=== PATIENT | female | born 1985 | race Caucasian/White ===

== ENCOUNTER → 2019-12-31 | Outpatient (CLI) | payer OTHER, SELFPAY ==
[2019-12-31 14:04] VITALS: BMI 24.2
[2020-01-03 11:30] LABS: HPV APTIMA, High Risk Negative (Negative)
--- OUTSIDE RECORDS SUMMARY | 2020-05-18 06:05 | XMS RPT_ITS | CCD ---
:1985 External Reference #:[id number] Author Organization [facility] Care Team Providers Name Role Phone Quinton Pacheco Unavailable Allergies Reported Allergen Reaction(s) Severity Date of Onset Location FENTANYL-BUPIVACAINE rash Critical, Critical 03-28-2017 - [facility] ([id number]) Medications Medication Name Sig Date Prescriber Location cyclobenzaprine FLEXERIL 5 MG TABS One 04-28-2010 - Hakan Scanlon MD [facility] tablet by mouth three 03-28-2017 (23093 ) times daily CYCLOBENZAPRINE HCL [id number] Hakan Scanlon MD naproxen NAPROXEN DR [address] [facility] 04-28-2010 - Hakan Scanlon MD [facility] One tablet by mouth 03-28-2017 (48249) twice daily. NAPROXEN [id number] Hakan Scanlon MD Problems Active Problems Category Problem Name Status Date Location Acute and chronic tonsillitis Amygdalolith Active 03-28-2017 [facility] (22155) Past or Other Problems Category Problem Name Status Date Location Other upper respiratory Pharyngitis Completed 03-28-2017 [facility] infections (39644) Sprains and strains Low back strain Completed 04-28-2010 [facility] N ow Clinic (36210) Results Result Name Value Range Unit Interpretation Flag Date Location microbiology: culture, r/o strep a on 2017-03-31 GE use only - for . Invalid Interpretation 03-31-2017 [facility] LinkLogic import Code 03-31-2017 (4 2483) when terms are not otherwise specified microbiology: (p) culture, r/o strep a on 2017-03-30 CUSTREPA . 03-30-2016 - 03-30-2 017 [facility] (11225) office visit: uc: pharyngitis, tonsillol ith on 2017-03-28 Documentation of T Invalid 03-28-2017 - [facility] Now current medications Interpretation Code 03-28-2017 Clinic (procedure) (72325) Documentation of Done Invalid 03-28-2017 - [facility] Now current medications Interpretation Code 03-28-2017 Clinic (procedure) (65375) Fall risk No Invalid 03-28-2017 - [facility] Now assessment Interpretation Code 7 Clinic (72987) Protein mass conc Done 03-28-2017 - [facility] Now 03-28-2017 Clinic (71870) Protein mass conc T 03-28-2017 - [facility] Now 03-28-2017 Clinic (17624) Rapid strep test negative Invalid 03-28-2017 - [facility] Now Interpretation Code 03-28-2017 Clinic (02934) S. pyogenes DNA negative 03-28-2017 - [facility] Now YANELI+probe Ql 03-28-2017 Clinic (Throat) (38273) Tobacco smoking Current every 03-28-2017 - [facility] Now status NHIS day smoker 03-28-2017 Clinic (73618) Tobacco use CPHS Current every Invalid 7 - [facility] Now day smoker Interpretation Code 7 Clinic (39673) Vital Signs Vital Sign Description Value / Unit Date Location The following section is limited to 5 en tries per type and includes entries from the following time range: [id number] - [id number] 8. BMI (Body Mass Index) 22.52 kg/m2 03-28-2017 - 03-28-2017 [facility] Now [facility] (00904) Body Temperature 98.8 [degF] 03-28-2017 - 03-28-2017 [facility] Now Clinic (30826) BP Diastolic 78 mm[Hg] 03-28-2017 - 03-28-2017 [facility] Now Clinic (16164) BP Systolic 112 mm[Hg] 03-28-2017 - 03-28-2017 [facility] Now Clinic (97202) Height 162.56 cm 03-28-2017 - 03-28-2017 [facility] Now Clinic (41729) Pulse (Heart Rate) 96 /min 03-28-2017 - 03-28-2017 [facility] N ow Clinic (47544) Respiratory Rate 14 /min 03-28-2017 - 03-28-2017 [facility] Now Clinic (21515) Weight 59.51 kg 03-28-2017 - 03-28-2017 [facility] Now Clinic (14300) Procedures Procedure Name Date Provider Location Iaadiadoo streptococcus 03-28-2017 - Wade MCKEON [facility] No w Clinic (10442) group a 03-28-2017 Rapid strep test 03-28-2017 - Wade MCKEON [facility] Now Clini c (57373) 03-28-2017 Urinalysis nonauto w/o 03-28-2017 - Wade MCKEON [facility] Now Clinic (89727) scope 03-28-2017 Plan of Treatment Plan Description Date Location Appointment Appointment 04-15-2017 - [facility] Now Clinic 04-15-2017 (51104) Appointment Appointment 03-28-2017 - [facility] 03-28-2017 (32538) *Culture, R/O Strep A *Culture, R/O Strep A 03-28-2017 - [facility] Swab Swab 03-28-2017 (16897) Additional Source Comments FOR RECORDS PERTAINING TO PATIENTS WHO ARE OR HAVE BEEN ENROLLED IN A CHEMICAL DEPENDENCY/SUBSTANCE ABUSE PROGRAM, SOME INFORMATION MAY BE OMITTED. This clinical summary was aggregated from multiple sources. Caution should be exercised in using it in the provision of clinical care. This summary normalizes information from multiple sources, and as a consequence, information in this document may materially changethe coding, format and clinical context of patient data. In addition, data may be omittedin some cases. CLINICAL DECISIONS SHOULD BE BASED ON THE PRIMARY CLINICAL RECORDS. [facility] provides no warranty or guarantee of the accuracy or completeness of information in this document.
== END | disposition home or self-care (01) ==
PROVIDERS: PCP Family Medicine; Visit Provider Nurse Practitioner Women's Health
DX: Z12.4 Encounter for screening for malignant neoplasm of cervix (principal)
CPT/HCPCS: 87624; 88175; G0145

== ENCOUNTER → 2021-04-02 | Outpatient (CLI) | payer BC, SELFPAY | END | disposition home or self-care (01) | LOC: LABSPEC 12:39 | PROVIDERS: Visit Provider Physician Assistant | DX: R05 Cough (principal) | CPT/HCPCS: 87635; U0005; U0003 ==

== ENCOUNTER → 2021-05-12 12:29 | Outpatient (CLI) | payer BC, MEDICAID, SELFPAY ==
[2021-05-12 13:11] LABS: Absolute Lymphocyte Count 1.63 X10^3/uL (0.83-4.51); Absolute Neutrophil Count 2.2 X10^3/uL (2.0-7.7); Basophil# 0.05 X10^3/uL; Basophil% 1.2 % (0-1); Eosinophil# 0.08 X10^3/uL; Eosinophils% 1.9 % (0-5); Hematocrit 37.6 % (37-47); Hemoglobin 12.8 g/dL (12.0-15.0); Lymphocyte # 1.63 X10^3/ul (0.83-4.51); Lymphocyte % 38.2 % (19-41); Mean Corpuscular Hgb 28.4 pg (27.0-32.0); Mean Corpuscular Volume 83.4 fL (81-99); Mean Platelet Vol. 10.4 fl (6.2-12.0); Monocyte# 0.33 X10^3/uL; Monocyte% 7.7 % (0-10); NRBC Flagged by Analyzer 0 % (0-5); Neutrophil # 2.17 X10^3/uL (2.7-7.7); Neutrophil % 50.8 % (47-70); Platelet Count 258 K/mm3 (150-450); RBC Distribution Width CV 12.7 % (11.6-14.6); RBC Distribution Width SD 38.5 fl (35.1-43.9); Red Blood Count 4.51 M/mm3 (4.2-5.4); White Blood Count 4.3 K/mm3 (4.4-11.0)
[2021-05-12 13:58] LABS: Vitamin D,25 Hydroxy 24.2 ng/mL
[2021-05-12 14:06] LABS: ALB/GLOB Ratio 1.3 RATIO (0.9-2.4); AST(SGOT) 10 U/L (15-37); Alanine Aminotransfer ALT/SGPT 15 U/L (13-56); Albumin, Serum 4.2 g/dL (3.2-5.0); Alkaline Phosphatase 40 U/L (45-117); Anion Gap 9 (5-15); BUN 6 mg/dL (7-18); BUN/Creat Ratio 8.1 RATIO (10-20); Chloride 105 mmol/L (98-107); Creatinine, Serum 0.74 mg/dL (0.55-1.02); EST Glomerular Filtration Rate 95 mL/min (>60); Est Glom Filt Rate - Afr Amer 115 mL/min (>60); Globulin 3.3 g/dL (2.2-4.2); Glucose 94 mg/dL (74-106); Potassium 3.5 mmol/L (3.5-5.1); Protein, Total 7.5 g/dL (6.4-8.2); Sodium Level 140 mmol/L (136-145); Thyroid Stim Hormone (TSH) 3.45 uIU/mL (0.358-3.74)
== END ==
PROVIDERS: PCP Family Medicine; Referring Provider Physician Assistant; Visit Provider Physician Assistant
DX: Z01.419 Encounter for gynecological examination (general) (routine) without abnormal findings (principal); Z13.29 Encounter for screening for other suspected endocrine disorder; F32.A Depression, unspecified; F41.9 Anxiety disorder, unspecified; R63.4 Abnormal weight loss; Z87.42 Personal history of other diseases of the female genital tract
CPT/HCPCS: 36415; 80053; 82306; 84443; 85025

== ENCOUNTER → 2022-05-13 | Outpatient (CLI) | payer BC, SELFPAY ==
[2022-05-23 15:44] LABS: HPV APTIMA, High Risk Negative (Negative)
== END | disposition home or self-care (01) ==
LOC: LABSPEC 16:36
PROVIDERS: PCP Family Medicine; Visit Provider Obstetrics & Gynecology
DX: Z12.4 Encounter for screening for malignant neoplasm of cervix (principal)
CPT/HCPCS: 87624; 88175; G0145

== ENCOUNTER → 2022-05-31 | Outpatient (CLI) | payer BC, MEDICAID, SELFPAY ==
--- NOTE | 2022-05-31 13:18 | US_ITS ---
STUDY: ULTRASOUND OF THE FEMALE PELVIS - COMPLETE REASON FOR EXAM: Female, 37 years old. abnormal uterine bleeding -- h/o uterine polyps LMP: TECHNIQUE: Transabdominal and transvaginal TECHNICAL QUALITY: Adequate. COMPARISON: None. FINDINGS: The uterus is anteverted and is in a midline position. The uterus measures 9.9 x 5 . 4 x 4 0.1 cm. Normal uterine cervix. The endometrium measures 6.7 mm in thickness, and is hyperechoic. There is no demonstrated endometrial mass. There is a heterogeneous appearance of the myometrium but no well-defined intrauterine fibroid. I.U.D. - The patient does not have an I.U.D. The right ovary is visualized. The right ovary measures 2.1 x 2.6 x 1.8 cm. There is no right ovarian cyst or ovarian mass. There is no visualized right adnexal mass or complex lesion. There is normal arterial and normal venous vascularity. The left ovary is visualized. The left ovary measures 2.3 x 2 x 1.9 cm. There is no left ovarian cyst or ovarian mass. There is no visualized left adnexal mass or complex lesion. There is normal arterial and normal venous vascularity. There is no fluid in the cul-de-sac. US/Transvaginal Non- IMPRESSION: Heterogeneous appearance to the uterus but no well-defined intrauterine fibroids. Electronically Signed: Stephen Cabral MD at 22:28 EDT ,
--- NOTE | 2022-05-31 13:18 | US_ITS ---
STUDY: ULTRASOUND OF THE FEMALE PELVIS - COMPLETE REASON FOR EXAM: Female, 37 years old. abnormal uterine bleeding -- h/o uterine polyps LMP: TECHNIQUE: Transabdominal and transvaginal TECHNICAL QUALITY: Adequate. COMPARISON: None. FINDINGS: The uterus is anteverted and is in a midline position. The uterus measures 9.9 x 5 . 4 x 4 0.1 cm. Normal uterine cervix. The endometrium measures 6.7 mm in thickness, and is hyperechoic. There is no demonstrated endometrial mass. There is a heterogeneous appearance of the myometrium but no well-defined intrauterine fibroid. I.U.D. - The patient does not have an I.U.D. The right ovary is visualized. The right ovary measures 2.1 x 2.6 x 1.8 cm. There is no right ovarian cyst or ovarian mass. There is no visualized right adnexal mass or complex lesion. There is normal arterial and normal venous vascularity. The left ovary is visualized. The left ovary measures 2.3 x 2 x 1.9 cm. There is no left ovarian cyst or ovarian mass. There is no visualized left adnexal mass or complex lesion. There is normal arterial and normal venous vascularity. There is no fluid in the cul-de-sac. US/Pelvic (Non ) IMPRESSION: Heterogeneous appearance to the uterus but no well-defined intrauterine fibroids. Electronically Signed: Stephen Cabral MD at 22:28 EDT ,
--- NOTE | 2022-05-31 13:18 | BI_ITS ---
MAMMOGRAPHY - BILATERAL SCREENING REASON FOR EXAM: Female, 37 years old. Routine annual screening examination. PERTINENT HISTORY: Aunts with breast cancer. TECHNIQUE: Digital bilateral breast tremaine (3D mammographic acquisition) in the CC and MLO projections. 2-D mediolateral oblique (MLO) and craniocaudad (CC) views of both breasts were obtained. CAD: Full Field Digital Mammography with Computer Added Detection was performed. COMPARISON: None. Baseline examination. FINDINGS: Breast Composition: There are scattered areas of fibroglandular density. There are no dominant masses or suspicious calcifications. No other significant abnormalities are identified. There has been no significant change since the prior study. BI/SCRN MAMM (CAD)W/TREMAINE BILAT IMPRESSION: Stable bilateral screening mammogram. Yearly follow-up mammogram recommended. (A) ASSESSMENT CATEGORY: BIRADS Category 1: Negative. A letter regarding these results will be sent to the patient by the facility within 30 days. Approximately 10% of breast cancers are not detected by mammography. A normal mammogram should not delay biopsy of a clinically suspicious abnormality. [id number] Electronically Signed: Christian Henry MD at 14:27 EDT ,
== END | disposition home or self-care (01) ==
LOC: OPUS 13:15
PROVIDERS: PCP Family Medicine; Visit Provider Obstetrics & Gynecology
DX: N93.9 Abnormal uterine and vaginal bleeding, unspecified (principal); Z12.31 Encounter for screening mammogram for malignant neoplasm of breast; Z80.3 Family history of malignant neoplasm of breast
CPT/HCPCS: 76830; 76856; 77063; 77067

== ENCOUNTER → 2022-06-01 | Outpatient (CLI) | payer BC, MEDICAID, SELFPAY ==
[2022-06-01 11:34] LABS: Estradiol 44.3 pg/mL; Follicle Stimulating Hormone 7.4 mIU/mL; Luteinizing Hormone 3.5 mIU/mL; T4 Free Direct 0.93 ng/dL (0.76-1.46); Thyroid Stim Hormone (TSH) 2.32 uIU/mL (0.358-3.74)
== END | disposition home or self-care (01) ==
PROVIDERS: PCP Family Medicine; Referring Provider Obstetrics & Gynecology; Visit Provider Obstetrics & Gynecology
DX: N93.9 Abnormal uterine and vaginal bleeding, unspecified (principal); R68.82 Decreased libido
CPT/HCPCS: 36415; 82670; 83001; 83002; 84439; 84443

== ENCOUNTER → 2022-08-27 | Outpatient (CLI) | payer BC, MEDICAID, SELFPAY | END | disposition home or self-care (01) | PROVIDERS: PCP Family Medicine; Visit Provider Family Medicine | DX: R39.9 Unspecified symptoms and signs involving the genitourinary system (principal) | CPT/HCPCS: 87086; 87088 ==

== ENCOUNTER → 2023-03-02 | Outpatient (CLI) | payer BC, SELFPAY ==
[2023-03-06 08:08] LABS: Chlamydia By Nucleic Acid AMP Negative (Negative); Gonococcus By Nucleic Acid AMP Negative (Negative)
== END | disposition home or self-care (01) ==
PROVIDERS: PCP Family Medicine; Visit Provider Nurse Practitioner Women's Health
DX: Z11.3 Encounter for screening for infections with a predominantly sexual mode of transmission (principal)
CPT/HCPCS: 87491; 87591

== ENCOUNTER → 2023-06-07 | Outpatient (CLI) | payer BC, MEDICAID, SELFPAY ==
--- NOTE | 2023-06-07 13:06 | BI_ITS ---
MAMMOGRAPHY - BILATERAL SCREENING REASON FOR EXAM: Female, 38 years old. Routine annual screening examination. PERTINENT HISTORY: Aunts with breast cancer. TECHNIQUE: Digital bilateral breast tremaine (3D mammographic acquisition) in the CC and MLO projections. 2-D mediolateral oblique (MLO) and craniocaudad (CC) views of both breasts were obtained. CAD: Full Field Digital Mammography with Computer Added Detection was performed. COMPARISON: Comparison is made with prior study of May 31, 2022. FINDINGS: Breast Composition: There are scattered areas of fibroglandular density. There are no dominant masses or suspicious calcifications. No other significant abnormalities are identified. There has been no significant change since the prior study. BI/SCRN MAMM (CAD)W/TREMAINE BILAT IMPRESSION: Stable bilateral screening mammogram. Yearly follow-up mammogram recommended. (A) ASSESSMENT CATEGORY: BIRADS Category 1: Negative. A letter regarding these results will be sent to the patient by the facility within 30 days. Approximately 10% of breast cancers are not detected by mammography. A normal mammogram should not delay biopsy of a clinically suspicious abnormality. [id number] Electronically Signed: Christian Henry MD at 13:49 EST ,
== END | disposition home or self-care (01) ==
LOC: OPBI 13:04
PROVIDERS: PCP Family Medicine; Referring Provider Obstetrics & Gynecology; Visit Provider Obstetrics & Gynecology
DX: Z12.31 Encounter for screening mammogram for malignant neoplasm of breast (principal)
CPT/HCPCS: 77063; 77067

== ENCOUNTER → 2023-07-18 | Outpatient (CLI) | payer BC, MEDICAID, SELFPAY ==
--- NOTE | 2023-07-18 13:15 | LIP_PTH ---
PATIENT: LILY BALDWIN LOC: [facility] U#:[id number] AGE/SX: 38/F ROOM: RE07/18/[address]: Dr. Darcy Klein MD : 1985 BED: DIS: 07/18/2023 SPEC #: [id number] RECD: 07/18/23 16:19 STATUS: KOMAL REQ #: [id number] AKSHAT: 07/18/23 13:[address]: Darcy Klein DEPT: SURGICAL PATHOLOGY RECD BY: Vannesa Fraga ENTERED: 07/19/23 08:57 SP TYPE: LIPOMA OTHR DR: Dr. Damion Wright MD Tissues: Soft tissues, NOS Procedures: Surgery Specimen Level III HEADER OPERATION: Excision of lipoma right thigh PRE-OP DIAGNOSIS: Lipoma right thigh TISSUE SUBMITTED: Right thigh lipoma MICROSCOPIC DIAGNOSIS Right thigh lipoma, excision: Angiolipoma. SJ:vicenta 07/20/2023 MICROSCOPIC DESCRIPTION Slides are reviewed. GROSS DESCRIPTION Received in fixative is one container labeled with the patient's name and designated right thigh lipoma. The specimen consists of an ovoid piece of adipose tissue measuring 1.2 x 1.2 x 0.7 cm. Sections reveal yellow adipose cut surfaces without area of hemorrhage, necrosis or cystic degeneration. The entire specimen is submitted in one cassette. / SJ:rg 07/19/2023 TC:1 CPT: 86755
== END | disposition home or self-care (01) ==
PROVIDERS: PCP Family Medicine; Visit Provider Surgery
DX: D17.23 Benign lipomatous neoplasm of skin and subcutaneous tissue of right leg (principal)
CPT/HCPCS: 88304

== ENCOUNTER → 2023-10-20 | Outpatient (CLI) | payer BC, MEDICAID, SELFPAY ==
--- NOTE | 2023-10-20 15:45 | RAD_ITS ---
INDICATION: KNEE SWELLING EXAMINATION/TECHNIQUE: X-RAY - RIGHT XR Knee Complete 4 Views or More COMPARISON: None. FINDINGS: SOFT TISSUES: No significant soft tissue swelling. Suprapatellar joint effusion noted. No radiopaque foreign body detected. BONES/JOINTS: No acute fracture or subluxation. Normal alignment. Preservation of the joint space(s). No suspicious osseous lesion observed. RAD/Knee 4 or More Views IMPRESSION: Right suprapatellar joint effusion Electronically Signed: Oscar Rivas MD at 22:56 EDT ,
[2023-10-20 17:42] LABS: Absolute Lymphocyte Count 1.94 X10^3/uL (0.83-4.51); Absolute Neutrophil Count 4.2 X10^3/uL (2.0-7.7); Basophil# 0.06 X10^3/uL; Basophil% 0.8 % (0-1); Eosinophil# 0.32 X10^3/uL; Eosinophils% 4.5 % (0-5); Hematocrit 37.7 % (37-47); Hemoglobin 11.9 g/dL (12.0-15.0); Lymphocyte # 1.94 X10^3/ul (0.83-4.51); Lymphocyte % 27.5 % (19-41); Mean Corp Hgb Conc 31.6 g/dL (32-36); Mean Corpuscular Hgb 26.6 pg (27.0-32.0); Mean Corpuscular Volume 84.2 fL (81-99); Mean Platelet Vol. 9.6 fl (6.2-12.0); Monocyte# 0.53 X10^3/uL; Monocyte% 7.5 % (0-10); NRBC Flagged by Analyzer 0 % (0-5); Neutrophil % 59.6 % (47-70); Platelet Count 366 K/mm3 (150-450); RBC Distribution Width CV 12.9 % (11.6-14.6); RBC Distribution Width SD 39.1 fl (35.1-43.9); Red Blood Count 4.48 M/mm3 (4.2-5.4); White Blood Count 7.1 K/mm3 (4.4-11.0)
[2023-10-20 17:49] LABS: Uric Acid 3.1 mg/dL (2.6-6.0)
== END | disposition home or self-care (01) ==
LOC: MTLAB 15:41
PROVIDERS: PCP Family Medicine; Referring Provider Family Medicine; Visit Provider Family Medicine
DX: M25.461 Effusion, right knee (principal)
CPT/HCPCS: 36415; 73564; 84550; 85025

== ENCOUNTER → 2024-03-21 | Outpatient (CLI) | payer OTHER, SELFPAY ==
[2024-03-21 15:20] LABS: Erythrocyte Sedimentation Rate 5 mm/hr (0-30)
[2024-03-21 15:23] LABS: Absolute Lymphocyte Count 1.97 X10^3/uL (0.83-4.51); Basophil# 0.05 X10^3/uL; Basophil% 0.9 % (0-1); Eosinophil# 0.24 X10^3/uL; Eosinophils% 4.2 % (0-5); Hemoglobin 12.5 g/dL (12.0-15.0); Lymphocyte # 1.97 X10^3/ul (0.83-4.51); Lymphocyte % 34.5 % (19-41); Mean Corp Hgb Conc 32.9 g/dL (32-36); Mean Corpuscular Hgb 26.8 pg (27.0-32.0); Mean Corpuscular Volume 81.4 fL (81-99); Mean Platelet Vol. 10.7 fl (6.2-12.0); Monocyte# 0.42 X10^3/uL; Monocyte% 7.4 % (0-10); NRBC Flagged by Analyzer 0 % (0-5); Neutrophil # 3.02 X10^3/uL (2.7-7.7); Neutrophil % 52.8 % (47-70); Platelet Count 339 K/mm3 (150-450); RBC Distribution Width CV 13.4 % (11.6-14.6); RBC Distribution Width SD 39.2 fl (35.1-43.9); Red Blood Count 4.67 M/mm3 (4.2-5.4); White Blood Count 5.7 K/mm3 (4.4-11.0)
[2024-03-21 15:59] LABS: CRP < 2.90 mg/L (0.0-3.0); Rheumatoid Factor < 10.0 IU/mL (<15); Uric Acid 4.1 mg/dL (2.6-6.0)
[2024-03-23 11:09] LABS: ANTINUCLEAR ANTIBODIES DIRECT Negative (Negative)
[2024-03-23 14:09] LABS: CCP IgG Antibodies 3 units (0-19); Lyme Scn Total Ab w/Rflx Negative (Negative)
== END | disposition home or self-care (01) ==
PROVIDERS: PCP Family Medicine; Referring Provider Physician Assistant Surgical; Visit Provider Physician Assistant Surgical
DX: M25.461 Effusion, right knee (principal); M17.11 Unilateral primary osteoarthritis, right knee
CPT/HCPCS: 36415; 84550; 85025; 85652; 86038; 86140; 86200; 86431; 86618

== ENCOUNTER 2024-09-16 13:47 | Emergency (ER) | payer MEDICAID, SELFPAY ==
[2024-09-16 13:47] VITALS: BP 149/72; PULSE 79; RESP 16; TEMP 36.8; O2SAT 99; BMI 23.8
--- NOTE | 2024-09-16 13:56 | ED.RN ---
Pt injury happened at work but pt declines filing worker's comp.
--- NOTE | 2024-09-16 14:05 | RAD_ITS ---
PROCEDURE: ANKLE MIN 3 VIEWS REASON FOR EXAM: 39-year-old female, dropped object onto left ankle, left ankle pain. TECHNIQUE: 3 views of the left ankle COMPARISON: None FINDINGS: No visible fracture. No suspicious bone lesion. Normal alignment. Mortise appears intact. No effusion. Soft tissues are unremarkable. No radiopaque foreign body. RAD/Ankle min 3 Views IMPRESSION: NEGATIVE ANKLE SERIES Reading Location: [id number]
--- NOTE | 2024-09-16 14:07 | EDS_ITS ---
HPI History of Present Illness Chief Complaint: Lower Extremity Injury Informant: patient Narrative Narrative: 39-year-old female presenting to the emergency room with left lateral ankle pain. 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 She notes she is able to bear weight but not her full weight. She is worried that it may be broken. [facility] PFS Medical History ADHD Mass of left forearm Contusion of left upper arm Anxiety and depression Anemia Endometriosis determined by laparoscopy Home Medications ?Medication ?Instructions ?Recorded ?Last Taken ?Type norethindrone (contraceptive) 0.35 0.35 mg PO QDAY #90 tabs 05/21/24 Unknown Rx mg tablet Allergy/AdvReac Type Severity Reaction Status Date / Time fentanyl AdvReac Hives Verified 09/16/24 13:48 Family History Aunt Breast cancer x2 Surgical History [place] teeth extracted H/O dilation and curettage Hematoma delivery delivered H/O tubal ligation Social History adopted: No number of children: 3 current occupational status: unemployed Smoking Status: Former smoker alcohol intake: never substance use type: does not use caffeine: Yes what type of physical activity do you participate in: walking frequency: 1-2 times per week seatbelt use: always do you feel safe at home: Yes additional social history: ROS ROS ED Constitutional Constitutional ED: Denies chills, fever(s) or weight loss Eyes Eyes: Denies change in vision or diplopia ENT ENT ED: Denies ear pain, rhinorrhea or sore throat Cardiovascular Cardiovascular: Denies chest pain, orthopnea, palpitations or racing heartbeat Respiratory/Chest Respiratory/Chest: Denies cough, dyspnea or orthopnea Gastrointestinal Gastrointestinal: Denies abdominal pain, diarrhea, nausea or vomiting Genitourinary Genitourinary ED: Denies dysuria, hematuria or urinary frequency Musculoskeletal Musculoskeletal: Reports other Details: See history of present illness ; Denies arthralgias or myalgias Integumentary Denies abscess or rash Neurologic Neurologic: Denies headache(s) or weakness Psychiatric Psychiatric: Denies anxiety, depression, suicidal ideation or suicidal thoughts Endocrine Endocrinology: Denies polydipsia, polyphagia or polyuria Allergic/Immunologic Allergic/Immunologic ED: Denies mouth swelling, tongue swelling or urticaria EXAM Physical Exam Const Vital Signs: 09/16/24 13:47 09/16/24 14:30 Temperature 98.2 F 98.1 F Temperature Source Oral Pulse Rate 79 74 Respiratory Rate 16 15 Blood Pressure 149/72 H 109/67 Blood Pressure Mean 97 81 Pulse Ox 99 99 Positive well nourished and well developed General Appearance ED: well developed and NAD HEENT Reports normocephalic, head/scalp atraumatic and moist mucous membranes Eyes PERRL and EOMs intact bilaterally Neck no lymphadenopathy, supple and no JVD Resp normal respiratory effort and clear to auscultation bilaterally Cardio regular rate, regular rhythm and no murmurs GI normal to inspection, nondistended, normoactive bowel sounds and non-tender Palpation: soft Back/Spine no CVA tenderness and normal ROM Extremity Extremity Narrative: There is some swelling and ecchymosis over the left lateral malleolus with tenderness to palpation. No palpable deformity. Neurovascular intact. General Extremety ED: Negative for edema General Extremity: Negative for edema Neuro oriented x3 and CN's II-XII intact bilaterally Sensorium / Orientation: alert Motor Exam: strength 5/5 throughout Psych mental status grossly normal Mood & Affect: Negative for depressed or tearful Skin no rashes or lesions noted and no wounds MDM MDM MDM Narrative Medical decision making narrative: Differential diagnosis includes but not limited to fracture bone contusion soft tissue contusion neurovascular injury tendon injury My independent interpretation of the plain films of the left ankle is no acute fracture. Radiology concurs. Patient be discharged home with supportive care return if worsening or concerns History & Record Review Discussion w/independent historian: Patient Radiography Diagnostic Testing: Clinical Impression(s) from Imaging Studies Ankle X-Ray 09/16/24 14:05 IMPRESSION: NEGATIVE ANKLE SERIES Reading Location: [facility] Discharge Plan Triage Chief Complaint: Lower Extremity Injury ED Provider: Joe Kasper Dx/Rx/DC Orders Clinical Impression: Contusion of bone Instructions: Bruises (Contusions) Prescriptions: No Action norethindrone (contraceptive) 0.35 mg tablet 0.35 mg PO QDAY Qty: 90 4RF Primary Care Provider: Damion Wright Referrals: Damion Wright MD [Primary Care Provider] - As Needed Print Language: Slovenian Disposition Disposition: Home, Self Care Discharge Date/Time: 09/16/24 14:30
[2024-09-16 14:30] VITALS: BP 109/67; PULSE 74; RESP 15; TEMP 36.7; O2SAT 99
== END 2024-09-16 14:30 | disposition home or self-care (01) ==
LOC: ED 14:28
PROVIDERS: Emergency Provider Emergency Medicine; PCP Family Medicine; Visit Provider Emergency Medicine
DX: T14.8XXA Other injury of unspecified body region, initial encounter (principal); M25.572 Pain in left ankle and joints of left foot; Z87.891 Personal history of nicotine dependence; X58.XXXA Exposure to other specified factors, initial encounter
CPT/HCPCS: 73610; 99282

== ENCOUNTER → 2024-09-28 | Outpatient (CLI) | payer MEDICAID, SELFPAY ==
--- NOTE | 2024-09-28 10:14 | BI_ITS ---
PROCEDURE: SCRN MAMM (CAD)W/TREMAINE BILAT REASON FOR EXAM: F, Age 39 y/o, presents for annual screening mammogram. Family history of breast cancer in 3 paternal aunts and a paternal great aunt. TECHNIQUE: Bilateral screening digital breast tomosynthesis with 2D and 3D images. Computer aided detection. COMPARISON: 06/07/2023, 05/31/2022 FINDINGS: There are scattered areas of fibroglandular density. No suspicious masses, areas of developing architectural distortion, or suspicious calcifications. BI/SCRN MAMM (CAD)W/TREMAINE BILAT IMPRESSION: There is no mammographic evidence of malignancy. BI-RADS 1: NEGATIVE. RECOMMEND ANNUAL MAMMOGRAPHIC SCREENING. Follow-up code: Routine Follow-up The patient will be notified of the results by letter. Reading Location: [facility]
== END | disposition home or self-care (01) ==
PROVIDERS: PCP Family Medicine; Referring Provider Obstetrics & Gynecology; Visit Provider Obstetrics & Gynecology
DX: Z12.31 Encounter for screening mammogram for malignant neoplasm of breast (principal)
CPT/HCPCS: 77063; 77067

== ENCOUNTER → 2024-10-02 | Outpatient (CLI) | payer MEDICAID, SELFPAY ==
--- NOTE | 2024-10-02 08:58 | US_ITS ---
PROCEDURE: PELVIC W/ TRANSVAGINAL REASON FOR EXAM: Abnormal uterine bleeding. TECHNIQUE: Transabdominal and transvaginal pelvic ultrasound COMPARISON: None. FINDINGS: LMP: September 25, 2024 Measurements: Uterus: 9.9 cm x 5.1 cm x 4 cm with a volume of 114.4 mL Endometrial Thickness: 8.9 mm Right Ovary: 2.7 cm x 2.2 cm x 1.6 with a volume of 4.94 mL. Left Ovary: 2.9 cm x 2 cm x 1.9 cm with a volume of 5.95 mL. TRANSABDOMINAL: Uterus: Normal size, myometrial echotexture, and contour. Findings suggestive of a 5 mm x 5 mm x 3 mm polyp at the cervical os. Endometrium: Unremarkable. Right ovary: Normal size and echotexture. Left ovary: Normal size and echotexture. No large pelvic mass identified. Transvaginal sonography was performed to better visualize the endometrium. TRANSVAGINAL: Uterus: Anteverted. Normal contour and myometrial echotexture. Endometrium: Normal echotexture. Right ovary: Normal size and echotexture. Left ovary: Normal size and echotexture. Other adnexal findings: None. Cul-de-sac: No free intraperitoneal fluid identified. No tenderness. US/Pelvic w/ Transvaginal IMPRESSION: Findings suggestive of a 5 mm x 5 mm x 3 mm polyp at the cervical os. Reading Location: [id number]
== END | disposition home or self-care (01) ==
PROVIDERS: PCP Family Medicine; Referring Provider Obstetrics & Gynecology; Visit Provider Obstetrics & Gynecology
DX: N93.9 Abnormal uterine and vaginal bleeding, unspecified (principal)
CPT/HCPCS: 76830; 76856

== ENCOUNTER → 2024-10-03 | Outpatient (CLI) | payer MEDICAID, SELFPAY | END | disposition home or self-care (01) | LOC: LABSPEC 10:44 | PROVIDERS: PCP Family Medicine; Referring Provider Nurse Practitioner Women's Health; Visit Provider Nurse Practitioner Women's Health | DX: N89.8 Other specified noninflammatory disorders of vagina (principal) | CPT/HCPCS: 87070; 87205 ==

== ENCOUNTER → 2024-10-18 | Outpatient (CLI) | payer MEDICAID, SELFPAY ==
--- NOTE | 2024-10-18 12:00 | EMB_PTH ---
PATIENT: LILY BALDWIN LOC: [facility] U#:[id number] AGE/SX: 39/F ROOM: RE10/18/[address]: Dr. Laureen Hernandez DO : 1985 BED: DIS: 10/18/2024 SPEC #: [id number] RECD: 10/19/24 10:05 STATUS: KOMAL PRO #: [id number] AKSHAT: 10/18/24 12:[address]: Laureen Hernandez DEPT: SURGICAL PATHOLOGY RECD BY: Rell Reyes ENTERED: 10/19/24 10:05 SP TYPE: ENDOM BX/C ANN DR: Dr. Damion Wright MD Tissues: A - Endometrium, NOS Procedures: Surgery Specimen Level IV HEADER OPERATION: Endometrial biopsy PRE-OP DIAGNOSIS: Abnormal uterine bleeding TISSUE SUBMITTED: A- Endometrial lining MICROSCOPIC DIAGNOSIS Endometrial biopsy: Menstrual and basal (inactive) endometriumFragment of squamous epitheliumCharisma Elizabeth MD, 10/24/2024 MICROSCOPIC DESCRIPTION Slides are reviewed. GROSS DESCRIPTION A. Received in fixative is one container labeled with the patient's name and designated Endometrial biopsy. The specimen consists of multiple fragments of brown tissue that measures 2.5 x 1.4 x 0.1cm. The specimen is totally submitted in one cassette. 10/19/2024 CPT:12213 , TC:4
== END | disposition home or self-care (01) ==
LOC: LABSPEC 16:19
PROVIDERS: PCP Family Medicine; Referring Provider Obstetrics & Gynecology; Visit Provider Obstetrics & Gynecology
DX: N89.8 Other specified noninflammatory disorders of vagina (principal)
CPT/HCPCS: 87070; 87205; 88305

== ENCOUNTER → 2024-11-16 | Outpatient (CLI) | payer MEDICAID, SELFPAY | END | disposition home or self-care (01) | LOC: LABSPEC 11:46 | PROVIDERS: PCP Family Medicine; Referring Provider Obstetrics & Gynecology; Visit Provider Obstetrics & Gynecology | DX: R30.0 Dysuria (principal) | CPT/HCPCS: 87077; 87086; 87088 ==

== ENCOUNTER 2024-11-20 11:57 | Day surgery (SDC) | payer MEDICAID, SELFPAY ==
[2024-11-05 12:44] LABS: Hematocrit 36.5 % (37-47); Hemoglobin 11.8 g/dL (12.0-15.0); Mean Corp Hgb Conc 32.3 g/dL (32-36); Mean Corpuscular Hgb 26.5 pg (27.0-32.0); Mean Corpuscular Volume 81.8 fL (81-99); Mean Platelet Vol. 9.1 fl (6.2-12.0); Platelet Count 327 K/mm3 (150-450); RBC Distribution Width CV 13.1 % (11.6-14.6); RBC Distribution Width SD 38.8 fl (35.1-43.9); Red Blood Count 4.46 M/mm3 (4.2-5.4); White Blood Count 5.4 K/mm3 (4.4-11.0)
[2024-11-05 13:28] LABS: Vitamin D,25 Hydroxy 23.9 ng/mL (30-100)
[2024-11-20] VITALS (7 sets, daily range): BP systolic 90–110; BP diastolic 49–80; PULSE 53–65; RESP 12–18; TEMP 36.3–36.7; O2SAT 99–100; BMI 23.9
--- NOTE | 2024-11-20 12:16 | HP.PCM_ITS ---
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: No Is patient in pain?: No Allergies fentanyl Adverse Reaction (Verified 11/05/24 11:58) Hives Medications ?Medication ?Instructions ?Recorded ?Confirmed ?Type norethindrone (contraceptive) 0.35 0.35 mg PO QDAY #90 tabs 05/21/24 Rx mg tablet fluconazole 150 mg tablet 150 mg PO ONCE #1 TAB 11/05/24 11/05/24 Rx Post menopausal: No Patient : No : No PFSH Medical History ADHD Mass of left forearm Contusion of left upper arm Anxiety and depression Anemia Endometriosis determined by laparoscopy Surgical History [place] teeth extracted H/O dilation and curettage Hematoma delivery delivered H/O tubal ligation Family History Aunt Breast cancer x2 Social History adopted: No number of children: 3 current occupational status: unemployed Smoking Status: Former smoker alcohol intake: never substance use type: does not use caffeine: Yes what type of physical activity do you participate in: walking frequency: 1-2 times per week seatbelt use: always do you feel safe at home: Yes additional social history: HPI D&C polypectomy Details: LILY BALDWIN is a 39 year old who presents for a pre-op hysteroscopy. She has persistent irregular periods as well as recurrent yeast infections. the progesterone did not stop the irregular bleeding patterns and we discussed that it is likely due to the ultrasound Findings suggestive of a 5 mm x 5 mm x 3 mm polyp at the cervical os on ultrasound. This polyp is not seen clinically on exam. She has undergone 3 sections and multiple diagnostic laparoscopic procedures and wants a hysterectomy. We discussed attempting to removed the polyp first in the office and if not successful, then in the OR before we jump to hysterectomy. She agrees. History 3 Elective abortions Hx Para 3 Spontaneous abortions Hx # Term Pregnancies 3 Ectopic pregnancies Hx # Pregnancies Multiple births # of living children 3 Past Pregnancies Del. Date Name GA/Weeks Outcome Route Bth Weight Infant Gen Labor Lgth Anesthesia Del Locatn Provider FOB Unknown Ian 2010 Unknown Nico 2010 Unknown Kenton 2014 ROS Const ROS Unobtainable: All systems reviewed & are unremarkable except as noted in H Resp Resp: Reports system reviewed and no additional complaints, except as documented; Denies cough GI GI: Reports as per HPI Psych Psych: Reports system reviewed and no additional complaints, except as documented Exam Const General: cooperative, healthy appearing, comfortable and no acute distress Resp Effort & Inspection: normal respiratory effort Skin General: no rashes or lesions noted Psych Appearance: grossly normal Speech and Movement: speech and movement normal Coding Level of Care Code Off vis,est,level 4 Diagnoses Polyp of cervix N84.1 Abnormal uterine bleeding N93.9 History of endometriosis Z87.42 Assessment and Plan Assessment and Plan (1) Polyp of cervix: Status: Acute (2) Abnormal uterine bleeding: Status: Acute (3) History of endometriosis: Status: Acute Orders: Orders CBC-Complete Blood Cnt No Diff Today N84.1 - Polyp of cervix uteri Type & Screen - PAT ONLY Today N84.1 - Polyp of cervix uteri Vitamin D,25 Hydroxy Today N84.1 - Polyp of cervix uteri Medications: New fluconazole 150 mg PO ONCE 1 TAB 3RF Plan After discussing the patient's diagnosis and treatment plan options, patient wishes to proceed with surgical management. I have discussed with the patient the risks, benefits, and alternatives of the procedure which include but are not limited to risks of anesthesia, bleeding, infection, possible damage to bowel, bladder, or surrounding vasculature which could lead to additional surgery to evaluate any complications. Patient agrees to procedure and wishes to proceed. ACOG/uptodate references given for additional information regarding procedure. Plan is for hysteroscopy dilation and curettage, polypectomy
--- NOTE | 2024-11-20 13:08 | PCM.PRE.AN2 ---
ASA Classification* ASA Classification ASA Classification: 2 Assessment & Plan Anesthesia* Anesthesia Assessment Anesthesia Assessment: Discussed sedation and/or anesthesia options, risks, benefits, and alternatives with patient/parents/legal guardian/POA. Questions invited. The patient/parents/legal guardian/POA seems to understand and agrees to proceed with anesthesia plan. Reviewed the physical assessment, medical history, allergy history and patient home medications list prior to surgery/procedure/anesthetic and documented any changes. Performed airway and anesthesia risk assessments. Anesthesia Type Anesthesia Type: MAC History Source History Obtained from:: Patient and Chart Anesthesia Focused Assessment* Temperature: 98.1 F Pulse Rate: 60 Blood Pressure: 110/80 Respiratory Rate: 16 Pulse Ox: 100 Oxygen Delivery Method: Room Air Airway Assessment Mouth opens: >3 cm Mallampati Score: I Teeth Condition: Chipped/Broken (Patient has a broken tooth #4. It is sealed. Rest of the teeth are tight.) Neck Range of motion (ROM): Full ROM Focused Labs Anesthesia Preop lab: CBC WBC 5.4 K/mm3 (4.4-11.0) 11/05/24 12:34 11/05/24 RBC 4.46 M/mm3 (4.2-5.4) 11/05/24 12:34 11/05/24 Hgb 11.8 g/dL (12.0-15.0) L 11/05/24 12:34 11/05/24 Hct 36.5 % (37-47) L 11/05/24 12:34 11/05/24 Plt Count 327 K/mm3 (150-450) 11/05/24 12:34 11/05/24 CHEMISTRY Potassium 3.5 mmol/L (3.5-5.1) 05/12/21 12:45 05/12/21 Sodium 140 mmol/L (136-145) 05/12/21 12:45 05/12/21 BUN 6 mg/dL (7-18) L 05/12/21 12:45 05/12/21 Creatinine 0.74 mg/dL (0.55-1.02) 05/12/21 12:45 05/12/21 Glucose 94 mg/dL (74-106) 05/12/21 12:45 05/12/21 TSH 2.32 uIU/mL (0.358-3.74) 06/01/22 09:35 06/01/22 COAG Urine Test Negative Negative 04/22/17 01:00 04/22/17 Pre-Assessment Diagnosis/Proposed Procedure Planned Operative Procedure(s): HYSTEROSCOPY D&C POLPECTOMY Anesthesia History Anesthesia History - custom designer: Anesthesia History - custom designer Hx Hospitalization No 11/15/24 11:47 Any Problems With Anesthesia No 11/15/24 11:47 Cholinesterase deficiency No 11/15/24 11:47 You/Your Family Experience No 11/15/24 11:47 fever (hyperthermia) with Relationship Recent Exposure to Contagious No 11/20/24 12:41 Disease Does patient have nerve No 11/15/24 11:47 stimulator Patient instructed to have device shut off --Does patient have Pacemaker No 11/20/24 12:41 or ICD? When Was Last Pacemaker Check QUESTION #4 FULL TEXT: You/Your Family Experience fever (hyperthermia) with Anesthesia Last Oral Intake Last Oral intake: Last Oral Intake NPO since 07:00 11/20/24 12:41 Meds taken in AM with sips of No 11/20/24 12:41 water? Meds patient instructed to take am of surgery Any additional information?: Yes NPO since: 07:00 (Patient water at 7 AM.) PONV PONV - custom designer: PONV - custom designer Female Yes 11/15/24 11:47 HX of Motion Sickness No 11/15/24 11:47 HX of N/V After Surgery No 11/15/24 11:47 Non-Smoker No 11/15/24 11:47 Duration of Surgery greater No 11/15/24 11:47 than 60 minutes Number of Risk Factors 1 11/15/24 11:47 PONV Score Low Risk 11/15/24 11:47 Height & Weight Height & Weight: Anesthesia: Height & Weight Height 5 ft 2 in 11/20/24 12:41 Weight: 59.3 kg 11/20/24 12:41 Body Mass Index (BMI) 23.9 11/20/24 12:41 Respiratory Assessment Respiratory Assessment - custom designer: Respiratory Tract Infection Hx - custom designer Hx Respiratory Tract Infection Yes: STREP/TREATED/RESOLVED 11/15/24 11:47 Any additional information?: Yes Hx Respiratory Tract Infection: Yes (Patient has strep 2 to 3 weeks ago. Currently completely resolved.) STOP Sleep Apnea STOP Sleep Apnea - custom designer: STOP Sleep Apnea - custom designer Hx Hypertension Yes: DURING PREGANANCY/201311/15/24 11:47 Hx Sleep Apnea No 11/15/24 11:47 CPAP BIPAP Do you snore loudly (louder No 11/15/24 11:47 than talking or can be heard Do you often feel tired/ Yes 11/15/24 11:47 fatigued/ sleepy during daytime? Has anyone observed you stop No 11/15/24 11:47 breathing during sleep? STOP Results Positive 11/15/24 11:47 QUESTION #5 FULL TEXT : Do you snore loudly (louder than talking or can be heard through closed doors)? Tobacco Use History Tobacco Use History - custom designer: Tobacco Use History - custom designer Tobacco Use Smoking Status Current every day smoker 11/15/24 11:47 Hx Tobacco Use Yes 11/15/24 11:47 Years Smoking Packs Smoked per Day Smoking Cessation Date was within the last 15 years Hx Smoking Cessation Date Hx Smoking Cessation No 11/15/24 11:47 Counseling Any additional information?: Yes Tobacco Use: Vapor (Patient vape today.) Hematologic Medial History Hematologic Hx - custom designer: Hematologic Medical Hx - blowing weasand Hx of Blood Transfusion Yes 11/15/24 11:47 Hx of Transfusion in last 3 No 11/15/24 11:47 Months Date of Last Transfusion (if within last 3 months) Ever experience any problems No 11/15/24 11:47 with transfusion(s)? Specify any problems Hx of Preganancy in last 3 No 11/15/24 11:47 Months Nurse Filling Out Transfusion DSCHRIBER 11/15/24 11:47 & Questions: Date: 11/15/24 11/15/24 11:47 Time: 11:49 11/15/24 11:47 Patient unable to answer at this time (ie. confused, unrespo /Reproduction History /Reproductive History - custom designer: /Reproductive Hx- custom designer Hx Now No 11/15/24 11:47 Gestational Age (in weeks): EDC: Hx Hx Para Hx Section SAB No 11/15/24 11:47 PFSH Medical History Wears glasses Easy bruising Migraine headache Gastric reflux Vapes nicotine containing substance ADHD Mass of left forearm Contusion of left upper arm Anemia Home Medications ?Medication ?Instructions ?Recorded ?Last Taken ?Type cholecalciferol (vitamin D3) 25 15,000 unit PO .weekly 11/20/24 Unknown History mcg (1,000 unit) capsule (Vitamin D3) Allergy/AdvReac Type Severity Reaction Status Date / Time fentanyl AdvReac Severe Pruritis Verified 11/20/24 13:22 Family History Aunt Breast cancer x2 Surgical History History of excision of lesion History of wisdom tooth extraction Hx of laparoscopy H/O dilation and curettage delivery delivered H/O tubal ligation Social History adopted: No number of children: 3 current occupational status: unemployed Smoking Status: Former smoker alcohol intake: never substance use type: does not use caffeine: Yes what type of physical activity do you participate in: walking frequency: 1-2 times per week seatbelt use: always do you feel safe at home: Yes additional social history: Review of Systems (Anesthesia) ROS Narrative System reviewed and no additional complaints, except as documented.
--- NOTE | 2024-11-20 13:40 | EMB_PTH ---
PATIENT: LILY BALDWIN LOC: [facility] – [place] U#:[id number] AGE/SX: 39/F ROOM: RE11/20/[address]: Dr. Laureen Hernandez DO : 1985 BED: DIS: 11/20/2024 SPEC #: [id number] RECD: 11/21/24 09:32 STATUS: KOMAL MAST #: [id number] AKSHAT: 11/20/24 13:[address]: Laureen Hernandez DEPT: SURGICAL PATHOLOGY RECD BY: Rell Reyes ENTERED: 11/21/24 09:33 SP TYPE: ENDOM BX/C ANN DR: Dr. Damion Wright MD Tissues: A - Endometrium, NOS Procedures: Surgery Specimen Level IV HEADER OPERATION: Hysteroscopy, dilation and curettage, polypectomy PRE-OP DIAGNOSIS: Polyp of cervix, abnormal uterine bleeding, history of endometriosis TISSUE SUBMITTED: A- Endometrial curettings MICROSCOPIC DIAGNOSIS A. Endometrium, curettage: * Late secretory phase with focal stromal condensation/shedding. MICROSCOPIC DESCRIPTION Slides are reviewed. GROSS DESCRIPTION A. Received in formalin in a container labeled with the patient's name, date of , and endometrial curettings are multiple austin-pink fragments of soft tissue admixed with blood and mucus measuring 2.0 x 1.3 x 0.4 cm in aggregate. Submitted in toto in A1. [facility] 11/21/2024 CPT:04447
--- NOTE | 2024-11-20 13:52 | PCM.DC ---
Discharge Instructions Diet Discharge Diet: No restrictions DC O2, CPAP, BIPAP needs Home O2 Discharge instructions: No Dressing / Incision Discharge Activity: Return to Normal Activity, May Shower and May Take a Tub Bath (after 1 week) May resume sexual activity in: 1-2 weeks Weight Bearing Status: Weight bearing as tolerated Lifting Restrictions: none Dressing / Incision Call your doctor if you observe: Fever of 101 or Higher, Using more than 1 pad per hour, Shortness of breath and Uncontrolled pain Follow Up Care Please Follow Up With: Laureen Hernandez DO When: Call [phone] to schedule appointment. Test Results: Test results from this visit will be discussed in further detail at your follow-up appointment, if applicable. Discharge Plan Admission Primary Reason for Your Visit: hysteroscopy dilation and curettage Attending Provider: Laureen Hernandez Primary Care Provider: Damion Wright Instructions Print Language: Tristanian Discharge Orders/Prescriptions Prescriptions: New ibuprofen 800 mg tablet 800 mg PO Q8H PRN (Reason: pain) Qty: 20 0RF No Action cholecalciferol (vitamin D3) [Vitamin D3] 25 mcg (1,000 unit) capsule 15,000 unit PO .weekly Referrals / Follow Up: Damion Wright MD [Primary Care Provider] - Disposition Disposition (needs filled in before D/C Order can be placed): Home, Self Care
[2024-11-20] MEDS: Lidocaine 1% (20 ml mdv) 20 ML Vial (13:58)
--- NOTE | 2024-11-20 14:38 | PCM.POST.ANE ---
Anesthesia: Postop Eval I Current Vital Signs Temperature: 97.3 F Pulse Rate: 60 Blood Pressure: 90/60 Respiratory Rate: 16 Pulse Ox: 99 Oxygen Delivery Method: Nasal Cannula Oxygen Flow Rate (L/min): 2 Assessment Airway patent: Yes Spontaneous unlabored respirations: Yes Mental status: Asleep nausea: No Vomiting: No Anesthesia Complication: No Fluid Hydration Crystalloid volume administer (ml): 250 Total IV fluid infused: 250 Progress Note Anesthesia document: Postop Eval 1 completed: Yes
--- NOTE | 2024-11-20 15:25 | OP.PCM_ITS ---
Problems Associated Problem List Diagnoses (1) Polyp of cervix: (2) Abnormal uterine bleeding: Multi Select Codes Urinary/Genital Urinary/Genital CPT Codes: 37999 Hysteroscopy,EMC, Polypectomy Operative Report (Standard) Operative Information Date of Procedure: 11/20/24 Pre-Operative Diagnosis: abnormal uterine bleeding, cervical polyp Post-Operative Diagnosis: abnormal uterine bleeding, cervical polyp Surgery/Procedure Performed: hysteroscopy dilation and curettage agronomy research manager: No Type of Anesthesia: MAC RN Documented Start/Stop Times: Operation Date: 11/20/24 13:40 Case Time Into Pre-Op 11/20/24 12:05 Out of Pre-Op 11/20/24 14:00 Anesthesia Start 11/20/24 14:02 Into Room 11/20/24 14:02 Procedure End 11/20/24 14:28 Into Recovery 11/20/24 14:31 Anesthesia End 11/20/24 14:32 Out of Room 11/20/24 14:32 Into Phase II Recovery 11/20/24 15:19 Out of Recovery 11/20/24 15:19 Procedure Start Time: 14:02 Procedure Stop Time: 14:28 Select all DRAINS/GRAFTS/IMPLANTS that apply: None Estimated Blood Loss: 10cc Specimen collected: Yes Description of specimen(s) removed: endometrial curetting's Description of surgery: Patient was prepped and draped in a normal sterile fashion under MAC anesthesia. A weighted speculum was placed in the vagina and the anterior lip of the cervix was grasped with a single-tooth tenaculum. A paracervical block was placed with 1% lidocaine. Cervix was progressively dilated to allow passage of a 5 mm hysteroscope. The lining was fully visualized and noted to have some detached tissue, but not consistent with the ultrasound suggestion of polyp . The uterus sounded to 9 cm. Curettage was performed and scant tissue was sent to pathology. All instruments were removed from the vagina and excellent hemostasis was noted. Patient was awoken and taken to recovery in stable condition. Surgical Findings: scant endometrial tissue, normal cervix and lining of uterus Complications Complications: No Admit VTE Documentation VTE Present on Admission: No VTE Mechan Device Prophylaxis: SCD's VTE Pharm Prophylaxis ordered?: No
--- NOTE | 2024-11-20 20:23 | POSTOPAN2_ITS ---
Anesthesia Postop Eval I Sum Postop Eval Completion status Anesthesia document: Postop Eval 1 completed: Yes Anesthesia Postop Eval I Summary Anesthesia Postop Eval I Summary: Anesthesia Postop Eval I: Assessment Summary Airway patent Yes 11/20/24 14:39 FIRE PROTECTION EQUIPMENT TECHNICIAN.BHOS Spontaneous unlabored Yes 11/20/24 14:39 FIRE PROTECTION EQUIPMENT TECHNICIAN.BHOS respirations Mental status Asleep 11/20/24 14:39 FIRE PROTECTION EQUIPMENT TECHNICIAN.BHOS nausea No 11/20/24 14:39 FIRE PROTECTION EQUIPMENT TECHNICIAN.BHOS Vomiting No 11/20/24 14:39 FIRE PROTECTION EQUIPMENT TECHNICIAN.OS Anesthesia Postop Eval I: Fluid Summary Crystalloid volume administer 250 11/20/24 14:39 FIRE PROTECTION EQUIPMENT TECHNICIAN.BHOS (ml) Colloids volume administered ( ml) Blood Product volume administered (ml) Total IV fluid infused 250 11/20/24 14:39 FIRE PROTECTION EQUIPMENT TECHNICIAN.OS Anesthesia Postop Eval I: Summary Notes Anesthesia Complication No 11/20/24 14:39 FIRE PROTECTION EQUIPMENT TECHNICIAN.[facility] Anesthesia Complication Comment: Post-operative progress note Anesthesia: Postop Eval II Evaluation Mental status: Awake and Calm Pain Level: 3 nausea: No Vomiting: No Progress Note Post-operative progress note: Pain treated mostly with Toradol instead of narcotic. Complications Anesthesia Complication: No
--- NOTE | 2024-11-20 20:23 | PCM.POSTANE2 ---
Anesthesia Postop Eval I Sum Postop Eval Completion status Anesthesia document: Postop Eval 1 completed: Yes Anesthesia Postop Eval I Summary Anesthesia Postop Eval I Summary: Anesthesia Postop Eval I: Assessment Summary Airway patent Yes 11/20/24 14:39 CHROME WORKER.BHOS Spontaneous unlabored Yes 11/20/24 14:39 CHROME WORKER.BHOS respirations Mental status Asleep 11/20/24 14:39 CHROME WORKER.BHOS nausea No 11/20/24 14:39 CHROME WORKER.BHOS Vomiting No 11/20/24 14:39 CHROME WORKER.OS Anesthesia Postop Eval I: Fluid Summary Crystalloid volume administer 250 11/20/24 14:39 CHROME WORKER.BHOS (ml) Colloids volume administered ( ml) Blood Product volume administered (ml) Total IV fluid infused 250 11/20/24 14:39 CHROME WORKER.OS Anesthesia Postop Eval I: Summary Notes Anesthesia Complication No 11/20/24 14:39 CHROME WORKER.[facility] Anesthesia Complication Comment: Post-operative progress note Anesthesia: Postop Eval II Evaluation Mental status: Awake and Calm Pain Level: 3 nausea: No Vomiting: No Progress Note Post-operative progress note: Pain treated mostly with Toradol instead of narcotic. Complications Anesthesia Complication: No
== END 2024-11-20 15:54 | disposition home or self-care (01) ==
LOC: SDC 11:58 → AC 11:58
PROVIDERS: PCP Family Medicine; Referring Provider Obstetrics & Gynecology; Visit Provider Obstetrics & Gynecology
PROC: 0UDB8ZZ Extraction of Endometrium, Via Natural or Artificial Opening Endoscopic (ICD-10-PCS; CPT 58558; principal; 2024-11-20 13:30)
DX: N93.9 Abnormal uterine and vaginal bleeding, unspecified (principal); Z87.891 Personal history of nicotine dependence
CPT/HCPCS: 58558; 00952; 36415; 82306; 85027; 86850; 86870; 86900; 86901; 86902; 86905; 86920; 86922; 88305; A4216; J2405

== ENCOUNTER → 2024-12-03 | Outpatient (CLI) | payer MEDICAID, SELFPAY | END | disposition home or self-care (01) | LOC: LABSPEC 10:41 | PROVIDERS: PCP Family Medicine; Referring Provider Nurse Practitioner Women's Health; Visit Provider Nurse Practitioner Women's Health | DX: R30.0 Dysuria (principal); N76.0 Acute vaginitis | CPT/HCPCS: 87070; 87086; 87205 ==

== ENCOUNTER 2025-02-22 05:28 | Day surgery (SDC) | payer MEDICAID, SELFPAY ==
[2025-02-18 14:47] LABS: Hematocrit 35.2 % (37-47); Hemoglobin 11.2 g/dL (12.0-15.0); Mean Corp Hgb Conc 31.8 g/dL (32-36); Mean Corpuscular Volume 83.0 fL (81-99); Mean Platelet Vol. 9.6 fl (6.2-12.0); Platelet Count 324 K/mm3 (150-450); RBC Distribution Width CV 13.4 % (11.6-14.6); RBC Distribution Width SD 41.0 fl (35.1-43.9); Red Blood Count 4.24 M/mm3 (4.2-5.4); White Blood Count 5.5 K/mm3 (4.4-11.0)
[2025-02-18 15:04] LABS: Prothrombin Time (Protime)PT. 13.1 SECONDS (11.7-14.9)
[2025-02-18 15:05] LABS: Partial Thromboplast Time 27.0 Seconds (24.1-36.2)
[2025-02-18 15:08] LABS: Magnesium 2.0 mg/dL (1.5-2.2)
[2025-02-22] VITALS (13 sets, daily range): BP systolic 106–169; BP diastolic 50–92; PULSE 46–75; RESP 14–18; TEMP 36.1–36.7; O2SAT 98–100; BMI 23.8
--- OUTSIDE RECORDS SUMMARY | 2025-02-22 05:45 | XMS RPT_ITS | CCD ---
Author Organization [facility] Care Team Providers Care Humid System Operator Name Role Phone Wade Pacheco Unavailable Unavailable Primary Care Provider Praveen Wright MD, Damion Tran Primary Care Provider Dr. Laureen Hernandez Attending Provider [phone] Dr. Damion Wright Primary Care Provider Dr. Damion Wright Referring Provider Dr. Laureen Hernandez Attending Provider Dr. Damion Wright Primary Care Provider Dr. Damion Wright Referring Provider Dr. Damion Wright Primary Care Provider Dr. Damion Wright Referring Provider Lucrecia VACUUM CASTERJOEY-Odalis Leo Attending Provider Dr. Damion Wright Primary Care Provider Dr. Damion Wright Referring Provider Lucrecia VACUUM CASTER, VACUUM CASTER-C Felipa Attending Provider Dr. Laureen Hernandez Attending Provider Dr. Damion Wright Primary Care Provider Dr. Damion Wright Referring Provider Dr. Darcy Klein Attending Provider Dr. Damion Wright Primary Care Provider Dr. Damion Wright Referring Provider Dr. Darcy Klein Attending Provider Adriana GOA, Damion Melara Primary Care Provider Adriana GAO, Dr. Bruno Primary Care Provider [phone] Dr. Joe Kasper DO Attending Provider Majo LISA, Dr. Diaz Emergency Provider Dr. Laureen Hernandez DO Attending Provider Renetta Garcia DO, Dr. Garduno Referring Provider Adriana GAO, Dr. Bruno Referring Provider [phone] Lucrecia VACUUM CASTER-CFelipa Attending Provider Lucrecia VACUUM CASTER-CFelipa Referring Provider Clara GAO, Dr. Fernando Attending Provider Clara GAO, Dr. Fernando Referring Provider Stacey GAO, Dr. Odonnell Attending Provider Renetta Garcia DO, Dr. Garduno Other Provider [phone] Adriana GAO, Damion Melara Primary Care Provider DAMION WRIGHT Primary Care Unavailable JACKELYN ACOSTA Referring Unavailable ADRIANA, DAMION R Primary Care Unavailable ADRIANA, DAMION R Primary Care Unavailable JACKELYN ACOSTA Attending Unavailable ADRIANA, DAMION R Primary Care Unavailable Renetta VelLaureen tellez Referring Unavailabl e Vande VelLaureen tellez Attending Unavailabl e Adriana, Damion Primary Care Unavailable Adriana, Damion Referring Unavailable Wade Pacheco Attending Unavailable Adriana, Damion Primary Care Unavailable Adriana, Damion Referring Unavailable Vande Laureen Garcia Attending Unavailabl e Wright, Damion Primary Care Unavailable Daniele VelLaureen tellez Referring Unavailabl e Vande VeldeLaureen Attending Unavailabl e Adriana, Damion Primary Care Unavailable Shyanne Mahan Referring Unavailable Shyanne Mahan Attending Unavailable Adriana, Damion Primary Care Unavailable Daniele VelLaureen tellez Referring Unavailabl e Wright, Damion Primary Care Unavailable Vande Velde, Laureen Attending Unavailabl e Wright, Damion Primary Care Unavailable [place] VACUUM CASTER, Felipa Referring Unavailable [place] VACUUM CASTER, Felipa Attending Unavailable Vande Velde, Laureen Referring Unavailabl e Wright, Damion Primary Care Unavailable Vande Velde, Laureen Attending Unavailabl e Wright, Damion Primary Care Unavailable Wright, Damion Referring Unavailable Vande Velde, Laureen Attending Unavailabl e [place] VACUUM CASTER, Felipa Referring Unavailable [place] VACUUM CASTER, Felipa Attending Unavailable Wright, Damion Primary Care Unavailable Vande Velde, Laureen Referring Unavailabl e Wright, Damion Primary Care Unavailable Vande Velde, Laureen Attending Unavailabl e Wright, Damion Referring Unavailable Wright, Damion Primary Care Unavailable Vande Velde, Laureen Attending Unavailabl e Vande Velde, Laureen Attending Unavailabl e Wright, Damion Primary Care Unavailable Wright, Damion Referring Unavailable Wright, Damion Referring Unavailable [place] VACUUM CASTER, Felipa Attending Unavailable Wright, Damion Primary Care Unavailable Wright, Damion Referring Unavailable Vande Velde, Laureen Attending Unavailabl e Wright, Damion Primary Care Unavailable Sailors, Abdullahi Referring Unavailable Sailors, Abdullahi Attending Unavailable Wright, Damion Primary Care Unavailable Vande Velde, Laureen Consulting Unavailabl e Vande Velde, Laureen Referring Unavailabl e Vande Velde, Laureen Attending Unavailabl e Wright, Damion Primary Care Unavailable Belle Ibarra Attending Unavailable Wright, Damion Referring Unavailable Wright, Damion Primary Care Unavailable Wright, Damion Primary Care Unavailable Wright, Damion Referring Unavailable [place] VACUUM CASTER, Felipa Attending Unavailable Wright, Damion Referring Unavailable Wade Pacheco Attending Unavailable Wright, Damion Primary Care Unavailable Vande Velde, Laureen Referring Unavailabl e Vande Velde, Laureen Attending Unavailabl e Wright, Damion Primary Care Unavailable Wright, Damion Primary Care Unavailable Joe Kasper Attending Unavailable Allergies Allergy Classification Reported Allergen(s) Allergy Type Date of Onset Reaction(s) Facility (4 sources) FENTANYL-BUPIVAC JEANNETTE-NACL drug allergy 03-28-2017 rash [facility] Work Phone: (20 sources) fentaNYL; Translations: [FENTANYL] Drug Allergy 01-29-2022 Rash [facility] (1 source) fentaNYL Drug Allergy 02-08-2025 [facility] Repository Medications Current Medications Medication Drug Class(es) Dates Sig (Normalized) Sig (Original) acetaminophen 325 mg / oxyCODONE hydrochloride 5 mg oral tablet (5 sources) Opioid Agonist Start: 08-13-2015 take 1 tablet by mouth every four hours as needed oxyCODONE-acetaminop hen (PERCOCET) 5-325 mg tablet Take 1 tablet by mouth every 4 hours as needed for Pain. FOR PAIN. 20 tablet 0 08/13/2015 Active Comment on above: Take 1 tablet by nilda every 4 hours as needed for Pain. FOR PAIN. [id number] 200 actuat albuterol 0.09 mg/actuat metered dose inhaler (4 sources) beta2-Adrenergic Agonist Start: 09-20-2024 take 2 puff(s) by inhalation every four hours as needed for wheezing albuterol HFA (PROVENTIL HFA) 90 mcg/actuation inhaler Indications: bronchospasm prevention Inhale 2 Puffs as instructed every 4 hours as needed for wheezing/shortness of breath. 1 Each 09/20/2024 Active amoxicillin 500 mg oral capsule (1 source) Penicillin-class Antibacterial Start: 10-30-2024 End: 11-09-2024 take 1 capsule by mouth twice daily amoxicillin (AMOXIL) 500 mg capsule Take 1 capsule by mouth two times a day for 10 days. 20 capsule 10/30/2024 11/09/2024 Active benzonatate 100 mg oral capsule (1 source) Non-narcotic Antitussive Start: 09-20-2024 End: 09-27-2024 take 1 capsule by mouth every eight hours as needed benzonatate (TESSALON PERLE) 100 mg capsule Take 1 capsule by mouth three times a day as needed for cough for up to 7 days. 21 capsule 09/20/2024 09/27/2024 Active cephalexin 500 mg oral capsule (1 source) Cephalosporin Antibacterial Start: 01-29-2022 End: 02-05-2022 take 1 capsule by mouth three times daily cephALEXin (KEFLEX) 500 mg capsule Indications: Skin pimple Take 1 capsule by mouth three times daily for 7 days. 21 capsule 0 01/29/2022 02/05/2022 Active Comment on above: Take 1 capsule by mo [facility] three times daily for 7 days. cholecalciferol 0.025 mg oral capsule (20 sources) Vitamin D Start: 11-20-2024 take 1 capsule by mouth every week Cholecalciferol (Vitamin D3) (Vitamin D3) 25 mcg (1,000 unit) capsule Active 95832 U PO .weekly November 20, 2024 12:00am Start: 11-05-2024 End: 11-15-2024 take 1 capsule by mouth once daily Cholecalciferol (Vitamin D3) 125 mcg (5,000 unit) capsule Discontinued 125 ug PO daily November 05, 2024 12:00am November 15, 2024 11:45am Start: 05-13-2022 End: 05-18-2023 take 1 capsule by mouth once daily Cholecalciferol (Vitamin D3) 10 mcg (400 unit) capsule Discontinued 10 ug PO DAILY May 13, 2022 12:00am May 18, 2023 10:47am citalopram 20 mg oral tablet (10 sources) Serotonin Reuptake Inhibitor Start: 01-21-2016 take 1 tablet by mouth once daily citalopram (CELEXA) 20 mg tablet Take 1 tablet by mouth once daily. 30 tablet 12 01/21/2016 Active Start: 10-17-2015 [facility] citalopram hydrobromide (CELEXA) 10 mg tablet Take 1 tablet by mouth once daily. 30 tablet 3 10/17/2015 Active Comment on above: Take 1 tablet by [facility] daily. doxycycline monohydrate 100 mg oral tablet (1 source) Tetracycline-class Drug Start: 2024 End: 2024 take 1 tablet by mouth twice daily doxycycline monohydrate 100 mg tablet Take 1 tablet by mouth two times a day for 5 days. 10 tablet 09/20/2024 09/25/2024 Active eletriptan 20 mg oral tablet (1 source) Serotonin-1b and Serotonin-1d Receptor Agonist Start: 2018 take 1-2 tablets by mouth once as needed, then take 1 tablet by mouth every two hours as needed eletriptan (RELPAX) 20 MG tablet Take 1-2 tablets by mouth once as needed for Migraine (May repeat once 2 hours after the first dose) may repeat in 2 hours if necessary 8 tablet 0 05/07/2019 Active 12 hr guaiFENesin 600 mg extended release oral tablet (1 source) Start: 2024 End: 2024 take 1 tablet by mouth twice daily guaiFENesin (MUCINEX) 600 mg 12 hr tablet Take 1 tablet by mouth two times a day for 5 days. 10 tablet 09/20/2024 09/25/2024 Active ibuprofen 800 mg oral tablet (8 sources) Nonsteroidal Anti-inflammatory Drug Start: 2015 End: 2024 take 1 tablet by mouth every eight hours as needed ibuprofen (MOTRIN) 800 mg tablet Take 1 tablet by mouth every 8 hours as needed for Pain. FOR PAIN. 40 tablet 0 08/13/2015 Active Comment on above: Take 1 tablet by nilda th every 8 hours as needed for Pain. FOR PAIN. norethindrone 0.35 mg oral tablet (11 sources) Start: 2023 End: 2024 take 1 tablet by mouth once Norethindrone, Contraceptive, 0.35 mg tablet Take 1 tablet by mouth every afternoon. 08/09/2024 Active prochlorperazine 5 mg oral tablet (1 source) Phenothiazine Start: 2018 take 1 tablet by mouth every six hours as needed for headache prochlorperazine (COMPAZINE) 5 MG tablet Take 1 tablet by mouth every 6 hours as needed (headache) 28 tablet 0 05/07/2019 Active sertraline 25 mg oral tablet (1 source) Serotonin Reuptake Inhibitor take 1 tablet by mouth once daily sertraline (ZOLOFT) 25 MG tablet Take 25 mg by mouth daily 0 Active Completed/Discontinued Medications Medication Drug Class(es) Dates Sig (Normalized) Sig (Original) acetaminophen 32.5 mg/ml / dextromethorphan hydrobromide 1 mg/ml / guaiFENesin 20 mg/ml / phenylephrine hydrochloride 0.5 mg/ml oral solution (15 sources) Uncompetitive E-mydmhs-A-aspartat e Receptor Antagonist, Sigma-1 Agonist, alpha-1 Adrenergic Agonist Start: 04-19-2020 End: 09-04-2020 Yxgnhzwci-Zj-Yyte desouza-Guaifen (Mucinex Cold,Flu,Sore Throat) 10-20-650 mg/20 mL liquid Discontinued mL PO April 19, 2020 12:00am September 04, 2020 2:43pm Start: 04-19-2020 End: 09-04-2020 Ijbxqecdj-Nr-Waudkxwb-Guaife n (Mucinex Cold,Flu,Sore Throat) 10-20-650 mg/20 mL liquid Discontinued ML PO April 19, 2020 12:00am September 04, 2020 2:43pm azithromycin 250 mg oral tablet (20 sources) Macrolide Antimicrobial Start: 02-28-2024 End: 03-28-2024 Azithromycin 250 mg tablet Discontinued 250 mg PO .COMPLEX February 28, 2024 12:00am March 28, 2024 12:21pm 2 tablets (500 mg) on day 1, then 1 tablet daily on days 2 through 11 Start: 04-19-2020 End: 09-04-2020 take 2-4 tablets by mouth once daily Azithromycin 250 mg tablet Discontinued 0 PO .COMPLEX April 19, 2020 12:00am September 04, 2020 2:43pm 500 mg day 1, then 250 mg days 2-4 PO U98-Ifhalbzjjlja Calcium-B6 2-1.13-25 mg tablet (3 sources) Start: 11-15-2024 End: 11-20-2024 take 2 tablets by mouth once daily W81-Vabphnntwtci Calcium-B6 2-1.13-25 mg tablet Discontinued 1 {tbl} PO DAILY November 15, 2024 12:00am November 20, 2024 12:39pm clonazePAM 0.5 mg oral tablet (20 sources) Benzodiazepine Start: 03-02-2023 End: 05-18-2023 take 1 tablet by mouth once daily Clonazepam (Klonopin) 0.5 mg tablet Discontinued 0.5 mg PO DAILY March 02, 2023 12:00am May 18, 2023 10:47am Start: 09-04-2020 End: 05-13-2022 take 1 tablet by mouth twice daily as needed Clonazepam 0.5 mg tablet Discontinued 0.5 mg PO TWICE A DAY as needed September 04, 2020 1:00am May 13, 2022 2:13pm cyclobenzaprine hydrochloride 10 mg oral tablet (20 sources) Muscle Relaxant Start: 04-21-2017 End: 12-31-2019 Cyclobenzaprine 10 MG tablet Discontinued 5 mg PO NEEDED as needed for Insomnia April 21, 2017 12:00am December 31, 2019 1:59pm Start: 04-21-2017 End: 12-31-2019 Cyclobenzaprine Discontinued 5 MG PO NEEDED April 21, 2017 12:00am December 31, 2019 1:59pm Start: 04-28-2010 End: 03-28-2017 take 1 tablet by mouth three times daily FLEXERIL 5 MG TABS One tablet by mouth three times daily CYCLOBENZAPRINE HCL [id number] Hakan Scanlon MD dexamethasone 4 mg oral tablet (1 source) Corticosteroid Start: 05-07-2019 End: 05-07-2019 dexamethasone (DECADRON) tablet 8 mg ergocalciferol 1.25 mg oral capsule (10 sources) Provitamin D2 Compound Start: 05-18-2023 End: 05-21-2024 Ergocalciferol (Vitamin D2) 1,250 mcg (50,000 unit) capsule Discontinued 1250 ug PO EVERY WEEK May 18, 2023 12:00am May 21, 2024 9:57am escitalopram 5 mg oral tablet (15 sources) Serotonin Reuptake Inhibitor Start: 09-04-2020 End: 05-12-2021 take 1 tablet by mouth once daily Escitalopram Oxalate (Lexapro) 5 mg tablet Discontinued 5 mg PO DAILY September 04, 2020 1:00am May 12, 2021 11:39am fluconazole 150 mg oral tablet (20 sources) Azole Antifungal Start: 11-30-2024 End: 12-03-2024 Fluconazole 150 mg tablet Discontinued 150 mg PO Every 3 Days November 30, 2024 12:00am December 03, 2024 9:16am Start: 11-05-2024 End: 11-15-2024 take 1 tablet by mouth once Fluconazole 150 mg tablet Discontinued 150 mg PO ONCE November 05, 2024 12:00am November 15, 2024 11:45am Start: 10-03-2024 End: 11-05-2024 Fluconazole 150 mg tablet Di scontinued 150 mg PO Every 3 Days October 18, 2024 12:00am November 05, 2024 11:58am Start: 09-26-2024 End: 10-03-2024 take 1 tablet by mouth once Fluconazole 150 mg tablet Discontinued 150 mg PO ONCE September 26, 2024 1:00am October 03, 2024 10:40am Start: 02-03-2022 End: 05-13-2022 Fluconazole 150 mg tablet Di scontinued 150 mg PO .COMPLEX 2 February 03, 2022 12:00am May 13, 2022 2:13pm 150 mg PO take one po now and repeat in 3 days Start: 07-07-2020 End: 09-04-2020 Fluconazole 150 mg tablet Di scontinued 150 mg PO .COMPLEX 2 July 07, 2020 1:00am September 04, 2020 2:43pm 150 mg PO take one po now and repeat in 3 days lisdexamfetamine dimesylate 20 mg oral capsule (10 sources) Central Nervous System Stimulant Start: 05-18-2023 End: 02-28-2024 take 1 capsule by mouth once daily Lisdexamfetamine (Vyvanse) 20 mg capsule Discontinued 20 mg PO DAILY May 18, 2023 12:00am February 28, 2024 3:25pm lithium carbonate 300 mg oral capsule (11 sources) Start: 03-02-2023 End: 05-18-2023 take 1 capsule by mouth at bedtime Maize Carbonate 300 mg capsule Discontinued 300 mg PO AT BEDTIME March 02, 2023 12:00am May 18, 2023 10:47am methylPREDNISolone 4 mg oral tablet (20 sources) Corticosteroid Start: 02-28-2024 End: 03-28-2024 take 1 tablet by mouth once Methylprednisolone (Medrol (Gen)) 4 mg tablets,dose pack Discontinued 0 PO per package directions February 28, 2024 12:00am March 28, 2024 12:21pm PO PER PKG DIR Start: 04-19-2020 End: 09-04-2020 take 1 tablet by mouth once Methylprednisolone (Medrol (Gen)) 4 mg tablets,dose pack Discontinued 0 PO per package directions April 19, 2020 12:00am September 04, 2020 2:43pm PO PER PKG DIR metoclopramide 10 mg oral tablet (1 source) Dopamine-2 Receptor Antagonist Start: 05-07-2019 End: 05-07-2019 metoclopramide (REGLAN) tablet 5 mg naproxen 500 mg oral tablet (9 sources) Nonsteroidal Anti-inflammatory Drug Start: 05-07-2019 End: 05-07-2019 naproxen (NAPROSYN) tablet 500 mg Start: 04-28-2010 End: 03-28-2017 take 1 tablet by mouth twice daily NAPROXEN DR 500 MG TBEC One tablet by mouth twice daily. NAPROXEN [id number] Hakan Scanlon MD nitrofurantoin, macrocrystals 25 mg / nitrofurantoin, monohydrate 75 mg oral capsule (2 sources) Nitrofuran Antibacterial Start: 12-03-2024 End: 12-10-2024 take 1 capsule by mouth twice daily at mealtime Nitrofurantoin Monohyd/M-Cryst (Macrobid) 100 mg capsule Discontinued 100 mg PO TWICE A DAY 14 December 03, 2024 12:00am December 09, 2024 12:00am December 10, 2024 12:07am must administer with a meal/food omeprazole 10 mg delayed release oral capsule (15 sources) Proton Pump Inhibitor Start: 04-21-2017 End: 12-31-2019 take 1 capsule by mouth once daily Omeprazole 10 MG capsule Discontinued 10 mg PO DAILY April 21, 2017 12:00am December 31, 2019 1:59pm terconazole 4 mg/ml vaginal cream (2 sources) Azole Antifungal Start: 12-03-2024 End: 12-10-2024 Terconazole 0.4 % cream Discontinued 1 NMA VAGINAL AT BEDTIME 45 December 03, 2024 12:00am December 09, 2024 12:00am December 10, 2024 12:07am Problems Active Problems Problem Classification Problem Date Documented Date Episodic/Chronic Acute and chronic tonsillitis (4 sources) Amygdalolith; Translations: [Other chronic diseases of tonsils and adenoids] Onset: 03-28-2017 03-28-2017 Chronic Attention-deficit, conduct, and disruptive behavior disorders (7 sources) Attention deficit hyperactivity disorder; Translations: [Attention-deficit hyperactivity disorder, unspecified type] 05-21-2024 Chronic Comment on above: SUPPLEMENTAL VITAMIN Genitourinary symptoms and ill-defined conditions (9 sources) Scalding pain on urination ; Translations: [Dysuria] Onset: 12-06-2024 11-15-2024 Episodic Immunizations and screening for infectious disease (6 sources) Patient encounter status; Translations: [Encounter for screening for COVID-19] 04-02-2021 Episodic Inflammatory diseases of female pelvic organs (5 sources) Vaginitis; Translations: [Acute vaginitis] Onset: 12-04-2024 12-03-2024 Episodic Menstrual disorders (4 sources) Menorrhagia; Translations: [Excessive and frequent menstruation with regular cycle] 12-04-2024 Chronic Mycoses (7 sources) Candidiasis of vagina; Translations: [Monilial vaginitis] 10-03-2024 Episodic Other and unspecified benign neoplasm (9 sources) Lipoma of thigh; Translations: [Benign lipomatous neoplasm of skin and subcutaneous tissue of right leg] 07-20-2023 Episodic Comment on above: s/p excision 3 Other and unspecified benign neoplasm (4 sources) Benign lipomatous neoplasm of skin and subcutaneous tissue of right leg; Translations: [Lipoma of other specified sites] 06-28-2023 Episodic Other female genital disorders (20 sources) Abnormal uterine bleeding; Translations: [Abnormal uterine and vaginal bleeding, unspecified] 05-13-2022 Chronic Other female genital disorders (1 source) Abnormal uterine and vaginal bleeding, unspecified; Translations: [Abnormal uterine and vaginal bleeding, unspecified] Onset: 12-07-2024 Chronic Other female genital disorders (20 sources) History of gynecological disorder; Translations: [Personal history of other diseases of the female genital tract] 12-31-2019 Episodic Other female genital disorders (16 sources) Polyp of cervix; Translations: [Polyp of cervix uteri] 10-18-2024 Episodic Other female genital disorders (2 sources) Polyp of cervix uteri; Translations: [Polyp of cervix uteri] Onset: 11-16-2024 Episodic Other injuries and conditions due to external causes (7 sources) Bone injury; Translations: [Other injury of unspecified body region, initial encounter] 09-24-2024 Episodic Other lower respiratory disease (4 sources) Cough; Translations: [Cough] 04-02-2021 Episodic Other non-traumatic joint disorders (6 sources) Acute ankle pain; Translations: [Pain in left ankle and joints of left foot] 01-21-2025 Episodic Other skin disorders (1 source) Pimple of skin; Translations: [Other skin changes] Episodic Other skin disorders (7 sources) Mass of forearm; Translations: [Localized swelling, mass and lump, left upper limb] 03-28-2024 Episodic Other upper respiratory infections (1 source) Bacterial sinusitis; Translations: [Chronic sinusitis, unspecified] 09-20-2024 Chronic Other upper respiratory infections (5 sources) Pharyngitis; Translations: [Streptococcal sore throat] Onset: 03-28-2017 03-28-2017 Episodic Pneumonia (except that caused by tuberculosis or sexually transmitted disease) (1 source) Left lower zone pneumonia; Translations: [Pneumonia, unspecified organism] 09-20-2024 Episodic Residual codes; unclassified (15 sources) Reduced libido; Translations: [Decreased libido] 05-13-2022 Episodic Past or Other Problems Problem Classification Problem Date Documented Date Episodic/Chronic Cardiac and circulatory congenital anomalies (5 sources) H/O: cardiac anomaly; Translations: [Personal history of (corrected) congenital malformations of heart and circulatory system] Onset: 09-03-2013 07-27-2021 Episodic Headache; including migraine (1 source) Headache disorder; Translations: [Headache disorder] Episodic Other circulatory disease (1 source) Increased diastolic arterial pressure; Translations: [Diastolic blood pressure 90 mm Hg or higher] Episodic Other complications of (5 sources) H/O: blood transfusion; Translations: [Supervision of with other poor reproductive or obstetric history, unspecified trimester] Onset: 09-03-2013 07-27-2021 Episodic Other complications of (5 sources) History of gestational hypertension; Translations: [Supervision of other high risk pregnancies, unspecified trimester] Onset: 09-03-2013 07-27-2021 Episodic Other female genital disorders (1 source) Other specified noninflammatory disorders of vagina; Translations: [Other specified noninflammatory disorders of vagina] Onset: 11-07-2024 Episodic Other non-traumatic joint disorders (2 sources) Pain in left ankle and joints of left foot; Translations: [Acute left ankle pain] Onset: 09-28-2024 Episodic Other non-traumatic joint disorders (1 source) Effusion, right knee; Translations: [Effusion, right knee] Onset: 05-25-2024 Episodic Other nutritional; endocrine; and metabolic disorders (5 sources) H/O: hypothyroidism; Translations: [Personal history of other endocrine, nutritional and metabolic disease] Onset: 09-03-2013 07-27-2021 Episodic Other and delivery including normal (5 sources) Normal in multigravida; Translations: [Encounter for supervision of other normal , unspecified trimester] Onset: 03-19-2014 07-27-2021 Episodic Other screening for suspected conditions (not mental disorders or infectious disease) (1 source) Encounter for screening mammogram for malignant neoplasm of breast; Translations: [Encounter for screening mammogram for malignant neoplasm of breast] Onset: 10-11-2024 Episodic Other skin disorders (1 source) Localized swelling, mass and lump, left upper limb; Translations: [Localized swelling, mass and lump, left upper limb] Onset: 05-25-2024 Episodic Residual codes; unclassified (4 sources) Family history of cleft palate with cleft lip; Translations: [Family history of other congenital malformations, deformations and chromosomal abnormalities] Onset: 09-03-2013 Resolved: 11-19-2013 07-27-2021 Episodic Residual codes; unclassified (1 source) Other general symptoms and signs; Translations: [Other general symptoms and signs] Onset: 04-03-2024 Episodic Sprains and strains (4 sources) Low back strain; Translations: [Strain of muscle, fascia and tendon of lower back] Onset: 04-28-2010 04-28-2010 Episodic Superficial injury; contusion (8 sources) Contusion of left upper arm; Translations: [Contusion of left upper arm, initial encounter] Onset: 05-25-2024 03-28-2024 Episodic Results Test Name Value Interpretation Reference Range Facility [id number] 02-18-2025 ANTIBODY ID [facility] Comment on above: Order Comment: RADHA COL UNITS ORDERED DUE TO ALLOANTIBODY(S).Reason for Laboratory Test pre [id number] Performed By: #### P SUIV #### [facility] [address] [place], [place], [id number] [facility] 02-18-2025 [facility] Comment on above: Result Comment: [id number] AP RC XM COMPATIBLE [id number] AP XM COMPATIBLE Performed By: #### B TSPAT, [id number], L100.0500, BR #### [facility] [address] [place], [place], [address] CBC-Complete Blood Cnt No Di ffon 02-18-2025 Erythrocyte distribution width (RBC) [Ratio] 13.4 % Normal 11.6-14.6 [facility] Comment on above: Performed By: #### B TSPAT, [id number], L100.0500, BRC #### [facility] [address] [place], [address] Hematocrit (Bld) [Volume fraction] 35.2 % Low 37-47 [facility] Comment on above: Performed By: #### Sukumar TSPAT, [id number], L100.0500, BRC #### [facility] [address] [place], [address] Hemoglobin (Bld) [Mass/Vol] 11.2 g/dL Low 12.0-15.0 [facility] Comment on above: Performed By: #### Sukumar TSPAT, [id number], L100.0500, BR #### [facility] [address] [place], [address] MCH (RBC) [Entitic mass] 26.4 pg Low 27.0-32.0 [facility] Comment on above: Performed By: #### Sukumar TSPAT, [id number], L100.0500, BR #### [facility] [address] [place], [address] MCHC (RBC) [Mass/Vol] 31.8 g/dL Low 32-36 [facility] Comment on above: Performed By: #### B TSPAT, [id number], L100.0500, BRC #### [facility] [address] [place], [address] MCV (RBC) [Entitic vol] 83.0 fL Normal 81-99 [facility] Comment on above: Performed By: #### Sukumar TSPAT, [id number], L100.0500, BRC #### [facility] [address] [place], [address] Platelet mean volume (Bld) [Entitic vol] 9.6 fL Normal 6.2-12.0 [facility] Comment on above: Performed By: #### B TSPAT, [id number], L100.0500, [facility] #### [facility] [address] [place], [address] Platelets (Bld) [#/Vol] 324 10*3/uL Normal 150-450 [facility] Comment on above: Performed By: #### B TSPAT, [id number], L100.0500, [facility] #### [facility] [address] [place], [address] RBC (Bld) [#/Vol] 4.24 10*6/uL Normal 4.2-5.4 [facility] Comment on above: Performed By: #### B TSPAT, [id number], L100.0500, [facility] #### [facility] [address] [place], [address] RDW SD 41.0 fl Normal 35.1-43.9 [facility] Comment on above: Performed By: #### B TSPAT, [id number], L100.0500, [facility] #### [facility] [address] [place], [address] WBC (Bld) [#/Vol] 5.5 10*3/uL Normal 4.4-11.0 [facility] Comment on above: Performed By: #### B TSPAT, [id number], L100.0500, [facility] #### [facility] [address] [place], [address] Magnesiumon 02-18-2025 Magnesium [Mass/Vol] 2.0 mg/dL Normal 1.5-2.2 [facility] Comment on above: Performed By: #### P SUIV #### [facility] [address] [place], [place], [address] Partial Thromboplast Timeon 02-18-2025 aPTT Coag (Bld) [Time] 27.0 s Normal 24.1-36.2 [facility] Comment on above: Performed By: #### P SUIV #### [facility] [address] [place], [place], [address] Prothrombin Time w/INRon INR Coag (PPP) [Relative time] 1.0 {INR} Normal [facility] Comment on above: Performed By: #### P SUIV #### [facility] [address] [place], [place], [id number] PT Coag (PPP) [Time] 13.1 s Normal 11.7-14.9 [facility] Comment on above: Performed By: #### P SUIV #### [facility] [address] [place], [place], [address] Type AND Screen - PAT ONLYon 02-18-2025 Ab SCREEN GEL Positive Normal [facility] Comment on above: Order Comment: Reaso n for Laboratory Test pre op [id number] N No N N S HYSTERECTOMY Performed By: #### B TSPAT, [id number], L100.0500, BRC #### [facility] [address] [place], [place], [address] CNOVon 01-21-2025 CNOV Office Visit ([facility] ) DEJA WOLFE ([id number]) 1985 F Date Time Provider Department 01/21/25 11:45 AM JACKELYN ACOSTA [facility] During your visit today, we recorded the following information about you: Temperature Pulse Respiration Blood pressure 98.9 degrees 94/minute 16/minute 122/68 Weight 61.2 kg Jackelyn Acosta PA 01/21/2025 12:22 PM Signed [facility] Subjective Deja Wolfe is a 39 year old female. Patient presents with: Ankle Injury: left x 1 day, rolled HPI Right Ankle Pain: - Acute onset of severe pain in the right ankle following an injury yesterday. - Incident occurred while walking down a hill in flip-flops; ankle snapped to the inside after stepping on dirt and gravel. - Sully and felt a pop at the time of injury. - Applied ice and rested the ankle in a pool immediately after the incident. - Pain worsened overnight; reports intense pain with any movement. - Localized pain on the lateral and anterior aspects of the ankle and foot. - Able to wiggle toes but with significant discomfort. - Denies previous injuries to the right ankle. - Taking Tylenol for pain management. 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 (Patient not taking: Reported on 10/30/2024) albuterol HFA (PROVENTIL HFA) 90 mcg/actuation inhaler Inhale 2 Puffs as instructed every 4 hours as needed for wheezing/shortness of breath. (Patient not taking: Reported on 01/21/2025) citalopram (CELEXA) 20 mg tablet Take 1 tablet by mouth once daily. (Patient not taking: Reported on 09/20/2024) citalopram hydrobromide (CELEXA) 10 mg tablet Take 1 tablet by mouth once daily. (Patient not taking: Reported on 09/20/2024) oxyCODONE-acetaminophe n (PERCOCET) 5-325 mg tablet Take 1 tablet by mouth every 4 hours as needed for Pain. FOR PAIN. (Patient not taking: Reported on 09/20/2024) ibuprofen (MOTRIN) 800 mg tablet Take 1 tablet by mouth every 8 hours as needed for Pain. FOR PAIN. (Patient not taking: Reported on 09/20/2024) FAMILY HISTORY Problem Relation Age of Onset Breast Cancer Paternal Aunt P AUNT X 2 Diabetes Paternal Grandfather Heart Maternal Grandmother Hypertension Maternal Grandmother Hypertension Paternal Grandfather Thyroid Paternal Grandmother Social History Tobacco Use Smoking status: Every Day Types: Cigarettes Start date: 09/03/2012 Smokeless tobacco: Never Tobacco comments: vaping Substance Use Topics Alcohol use: No Drug use: No Review of Systems Musculoskeletal: (+) ankle pain, (+) foot pain, (+) decreased ankle range of motion, (+) difficulty ambulating, (-) posterior ankle pain Objective BP 122/68 Pulse 94 Temp 37.2 ?C (98.9 ?F) Resp 16 Wt 61.2 kg (134 lb 14.7 oz) LMP 10/18/2024 (Approximate) SpO2 97% BMI 23.16 kg/m? Physical Exam Vitals and nursing note reviewed. Constitutional: General: She is not in acute distress. Appearance: Normal appearance. She is not toxic-appearing. Musculoskeletal: Left ankle: Swelling present. Tenderness present over the lateral malleolus and base of 5th metatarsal. Decreased range of motion. Normal pulse. Left Achilles Tendon: Normal. Lopez's test negative. Left foot: Swelling, tenderness and bony tenderness present. Comments: Tenderness over left lateral ankle and lateral malleolus. Tenderness over left proximal 5th metatarsal. Nontender medial ankle. Nontender posterior ankle. Achilles intact. Decreased ROM left ankle due to pain. Swollen left ankle and left foot noted. Normal ROM of the toes. Normal sensation of the toes. Cap refill less than 2 seconds. DP and PT pulses 2+. Ambulating with a limp due to pain Skin: General: Skin is warm and dry. Neurological: Mental Status: She is alert. General: No acute distress. MSK/Ext: Pain and swelling in lateral and anterior aspects of ankle; no pain in posterior aspect of ankle; pain with toe movement; decreased range of motion in ankle; negative Lopez test. {1. Acute left ankle pain (M25.572) - Onset following inversion injury while walking down a hill in flip-flops; heard and felt a pop at the time of injury. - Significant tenderness on late (more content not included)... Normal [facility] No Panel InformationOrdered By: Ccf Provider on 01-21-2025 [facility] No Panel Informationon 01-21 Radiology Study observation (narrative) [facility] XR ANKLE 3V AP/LAT/OBL LTon 01-21-2025 XR ANKLE 3V AP/LAT/OBL LT * * *Final Report* * * DATE OF EXAM: Jan 21 2025 12:07PM [id number] - XR ANKLE 3V AP/LAT/OBL LT / PROCEDURE REASON: Acute left ankle pain * * * * Physician Interpretation * * * * History: Acute left ankle pain FINDINGS: AP, lateral, and oblique views of the left foot and ankle have been obtained. The bones are well-mineralized without evidence of fracture or dislocation. Joint spaces are maintained. No gross soft tissue abnormality is seen. IMPRESSION: No acute process is seen. [employer] Wireless Sales Consultant: CARMEL Transcribe Date/Time: Jan 21 2025 12:06P Dictated by : BERNICE GARCIA MD This examination was interpreted and the report reviewed and electronically signed by: BERNICE GARCIA MD on Jan 21 2025 12:08PM EST [id number] Normal [facility] XR Ankle - left AP and Later al and obliqueon 01-21-2025 IMPRESSION: No acute process is seen. [employer] Sales Consultant: CARMEL Transcribe Date/Time: Jan 21 2025 12:06P Dictated by : BERNICE GARCIA MD This examination was interpreted and the report reviewed and electronically signed by: BERNICE GARCIA MD on Jan 21 2025 12:08PM EST DIVISION OF RADIOLOGY * * *Final Report* * * DATE OF EXAM: Jan 21 2025 12:07PM [id number] - XR ANKLE 3V AP/LAT/OBL LT / PROCEDURE REASON: Acute left ankle pain * * * * Physician Interpretation * * * * History: Acute left ankle pain FINDINGS: AP, lateral, and oblique views of the left foot and ankle have been obtained. The bones are well-mineralized without evidence of fracture or dislocation. Joint spaces are maintained. No gross soft tissue abnormality is seen. DIVISION OF RADIOLOGY Provider, [facility] - 01/21/2025 * * *Final Report* * * DATE OF EXAM: Jan 21 2025 12:07PM [id number] - XR ANKLE 3V AP/LAT/OBL LT / PROCEDURE REASON: Acute left ankle pain * * * * Physician Interpretation * * * * History: Acute left ankle pain FINDINGS: AP, lateral, and oblique views of the left foot and ankle have been obtained. The bones are well-mineralized without evidence of fracture or dislocation. Joint spaces are maintained. No gross soft tissue abnormality is seen. IMPRESSION IMPRESSION: No acute process is seen. Retail Wireless Sales Consultant: [facility] Transcribe Date/Time: Jan 21 2025 12:06P Dictated by : BERNICE GARCIA MD This examination was interpreted and the report reviewed and electronically signed by: BERNICE GARCIA MD on Jan 21 2025 12:08PM EST [facility] XR FOOT 3V AP/LAT/OBL LTon 0 01-21-2025 XR FOOT 3V AP/LAT/OBL LT * * *Final Repo rt* * * DATE OF EXAM: Jan 21 2025 12:07PM [id number] - XR FOOT 3V AP/LAT/OBL LT / PROCEDURE REASON: Acute left ankle pain * * * * Physician Interpretation * * * * History: Acute left ankle pain FINDINGS: AP, lateral, and oblique views of the left foot and ankle have been obtained. The bones are well-mineralized without evidence of fracture or dislocation. Joint spaces are maintained. No gross soft tissue abnormality is seen. IMPRESSION: No acute process is seen. Retail Wireless Sales Consultant: [facility] Transcribe Date/Time: Jan 21 2025 12:07P Dictated by : BERNICE GARCIA MD This examination was interpreted and the report reviewed and electronically signed by: BERNICE GARCIA MD on Jan 21 2025 12:07PM EST [id number] Normal [facility] XR Foot - left AP and Latera l and obliqueon 01-21-2025 IMPRESSION: No acute process is seen. [employer] Sales Consultant: CARMEL Transcribe Date/Time: Jan 21 2025 12:07P Dictated by : BERNICE GARCIA MD This examination was interpreted and the report reviewed and electronically signed by: BERNICE GARCIA MD on Jan 21 2025 12:07PM [facility] DIVISION OF RADIOLOGY * * *Final Report* * * DATE OF EXAM: Jan 21 2025 12:07PM WOX [id number] - XR FOOT 3V AP/LAT/OBL LT / PROCEDURE REASON: Acute left ankle pain * * * * Physician Interpretation * * * * History: Acute left ankle pain FINDINGS: AP, lateral, and oblique views of the left foot and ankle have been obtained. The bones are well-mineralized without evidence of fracture or dislocation. Joint spaces are maintained. No gross soft tissue abnormality is seen. DIVISION OF RADIOLOGY Provider, [facility] - 01/21/2025 * * *Final Report* * * DATE OF EXAM: Jan 21 2025 12:07PM WOX [id number] - XR FOOT 3V AP/LAT/OBL LT / PROCEDURE REASON: Acute left ankle pain * * * * Physician Interpretation * * * * History: Acute left ankle pain FINDINGS: AP, lateral, and oblique views of the left foot and ankle have been obtained. The bones are well-mineralized without evidence of fracture or dislocation. Joint spaces are maintained. No gross soft tissue abnormality is seen. IMPRESSION IMPRESSION: No acute process is seen. [employer] Sales Consultant: CARMEL Transcribe Date/Time: Jan 21 2025 12:07P Dictated by : BERNICE GARCIA MD This examination was interpreted and the report reviewed and electronically signed by: BERNICE GARCIA MD on Jan 21 2025 12:07PM EST [facility] Personal Loan Specialist Office Visit Reporton 01-07-2025 Personal Loan Specialist Office Visit Report [facility] [address], [address] [place] [address] OFFICE VISIT Date of Service: 01/07/25 MR#: [id number] Acct: [id number] Name: DEJA WOLFE Rep #: [id number] : 1985 Provider: Dr. Laureen Serrano DO Age/Sex: 39/F Location: [facility] Status: Signed Intake Vital Signs 12/04/24 10:30 01/07/25 08:37 01/07/25 08:37 Height 5 ft 2 in 5 ft 2 in 5 ft 2 in Weight: 131 lb 137 lb 2 oz BMI 23.9 25.0 BP 121/84 H 106/74 Intake Visit Reasons: TRH Lysis of Adhesions/Medicaid form needs signd Degree Clerk Required: No Is patient in pain?: No Allergies fentanyl Adverse Reaction (Severe, Verified 01/07/25 08:37) Pruritis Medications ???Medication ???Instructions ???Recorded ???Confirmed ???Type cholecalciferol (vitamin D3) 25 15,000 unit PO .weekly 11/20/24 History mcg (1,000 unit) capsule (Vitamin D3) Post menopausal: No Patient : No : No PFSH Medical History Wears glasses Easy bruising Migraine headache Gastric reflux Vapes nicotine containing substance ADHD Mass of left forearm Contusion of left upper arm Anemia Surgical History H/O dilation and curettage History of excision of lesion History of wisdom tooth extraction Hx of laparoscopy H/O dilation and curettage delivery delivered H/O tubal ligation Family History Aunt Breast cancer x2 Social History adopted: No number of children: 3 current occupational status: unemployed Smoking Status: Former smoker alcohol intake: never substance use type: does not use caffeine: Yes what type of physical activity do you participate in: walking frequency: 1-2 times per week seatbelt use: always do you feel safe at home: Yes additional social history: HPI TRH Lysis of Adhesions/Medicaid form needs signd Details: DEJA WOLFE is a 39 year old ( sections) who presents for a preop exam for planned hysterectomy with lysis of adhesions. The endometrium was benign from her prior D C this spring. She continues to have heavy periods and pelvic pain. She states that last week she passed out from the pain. she has laparoscopic proven endometriosis back in 2016 showing dense adhesions from her prior sections to her bladder and also some endometriosis lesions on the ovaries and pelvic side narayanan. She has a history of abnormal paps in the past also. She states that she is tired of the pain and bleeding and is not interested in having more children. Ultrasound showed the following priro to her D C: Measurements: Uterus: 9.9 cm x 5.1 cm x 4 cm with a volume of 114.4 mL Endometrial Thickness: 8.9 mm Right Ovary: 2.7 cm x 2.2 cm x 1.6 with a volume of 4.94 mL. Left Ovary: 2.9 cm x 2 cm x 1.9 cm with a volume of 5.95 mL. TRANSABDOMINAL: Uterus: Normal size, myometrial echotexture, and contour. Findings suggestive of a 5 mm x 5 mm x 3 mm polyp at the cervical os. Endometrium: Unremarkable. Right ovary: Normal size and echotexture. Left ovary: Normal size and echotexture. No large pelvic mass identified. Transvaginal sonography was performed to better visualize the endometrium. TRANSVAGINAL: Uterus: Anteverted. Normal contour and myometrial echotexture. Endometrium: Normal echotexture. Right ovary: Normal size and echotexture. Left ovary: Normal size and echotexture. Other adnexal findings: None. Cul-de-sac: No free intraperitoneal fluid identified. No tenderness. US/Pelvic w/ Transvaginal IMPRESSION: Findings suggestive of a 5 mm x 5 mm x 3 mm polyp at the cervical os History 3 Elective abortions Hx Para 3 Spontaneous abortions Hx # Term Pregnancies 3 Ectopic pregnancies Hx # Pregnancies Multiple births # of living children 3 Past Pregnancies Del. Date Name GA/Weeks Outcome Route Bth Weight Gen Labor Lgth Anesthesia Del Locatn Provider FOB Unknown Ian 2009 Unknown Nico 2010 Unknown Demarcus 2013 ROS Const ROS Unobtainable: All systems reviewed are unremarkable except as noted in H Resp Resp: Reports system reviewed and no additional complaints, except as documented; Denies cough GI GI: Reports as per HPI Psych Psych: Reports system reviewed and no additional complaints, except as documented Exam Const General: cooperative, healthy appearing, comfortable and no acute distress Resp Effort Inspection: normal respiratory effort Skin General: no rashes or lesions noted Psych Appearanc (more content not included)... Normal [facility] Genital Culture Comprehensiv leanna 12-04-2024 VAC Reason for Exam: vaginitis Normal genital faith isolated Normal [facility] Comment on above: Performed By: #### M 100.3200, M100.2000 #### [facility] [address] [place], [address] Personal Loan Specialist Office Visit Reporton 12-04-2024 Personal Loan Specialist Office Visit Report [facility] [address], [address] [place] [address] OFFICE VISIT Date of Service: 12/04/24 MR#: [id number] Acct: [id number] Name: DEJA WOLFE Rep #: [id number] : 1985 Provider: Dr. Laureen Serrano DO Age/Sex: 39/F Location: [facility] Status: Signed Intake Vital Signs 10/18/24 11:40 12/03/24 08:54 12/04/24 10:30 Height 5 ft 2 in 5 ft 2 in 5 ft 2 in Weight: 131 lb BMI 23.9 BP 121/84 H Intake Visit Reasons: 2 wk D C polypectomy Degree Clerk Required: No Is patient in pain?: No Allergies fentanyl Adverse Reaction (Severe, Verified 12/04/24 10:33) Pruritis Medications ???Medication ???Instructions ???Recorded ???Confirmed ???Type cholecalciferol (vitamin D3) 25 15,000 unit PO .weekly 11/20/24 History mcg (1,000 unit) capsule (Vitamin D3) nitrofurantoin 100 mg PO BID 7 days #14 caps 05/0 12/2312/04/24 Rx monohydrate/macrocryst als 100 mg capsule (Macrobid) terconazole 0.4 % vaginal cream 1 appful vaginal QHS 7 days #45 12/04/24 Rx grams Post menopausal: No Patient : No : No [facility] Medical History Wears glasses Easy bruising Migraine headache Gastric reflux Vapes nicotine containing substance ADHD Mass of left forearm Contusion of left upper arm Anemia Surgical History H/O dilation and curettage History of excision of lesion History of wisdom tooth extraction Hx of laparoscopy H/O dilation and curettage delivery delivered H/O tubal ligation Family History Aunt Breast cancer x2 Social History adopted: No number of children: 3 current occupational status: unemployed Smoking Status: Former smoker alcohol intake: never substance use type: does not use caffeine: Yes what type of physical activity do you participate in: walking frequency: 1-2 times per week seatbelt use: always do you feel safe at home: Yes additional social history: HPI 2 wk D C polypectomy Details: DEJA WOLFE is a 39 year old who presents for a 2 week post op hysteroscopy D C and now wants to proceed with hysterectomy. The endometrium was benign. She continues to have heavy periods and pelvic pain. she has laparoscopic proven endometriosis back in 2016 showing dense adhesions from her prior sections to her bladder and also some endometriosis lesions on the ovaries and pelvic side narayanan. She has a history of abnormal paps in the past also. She states that she is tired of the pain and bleeding and is not interested in having more children. Ultrasound showed the following priro to her D C: Measurements: Uterus: 9.9 cm x 5.1 cm x 4 cm with a volume of 114.4 mL Endometrial Thickness: 8.9 mm Right Ovary: 2.7 cm x 2.2 cm x 1.6 with a volume of 4.94 mL. Left Ovary: 2.9 cm x 2 cm x 1.9 cm with a volume of 5.95 mL. TRANSABDOMINAL: Uterus: Normal size, myometrial echotexture, and contour. Findings suggestive of a 5 mm x 5 mm x 3 mm polyp at the cervical os. Endometrium: Unremarkable. Right ovary: Normal size and echotexture. Left ovary: Normal size and echotexture. No large pelvic mass identified. Transvaginal sonography was performed to better visualize the endometrium. TRANSVAGINAL: Uterus: Anteverted. Normal contour and myometrial echotexture. Endometrium: Normal echotexture. Right ovary: Normal size and echotexture. Left ovary: Normal size and echotexture. Other adnexal findings: None. Cul-de-sac: No free intraperitoneal fluid identified. No tenderness. US/Pelvic w/ Transvaginal IMPRESSION: Findings suggestive of a 5 mm x 5 mm x 3 mm polyp at the cervical os. History 3 Elective abortions Hx Para 3 Spontaneous abortions Hx # Term Pregnancies 3 Ectopic pregnancies Hx # Pregnancies Multiple births # of living children 3 Past Pregnancies Del. Date Name GA/Weeks Outcome Route Bth Weight Infant Gen Labor Lgth Anesthesia Del Locatn Provider FOB Unknown Ian 2009 Unknown Nico 2010 Unknown Demarcus 2013 ROS ENT ENT: Reports system reviewed and no additional complaints, except as documented Cardio Card: Reports system reviewed and no additional complaints, except as documented Resp Resp: Denies cough, dyspnea or dyspnea on exertion GI GI: Denies abdominal pain, bloating or change in bowel habits : Denies vaginal odor or vaginal pruritus Details: lochia is mild Musc Musc: Reports system reviewed and no additional complaints, except as docum (more content not included)... Normal [facility] Urine Cultureon 12-04-2024 [facility] Culture exhibits no growth. Normal [facility] Comment on above: Performed By: #### M 100.3200, M100.2000 #### [facility] [address] [place], [address] Genital cultureOrdered By: Quinton Singer on 12-03-2024 Source specific culture Normal genital f geovanni isolated [facility] Gram Stainon 12-03-2024 GS Reason for Exam: vaginitis Gram Stain No Gram negative diplococci 1+ Gram positive cocci 3+ Gram positive rods 2+ Gram variable gavin Score =3 Interpretation: 0-3 Normal, 4-6 Intermediate, 7-10 Positive BV Normal [facility] Comment on above: Performed By: #### P SUIV #### [facility] Laboratory [address] [place], [address] Gram stainOrdered By: Felipa Singer on 12-03-2024 Microscopic observation Gram stain Nom (Unsp spec) [facility] Laboratory - Chemistry and C hemistry - challengeOrdered By: Felipa Singer on 12-03-2024 Bilirubin Ql (U) Negative [facility] Glucose Ql (U) Negative [facility] Ketones Ql (U) Negative [facility] pH (U) 5.0 [pH] [facility] Specific gravity (U) [Rel density] 1.025 [facility] Urobilinogen (U) [Mass/Vol] Negative [facility] Laboratory - Hematology and Cell countsOrdered By: Felipa Singer on 12-03-2024 Hemoglobin Ql (U) Hemolyzed [facility] Laboratory - Specimen inform ationOrdered By: Felipa Singer on 12-03-2024 Clarity (U) Clear [facility] Color (U) YELLOW [facility] Laboratory - UrinalysisOrder ed By: Felipa Singer on 12-03-2024 Nitrite Ql (U) Negative [facility] Protein Ql (U) Negative [facility] No Panel InformationOrdered By: Felipa Singer on 12-03-2024 POC Bacterial Vaginitis (Rapid) Negative [facility] Urine Leukocytes Positive [facility] Urine Non-Hemolyzed Blood Moderate [facility] Personal Loan Specialist Office Visit Reporton 12-03-2024 Personal Loan Specialist Office Visit Report [facility] [address], [address] [place] [address] OFFICE VISIT Date of Service: 12/03/24 MR#: [id number] Acct: [id number] Name: DEJA WOLFE Rep #: [id number] : 1985 Provider: DAMIEN javed Age/Sex: 39/F Location: [facility] Status: Signed Intake Vital Signs 11/20/24 12:41 12/03/24 08:54 Height 5 ft 2 in 5 ft 2 in Weight: 131 lb BMI 23.9 BP 105/71 Intake Visit Reasons: RO yeast infection postop 11/20 Degree Clerk Required: No Is patient in pain?: No Allergies fentanyl Adverse Reaction (Severe, Verified 12/03/24 09:06) Pruritis Medications ???Medication ???Instructions ???Recorded ???Confirmed ???Type cholecalciferol (vitamin D3) 25 15,000 unit PO .weekly 11/20/24 History mcg (1,000 unit) capsule (Vitamin D3) ibuprofen 800 mg tablet 800 mg PO Q8H PRN pain #20 tabs 12/03/24 Rx nitrofurantoin 100 mg PO BID 7 days #14 caps 05/12/2312/03/24 Rx monohydrate/macrocryst als 100 mg capsule (Macrobid) terconazole 0.4 % vaginal cream 1 appful vaginal QHS 7 days #45 12/03/24 Rx grams Is last menstrual period known: Yes Last Menstrual Period: 11/14/24 Post menopausal: No Patient : No : No PFSH Medical History Wears glasses Easy bruising Migraine headache Gastric reflux Vapes nicotine containing substance ADHD Mass of left forearm Contusion of left upper arm Anemia Surgical History H/O dilation and curettage History of excision of lesion History of wisdom tooth extraction Hx of laparoscopy H/O dilation and curettage delivery delivered H/O tubal ligation Family History Aunt Breast cancer x2 Social History adopted: No number of children: 3 current occupational status: unemployed Smoking Status: Former smoker alcohol intake: never substance use type: does not use caffeine: Yes what type of physical activity do you participate in: walking frequency: 1-2 times per week seatbelt use: always do you feel safe at home: Yes additional social history: HPI RO yeast infection postop 11/20 Details: DEJA WOLFE is a 39 year old who presents for persistent vaginal itching, white discharge, urinary frequency. Took fluconazole 11/30. Had D C (neg path) 11/21. Seeing Dr Hernandez to discuss hysterectomy. Female Reproductive History Last Menstrual Period: 11/14/24 History 3 Elective abortions Hx Para 3 Spontaneous abortions Hx # Term Pregnancies 3 Ectopic pregnancies Hx # Pregnancies Multiple births # of living children 3 Past Pregnancies Del. Date Name GA/Weeks Outcome Route Bth Weight Infant Gen Labor Lgth Anesthesia Del Locatn Provider FOB Unknown Ian 2010 Unknown [place] 2010 Unknown [place] 2014 ROS Const Constitutional: Reports system reviewed and no additional complaints, except as documented Eyes Eyes: Reports system reviewed and no additional complaints, except as documented GI GI: Denies abdominal pain or change in bowel habits : Reports as per HPI Exam Const General: cooperative and no acute distress Orientation: oriented x3 External Female Exam: normal appearance of the urethra and other (small excoriation outer left labia/confirms itching) Urethra: normal appearance of the urethra Speculum Exam - Vagina: normal appearance of the vagina, abnormal vaginal discharge white and caseous, not erythematous, no lesions and nontender Speculum Exam - Cervix: normal appearance of the cervix Results POC Urinalysis Dip (Clinic) Office Urine Color YELLOW Last Edit by January Lundberg on 12/03/24 09:29 Office Urine Clarity Clear Last Edit by January Lundberg on 12/03/24 09:29 Office Urine Glucose Negative Last Edit by January Lundberg on 12/03/24 09:29 Office Urine Ketones Negative Last Edit by January Lundberg on 12/03/24 09:29 Off Ur Spec [place] 1.025 Last Edit by January Lundberg on 12/03/24 09:29 Office Urine pH 5.0 Last Edit by January Lundberg on 12/03/24 09:29 Office Urine Bilirubin Negative Last Edit by January Lundberg on 12/03/24 09:29 Office Urine Urobilinogen Negative Last Edit by January Lundberg on 12/03/24 09:29 Office Urine Blood Hemolyzed Last Edit by January Lundberg on 12/03/24 09:29 Office Urine Blood Hemolyzed Moderate Last Edit by January Lundberg on 12/03/24 09:29 Office Urine Protein Negative Last Edit by January Lundberg on 12/03/24 09:29 Office Urine Nitrate Negative Last Edit by January Brennan (more content not included)... Normal [facility] Urine cultureOrdered By: Eve Singer on 12-03-2024 Bacteria identified Cx Nom (U) Culture exhibits no growth. [facility] Discharge Instructionon 10-31 Discharge Instruction [facility] Medical Records Department [address] [place] [address] Instructions for Home/Discharge Instructions 11/20/24 1352 MR#: [id number] Acct: [id number] Name: DEJA WOLFE Rep #: [id number] : 1985 39 From: Laureen Hernandez DO PCP: Dr. Damion Wright MD [place] [facility] [place] Instructions Diet Discharge Diet: No restrictions DC O2, CPAP, BIPAP needs Home O2 Discharge instructions: No Dressing / Incision Discharge Activity: Return to Normal Activity, May Shower and May Take a Tub Bath (after 1 week) May resume sexual activity in: 1-2 weeks Weight Bearing Status: Weight bearing as tolerated Lifting Restrictions: none Dressing / Incision Call your doctor if you observe: Fever of 101 or Higher, Using more than 1 pad per hour, Shortness of breath and Uncontrolled pain Follow Up Care Please Follow Up With: Laureen Hernandez DO When: Call [phone] to schedule appointment. Test Results: Test results from this visit will be discussed in further detail at your follow-up appointment, if applicable. Discharge Plan Admission Primary Reason for Your Visit: hysteroscopy dilation and curettage Attending Provider: Laureen Hernandez Primary Care Provider: Damion Wright Instructions Print Language: Malay Discharge Orders/Prescriptions Prescriptions: New ibuprofen 800 mg tablet 800 mg PO Q8H PRN (Reason: pain) Qty: 20 0RF No Action cholecalciferol (vitamin D3) [Vitamin D3] 25 mcg (1,000 unit) capsule 15,000 unit PO .weekly Referrals / Follow Up: Damion Wright MD [Primary Care Provider] - Disposition Disposition (needs filled in before D/C Order can be placed): Home, Self Care 11/20/24 1353 Laureen Hernandez DO CC: Dr. Damion Wright MD Signed Normal [facility] MR/[email or web address].ANEon 11-20-2024 MR/POSTOP.[facility] Medical Records Department [address] [place] [address] Anesthesia Postop Eval I 11/20/24 1438 MR#: [id number] Acct: [id number] Name: DEJA WOLFE Rep #: [id number] : 1985 39 From: Juan Robles CRNA PCP: Dr. Damion Wright MD Status:[facility] Y Race: C Location: [place] [address] Anesthesia: Postop Eval I Current Vital Signs Temperature: 97.3 F Pulse Rate: 60 Blood Pressure: 90/60 Respiratory Rate: 16 Pulse Ox: 99 Oxygen Delivery Method: Nasal Cannula Oxygen Flow Rate (L/min): 2 Assessment Airway patent: Yes Spontaneous unlabored respirations: Yes Mental status: Asleep nausea: No Vomiting: No Anesthesia Complication: No Fluid Hydration Crystalloid volume administer (ml): 250 Total IV fluid infused: 250 Progress Note Anesthesia document: Postop Eval 1 completed: Yes 11/20/24 1439 Date Juan Robles BORING INSPECTOR Cosigner Signature: Date CC: Signed Normal [facility] MR/[id number] 11-20-2024 [facility] Medical Records Department [address] [place] [address] Anesthesia Postop Eval II 11/20/242022 MR#: [id number] Acct: [id number] Name: DEJA WOLFE Rep #: [id number] : 1985 39 From: Tristen Fuentes MD PCP: Dr. Damion Wright MD [facility] Y Race: C [place] [facility] [place]esthesia Postop Eval I Sum Postop Eval Completion status Anesthesia document: Postop Eval 1 completed: Yes Anesthesia Postop Eval I Summary Anesthesia Postop Eval I Summary: Anesthesia Postop Eval I: Assessment Summary Airway patent Yes 11/20/24 14:39 BORING [email or web address].BHOS Spontaneous unlabored Yes 11/20/24 14:39 BORING INSPECTOR.BHOS respirations Mental status Asleep 11/20/24 14:39 BORING INSPECTOR.BHOS nausea No 11/20/24 14:39 BORING INSPECTOR.BHOS Vomiting No 11/20/24 14:39 BORING INSPECTOR.BHOS Anesthesia Postop Eval I: Fluid Summary Crystalloid volume administer 250 11/20/24 14:39 BORING INSPECTOR.BHOS (ml) Colloids volume administered ( ml) Blood Product volume administered (ml) Total IV fluid infused 250 11/20/24 14:39 BORING [email or web address].BHOS Anesthesia Postop Eval I: Summary Notes Anesthesia Complication No 11/20/24 14:39 BORING INSPECTOR.BHOS Anesthesia Complication Comment: Post-operative progress note Anesthesia: Postop Eval II Evaluation Mental status: Awake and Calm Pain Level: 3 nausea: No Vomiting: No Progress Note Post-operative progress note: Pain treated mostly with Toradol instead of narcotic. Complications Anesthesia Complication: No 11/20/242022 Date Tristen Fuentes MD Cosigner Signature: Date CC: Signed Normal [facility] Operative Reporton Operative Report [facility] Medical Records Department [address] [place] [address] Operative Report 11/20/24 1525 MR#: [id number] Acct: [id number] Name: DEJA WOLFE Rep #: [id number] : 1985 39 From: Laureen Hernandez DO PCP: Dr. Damion Wright MD [place] [facility] [place] Location[place] [address] Problems Associated Problem List Diagnoses (1) Polyp of cervix: (2) Abnormal uterine bleeding: Multi Select Codes Urinary/Genital Urinary/Genital CPT Codes: 88864 Hysteroscopy,EMC, Polypectomy Operative Report (Standard) Operative Information Date of Procedure: 11/20/24 Pre-Operative Diagnosis: abnormal uterine bleeding, cervical polyp Post-Operative Diagnosis: abnormal uterine bleeding, cervical polyp Surgery/Procedure Performed: hysteroscopy dilation and curettage criminal researcher: No Type of Anesthesia: MAC RN Documented Start/Stop Times: Operation Date: 11/20/24 13:40 Case Time Into Pre-Op 11/20/24 12:05 Out of Pre-Op 11/20/24 14:00 Anesthesia Start 11/20/24 14:02 Into Room 11/20/24 14:02 Procedure End 11/20/24 14:28 Into Recovery 11/20/24 14:31 Anesthesia End 11/20/24 14:32 Out of Room 11/20/24 14:32 Into Phase II Recovery 11/20/24 15:19 Out of Recovery 11/20/24 15:19 Procedure Start Time: 14:02 Procedure Stop Time: 14:28 Select all DRAINS/GRAFTS/IMPLANTS that apply: None Estimated Blood Loss: 10cc Specimen collected: Yes Description of specimen(s) removed: endometrial curetting's Description of surgery: Patient was prepped and draped in a normal sterile fashion under MAC anesthesia. A weighted speculum was placed in the vagina and the anterior lip of the cervix was grasped with a single-tooth tenaculum. A paracervical block was placed with 1% lidocaine. Cervix was progressively dilated to allow passage of a 5 mm hysteroscope. The lining was fully visualized and noted to have some detached tissue, but not consistent with the ultrasound suggestion of polyp . The uterus sounded to 9 cm. Curettage was performed and scant tissue was sent to pathology. All instruments were removed from the vagina and excellent hemostasis was noted. Patient was awoken and taken to recovery in stable condition. Surgical Findings: scant endometrial tissue, normal cervix and lining of uterus Complications Complications: No Admit VTE Documentation VTE Present on Admission: No VTE Mechan Device Prophylaxis: SCD's VTE Pharm Prophylaxis ordered?: No 11/20/24 5769 Cosigner Signature (if applicable): CC: Dr. Laureen Hernandez DO; Dr. Damion Wright MD Signed Normal [facility] Surgery Specimen Level Hemant 11-20-2024 Surgery Specimen Level IV ---- Patient Age/Sex Location Account Attending Physician ---- DEJA WOLFE 39/F [facility] [place] [id number] Karla John ---- Specimen: [id number] Received: 11/21/24 Status: KOMAL Brooksstefani Num: [id number] Spec Type: ENDOM BX/C Subm Dr: Dr. Laureen Hernandez, DO HEADER OPERATION: Hysteroscopy, dilation and curettage, polypectomy PRE-OP DIAGNOSIS: Polyp of cervix, abnormal uterine bleeding, history of endometriosis TISSUE SUBMITTED: A- Endometrial curettings ---- MICROSCOPIC DIAGNOSIS A. Endometrium, curettage: * Late secretory phase with focal stromal condensation/shedding. MICROSCOPIC DESCRIPTION Slides are reviewed. GROSS DESCRIPTION A. Received in formalin in a container labeled with the patient's name, date of , and endometrial curettings are multiple austin-pink fragments of soft tissue admixed with blood and mucus measuring 2.0 x 1.3 x 0.4 cm in aggregate. Submitted in toto in A1. [facility] 11/22/2024 CPT:62510 ---- Patient Age/Sex Location Account Attending Physician ---- DEJA WOLFE 39/F [facility] [place] [id number] Karla John ---- Signed (signature on file) Dr. Hafsa Vargas MD 11/22/24 1608 ---- Normal [facility] Comment on above: Performed By: #### P SUIV #### [facility] Laboratory [address] [place], [place], [address] Urine Cultureon 11-18-2024 URC #1, 2 Below infectio n level. Streptococcus agalactiae (B) Tullos Count <1000 Mixed Gram Positive Organisms Mixed Gram Positive Organisms MIXC Mixed contaminants. Submit a new specimen if indicated. Normal [facility] Comment on above: Performed By: #### M 100.2200 #### [facility] Laboratory [address] [place], [place], [address] Laboratory - Chemistry and C hemistry - challengeOrdered By: Belle Ibarra on 11-16-2024 Bilirubin Ql (U) Negative [facility] Glucose Ql (U) Negative [facility] Ketones Ql (U) Small (15+) [facility] pH (U) 5 [pH] [facility] Specific gravity (U) [Rel density] 1.030 [facility] Urobilinogen (U) [Mass/Vol] Negative [facility] Laboratory - Hematology and Cell countsOrdered By: Belle Ibarra on 11-16-2024 Hemoglobin Ql (U) Moderate [facility] Laboratory - Specimen inform ationOrdered By: Belle Ibarra on 11-16-2024 Clarity (U) Clear [facility] Color (U) Yellow [facility] Laboratory - UrinalysisOrder ed By: Belle Ibarra on 11-16-2024 Nitrite Ql (U) Negative [facility] Protein Ql (U) Negative [facility] No Panel InformationOrdered By: Blele Ibarra on 11-16-2024 Urine Leukocytes Negatve [facility] Urine Non-Hemolyzed Blood Non-Hemolyzed [facility] Office Visit Reporton 2024 Office Visit Report [facility] [address] [place] [address] OFFICE VISIT Date of Service: 11/16/24 MR#: [id number] Acct: [id number] Patient: DEJA WOLFE #: [id number] : 1985 Provider: Dr. Belle zambrano MD Age/Sex: 39/F Location: [facility] Status: Signed Intake Vital Signs 11/05/24 12:00 11/16/24 10:01 Height 5 ft 2 in 5 ft 2 in Weight: 126 lb 6 oz BMI 23.1 BP 137/88 H Intake Visit Reasons: NV only - UA/culture per JV Chief Complaint: UA/Culture Degree Clerk Required: No Is patient in pain?: No Allergies fentanyl Adverse Reaction (Verified 11/16/24 10:01) Hives Medications ???Medication ???Instructions ???Recorded ???Confirmed ???Type cyanocobalamin 2 mg-levomefolate 1 tab PO DAILY 11/15/24 11/16/24 H istory adi 1.13 mg-pyridoxine 25 mg tablet Post menopausal: No Patient : No Have you fallen in the past year?: No Results POC Urinalysis Dip (Clinic) Office Urine Color Yellow Last Edit by Evelia Fernandez on 11/16/24 10:24 Office Urine Clarity Clear Last Edit by Evelia Fernandez on 11/16/24 10:24 Office Urine Glucose Negative Last Edit by Evelia Fernandez on 11/16/24 10:24 Office Urine Ketones Small (15+) Last Edit by Evelia Fernandez on 11/16/24 10:24 Off Ur Spec [place] 1.030 Last Edit by Evelia Fernandez on 11/16/24 10:24 Office Urine pH 5 Last Edit by Evelia Fernandez on 11/16/24 10:24 Office Urine Bilirubin Negative Last Edit by Evelia Fernandez on 11/16/24 10:24 Office Urine Urobilinogen Negative Last Edit by Evelia Fernandez on 11/16/24 10:24 Office Urine Blood Moderate Last Edit by Evelia Fernandez on 11/16/24 10:24 Office Urine Blood Hemolyzed Non-Hemolyzed Last Edit by Evelia Fernandez on 11/16/24 10:24 Office Urine Protein Negative Last Edit by Evelia Fernandez on 11/16/24 10:24 Office Urine Nitrate Negative Last Edit by Evelia Fernandez on 11/16/24 10:24 Off Ur Leukocytes Negatve Last Edit by Evelia Fernandez on 11/16/24 10:24 Assessment and Plan Assessment and Plan (1) Burning with urination: Status: Acute Orders: Orders Urinalysis, Routine (Dipstick) 11/16/24 N84.1 - Polyp of cervix uteri, R30.0 - Dysuria POC Urinalysis Dip (Clinic) 11/16/24 R30.0 - Dysuria Clinical Quality Measures Falls Risk Screening/Assistive Devices Have you fallen in the past year?: No 11/19/24 1254 Date Belle Cowan Signature: Date (if applicable) CC: Normal [facility] Urine cultureOrdered By: Gely Garcia on 11-16-2024 Bacteria identified Cx Nom (U) Streptococcus agalactiae (B) Abnormal [facility] Bacteria identified Cx Nom (U) Positive Abnormal [facility] Antigen Little c Series 1on 11-06-[address] [facility] Comment on above: Order Comment: Reaso n for Exam: polyp of [id number] d C Performed By: #### M 100.3200, M1.1999 #### [facility] Laboratory [address] [place], [address] [id number] 11-06-2024 ANTIBODY ID LC Normal [facility] Comment on above: Order Comment: Reaso n for Exam: polyp of [id number] d C Performed By: #### M 100.3200, M100.1999 #### [facility] [address] [place], [address] BRCon 11-06-2024 RC Normal [facility] Comment on above: Result Comment: [id number] AP RC READY [id number] AP RC READY Performed By: #### M 100.3200, #### [facility] [address] [place], [address] Type AND Screen - PAT ONLYon 11-06-2024 ABO and Rh group Nom (Bld) Blood group A Rh(D) positive Normal [facility] Comment on above: Order Comment: Reaso n for Exam: polyp of [id number] d C Performed By: #### M 100.3200, #### [facility] [address] [place], [address] CBC-Complete Blood Cnt No Di ffon 11-05-2024 Erythrocyte distribution width (RBC) [Ratio] 13.1 % Normal 11.6-14.6 [facility] Comment on above: Performed By: #### P SUIV #### [facility] [address] [place], [address] Hematocrit (Bld) [Volume fraction] 36.5 % Low 37-47 [facility] Comment on above: Performed By: #### P SUIV #### [facility] Laboratory [address] [place], [address] Hemoglobin (Bld) [Mass/Vol] 11.8 g/dL Low 12.0-15.0 [facility] Comment on above: Performed By: #### P SUIV #### [facility] [address] [place], [address] MCH (RBC) [Entitic mass] 26.5 pg Low 27.0-32.0 [facility] Comment on above: Performed By: #### P SUIV #### [facility] [address] [place], [address] MCHC (RBC) [Mass/Vol] 32.3 g/dL Normal 32-36 [facility] Comment on above: Performed By: #### P SUIV #### [facility] [address] [place], [address] MCV (RBC) [Entitic vol] 81.8 fL Normal 81-99 [facility] Comment on above: Performed By: #### P SUIV #### [facility] [address] [place], [address] Platelet mean volume (Bld) [Entitic vol] 9.1 fL Normal 6.2-12.0 [facility] Comment on above: Performed By: #### P SUIV #### [facility] [address] [place], [address] Platelets (Bld) [#/Vol] 327 10*3/uL Normal 150-450 [facility] Comment on above: Performed By: #### P SUIV #### [facility] [address] [place], [address] RBC (Bld) [#/Vol] 4.46 10*6/uL Normal 4.2-5.4 [facility] Comment on above: Performed By: #### P SUIV #### [facility] [address] [place], [address] RDW SD 38.8 fl Normal 35.1-43.9 [facility] Comment on above: Performed By: #### P SUIV #### [facility] [address] [place], [address] WBC (Bld) [#/Vol] 5.4 10*3/uL Normal 4.4-11.0 [facility] Comment on above: Performed By: #### P SUIV #### [facility] [address] [place], [address] Erythrocyte distribution wid th (RBC) [Ratio]Ordered By: Laureen Garcia on 11-05-2024 Erythrocyte distribution width (RBC) [Entitic vol] 38.8 fL 35.1-43.9 [facility] Erythrocyte distribution wid th ratioOrdered By: Laureen Garcia on 11-05-2024 Erythrocyte distribution width (RBC) [Ratio] 13.1 % 11.6-14.6 [facility] Erythrocyte distribution wid th standard deviationOrdered By: Laureen Garcia on 11-05-2024 Erythrocyte distribution width (RBC) [Ratio] 38.8 fl 35.1-43.9 [facility] Hematocrit Auto (Bld) [Volum e fraction]Ordered By: Laureen Garcia on 11-05-2024 Hematocrit (Bld) [Volume fraction] 36.5 % Low 37-47 [facility] Hemoglobin measurementOrdere d By: Laureen Garcia on 11-05-2024 Hemoglobin (Bld) [Mass/Vol] 11.8 g/dL Low 12.0-15.0 [facility] MCV (mean corpuscular volume ) determinationOrdered By: Laureen Garcia on 11-05-2024 MCV (RBC) [Entitic vol] 81.8 fL 81-99 [facility] Mean corpuscular hemoglobin (MCH) determinationOrdered By: Laureen Garcia on 11-05-2024 MCH (RBC) [Entitic mass] 26.5 pg Low 27.0-32.0 [facility] Mean corpuscular hemoglobin concentration (MCHC) determinationOrdered By: Laureen Garcia on 11-05-2024 MCHC (RBC) [Mass/Vol] 32.3 g/dL 32-36 [facility] Mean platelet volume determi nationOrdered By: Laureen Garcia on 11-05-2024 Platelet mean volume (Bld) [Entitic vol] 9.1 fL 6.2-12.0 [facility] Personal Loan Specialist Office Visit Reporton 11-05-2024 Personal Loan Specialist Office Visit Report [address], [address] [place] [address] OFFICE VISIT Date of Service: 11/05/24 MR#: [id number] Acct: [id number] Name: NICOLASADEJA MIKE Rep #: [id number] : 1985 Provider: Dr. Laureen Serrano, DO Age/Sex: 39/F Location: [facility] Status: Signed Intake Vital Signs 10/18/24 11:40 11/05/24 11:58 11/05/24 12:00 Height 5 ft 2 in 5 ft 2 in 5 ft 2 in Weight: 133 lb 8 oz BMI 24.4 BP 127/81 H Intake Visit Reasons: D C polypectomy Degree Clerk Required: No Is patient in pain?: No Allergies fentanyl Adverse Reaction (Verified 11/05/24 11:58) Hives Medications ???Medication ???Instructions ???Recorded ???Confirmed ???Type norethindrone (contraceptive) 0.35 0.35 mg PO QDAY #90 tabs 05/21/ 4 11/05/24 Rx mg tablet fluconazole 150 mg tablet 150 mg PO ONCE #1 TAB 11/05/2402/22 Rx Post menopausal: No Patient : No : No PFSH Medical History ADHD Mass of left forearm Contusion of left upper arm Anxiety and depression Anemia Endometriosis determined by laparoscopy Surgical History Napier teeth extracted H/O dilation and curettage Hematoma delivery delivered H/O tubal ligation Family History Aunt Breast cancer x2 Social History adopted: No number of children: 3 current occupational status: unemployed Smoking Status: Former smoker alcohol intake: never substance use type: does not use caffeine: Yes what type of physical activity do you participate in: walking frequency: 1-2 times per week seatbelt use: always do you feel safe at home: Yes additional social history: HPI D C polypectomy Details: DEJA WOLFE is a 39 year old who presents for a pre-op hysteroscopy. She has persistent irregular periods as well as recurrent yeast infections. the progesterone did not stop the irregular bleeding patterns and we discussed that it is likely due to the ultrasound Findings suggestive of a 5 mm x 5 mm x 3 mm polyp at the cervical os on ultrasound. This polyp is not seen clinically on exam. She has undergone 3 sections and multiple diagnostic laparoscopic procedures and wants a hysterectomy. We discussed attempting to removed the polyp first in the office and if not successful, then in the OR before we jump to hysterectomy. She agrees. History 3 Elective abortions Hx Para 3 Spontaneous abortions Hx # Term Pregnancies 3 Ectopic pregnancies Hx # Pregnancies Multiple births # of living children 3 Past Pregnancies Del. Date Name GA/Weeks Outcome Route Bth Weight Gen Labor Lgth Anesthesia Del Locatn Provider FOB Unknown Ian 2009 Unknown Nico 2010 Unknown [place] 2013 ROS Const ROS Unobtainable: All systems reviewed are unremarkable except as noted in H Resp Resp: Reports system reviewed and no additional complaints, except as documented; Denies cough GI GI: Reports as per HPI Psych Psych: Reports system reviewed and no additional complaints, except as documented Exam Const General: cooperative, healthy appearing, comfortable and no acute distress Resp Effort Inspection: normal respiratory effort Skin General: no rashes or lesions noted Psych Appearance: grossly normal Speech and Movement: speech and movement normal Coding Level of Care Code Off vis,est,level 4 Diagnoses Polyp of cervix N84.1 Abnormal uterine bleeding N93.9 History of endometriosis Z87.42 Assessment and Plan Assessment and Plan (1) Polyp of cervix: Status: Acute (2) Abnormal uterine bleeding: Status: Acute (3) History of endometriosis: Status: Acute Orders: Orders CBC-Complete Blood Cnt No Diff Today N84.1 - Polyp of cervix uteri Type Screen - PAT ONLY Today N84.1 - Polyp of cervix uteri Vitamin D,25 Hydroxy Today N84.1 - Polyp of cervix uteri Medications: New fluconazole 150 mg PO ONCE 1 TAB 3RF Plan After discussing the patient's diagnosis and treatment plan options, patient wishes to proceed with surgical management. I have discussed with the patient the risks, benefits, and alternatives of the procedure which include but are not limited to risks of anesthesia, bleeding, infection, possible damage to bowel, bladder, or surrounding vasculature which could lead to additional surgery to evaluate any complications. Patient agrees to procedure and wishes to proceed. ACOG/uptodate references given for additional information regarding procedure. Plan is for hysteroscopy dilation and curett (more content not included)... Normal [facility] Platelet countOrdered By: Romario Garcia on 11-05-2024 Platelets (Bld) [#/Vol] 327 10*3/uL 150-450 [facility] RBC Auto (Bld) [#/Vol]Ordere d By: Laureen Garcia on 11-05-2024 RBC (Bld) [#/Vol] 4.46 10*6/uL 4.2-5.4 [facility] Vitamin D, 25-hydroxyOrdered By: Laureen Garcia on 11-05-2024 Vitamin D 25-Hydroxy 23.9 ng/mL Low 30-100 [facility] Comment on above: Vitamin D StatusDefi ciency: <20 ng/mL (50nmol/L)Insufficiency: 20-30 ng/mL (50-75 nmol/L)Sufficiency: 30-100 ng/mL (75-250 nmol/L)Toxicity: >100 ng/mL (>250 nmol/L) Vitamin D,25 Hydroxyon 11-05 Vitamin D 25-OH 23.9 ng/mL Low 30-100 [facility] Comment on above: Result Comment: Anaid min D Status Deficiency: <20 ng/mL (50nmol/L) Insufficiency: 20-30 ng/mL (50-75 nmol/L) Sufficiency: 30-100 ng/mL (75-250 nmol/L) Toxicity: >100 ng/mL (>250 nmol/L) Performed By: #### P SUIV #### [facility] Laboratory [facility] [place], [address] White blood cell (WBC) count Ordered By: Laureen Garcia on 11-05-2024 WBC (Bld) [#/Vol] 5.4 10*3/uL 4.4-11.0 [facility] CNOVon 10-30-2024 CNOV Office Visit ([facility] ) DEJA WOLFE ([id number]) 1985 F Date Time Provider Department 10/30/24 10:30 AM ZUNILDA MOTTA [facility] During your visit today, we recorded the following information about you: Temperature Pulse Respiration Blood pressure 99.5 degrees 96/minute 22/minute 120/81 Weight Last Period 61 kg 10/18/24 Zunilda Motta APRN.CNP 10/30/2024 11:13 AM Signed [facility] Subjective Deja Wolfe is a 39 year old female. Patient presents with: Sore Throat: Body aches, headache, low grade fever x this 39 year old female with PMH hypothyroidism presents for illness. Acute onset yesterday +sore throat +nasal congestion +lymph node +headache +body ache +fever Of note, she spent the weekend in [place] Flew there and back. Tylenol Just feel like this is strep throat The history is provided by the patient. No medical language specialist was used. URI There is no chest tightness, cough, difficulty breathing, frequent throat clearing, hemoptysis, hoarse voice, shortness of breath, sputum production or wheezing. This is a new problem. The current episode started yesterday. The problem occurs constantly. The problem has been gradually worsening. Associated symptoms include ear pain, a fever, headaches, malaise/fatigue, myalgias, nasal congestion, rhinorrhea and a sore throat. Pertinent negatives include no appetite change, chest pain, dyspnea on exertion, ear congestion, heartburn, orthopnea, PND, postnasal drip, sneezing, sweats, trouble swallowing or weight loss. Her symptoms are aggravated by nothing. She reports no improvement on treatment. There are no known risk factors for lung disease. There is no history of asthma, bronchiectasis, bronchitis, COPD, emphysema or pneumonia. 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 amoxicillin (AMOXIL) 500 mg capsule Take 1 capsule by mouth two times a day for 10 days. Norethindrone, Contraceptive, 0.35 mg tablet Take 1 tablet by mouth every afternoon. (Patient not taking: Reported on 10/30/2024) citalopram (CELEXA) 20 mg tablet Take 1 tablet by mouth once daily. (Patient not taking: Reported on 09/20/2024) citalopram hydrobromide (CELEXA) 10 mg tablet Take 1 tablet by mouth once daily. (Patient not taking: Reported on 09/20/2024) oxyCODONE-acetaminophe n (PERCOCET) 5-325 mg tablet Take 1 tablet by mouth every 4 hours as needed for Pain. FOR PAIN. (Patient not taking: Reported on 09/20/2024) ibuprofen (MOTRIN) 800 mg tablet Take 1 tablet by mouth every 8 hours as needed for Pain. FOR PAIN. (Patient not taking: Reported on 09/20/2024) FAMILY HISTORY Problem Relation Age of Onset Breast Cancer Paternal Aunt P AUNT X 2 Diabetes Paternal Grandfather Heart Maternal Grandmother Hypertension Maternal Grandmother Hypertension Paternal Grandfather Thyroid Paternal Grandmother Social History Tobacco Use Smoking status: Every Day Types: Cigarettes Start date: 09/03/2012 Smokeless tobacco: Never Tobacco comments: vaping Substance Use Topics Alcohol use: No Drug use: No Review of Systems Constitutional: Positive for fever and malaise/fatigue. Negative for appetite change and weight loss. HENT: Positive for ear pain, rhinorrhea and sore throat. Negative for hoarse voice, postnasal drip, sneezing and trouble swallowing. Eyes: Negative for pain, discharge, redness and itching. Respiratory: Negative for apnea, cough, hemoptysis, sputum production, chest tightness, shortness of breath and wheezing. Cardiovascular: Negative for chest pain, dyspnea on exertion and PND. Gastrointestinal: Negative for abdominal pain, diarrhea, heartburn, nausea and vomiting. Musculoskeletal: Positive for myalgias. Skin: Negative for color change, pallor, rash and wound. Allergic/Immunologic: Negative for environmental allergies, food allergies and immunocompromised state. Neurological: Positive for headaches. Negative for dizziness and facial asymmetry. Hematological: Positive for adenopathy. Does not bruise/bleed easily. Psychiatric/Behavioral : Negative for agitation and behavioral proble (more content not included)... Normal [facility] STREP A MOLECULAR (POC)on Interpretation and review of laboratory results Abnormal [facility] Procedural Control Valid [facility] Strep A (POCT) Positive Abnormal Negative [facility] Surgical pathology reportOrd ered By: Abdullahi Elizabeth on 10-24-2024 Surgical pathology study [facility] Other Phone: Genital Culture Comprehensiv leanna 10-20-2024 VAC Reason for Exam: vaginal discharge Normal vaginal faith isolated. No yeast, Gardnerella, Neisseria or beta-hemolytic Streptococcus isolated. Normal [facility] Comment on above: Performed By: #### M 100.3200, M100.1999 #### [facility] Laboratory [address] [place], [place], [id number] Genital cultureOrdered By: Charisma Garcia on 10-18-2024 Genital Culture Neisseria or beta-hemolytic Streptococcus isolated. [facility] Source specific culture Neisseria or beta-hemolytic Streptococcus isolated. [facility] Gram Stainon 10-18-2024 GS Reason for Exam: vaginal discharge Gram Stain 2+ Gram positive rods No Gram negative diplococci No White Blood Cells Score = 2 Interpretation: 0-3 Normal, 4-6 Intermediate, 7-10 Positive BV Normal [facility] Comment on above: Performed By: #### M 100.3200, M100.1999 #### [facility] Laboratory [address] [place], [place], [id number] Gram stainOrdered By: Sheila Garcia on 10-18-2024 Microscopic observation Gram stain Nom (Unsp spec) [facility] Personal Loan Specialist Office Visit Reporton 10-18-2024 Personal Loan Specialist Office Visit Report [facility] [address], [address] [place] [address] OFFICE VISIT Date of Service: 10/18/24 MR#: [id number] Acct: [id number] Name: DEJA WOLFE Rep #: [id number] : 1985 Provider: Dr. Laureen Serrano DO Age/Sex: 39/F Location: [facility] Status: Signed Intake Vital Signs 09/16/24 13:47 09/27/24 13:34 10/03/24 09:50 10/18/24 11:37 10/18/24 11:40 Height 5 ft 2 in 5 ft 2 in 5 ft 2 in 5 ft 2 in 5 ft 2 in Weight: 137 lb 8 oz BMI 25.1 BP 112/75 Intake Visit Reasons: Discuss US/hysterectomy Chief Complaint: Discuss US/Hyst. Degree Clerk Required: No Is patient in pain?: No Allergies fentanyl Adverse Reaction (Verified 10/18/24 11:36) Hives Medications ???Medication ???Instructions ???Recorded ???Confirmed ???Type norethindrone (contraceptive) 0.35 0.35 mg PO QDAY #90 tabs 4 10/18/24 Rx mg tablet fluconazole 150 mg tablet 150 mg PO .COMPLEX #2 tabs 2 5 10/18/24 Rx fluconazole 150 mg tablet 150 mg PO Q3D 2 doses #2 tabs 03/2 10/18/24 Rx Is last menstrual period known: Yes Last Menstrual Period: 10/17/24 Post menopausal: No Patient : No : No PFSH Medical History ADHD Mass of left forearm Contusion of left upper arm Anxiety and depression Anemia Endometriosis determined by laparoscopy Surgical History [place] teeth extracted H/O dilation and curettage Hematoma delivery delivered H/O tubal ligation Family History Aunt Breast cancer x2 Social History adopted: No number of children: 3 current occupational status: unemployed Smoking Status: Former smoker alcohol intake: never substance use type: does not use caffeine: Yes what type of physical activity do you participate in: walking frequency: 1-2 times per week seatbelt use: always do you feel safe at home: Yes additional social history: HPI Discuss US/hysterectomy Details: DEJA WOLFE is a 39 year old who presents for discussion about persistent irregular periods as well as recurrent yeast infections. the progesterone did not stop the irregular bleeding patterns and we discussed that it is likely due to the Findings suggestive of a 5 mm x 5 mm x 3 mm polyp at the cervical os on ultrasound. This polyp is not seen clinically on exam. She has undergone 3 sections and multiple diagnostic laparoscopic procedures and wants a hysterectomy. We discussed attempting to removed the polyp first in the office and if not successful, then in the OR before we jump to hysterectomy. She agrees. Female Reproductive History Last Menstrual Period: 10/17/24 History 3 Elective abortions Hx Para 3 Spontaneous abortions Hx # Term Pregnancies 3 Ectopic pregnancies Hx # Pregnancies Multiple births # of living children 3 Past Pregnancies Del. Date Name GA/Weeks Outcome Route Bth Weight Infant Gen Labor Lgth Anesthesia Del Locatn Provider FOB Unknown Ian 2009 Unknown Nico 2010 Unknown [place]arc[place] 2014 ROS Const ROS Unobtainable: All systems reviewed are unremarkable except as noted in H Resp Resp: Reports system reviewed and no additional complaints, except as documented; Denies cough GI GI: Reports as per HPI Psych Psych: Reports system reviewed and no additional complaints, except as documented Exam Const General: cooperative, healthy appearing, comfortable and no acute distress Resp Effort Inspection: normal respiratory effort General: bimanual renal exam normal bilaterally External Female Exam: normal appearance of the urethra Urethra: normal appearance of the urethra Speculum Exam - Vagina: normal appearance of the vagina Speculum Exam - Cervix: normal appearance of the cervix Bimanual Exam- Adnexa, other: normal adnexae and normal Pelvic Support: normal Skin General: no rashes or lesions noted Psych Appearance: grossly normal Speech and Movement: speech and movement normal Office Procedures Endometrial Biopsy Endometrial Biopsy Test: Yes declined Consent Signed: Yes Time out checklist: patient tenaculum used: Yes dilator used: No Details: Cervix prepped with betadine and pipelle inserted into uterus without complication. Specimen obtained and sent to lab for analysis. All instruments removed from vagina without complications. Excellent hemostasis noted. Coding Level of Care Code Off vis,est,level 4 Diagnoses Polyp of cervix N84.1 Abnormal uterine bleeding N93.9 History of endometriosis Z87.42 (more content not included)... Normal [facility] Surgery Specimen Level Hemant 10-18-2024 Surgery Specimen Level IV ---- Patient Age/Sex Location Account Attending Physician ---- DEJA WOLFE 39/F LABSPEC [id number] Karla John ---- Specimen: [id number] Received: 10/19/24 Status: KOMAL Guerra Num: [id number] Spec Type: ENDOM BX/C Subm Dr: Dr. Laureen Hernandez DO HEADER OPERATION: Endometrial biopsy PRE-OP DIAGNOSIS: Abnormal uterine bleeding TISSUE SUBMITTED: A- Endometrial lining ---- MICROSCOPIC DIAGNOSIS Endometrial biopsy: Menstrual and basal (inactive) endometriumFragment of squamous epitheliumCharisma Elizabeth MD, 10/24/2024 MICROSCOPIC DESCRIPTION Slides are reviewed. GROSS DESCRIPTION A. Received in fixative is one container labeled with the patient's name and designated Endometrial biopsy. The specimen consists of multiple fragments of brown tissue that measures 2.5 x 1.4 x 0.1cm. The specimen is totally submitted in one cassette. 10/19/2024 CPT:21515 , TC:4 ---- Patient Age/Sex Location Account Attending Physician ---- DEJA WOLFE 39/F LABSPEC [id number] Karla John ---- Signed (signature on file) Dr. Abdullahi Elizabeth MD 10/24/24 1722 ---- Normal [facility] Comment on above: Performed By: #### P SUIV #### [facility] Laboratory [address] [place], [place], [id number] Genital Culture Comprehensiv leanna 10-06-2024 VAC Reason for Exam: vaginal itching Normal vaginal faith isolated. No yeast, Gardnerella, Neisseria or beta-hemolytic Streptococcus isolated. Normal [facility] Comment on above: Performed By: #### M 100.3200, M100.1999 #### [facility] Laboratory [address] [place], [place], [address] Genital cultureOrdered By: Quinton Singer on 10-03-2024 Genital Culture Neisseria or beta-hemolytic Streptococcus isolated. [facility] Source specific culture Neisseria or beta-hemolytic Streptococcus isolated. [facility] Gram Stainon 10-03-2024 GS Reason for Exam: vaginal itching Gram Stain 4+ Gram positive rods 3+ Gram negative rods Rare White Blood Cells No Gram negative diplococci Score = 3 Interpretation: 0-3 Normal, 4-6 Intermediate, 7-10 Positive BV Normal [facility] Comment on above: Performed By: #### M 100.3200, M100.1999 #### [facility] Laboratory [address] [place], [place], [address] Gram stainOrdered By: Felipa Singer on 10-03-2024 Microscopic observation Gram stain Nom (Unsp spec) [facility] Personal Loan Specialist Office Visit Reporton 10-03-2024 Personal Loan Specialist Office Visit Report [facility] [address], [address] [place] [address] OFFICE VISIT Date of Service: 10/03/24 MR#: [id number] Acct: [id number] Name: DEJA WOLFE Rep #: [id number] : 1985 Provider: DAMIEN javed Age/Sex: 39/F Location: [facility] Status: Signed Intake Vital Signs 09/27/24 13:34 10/03/24 09:40 10/03/24 09:50 Height 5 ft 2 in 5 ft 2 in 5 ft 2 in Weight: 122 lb BMI 22.3 BP 118/84 H Intake Visit Reasons: Ongoing vaginal itching and burning Chief Complaint: Vaginal itching and burning Degree Clerk Required: No Is patient in pain?: No Allergies fentanyl Adverse Reaction (Verified 10/03/24 09:40) Hives Medications ???Medication ???Instructions ???Recorded ???Confirmed ???Type norethindrone (contraceptive) 0.35 0.35 mg PO QDAY #90 tabs 4 10/03/24 Rx mg tablet fluconazole 150 mg tablet 150 mg PO .COMPLEX #2 tabs 5 10/03/24 Rx Is last menstrual period known: Yes Last Menstrual Period: 09/19/24 Post menopausal: No Patient : No : No PFSH Medical History ADHD Mass of left forearm Contusion of left upper arm Anxiety and depression Anemia Endometriosis determined by laparoscopy Surgical History [place] teeth extracted H/O dilation and curettage Hematoma delivery delivered H/O tubal ligation Family History Aunt Breast cancer x2 Social History adopted: No number of children: 3 current occupational status: unemployed Smoking Status: Former smoker alcohol intake: never substance use type: does not use caffeine: Yes what type of physical activity do you participate in: walking frequency: 1-2 times per week seatbelt use: always do you feel safe at home: Yes additional social history: HPI Ongoing vaginal itching and burning Details: DEJA WOLFE is a 39 year old who presents for vaginal itching and clumpy discharge. States took 1 fluconazole on 09/27 and felt was improving but now worse again. She is also supposed to have D C for cervical polyp, AUB. She does not want D C. She has had 4 abdominal surgeries and a prior D C and wants hysterectomy Female Reproductive History Last Menstrual Period: 09/19/24 History 3 Elective abortions Hx Para 3 Spontaneous abortions Hx # Term Pregnancies 3 Ectopic pregnancies Hx # Pregnancies Multiple births # of living children 3 Past Pregnancies Del. Date Name GA/Weeks Outcome Route Bth Weight Gen Labor Lgth Anesthesia Del Locatn Provider FOB Unknown Ian 2010 Unknown Nico 2010 Unknown [place] 2014 ROS Const Constitutional: Reports system reviewed and no additional complaints, except as documented Eyes Eyes: Reports system reviewed and no additional complaints, except as documented GI GI: Denies abdominal pain or change in bowel habits : Reports as per HPI Exam Const General: cooperative and no acute distress Nutritional Appearance: well nourished Orientation: oriented x3 External Female Exam: normal appearance of the urethra and erythema Urethra: normal appearance of the urethra Speculum Exam - Vagina: abnormal vaginal discharge white and caseous and erythematous Speculum Exam - Cervix: normal appearance of the cervix Bimanual Exam- Vagina Uterus: normal bimanual exam and uterine size normal Bimanual Exam- Adnexa, other: normal adnexae, no masses and non-tender Coding Level of Care Code Off vis,est,level 3 Diagnoses Monilial vaginitis B37.31 Abnormal uterine bleeding N93.9 History of endometriosis Z87.42 Assessment and Plan Assessment and Plan (1) Monilial vaginitis: (2) Abnormal uterine bleeding: Status: Acute (3) History of endometriosis: Status: Acute Medications: New fluconazole 150 mg PO take one po now and repeat in 3 days 2 tabs 0RF Plan Comp vag culture to confirm Will discuss with Dr Hernandez and have her contact patient for follow up 10/03/24 1003 Date Felipa Singer NP, NP-Odalis Akersigner Signature: Date (if applicable) CC: Normal [facility] Pelvic w/ Transvaginalon Pelvic w/ Transvaginal [facility] [address] [place], [place] [address] Pelvic w/ Transvaginal MR#: [id number] Acct: [id number] Name: DEJA WOLFE Rep #: [id number] : 1985 F 39 From: Christian gerardo MD PCP: Dr. Damion Wright MD Status: REG CLI Study: Pelvic w/ Transvaginal Date of Exam: 10/02/24 Exam# [id number] Ordering Dr: Laureen Hernandez DO PROCEDURE: PELVIC W/ TRANSVAGINAL REASON FOR EXAM: Abnormal uterine bleeding. TECHNIQUE: Transabdominal and transvaginal pelvic ultrasound COMPARISON: None. FINDINGS: LMP: September 25, 2024 Measurements: Uterus: 9.9 cm x 5.1 cm x 4 cm with a volume of 114.4 mL Endometrial Thickness: 8.9 mm Right Ovary: 2.7 cm x 2.2 cm x 1.6 with a volume of 4.94 mL. Left Ovary: 2.9 cm x 2 cm x 1.9 cm with a volume of 5.95 mL. TRANSABDOMINAL: Uterus: Normal size, myometrial echotexture, and contour. Findings suggestive of a 5 mm x 5 mm x 3 mm polyp at the cervical os. Endometrium: Unremarkable. Right ovary: Normal size and echotexture. Left ovary: Normal size and echotexture. No large pelvic mass identified. Transvaginal sonography was performed to better visualize the endometrium. TRANSVAGINAL: Uterus: Anteverted. Normal contour and myometrial echotexture. Endometrium: Normal echotexture. Right ovary: Normal size and echotexture. Left ovary: Normal size and echotexture. Other adnexal findings: None. Cul-de-sac: No free intraperitoneal fluid identified. No tenderness. US/Pelvic w/ Transvaginal IMPRESSION: Findings suggestive of a 5 mm x 5 mm x 3 mm polyp at the cervical os. Reading Location: [id number] CC: Dr. Laureen Hernandez DO; Dr. Damion Wright MD Retail Wireless Sales Consultant: Signed Normal [facility] Breast imaging reportOrdered By: Zara Fernandez on 09-28-2024 Study report [facility] Services [address] [place] [address] SCRN MAMM (CAD)W/TREMAINE BILAT MR#: [id number] Acct: [id number] Name: DEJA WOLFE Rep #: [id number] : 1985 F 39 From: Liliana Fernandez MD PCP: Dr. Damion Wright MD Status: REG C ESEQUIEL Study:SCRN MAMM (CAD)W/TREMAINE BILAT Date of Exa m: 09/28/24 Exam# [id number] Ordering Dr: Laureen Copeland DO PROCEDURE: SCRN MAMM (CAD)W/TREMAINE BILAT REASON FOR EXAM: F, Age 39 y/o, presents for annual screening mammogram. Family history of breast cancer in 3 paternal aunts and a paternal great aunt. TECHNIQUE: Bilateral screening digital breast tomosynthesis with 2D and 3D images. Computeraided detection. COMPARISON: 06/07/2023, 05/31/2022 FINDINGS: There are scattered areas of fibroglandular density. No suspicious masses, areas of developing architectural distortion, or suspicious calcifications. BI/SCRN MAMM (CAD)W/TREMAINE BILAT IMPRESSION: There is no mammographic evidence of malignancy. BI-RADS 1: NEGATIVE. RECOMMEND ANNUAL MAMMOGRAPHIC SCREENING. Follow-up code: Routine Follow-up The patient will be notified of the results by letter. Reading Location: [facility] CC: Dr. Laureen Hernandez DO; Dr. Damion Wright MD ~ Retail Wireless Sales Consultant: Signed [facility] SCRN MAMM (CAD)W/TREMAINE BILATo n 09-28-2024 SCRN MAMM (CAD)W/TREMAINE BILAT [facility] Services [address] [place], [place] [id number] SCRN MAMM (CAD)W/TREMAINE BILAT MR#: [id number] Acct: [id number] Name: DEJA WOLFE Rep #: [id number] : 1985 F 39 From: Zara Fernandez MD PCP: Dr. Damion Wright MD Status: [facility] CLI Study: SCRN MAMM (CAD)W/TREMAINE BILAT Date of Exam: 09/02 03/25 Exam# [id number] Ordering Dr: Laureen Hernandez DO PROCEDURE: SCRN MAMM (CAD)W/TREMAINE BILAT REASON FOR EXAM: F, Age 39 y/o, presents for annual screening mammogram. Family history of breast cancer in 3 paternal aunts and a paternal great aunt. TECHNIQUE: Bilateral screening digital breast tomosynthesis with 2D and 3D images. Computer aided detection. COMPARISON: 06/07/2023, 05/31/2022 FINDINGS: There are scattered areas of fibroglandular density. No suspicious masses, areas of developing architectural distortion, or suspicious calcifications. BI/SCRN MAMM (CAD)W/TREMAINE BILAT IMPRESSION: There is no mammographic evidence of malignancy. BI-RADS 1: NEGATIVE. RECOMMEND ANNUAL MAMMOGRAPHIC SCREENING. Follow-up code: Routine Follow-up The patient will be notified of the results by letter. Reading Location: [facility] CC: Dr. Laureen Hernandez DO; Dr. Damion Wright MD Retail Wireless Sales Consultant: Signed Normal [facility] CNOVon 09-20-2024 CNOV Office Visit (UCWSTR ) NICOLASADEJA N ([id number]) 1985 F Date Time Provider Department 09/20/24 4:00 PM DIANN EVANS WSTR During your visit today, we recorded the following information about you: Temperature Pulse Respiration Blood pressure 98.2 degrees 73/minute 16/minute 124/76 Weight Last Period 59.4 kg 08/09/24 Diann Evans APRN.[employer] LPN 09/20/2024 3:49 PM Signed Nursing clinic for complaints of coughing, shortness of breath, sinus congestion Based on physical exam, it was felt you had a left lower lobe pneumonia, in addition to a sinus infection. At this time, you will be started on antibiotics, please take them as directed until completed. You will be provided with an albuterol inhaler, please use this as needed for any coughing, shortness of breath or wheezing. In addition you will be started on Tessalon Perles, to assist with reducing your cough. Take them as needed. Lastly you will be started on Mucinex, which will assist with mucus production. Please increase your oral hydration, with water, electrolyte drinks such as Gatorade. If you have any worsening issues, it is recommend you follow-up with your primary care, return to the clinic. Diann Evans APRN.[employer] LPN 09/20/2024 4:08 PM Signed This note was created using Invesdorter. Subjective Deja Wolfe is a 39 year old female. Patient is a 39-year-old female, with no significant past medical history, presenting to the clinic for complaints of recurrent nasal drainage, sinus pressure, over the past couple weeks, in addition to a cough, shortness of breath, since Tuesday. Patient states cough is productive in nature, with very scant sputum. Sputum is clear at times. She states shortness of breath with exertion. She denies any chest pain, she has felt feverish, has had decreased appetite, and increased fatigue. She denies any abdominal pain, nausea, vomiting or diarrhea, denies any urinary symptoms. She states she was seen by one of her colleagues, who listened to her, and felt she had abnormal lung sounds, concerning for pneumonia, recommended she come to be evaluated. Cough This is a new problem. The current episode started more than 2 days ago. The problem occurs every few minutes. The problem has been gradually worsening. The cough is Productive of sputum. There has been no fever. Associated symptoms include rhinorrhea, sore throat, shortness of breath and wheezing. Pertinent negatives include no chest pain, no chills, no ear congestion, no ear pain, no headaches, no myalgias and no eye redness. She has tried nothing for the symptoms. She is not a smoker. Her past medical history does not include pneumonia or asthma. Review of Systems Constitutional: Positive for appetite change and fatigue. Negative for chills and fever. HENT: Positive for congestion, rhinorrhea, sinus pressure, sinus pain and sore throat. Negative for ear pain. Eyes: Negative for redness. Respiratory: Positive for cough, shortness of breath and wheezing. Cardiovascular: Negative for chest pain. Gastrointestinal: Negative for abdominal distention, diarrhea, nausea and vomiting. Genitourinary: Negative for decreased urine volume and difficulty urinating. Musculoskeletal: Negative for myalgias. Neurological: Negative for dizziness, weakness, numbness and headaches. Objective BP 124/76 Pulse 73 Temp 36.8 ?C (98.2 ?F) (Left Tympanic) Resp 16 Wt 59.4 kg (130 lb 15.3 oz) LMP 08/09/2024 (Approximate) SpO2 99% BMI 22.48 kg/m? Physical Exam Vitals and nursing note reviewed. Constitutional: General: She is not in acute distress. Appearance: She is not ill-appearing or diaphoretic. HENT: Head: Normocephalic and atraumatic. Right Ear: Tympanic membrane and ear canal normal. Left Ear: Tympanic membrane and ear canal normal. Nose: Right Sinus: Maxillary sinus tenderness present. Left Sinus: Maxillary sinus tenderness present. Mouth/Throat: Mouth: Mucous membranes are moist. Pharynx: Oropharynx is clear. No oropharyngeal exudate. Tonsils: No tonsillar exudate. 1+ on the right. 0 on the left. Eyes: Extraocular Movements: Extraocular movements intact. Pupils: Pupils are equal, round, and reactive to light. Cardiovascular: Rate and Rhythm: Normal rate and regular rhythm. Pulses: Normal pulses. Heart sounds: Normal heart sounds. Pulmonary: Effort: Pulmonary effort is normal. Breath sounds: Examination of the left-lower field reveals rales. Rales present. No wheezing. Abdominal: General: Bowel sounds are normal. There is no distension. Palpations: Abdomen is soft. Tenderness: There is no abdominal tenderness. Musculoskeletal: General: No tenderness. Normal range of motion. Right lower leg: No edema. Left lower leg: No edema. Skin: General: Skin is warm and dry. Capillary Re (more content not included)... Normal [facility] Ankle min 3 Viewson 09-16-19 Ankle min 3 Views [facility] Services [address] [place] [address] Ankle min 3 Views MR#: [id number] Acct: [id number] Name: DEJA WOLFE Rep #: [id number] : 1985 F 39 From: Willa Becker nd, MD PCP: Dr. Damion Wright MD Status: PRE ER Study: Ankle min 3 Views Date of Exam: 09/16/24 Exam# [id number] Ordering Dr: Joe Kasper DO PROCEDURE: ANKLE MIN 3 VIEWS REASON FOR EXAM: 39-year-old female, dropped object onto left ankle, left ankle pain. TECHNIQUE: 3 views of the left ankle COMPARISON: None FINDINGS: No visible fracture. No suspicious bone lesion. Normal alignment. Mortise appears intact. No effusion. Soft tissues are unremarkable. No radiopaque foreign body. RAD/Ankle min 3 Views IMPRESSION: NEGATIVE ANKLE SERIES Reading Location: [facility] CC: Dr. Joe Kasper DO; Dr. 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 Damion Wright MD Status:DEP ER Location: ED HPI History of Present Illness Chief Complaint: Lower Extremity Injury Informant: patient Narrative Narrative: 39-year-old female presenting to the emergency room with left lateral ankle pain. 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 She notes she is able to bear weight but not her full weight. She is worried that it may be broken. [facility] Medical History ADHD Mass of left forearm Contusion of left upper arm Anxiety and depression Anemia Endometriosis determined by laparoscopy Home Medications ???Medication ???Instructions ???Recorded ???Last Taken ???Type norethindrone (contraceptive) 0.35 0.35 mg PO QDAY #90 tabs 4 Unknown Rx mg tablet Allergy/AdvReac Type Severity Reaction Status Date / Time fentanyl AdvReac Hives Verified 09/16/24 13:48 Family History Aunt Breast cancer x2 Surgical History Napier teeth extracted H/O dilation and curettage Hematoma delivery delivered H/O tubal ligation Social History adopted: No number of children: 3 current occupational status: unemployed Smoking Status: Former smoker alcohol intake: never substance use type: does not use caffeine: Yes what type of physical activity do you participate in: walking frequency: 1-2 times per week seatbelt use: always do you feel safe at home: Yes additional social history: ROS ROS ED Constitutional Constitutional ED: Denies chills, fever(s) or weight loss Eyes Eyes: Denies change in vision or diplopia ENT ENT ED: Denies ear pain, rhinorrhea or sore throat Cardiovascular Cardiovascular: Denies chest pain, orthopnea, palpitations or racing heartbeat Respiratory/Chest Respiratory/Chest: Denies cough, dyspnea or orthopnea Gastrointestinal Gastrointestinal: Denies abdominal pain, diarrhea, nausea or vomiting Genitourinary Genitourinary ED: Denies dysuria, hematuria or urinary frequency Musculoskeletal Musculoskeletal: Reports other Details: See history of present illness ; Denies arthralgias or myalgias Integumentary Denies abscess or rash Neurologic Neurologic: Denies headache(s) or weakness Psychiatric Psychiatric: Denies anxiety, depression, suicidal ideation or suicidal thoughts Endocrine Endocrinology: Denies polydipsia, polyphagia or polyuria Allergic/Immunologic Allergic/Immunologic ED: Denies mouth swelling, tongue swelling or urticaria EXAM Physical Exam Const Vital Signs: 09/16/24 13:47 09/16/24 14:30 Temperature 98.2 F 98.1 F Temperature Source Oral Pulse Rate 79 74 Respiratory Rate 16 15 Blood Pressure 149/72 H 109/67 Blood Pressure Mean 97 81 Pulse Ox 99 99 Positive well nourished and well developed General Appearance ED: well developed and NAD HEENT Reports normocephalic, head/scalp atraumatic and moist mucous membranes Eyes PERRL and EOMs intact bilaterally Neck no lymphadenopathy, supple and no JVD Resp normal respiratory effort and clear to auscultation bilaterally Cardio regular rate, regular rhythm and no murmurs GI normal to inspection, nondistended, normoactive bowel sounds and non-tender Palpation: soft Back/Spine no CVA tenderness and normal ROM Extremity Extremity Narrative: There is some swelling and ecchymosis over the left lateral malleolus with tenderness to palpation. No palpable deformity. Neurovascular intact. General Extremety ED: Negative for edema General Extremity: Negative for edema Neuro oriented x3 and CN's II-XII intact bilaterally Sensorium / Orientation: alert Motor Exam: strength 5/5 throughout Psych mental status grossly normal Mood Affect: Negative for depressed or tearful Skin no rashes or lesions noted and no wounds MDM MDM MDM Narrative Medical decision making narrative: Differential diagnosis includes but not limited to fracture bone contusion soft tissue contusion neurovascular injury tendon injury My independent interpretation of the plain films of the left ankle is no acute fracture. Radiology concurs. Patient be discharged home with supportive care return if worsening or concerns History Record Review Discussion w/independent historian: Patient Radiography Diag (more content not included)... Normal [facility] Personal Loan Specialist Office Visit Reporton 05-21-2024 Personal Loan Specialist Office Visit Report [address], [address] [place] [address] OFFICE VISIT Date of Service: 05/21/24 MR#: [id number] Acct: [id number] Name: DEJA WOLFE Rep #: [id number] : 1985 Provider: Dr. Laureen Serrano, Age/Sex: 39/F Location: [facility] Status: Signed Intake Vital Signs 05/18/23 10:41 06/28/23 10:16 02/28/24 15:25 05/21/24 09:57 05/21/24 09:58 Height 5 ft 2.75 in 5 ft 2.75 in 5 ft 2 in 5 ft 2 in 5 ft 2 in Weight: 125 lb 8 oz BMI 22.9 BP 130/82 H Intake Visit Reasons: 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) Degree Clerk Required: No Is patient in pain?: No Allergies fentanyl Adverse Reaction (Verified 05/21/24 09:57) Hives Medications ???Medication ???Instructions ???Recorded ???Confirmed ???Type norethindrone (contraceptive) 0.35 0.35 mg PO QDAY #90 tabs 05/21/24 05/21/24 Rx mg tablet Post menopausal: No Patient : No : No PFSH Medical History (Updated 05/21/24 @ 09:57 by Leelee Acosta) ADHD Mass of left forearm Contusion of left upper arm Anxiety and depression Anemia Endometriosis determined by laparoscopy Surgical History Napier teeth extracted H/O dilation and curettage Hematoma delivery delivered H/O tubal ligation Family History Aunt Breast cancer x2 Social History (Updated 05/21/24 @ 09:58 by Leelee Acosta) adopted: No number of children: 3 current occupational status: unemployed Smoking Status: Former smoker alcohol intake: never substance use type: does not use caffeine: Yes what type of physical activity do you participate in: walking frequency: 1-2 times per week seatbelt use: always do you feel safe at home: Yes additional social history: History 3 Elective abortions Hx Para 3 Spontaneous abortions Hx # Term Pregnancies 3 Ectopic pregnancies Hx # Pregnancies Multiple births # of living children 3 Past Pregnancies Del. Date Name GA/Weeks Outcome Route Bth Weight Gen Labor Lgth Anesthesia Del Locatn Provider FOB Unknown Ian 2009 Unknown Nico 2010 Unknown Demarcus 2013 HPI Encounter for routine gynecological examination Details: DEJA WOLFE is a 39 year old who presents for annual exam. Last PAP: 05/13/22 History of abnormal PAP: no Last mammogram: n/a History of abnormal mammogram: n/a Colon cancer screening: n/a Other preventative health care screenings: followed by pcp. up to date on health maintenance c/o frequent bv infections. has spotting for 2 weeks after menses. Female Reproductive History Cycle Length: 21-35 Bleeding Duration: 5 Questions: metorrhagia: No, sexually active: Yes, dyspareunia: No and PCB: No Menopausal Symptoms: No hot flashes, No night sweats, No weight change, No mood changes, No difficulty concentrating, No sleep problems and No change in libido ROS Const Constitutional: Reports as per HPI; Denies fatigue, increased appetite, poor appetite, night sweats, weight gain or weight loss Cardio Card: Denies chest pain Resp Resp: Denies cough or dyspnea GI GI: Reports as per HPI; Denies abdominal pain, bloating, constipation, nausea or vomiting : Reports as per HPI and other; Denies difficulty voiding, dysuria, hematuria, hot flashes, nipple discharge, pelvic pain, prolapse symptoms, urinary frequency, urinary incontinence, urinary urgency, vaginal discharge, vaginal dryness, vaginal odor or vaginal pruritus Skin Skin/Breast: Denies changing lesions, breast mass, breast pain, breast skin changes or nipple discharge Psych Psych: Denies anxiety, change in libido, depression or difficulty concentrating Exam Const General: cooperative, healthy appearing, comfortable, no acute distress, well developed and well groomed HENMT Head: normal to inspection and normocephalic Ears: hearing grossly normal bilaterally and external ears normal Nose: external nose normal Face and sinus: normal facial exam Neck Neck: normal visual inspection, full ROM and no lymphadenopathy Thyroid: thyroid normal Chest Chest palpation inspection: normal inspection of the chest Breast inspection: normal inspection of the breasts and normal inspection of the axillae Breast palpation: normal palpation of the breasts, normal palpation of the axillae and no axillary lymphadenopathy Resp Effort Inspection: normal respiratory effort GI Inspection: normal to inspection and non-distended Palpation: soft, no hepatosplenomegaly and no guarding General: bladder normal to palpation External Female Exam: normal external appearance, normal appearance of the urethra and no lesions Urethra (more content not included)... Normal [facility] Urgent Care Visit Reporton 0 03-28-2024 Urgent Care Visit Report [facility] [address], [address] [place] [address] OFFICE VISIT Date of Service: 03/28/24 MR#: [id number] Acct: [id number] Name: DEJA WOLFE Rep #: [id number] : 1985 Provider: MIKE Huynh Age/Sex: 39/F Location: [facility] Status: Signed Intake Vital Signs 02/28/24 15:25 03/28/24 12:19 Height 5 ft 2 in Weight: 127 lb BMI 23.2 BP 121/80 H 130/60 H Blood Pressure Location Lt brachial Lt brachial Position Sitting Sitting Respiration 14 15 Pulse 83 69 Pulse Source Monitor NIBP Temp 99.3 F H 99.3 F H Temp Source Temporal Temporal Pulse Oximetry (%) 98 100 Oxygen Delivery Method room air room air Intake Visit Reasons: Rash Chief Complaint: rash Degree Clerk Required: No Is patient in pain?: No Allergies fentanyl Adverse Reaction (Verified 03/28/24 12:20) Hives Medications ???Medication ???Instructions ???Recorded ???Confirmed ???Type ergocalciferol (vitamin D2) 1,250 1,250 mcg PO QWEEK 05/18/23 02/28/24 History mcg (50,000 unit) capsule Is last menstrual period known: No Post menopausal: No Patient : No Have you fallen in the past year?: No Nurse's Note: pt c/o rash to left upper arm and left forearm. area of redness and bruising noted to upper arm, slight bruising and a lump to forearm. pt denies injury, states she is being worked up for RA by ortho physician membership assistant but has not gotten results yet. [facility] Medical History (Updated 03/28/24 @ 13:06 by MIKE Wilkerson) Mass of left forearm Contusion of left upper arm Anxiety and depression Anemia Endometriosis determined by laparoscopy Surgical History Napier teeth extracted H/O dilation and curettage Hematoma delivery delivered H/O tubal ligation Family History Aunt Breast cancer x2 Social History (Updated 02/28/24 @ 15:14 by Mike Foley MA) adopted: No number of children: 3 current occupational status: unemployed Smoking Status: Former smoker alcohol intake: never substance use type: does not use caffeine: Yes what type of physical activity do you participate in: none seatbelt use: always do you feel safe at home: Yes 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 No history of trauma to the same she so states. No ytre-ihl-lvdyaxw products taken to assist. No complaints of fever, chills, sweats, lightheadedness/dizzin ess, nausea/vomiting, or chest pain/shortness of breath/dizzy on exertion. Currently being worked up by private provider for potential connective tissue disorders/arthralgias with lab results pending at this time. [id number]. No other associated symptoms and no other alleviating/aggravatin g factors. ROS Const Constitutional: No other (as above) Exam Const General: cooperative, healthy appearing and no acute distress Orientation: alert and awake Chest Chest palpation inspection: normal inspection of the chest Resp Effort Inspection: normal respiratory effort and able to speak in complete sentences Auscultation: Bilateral: Clear to Auscultation Cardio Palpation: normal PMI Rate: regular rate Rhythm: regular rhythm Heart Sounds: S1 normal, S2 normal, no gallops, no murmurs and no rubs Pulses: radial pulses present Skin General: no rashes or lesions noted Other: Ecchymosis with appropriate healing appreciated to the left upper inner arm (when compared to photograph patient took with her smart phone which she showed me today) with mild tenderness palpation of the same. Left forearm fluctuant tender mass upon palpation of approximately 2 cm diameter without ecchymosis or swelling to the same. Neuro General: patient alert, patient awake and patient oriented x3 Cognition: normal cognition Speech: speech normal Extrem General: normal to inspection Psych Appearance: grossly normal Mental Status: mental status grossly normal Mood: congruent mood Affect: normal affect Speech and Movement: speech and movement normal Attitude: cooperative Coding Level of Care Code Off vis,est,level 2 Diagnoses Contusion of left upper arm S40.022A Mass of left forearm R22.32 Assessment and Plan Assessment and Plan (1) Contusion of left upper arm: Status: Acute (2) Mass of left forearm: Status: Acute Plan: - Consider left forearm lipoma (considering PM (more content not included)... Normal [facility] ANTINUCLEAR ANTIBODIES DIREC Ton 03-23-2024 KELY,DIRECT Negative Normal Negative [facility] Comment on above: Result Comment: Perf ormed at: [address] [id number] [address] Recorder: Duane Montelongo PhD, Phone: [phone] Performed By: #### M 100.3200, M100.1999 #### [facility] Laboratory [address] [facility] [address] CCP IgG Antibodieson 024 CCP IgG Ab. 3 units Normal 0-19 [facility] Comment on above: Result Comment: Nega tive <20 Weak positive 20 - 39 Moderate positive 40 - 59 Strong positive >59 Performed at: [facility] [employer] [id number] [address] Recorder: Duane Montelongo PhD, Phone: [phone] Performed By: #### M 100.3200, M100.1999 #### [facility] Laboratory [address] [facility] [id number] Lyme Screen W/Reflex WBon LYME SCREEN Ab Negative Normal Negative [facility] Comment on above: Result Comment: Lyme antibodies not detected. Reflex testing is not indicated. No laboratory evidence of infection with B. burgdorferi (Lyme disease). Negative results may occur in patients recently infected (less than or equal to 14 days) with B. burgdorferi. If recent infection is suspected, repeat testing on a new sample collected in 7 to 14 days is recommended. Performed By: #### M 100.3200, M100.1999 #### [facility] Laboratory [address] [place], [address] CBC W/Diff, Automatedon 08-2 Absolute Lymph 1.97 X10 3/uL Normal 0.83-4.51 [facility] Comment on above: Performed By: #### M 100.3200, #### [facility] Laboratory [address] [place], [address] Absolute Neut 3.0 X10 3/uL Normal 2.0-7.7 [facility] Comment on above: Performed By: #### M 100.3200, #### [facility] Laboratory [address] [place], [address] Basophils/100 WBC (Bld) 0.9 % Normal 0-1 [facility] Comment on above: Performed By: #### M 100.3200, #### [facility] Laboratory [address] [place], [address] Eosinophils/100 WBC (Bld) 4.2 % Normal 0-5 [facility] Comment on above: Performed By: #### M 100.3200, #### [facility] Laboratory [address] [place], [address] Erythrocyte distribution width (RBC) [Ratio] 13.4 % Normal 11.6-14.6 [facility] Comment on above: Performed By: #### M 100.3200, #### [facility] Laboratory [address] [place], [address] Hematocrit (Bld) [Volume fraction] 38.0 % Normal 37-47 [facility] Comment on above: Performed By: #### M 100.3200, #### [facility] Laboratory [address] [place], [address] Hemoglobin (Bld) [Mass/Vol] 12.5 g/dL Normal 12.0-15.0 [facility] Comment on above: Performed By: #### M 100.3200, #### [facility] Laboratory [address] [place], [address] IG% 0.200 Normal 0.0-0.9 [facility] Comment on above: Result Comment: IG% - Immature Granulocytes (promyelocytes, myelocytes and metamyelocytes) > 1% indicates that a LEFT SHIFT is Present. Performed By: #### M 100.3200, #### [facility] Laboratory [address] [place], [address] Lymphocytes/100 WBC (Bld) 34.5 % Normal 19-41 [facility] Comment on above: Performed By: #### M 100.320, #### [facility] Laboratory [address] [place], [address] MCH (RBC) [Entitic mass] 26.8 pg Low 27.0-32.0 [facility] Comment on above: Performed By: #### M 100.3200, #### [facility] Laboratory [address] [place], [address] MCHC (RBC) [Mass/Vol] 32.9 g/dL Normal 32-36 [facility] Comment on above: Performed By: #### M 100.3200, #### [facility] Laboratory [address] [place], [address] MCV (RBC) [Entitic vol] 81.4 fL Normal 81-99 [facility] Comment on above: Performed By: #### M 100.3200, #### [facility] Laboratory [address] [place], [address] Monocytes/100 WBC (Bld) 7.4 % Normal 0-10 [facility] Comment on above: Performed By: #### M 100.3200, #### [facility] Laboratory [address] [place], [address] Neutrophils/100 WBC (Bld) 52.8 % Normal 47-70 [facility] Comment on above: Performed By: #### M 100.3200, #### [facility] Laboratory [address] [place], [address] Nucleated RBC (Bld) [#/Vol] 0 10*3/uL Normal 0-5 [facility] Comment on above: Performed By: #### M 100.3200, #### [facility] Laboratory [address] [place], [address] Platelet mean volume (Bld) [Entitic vol] 10.7 fL Normal 6.2-12.0 [facility] Comment on above: Performed By: #### M 100.3199, #### [facility] Laboratory [address] [place], [address] Platelets (Bld) [#/Vol] 339 10*3/uL Normal 150-450 [facility] Comment on above: Performed By: #### M 100.3199, #### [facility] Laboratory [address] [place], [address] RBC (Bld) [#/Vol] 4.67 10*6/uL Normal 4.2-5.4 [facility] Comment on above: Performed By: #### M 100.3199, #### [facility] Laboratory [address] [place], [address] RDW SD 39.2 fl Normal 35.1-43.9 [facility] Comment on above: Performed By: #### M 100.320, #### [facility] Laboratory [address] [place], [address] WBC (Bld) [#/Vol] 5.7 10*3/uL Normal 4.4-11.0 [facility] Comment on above: Performed By: #### M 100.3200, M1 #### [facility] Laboratory [address] [place], [address] CRPon 03-21-2024 C-REACTIVE PROT < 2.90 Normal 0.0-3.0 [facility] Comment on above: Result Comment: C-Re active Protein (CRP) provides useful information for the diagnosis, therapy and monitoring of inflammatory processes and associated diseases. For the evaluation of Relative Risk for Cardiovascular Disease, a High Sensitivity CRP (HSCRP) should be ordered. Performed By: #### M 100.3200, M1.1999 #### [facility] Laboratory [address] [place], [address] Erythrocyte Sed Rateon 03-21 SED RATE 5 mm/hr Normal 0-30 [facility] Comment on above: Performed By: #### M 100.3200, .1999 #### [facility] Laboratory [address] [place], [address] Rheumatoid Factoron 03-21-20 24 RHEUMATOID FAC < 10.0 Normal <15 [facility] Comment on above: Performed By: #### M 100.3200, M1.1999 #### [facility] Laboratory [address] [place], [address] Uric Acidon 03-21-2024 URIC 4.1 mg/dL Normal 2.6-6.0 [facility] Comment on above: Result Comment: The drugs N-Acetylcysteine and Metamizole may falsely depress this assay. Performed By: #### M 100.3200, M1 #### [facility] Laboratory [address] [place], [address] Urgent Care Visit Reporton 0 02-28-2024 Urgent Care Visit Report [facility] [address], [address] [place], [place] [address] OFFICE VISIT Date of Service: 02/28/24 MR#: [id number] Acct: [id number] Name: DEJA WOLFE Rep #: [id number] : 1985 Provider: MIKE Huynh Age/Sex: 39/F Location: [facility] Status: Signed Intake Vital Signs 06/28/23 10:16 02/28/24 15:25 Height 5 ft 2.75 in 5 ft 2 in Weight: 120 lb 127 lb BMI 21.4 23.2 BP 113/71 121/80 H Blood Pressure Location Rt brachial Lt brachial Position Sitting Sitting Respiration 16 14 Pulse 83 Pulse Source Monitor Temp 99.3 F H Temp Source Temporal Pulse Oximetry (%) 98 Oxygen Delivery Method room air Intake Visit Reasons: CONGESTION/FEVER/SINUS PRESSURE Chief Complaint: congestion Degree Clerk Required: No Is patient in pain?: No Allergies fentanyl Adverse Reaction (Verified 02/28/24 15:12) Hives Medications ???Medication ???Instructions ???Recorded ???Confirmed ???Type ergocalciferol (vitamin D2) 1,250 1,250 mcg PO QWEEK 05/18/23 02/28/24 History mcg (50,000 unit) capsule azithromycin 250 mg tablet 250 mg PO .COMPLEX #12 tabs 02/28/24 02/28/24 Rx methylprednisolone 4 mg tablets in See Rx Instructions PO PER PKG DIR 02/28/24 02/28/24 Rx a dose pack (Medrol (Gen)) #21 tabs Nurse's Note: States 3 weeks ago she started w/ sx's got better last tuesday she started w/ a fever, a cough that is nonproductive but feels chest congestion, has sinus pressure, body aches. Has been treating w/ psudafed, and mucinex. Had some SOb which subsided the last day or so. Chest feels heavy. [facility] Medical History Anxiety and depression Anemia Endometriosis determined by laparoscopy Surgical History Napier teeth extracted H/O dilation and curettage Hematoma delivery delivered H/O tubal ligation Family History Aunt Breast cancer x2 Social History (Updated 02/28/24 @ 15:14 by Mike Foley MA) adopted: No number of children: 3 current occupational status: unemployed Smoking Status: Former smoker alcohol intake: never substance use type: does not use caffeine: Yes what type of physical activity do you participate in: none seatbelt use: always do you feel safe at home: Yes 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 Patient notes no complaints of chest pain or shortness of breath or dyspnea on exertion. Several close contacts recently dx???d w/ similar URI complaints. Patient requesting POC screening for COVID-19 and influenza. No [id number] taken to assist. No other associated symptoms and no other alleviating/aggravatin g factors. ROS Const Constitutional: No other (As above) Exam Const General: cooperative, healthy appearing and no acute distress Orientation: alert, awake and oriented x3 HENMT Head: normal to inspection Ears: hearing grossly normal bilaterally, external ears normal, TM's normal bilaterally and EAC's normal Nose: external nose normal, nares normal, septum normal and no nasal discharge Face and sinus: normal facial exam, sinuses nontender and face symmetric Mouth: oral mucosae normal, lip normal, tongue normal and oropharynx normal Throat: posterior oropharynx normal, tonsils normal, uvula midline and scant amount purulent postnasal drainage Eyes General: appearance normal, both eyes and all related structures Neck Neck: normal visual inspection, full ROM, no lymphadenopathy, no meningeal signs and supple Neck mass: No Thyroid: thyroid normal Lymphatic: no lymphadenopathy noted Chest Chest palpation inspection: normal inspection of the chest Resp Effort Inspection: normal respiratory effort, able to speak in complete sentences and cough Quality of cough: wet (nonproductive in office today) Auscultation: Bilateral: Clear to Auscultation Cardio Palpation: normal PMI Rate: tachycardic Rhythm: regular rhythm Heart Sounds: S1 normal, S2 normal, no gallops, no murmurs and no rubs Pulses: radial pulses present Skin General: no rashes or lesions noted Neuro General: patient alert, patient awake and patient oriented x3 Cognition: normal cognition Speech: speech normal Psych Appearance: grossly normal Mental Status: mental status grossly normal Mood: congruent mood Affect: normal affect Speech and Movement: speech a (more content not included)... Normal [facility] Absolute lymphocyte countOrd ered By: Damion Wright on 10-20-2023 Lymphocytes Auto (Unsp spec) [#/Vol] 1.94 10*3/uL 0.83-4.51 [facility] Automated lymphocyte count a s percentage of total leukocytesOrdered By: Damion Wright on 10-20-2023 Lymphocytes/100 WBC Auto (Unsp spec) 27.5 % 19-41 [facility] Basophil percentageOrdered B y: Damion Wright on 10-20-2023 Basophils/100 WBC (Bld) 0.8 % 0-1 [facility] Eosinophils/100 WBC (Bld) 4.5 % 0-5 [facility] Hemoglobin (Bld) [Mass/Vol] 11.9 g/dL 12.0-15.0 [facility] Monocytes/100 WBC (Bld) 7.5 % 0-10 [facility] Neutrophils (Bld) [#/Vol] 4.2 10*3/uL 2.0-7.7 [facility] Neutrophils/100 WBC (Bld) 59.6 % 47-70 [facility] WBC (Bld) [#/Vol] 7.1 10*3/uL 4.4-11.0 [facility] Determination of erythrocyte mean corpuscular volume (MCV)Ordered By: Damion Wright on 10-20-2023 MCV (RBC) [Entitic vol] 84.2 fL 81-99 [facility] Erythrocyte distribution wid th ratioOrdered By: Damion Wright on 10-20-2023 Erythrocyte distribution width (RBC) [Ratio] 12.9 % 11.6-14.6 [facility] Erythrocyte distribution wid th standard deviationOrdered By: Damion Wright on 10-20-2023 Erythrocyte distribution width (RBC) [Entitic vol] 39.1 fL 35.1-43.9 [facility] Hematocrit Auto (Bld) [Volum e fraction]Ordered By: Damion Wright on 10-20-2023 Hematocrit (Bld) [Volume fraction] 37.7 % 37-47 [facility] Immature granulocytes/100 WB C Auto (Bld)Ordered By: Damion Wright on 10-20-2023 Immature granulocytes/100 WBC (Bld) 0.100 % 0.0-0.9 [facility] Comment on above: IG% - Immature Granu locytes (promyelocytes, myelocytes and metamyelocytes) > 1% indicates that a LEFT SHIFT is Present. Laboratory - Hematology and Cell countsOrdered By: Damion Wright on 10-20-2023 MCH (RBC) [Entitic mass] 26.6 pg 27.0-32.0 [facility] MCHC (RBC) [Mass/Vol] 31.6 g/dL 32-36 [facility] Nucleated RBC/100 WBC (Bld) [Ratio] 0 % 0-5 [facility] Platelet mean volume (Bld) [Entitic vol] 9.6 fL 6.2-12.0 [facility] Platelets (Bld) [#/Vol] 366 10*3/uL 150-450 [facility] RBC Auto (Bld) [#/Vol]Ordere d By: Damion Wright on 10-20-2023 RBC (Bld) [#/Vol] 4.48 10*6/uL 4.2-5.4 [facility] Serum or plasma uric acid me asurement (mass/volume)Ordered By: Damion Wright on 10-20-2023 Urate [Mass/Vol] 3.1 mg/dL 2.6-6.0 [facility] Comment on above: The drugs N-Acetylcy steine and Metamizole may falsely depress this assay. Chlamydia trachomatis rRNA d etection by probe and target amplification methodOrdered By: Felipa Singer on 03-02-2023 C. trachomatis rRNA YANELI+probe Ql (Unsp spec) Negative Negative [facility] Laboratory - Microbiology an d Antimicrobial susceptibilityOrdered By: Felipa Singer on 03-02-2023 N. gonorrhoeae DNA YANELI+probe Ql (Unsp spec) Negative Negative [facility] Comment on above: Performed at: [address] [id number] Director: Belen Preciado MD, Phone: [phone] No Panel Informationon 03-02 POC Trichomonas (Rapid) Negative [facility] Culture, urineOrdered By: Dr Dontae Lindsay on 08-29-2022 Bacteria identified Cx Nom (U) Positive [facility] Laboratory - Chemistry and C hemistry - challengeOrdered By: Dr. Garcia on 06-01-2022 Free T4 [Mass/Vol] 0.93 ng/dL 0.76-1.46 [facility] No Panel InformationOrdered By: Dr. Garcia on 06-01-2022 Follicle Stimulating Hormone 7.4 mIU/mL [facility] Comment on above: NORMAL REFERENCE RAN GES FEMALE FOLLICULAR 2.3 - 12.6 mIU/mL MID-CYCLE PEAK 5.2 - 17.5 mIU/mL LUTEAL 1.7 - 12.9 mIU/mL POST-MENOPAUSAL ON MHT 5.9 - 72.8 mIU/mL NOT ON MHT 12.7 - 132.2 mlU/mL MALE 0.7 - 10.8 mIU/mL Luteinizing Hormone 3.5 mIU/mL [facility] Comment on above: NORMAL REFERENCE RAN GES FEMALE FOLLICULAR 1.9 - 26.2 mIU/mL MID-CYCLE PEAK 22.8 - 76.1 mIU/mL LUTEAL 0.6 - 16.6 mIU/mL POST-MENOPAUSAL ON MHT 1.1 - 52.4 mIU/mL NOT ON MHT 8.6 - 61.8 mIU/mL MALE 1.2 - 10.6 mIU/mL Thyroid Stimulating Hormone (TSH) 2.32 uIU/mL 0.358-3.74 [facility] Serum or plasma estradiol (E 2) measurement (mass/volume)Ordered By: Dr. Garcia on 06-01-2022 E2 [Mass/Vol] 44.3 pg/mL [facility] Comment on above: NORMAL REFERENCE RAN GES FEMALE FOLLICULAR 21.4 - 164.8 pg/mL MID-CYCLE PEAK 49.9 - 367.2 pg/mL LUTEAL 40.2 - 259.0 pg/mL POST-MENOPAUSAL ON MHT <11.0 - 462.1 pg/mL NOT ON MHT <11.0 - 58.3 pg/mL MALE <11.0 - 52.5 pg/mL NOTE:[employer] HAS CONFIRMED THE DRUG FULVETRANT (FASLODEX) MAY CAUSE FALSELY ELEVATED ESTRADIOL RESULTS WHEN USING THIS TEST METHOD. IF PATIENT IS TAKING FULVESTRANT AN ALTERNATIVE METHOD SHOULD BE USED TO DETERMINE ESTRADIOL CONCENTRATION. Cervical or vagninal specime n microscopic examination by cytology stain (reported asOrdered By: Dr. Garcia on 05-13-2022 Cytology report Cyto stain Doc (Cvx/Vag) Comment . [facility] Comment on above: The Pap smear is a s creening test designed to aid in thedetection of premalignant and malignant conditions of theuterine cervix. It is not a diagnostic procedure andshould not be used as the sole means of detecting cervicalcancer. Both false-positive and false-negative reports dooccur. Detection in cervical specim en of any of human papilloma virus (HPV) 16, 18, 31, 33,Ordered By: Dr. Garcia on 05-13-2022 HPV 16+18+31+33+35+39+45+51+ 52+56+58+59+66+68 DNA Probe+sig amp Ql (Cvx) Negative Negative [facility] Comment on above: This nucleic acid am plification test detects fourteen high-risk HPV types (16,18,31,33,35,39,45,51,52,56,58,59,66,68)without differentiation.Performed at: - [address] [id number] Director: Belen Preciado MD, Phone: [phone] at: = - [facility] [id number] Director: Belen Preciado MD, Phone: [phone] Laboratory - CytologyOrdered By: Dr. Garcia on 05-13-2022 Fancy Stitcher Cyto stain Nom (Cvx/Vag) [ID] Comment . [facility] Comment on above: Rayna Norwoodt echnologist (ASCP) Laboratory - Miscellaneous t estsOrdered By: Dr. Garcia on 05-13-2022 Service comment (Unsp spec) [Interp] Comment . [facility] Comment on above: This liquid based Th inPrep(R) pap test was screened withthe use of an image guided system. Service comment (Unsp spec) [Interp] . . [facility] No Panel InformationOrdered By: Dr. Garcia on 05-13-2022 Pathology report final diagnosis Narrative Comment . [facility] Comment on above: NEGATIVE FOR INTRAEP ITHELIAL LESION OR MALIGNANCY.SHIFT IN FAITH SUGGESTIVE OF BACTERIAL VAGINOSIS.THIS SPECIMEN WAS RESCREENED PART OF OUR KEY OPERATOR PROGRAM. Microbiology: Culture, R/O S trep Aon 03-31-2017 GE use only - for [employer] import when terms are not otherwise specified . Invalid Interpretation Code [facility] Work Phone: Microbiology: (P) Culture, R /O Strep Aon 03-30-2017 CUSTREPA . [facility] Work Phone: Office Visit: UC: pharyngiti s, tonsillolithon 03-28-2017 Documentation of current medications (procedure) Done Invalid Interpretation Code [facility] Work Phone: Documentation of current medications (procedure) T Invalid Interpretation Code [facility] Work Phone: Fall risk assessment No Invalid Interpretation Code [facility] Work Phone: Protein mass conc Done [facility] Work Phone: Protein mass conc T [facility] Work Phone: Rapid strep test Negative Invalid Interpretation Code [facility] Work Phone: S. pyogenes DNA YANELI+probe Ql (Throat) Negative [facility] Work Phone: Tobacco smoking status NHIS Current every day smoker [facility] Work Phone: Tobacco use CPHS Current every day smoker Invalid Interpretation Code [facility] Work Phone: Vital Signs Date Time Vital Sign Value Performing Clinician Facility 01-21-2025 11:43-0400 Body mass index (BMI) [Ratio] 23.16 kg/m2 Jackelyn MCKEON Work Phone: [facility] 01-21-2025 11:43-0400 Body temperature 98.91 [degF] Krislyn Aberegg PA Work Phone: [facility] 01-21-2025 11:43-0400 Body weight 61.2 kg Krislyn Aberegg PA Work Phone: [facility] 01-21-2025 11:43-0400 Diastolic blood pressure 68 mm[Hg] Krislyn Aberegg PA Work Phone: [facility] 01-21-2025 11:43-0400 Heart rate 94 /min Krislyn Aberegg PA Work Phone: [facility] 01-21-2025 11:43-0400 Respiratory rate 16 /min Krislyn Aberegg PA Work Phone: [facility] 01-21-2025 11:43-0400 SaO2% (BldA) [Mass fraction] 97 % Krislyn Aberegg PA Work Phone: [facility] 01-21-2025 11:43-0400 Systolic blood pressure 122 mm[Hg] Krislyn Aberegg PA Work Phone: [facility] 01-07-2025 08:37-0400 Body height 157.[address] Damion Wright MD Work Phone: [facility] 01-07-2025 08:37-0400 Body mass index (BMI) [Ratio] 25 kg/m2 Dr. Damion Wright MD Work Phone: [facility] 01-07-2025 08:37-0400 Body weight 62.[address] Damion Wright MD Work Phone: [facility] 01-07-2025 08:37-0400 Diastolic blood pressure 74 mm[Hg] Dr. Damion Wright MD Work Phone: [facility] 01-07-2025 08:37-0400 Systolic blood pressure 106 mm[Hg] Dr. Damion Wright MD Work Phone: [facility] 12-04-2024 10:30-0400 Body height 157.[address] Damion Wright MD Work Phone: [facility] 12-04-2024 10:30-0400 Body mass index (BMI) [Ratio] 23.9 kg/m2 Dr. Damion Wright MD Work Phone: [facility] 12-04-2024 10:30-0400 Body weight 59.[address] Damion Wright MD Work Phone: [facility] 12-04-2024 10:30-0400 Diastolic blood pressure 84 mm[Hg] Dr. Damion Wright MD Work Phone: [facility] 12-04-2024 10:30-0400 Systolic blood pressure 121 mm[Hg] Dr. Damion Wright MD Work Phone: [facility] 12-03-2024 08:54-0400 Body mass index (BMI) [Ratio] 23.9 kg/m2 Dr. Damion Wright MD Work Phone: [facility] 12-03-2024 08:54-0400 Body weight 59.[address] Damion Wright MD Work Phone: [facility] 12-03-2024 08:54-0400 Diastolic blood pressure 71 mm[Hg] Dr. Damion Wright MD Work Phone: [facility] 12-03-2024 08:54-0400 Systolic blood pressure 105 mm[Hg] Dr. Damion Wright MD Work Phone: [facility] 11-20-2024 15:00-0400 Body temperature 97.4 [degF] Dr. Damion Wright MD Work Phone: [facility] 11-20-2024 15:00-0400 Heart rate 65 /min Dr. Damion Wright MD Work Phone: [facility] 11-20-2024 15:00-0400 Respiratory rate 18 /min Dr. Damion Wright MD Work Phone: [facility] 11-20-2024 15:00-0400 SaO2% (BldA) [Mass fraction] 100 % Dr. Damion Wright MD Work Phone: [facility] 11-20-2024 14:45-0400 Diastolic blood pressure 49 mm[Hg] Dr. Damion Wright MD Work Phone: [phone] [place] [address] 11-20-2024 14:45-0400 Systolic blood pressure 94 mm[Hg] Dr. Damion Wright MD Work Phone: [phone] [place] [address] 11-20-2024 14:39-0400 Inhaled oxygen flow rate 2 L/min Dr. Damion Wright MD Work Phone: 4([phone])[phone] [place] [address] 11-20-2024 12:41-0400 Body height 157.[address] Damion Wright MD Work Phone: 7(718)589-559476 [place] [address] 11-20-2024 12:41-0400 Body mass index (BMI) [Ratio] 23.9 kg/m2 Dr. Damion Wright MD Work Phone: 0(732)554-842376 [place] [address] 11-20-2024 12:41-0400 Body weight 59.[address] Damion Wright MD Work Phone: 1(091)983-589776 [place] [address] 11-16-2024 10:01-0400 Body mass index (BMI) [Ratio] 23.1 kg/m2 Dr. Damion Wright MD Work Phone: 5(559)528-961676 [place] [address] 11-16-2024 10:01-0400 Body weight 57.[address] Damion Wright MD Work Phone: 5(147)037-629732 [place] [address] 11-16-2024 10:01-0400 Diastolic blood pressure 88 mm[Hg] Dr. Damion Wright MD Work Phone: 6(690)196-160932 [place] [address] 11-16-2024 10:01-0400 Systolic blood pressure 137 mm[Hg] Dr. Damion Wright MD Work Phone: 9(809)[phone] [place] [address] 11-05-2024 11:58-0400 Body mass index (BMI) [Ratio] 24.4 kg/m2 Dr. Damion Wright MD Work Phone: 9(485)291-832376 [place] [address] 11-05-2024 11:58-0400 Body weight 60.[address] Damion Wright MD Work Phone: [facility] 11-05-2024 11:58-0400 Diastolic blood pressure 81 mm[Hg] Dr. Damion Wright MD Work Phone: [facility] 11-05-2024 11:58-0400 Systolic blood pressure 127 mm[Hg] Dr. Damion Wright MD Work Phone: [facility] 10-30-2024 10:35-0400 Body mass index (BMI) [Ratio] 23.08 kg/m2 Zunilda Motta SPORTS ANALYST.[employer] LPN Work Phone: [facility] 10-30-2024 10:35-0400 Body temperature 99.5 [degF] Zunilda Motta SPORTS ANALYST.[employer] LPN Work Phone: [facility] 10-30-2024 10:35-0400 Body weight 61 kg Zunilda Motta SPORTS ANALYST.[employer] LPN Work Phone: [facility] 10-30-2024 10:35-0400 Diastolic blood pressure 81 mm[Hg] Zunilda Motta SPORTS ANALYST.[employer] LPN Work Phone: [facility] 10-30-2024 10:35-0400 Heart rate 96 /min Zunilda Motta SPORTS ANALYST.[employer] LPN Work Phone: [facility] 10-30-2024 10:35-0400 Respiratory rate 22 /min Zunilda Motta SPORTS ANALYST.[employer] LPN Work Phone: [facility] 10-30-2024 10:35-0400 SaO2% (BldA) [Mass fraction] 100 % Zunilda Motta SPORTS ANALYST.[employer] LPN Work Phone: [facility] 10-30-2024 10:35-0400 Systolic blood pressure 120 mm[Hg] Zunilda Omtta SPORTS ANALYST.[employer] LPN Work Phone: [facility] 10-18-2024 11:40-0400 Body height 157.[address] Damion Wright MD Work Phone: [facility] 10-18-2024 11:37-0400 Body mass index (BMI) [Ratio] 25.1 kg/m2 Dr. Damion Wright MD Work Phone: [facility] 10-18-2024 11:37-0400 Body weight 62.[address] Damion Wright MD Work Phone: [facility] 10-18-2024 11:37-0400 Diastolic blood pressure 75 mm[Hg] Dr. Damion Wright MD Work Phone: [facility] 10-18-2024 11:37-0400 Systolic blood pressure 112 mm[Hg] Dr. Damion Wright MD Work Phone: [facility] 10-03-2024 09:50-0500 Body height 157.[address] Damion Wright MD Work Phone: [facility] 10-03-2024 09:40-0500 Body mass index (BMI) [Ratio] 22.3 kg/m2 Dr. Damion Wright MD Work Phone: [facility] 10-03-2024 09:40-0500 Body weight 55.[address] Damion Wright MD Work Phone: [facility] 10-03-2024 09:40-0500 Diastolic blood pressure 84 mm[Hg] Dr. Damion Wright MD Work Phone: [facility] 10-03-2024 09:40-0500 Systolic blood pressure 118 mm[Hg] Dr. Damion Wright MD Work Phone: [facility] 09-20-2024 15:32-0500 Body mass index (BMI) [Ratio] 22.48 kg/m2 Diann Hines SPORTS ANALYST.[employer] LPN Work Phone: [facility] 09-20-2024 15:32-0500 Body temperature 98.2 [degF] Diann Hines SPORTS ANALYST.[employer] LPN Work Phone: [facility] 09-20-2024 15:32-0500 Body weight 59.4 kg Diann Hines SPORTS ANALYST.[employer] LPN Work Phone: [facility] 09-20-2024 15:32-0500 Diastolic blood pressure 76 mm[Hg] Diann Hines SPORTS ANALYST.[employer] LPN Work Phone: [facility] 09-20-2024 15:32-0500 Heart rate 73 /min Diann Hines SPORTS ANALYST.[employer] LPN Work Phone: [facility] 09-20-2024 15:32-0500 Respiratory rate 16 /min Diann Hines SPORTS ANALYST.[employer] LPN Work Phone: [facility] 09-20-2024 15:32-0500 SaO2% (BldA) [Mass fraction] 99 % Diann Hines SPORTS ANALYST.[employer] LPN Work Phone: [facility] 09-20-2024 15:32-0500 Systolic blood pressure 124 mm[Hg] Diann Hines SPORTS ANALYST.[employer] LPN Work Phone: [facility] 09-16-2024 14:30-0500 Body temperature 98.1 [degF] Dr. Damion Wright MD Work Phone: [facility] 09-16-2024 14:30-0500 Diastolic blood pressure 67 mm[Hg] Dr. Damion Wright MD Work Phone: [facility] 09-16-2024 14:30-0500 Heart rate 74 /min Dr. Damion Wright MD Work Phone: [facility] 09-16-2024 14:30-0500 Respiratory rate 15 /min Dr. Damion Wright MD Work Phone: [facility] 09-16-2024 14:30-0500 SaO2% (BldA) [Mass fraction] 99 % Dr. Damion Wright MD Work Phone: [facility] 09-16-2024 14:30-0500 Systolic blood pressure 109 mm[Hg] Dr. Damion Wright MD Work Phone: [facility] 09-16-2024 13:47-0500 Body mass index (BMI) [Ratio] 23.8 kg/m2 Dr. Damion Wright MD Work Phone: [facility] 09-16-2024 13:47-0500 Body weight 58.[address] Damion Wright MD Work Phone: [facility] 06-28-2023 10:16-0500 Body height 159.[address] Damion Wright Work Phone: [facility] 06-28-2023 10:16-0500 Body mass index (BMI) [Ratio] 21.4 kg/m2 Dr. Damion Wright Work Phone: [facility] 06-28-2023 10:16-0500 Body weight 54.[address] Damion Wright Work Phone: [facility] 06-28-2023 10:16-0500 Diastolic blood pressure 71 mm[Hg] Dr. Damion Wright Work Phone: [facility] 06-28-2023 10:16-0500 Respiratory rate 16 /min Dr. Damion Wright Work Phone: [facility] 06-28-2023 10:16-0500 Systolic blood pressure 113 mm[Hg] Dr. Damion Wright Work Phone: [facility] 05-18-2023 10:41-0400 Body height 159.[address] Damion Wright Work Phone: [facility] 05-18-2023 10:41-0400 Body mass index (BMI) [Ratio] 20.7 kg/m2 Dr. Damion Wright Work Phone: [facility] 05-18-2023 10:41-0400 Body weight 52.[address] Damion Wright Work Phone: [facility] 05-18-2023 10:41-0400 Diastolic blood pressure 79 mm[Hg] Dr. Damion Wright Work Phone: [facility] 05-18-2023 10:41-0400 Systolic blood pressure 125 mm[Hg] Dr. Damion Wright Work Phone: [facility] 03-02-2023 14:41-0400 Body height 159.[address] Damion Wright Work Phone: [facility] 03-02-2023 14:34-0400 Body mass index (BMI) [Ratio] 21.7 kg/m2 Dr. Damion Wright Work Phone: [facility] 03-02-2023 14:34-0400 Body weight 55.[address] Damion Wright Work Phone: [facility] 03-02-2023 14:34-0400 Diastolic blood pressure 76 mm[Hg] Dr. Damion Wright Work Phone: [facility] 03-02-2023 14:34-0400 Systolic blood pressure 120 mm[Hg] Dr. Damion Wright Work Phone: [facility] 05-13-2022 14:01-0400 Body height 159.[address] Damion Wright Work Phone: [facility] 05-13-2022 14:00-0400 Body mass index (BMI) [Ratio] 22.5 kg/m2 Dr. Damion Wright Work Phone: [facility] 05-13-2022 14:00-0400 Body weight 57.[address] Damion Wright Work Phone: [facility] 05-13-2022 14:00-0400 Diastolic blood pressure 84 mm[Hg] Dr. Damion Wright Work Phone: [facility] 05-13-2022 14:00-0400 Systolic blood pressure 138 mm[Hg] Dr. Damion Wright Work Phone: [facility] 01-29-2022 12:59-0400 Body temperature 98.6 [degF] Kerryjose Vázquezler-Mike SPORTS ANALYST.[employer] LPN Work Phone: [facility] 01-29-2022 12:59-0400 Body weight 57.34 kg Kerry Pracandisler-Mike SPORTS ANALYST.[employer] LPN Work Phone: [facility] 01-29-2022 12:59-0400 Diastolic blood pressure 78 mm[Hg] Kerry Praisler-Wood SPORTS ANALYST.[employer] LPN Work Phone: [facility] 01-29-2022 12:59-0400 Heart rate 112 /min Kerry Vázquezler-Wood SPORTS ANALYST.[employer] LPN Work Phone: [facility] 01-29-2022 12:59-0400 Respiratory rate 18 /min Kerry Campbellisler-Wood SPORTS ANALYST.[employer] LPN Work Phone: [facility] 01-29-2022 12:59-0400 SaO2% (BldA) [Mass fraction] 99 % Kerry Campbellisler-Wood SPORTS ANALYST.[employer] LPN Work Phone: [facility] 01-29-2022 12:59-0400 Systolic blood pressure 124 mm[Hg] Kerry Praisler-Wood SPORTS ANALYST.[facility] Work Phone: [facility] 05-07-2019 22:42-0400 BP Diastolic 94 mm[Hg] [place], [place] 05-07-2019 22:42-0400 BP Systolic 143 mm[Hg] [place] 05-07-2019 22:42-0400 Pulse (Heart Rate) 67 /min [place], [place] 05-07-2019 22:42-0400 Pulse Oximetry 100 % [place] 05-07-2019 22:42-0400 Respiratory Rate 16 /min [place] 05-07-2019 20:31-0400 BMI (Body Mass Index) 22.86 kg/m2 [place], [place] 05-07-2019 20:31-0400 Body Temperature 98.4 [degF] [place] 05-07-2019 20:31-0400 Body weight 56.7 kg [facility] [place] 05-07-2019 20:31-0400 Height 157.5 cm [place] 03-28-2017 16:20-0400 BMI (Body Mass Index) 22.52 kg/m2 [facility] Work Phone: 03-28-2017 16:20-0400 Body Temperature 98.8 [degF] [facility] Work Phone: 03-28-2017 16:20-0400 BP Diastolic 78 mm[Hg] [facility] Work Phone: 03-28-2017 16:20-0400 BP Systolic 112 mm[Hg] [facility] Work Phone: 03-28-2017 16:20-0400 Height 162.56 cm [facility] Work Phone: 03-28-2017 16:20-0400 Pulse (Heart Rate) 96 /min [facility] Work Phone: 03-28-2017 16:20-0400 Respiratory Rate 14 /min [facility] Work Phone: 03-28-2017 16:20-0400 Weight 59.51 kg [facility] Work Phone: Encounters Encounter Date Encounter Type Care Provider Facility Start: 02-22-2025 [facility] Start: 02-21-2025 Encounter for other preprocedural examination Laureennacho [facility] Start: 01-21-2025 End: 01-21-2025 Subsequent hospital visit by physician Xr [facility] Work Phone: Radiology Comment on above: Acute left ankle shant n [M25.572] Start: 01-21-2025 End: 01-21-2025 Patient encounter procedure Jackelyn MCKEON Work Phone: [facility] Comment on above: Acute left ankle shant n (Primary Dx) Start: 01-21-2025 End: 01-21-2025 ambulatory DAMION WRIGHT Facility:[facility] Start: 01-07-2025 End: 01-07-[address] Laureen Hernandez DO -[facility] Work Phone: Start: 01-07-2025 End: 01-07-[address] Damion Wright MD Work Phone: [facility] Work Phone: Start: 12-04-2024 End: 12-04-[address] Laureen Hernandez DO -[facility] Work Phone: Start: 12-04-2024 End: 12-04-2024 ambulatory Laureen Hernandez Facility:[facility] Start: 12-03-2024 End: 12-03-[address] Damion Wright MD Work Phone: [facility] Work Phone: Start: 12-03-2024 End: 12-03-2024 Patient encounter procedure Felipa [place] NP-C -Laboratory, Specimen Work Phone: Start: 12-03-2024 End: 12-03-2024 Patient encounter procedure Felipa Lucrecia VACUUM CASTER-C -[facility] Work Phone: Start: 12-03-2024 End: 12-03-2024 ambulatory Damion Wright Facility:[facility] Start: 12-03-2024 End: 12-03-2024 ambulatory Felipa [place] NP Facility:[facility] Start: 11-20-2024 Non-patient / Non-visit Dr. Romario Hernandez DO -[facility] Start: 11-20-2024 End: 11-20-2024 Admission to same day surgery center Dr. Laureen Hernandez DO -[facility] Start: 11-20-2024 End: 11-20-[address] Damion Wright MD Work Phone: [facility] Work Phone: Start: 11-16-2024 End: 11-16-[address] Laureen Hernandez DO -Labor[facility], [facility] Work Phone: Start: 11-16-2024 End: 11-16-[address] Belle Ibarra MD -[facility] Work Phone: Start: 11-16-2024 End: 11-16-2024 ambulatory Belle Ibarra Facility:[facility] Start: 11-16-2024 End: 11-16-2024 ambulatory Laureen Hernandez Facility:[facility] Start: 11-05-2024 End: 11-05-[address] Laureen Hernandez DO -[facility] Work Phone: Start: 11-05-2024 End: 11-05-2024 ambulatory Damion Wright Facility:[facility] Start: 10-30-2024 End: 10-30-2024 ambulatory DAMION WRIGHT Facility:[facility] Start: 10-30-2024 End: 10-30-2024 Patient encounter procedure Zunildadavonte Motta APRN.[employer] LPN Work Phone: [facility] Comment on above: Strep pharyngitis (P rimary Dx) Start: 10-18-2024 End: 10-18-[address] Damion Wright MD Work Phone: [facility] Work Phone: Start: 10-18-2024 End: 10-18-[address] Laureen Hernandez DO -Laboratory, Specimen Work Phone: Start: 10-18-2024 End: 10-18-[address] Laureen Hernandez DO -[facility] Work Phone: Start: 10-18-2024 End: 10-18-2024 ambulatory Damion Wright Facility:[facility] Start: 10-18-2024 Non-patient / Non-visit Dr. Abdullahi soto MD -[facility] Start: 10-18-2024 End: 10-18-2024 ambulatory Laureen eHrnandez Facility:[facility] Start: 10-03-2024 End: 10-03-[address] Damion Wright MD Work Phone: [facility] Work Phone: Start: 10-03-2024 End: 10-03-2024 Patient encounter procedure Felipa Singer JOEY[facility] -Laboratory, [facility] Work Phone: Start: 10-03-2024 End: 10-03-2024 Patient encounter procedure Felipa Singer JOEY-C -[facility] Work Phone: Start: 10-03-2024 End: 10-03-2024 ambulatory Damion Wright Facility:[facility] Start: 10-02-2024 End: 10-03-[address] Damion Wright MD Work Phone: [facility] Work Phone: Start: 10-02-2024 End: 10-02-[address] Laureen Hernandez DO -[facility] Work Phone: Start: 10-02-2024 End: 10-02-2024 ambulatory Laureen Hernandez Facility:[facility] Start: 09-28-2024 End: 09-28-[address] Damion Wright MD Work Phone: [facility] Work Phone: Start: 09-28-2024 End: 09-28-[address] Laureen Hernandez DO -Outpatient Breast Imaging Work Phone: Start: 09-28-2024 End: 09-28-2024 ambulatory Laureen Hernandez Facility:[facility] Start: 09-20-2024 End: 09-20-2024 ambulatory DAMION WRIGHT Facility:[facility] Start: 09-20-2024 End: 09-20-2024 Office outpatient visit 15 minutes Diann Evans APRN.[employer] LPN Work Phone: [facility] Comment on above: Pneumonia of left lo wer lobe due to infectious organism (Primary Dx); Bacterial sinusitis Start: 09-16-2024 End: 09-16-2024 Emergency department patient visit Dr. Joe Kasper DO -Emergency Department Work Phone: Start: 05-21-2024 Encounter for gynecological examination (general) (routine) without abnormal findings Laureen Hernandez [facility] Start: 05-21-2024 End: 05-21-2024 ambulatory Damion Wright Facility:[facility] Start: 03-28-2024 End: 03-28-2024 ambulatory Damion Wright Facility:[facility] Start: 03-21-2024 End: 03-21-2024 ambulatory Shyanne Mahan Facility:[facility] Start: 02-28-2024 End: 02-28-2024 ambulatory Damion Wright Facility:[facility] Start: 10-20-2023 End: 10-20-[address] Damion Wright Work Phone: [facility] Work Phone: Start: 10-20-2023 End: 10-20-[address] Damion Wright Work Phone: [facility]-Laboratory, [place] Work Phone: Start: 07-18-2023 End: 07-18-[address] Damion Wright Work Phone: [facility] Work Phone: Start: 07-18-2023 End: 07-18-[address] Damion Wright Work Phone: [facility]-Laboratory, Specimen Work Phone: Start: 07-18-2023 End: 07-18-[address] Damion Wright Work Phone: [facility] Work Phone: Start: 06-28-2023 End: 06-28-[address] Damion Wright Work Phone: [facility] Work Phone: Start: 06-07-2023 End: 06-07-[address] Damion Wright Work Phone: [facility] Work Phone: Start: 06-07-2023 End: 06-07-[address] Damion Wright Work Phone: [facility]-Outpatient Breast Imaging Work Phone: Start: 05-18-2023 End: 05-18-[address] Damion Wright Work Phone: [facility] Work Phone: Start: 03-02-2023 End: 03-02-[address] Damion Wright Work Phone: [facility] Work Phone: Start: 03-02-2023 End: 03-02-[address] Damion Wright Work Phone: [facility]-Laboratory, Specimen Work Phone: Start: 03-02-2023 End: 03-02-[address] Damion Wright Work Phone: [facility] Work Phone: Start: 08-27-2022 End: 08-27-[address] Damion Wright Work Phone: [facility] Work Phone: Start: 08-27-2022 End: 08-27-[address] [facility] Start: 06-01-2022 End: 06-01-[address] Damion Wright Work Phone: [facility] Work Phone: Start: 06-01-2022 End: 06-01-[address] [facility] Start: 05-31-2022 End: 05-31-[address] Damion Wright Work Phone: [facility] Work Phone: Start: 05-31-2022 End: 05-31-[address] Damion Wright Work Phone: [facility] Start: 05-13-2022 End: 05-13-[address] Damion Wright Work Phone: [facility] Work Phone: Start: 05-13-2022 End: 05-13-[address] Damion Wright Work Phone: [facility]-Laboratory, Specimen Start: 05-13-2022 End: 05-13-[address] Damion Wright Work Phone: [facility] Start: 01-29-2022 End: 01-29-2022 Patient encounter procedure Kerry De Guzman APRN.CNP Work Phone: [facility] Comment on above: Skin pimple (Primary Dx) Start: 05-07-2019 End: 05-07-2019 Emergency department patient visit Godwin Garza Work Phone: [facility] Comment on above: Headache disorder (P rimary Dx); Diastolic blood pressure 90 mm Hg or higher Procedures Date Procedure Procedure Detail Performing Clinician Start: 01-21-2025 Radex ankle complete minimum 3 views Jackelyn MCKEON Work Phone: Start: 12-03-2024 Gram stain microscopy D savannah Wright MD Work Phone: Start: 12-03-[address] Damion Wright MD Work Phone: Start: 12-03-[address] Damion Wright MD Work Phone: Start: 11-20-[address] Damion chapman MD Work Phone: Start: 11-16-[address] Damion Wright MD Work Phone: Start: 11-05-2024 Vitamin D, 25-hydrox y measurement Dr. Damion Wright MD Work Phone: Comment on above: Vitamin D StatusDefi ciency: <20 ng/mL (50nmol/L)Insufficiency: 20-30 ng/mL (50-75 nmol/L)Sufficiency: 30-100 ng/mL (75-250 nmol/L)Toxicity: >100 ng/mL (>250 nmol/L) Start: 10-30-2024 STREP A MOLECULAR (POC) Shine King TOIPRIVATE DUTY LPN Work Phone: Start: 10-18-2024 Gram stain microscopy Karla Wright MD Work Phone: Start: 10-18-[address] Damion Wright MD Work Phone: Start: 10-03-2024 Gram stain microscopy Karla Wright MD Work Phone: Start: 10-03-[address] Damion Wright MD Work Phone: Start: 10-02-[address] Dung Wright MD Work Phone: Start: 09-28-2024 Screening mammography Karla Wright MD Work Phone: Start: 09-16-2024 X-ray of ankle, thre e or more views Dr. Damion Wright MD Work Phone: Start: 10-20-2023 Radiologic examinati on of knee Dr. Damion Wright Work Phone: Start: 06-07-2023 Screening mammography Karla Wright Work Phone: Start: 05-31-[address] Dung Wright Work Phone: Start: 05-31-2022 Screening mammography Karla Wright Work Phone: Start: 05-31-[address] Damion Wright Work Phone: Start: 03-28-2017 End: 03-28-2017 Iaadiadoo streptococcus group a Wade MCKEON Work Phone: Start: 03-28-2017 End: 03-28-2017 Rapid strep test Wade MCKEON Work Phone: Start: 03-28-2017 End: 03-28-2017 Urinalysis nonauto w/o scope Wade [facility]KE[facility] Work Phone: Start: 09-03-2013 H/O: section History of C-s ection Kerry De Guzman APRN.[employer] LPN Work Phone: Bacteria identified in Urine by Culture Dr. Damion Wright Work Phone: Urine culture Dr. Damion estrada Work Phone: Plan of Treatment Date Care Activity Detail Author Start: 04-01-2025 Influenza vaccination Influenz a Vaccine (Season Ended) [facility] Start: 11-20-2024 Ambulation without limitation [facility] Start: 11-20-2024 Medication education [facility] Start: 11-20-2024 Patient discharge [facility] Start: 11-20-2024 Procedure discontinued [facility] Start: 11-20-2024 Taking patient vital signs [facility] Start: 11-20-2024 Vital signs measurements [facility] Start: 11-20-2024 [facility] Start: 11-20-2024 Medical regimen orde rs management [facility] Start: 11-20-2024 Anes hysteroscopy&/hysterosal pingography w/bx ANESTH HYSTEROSCOPE/GRAPH [facility] Start: 11-20-2024 Hysteroscopy bx endometrium&/polypc w/wo d&c HYSTEROSCOPY BIOPSY [facility] Start: 11-06-2024 Leukocyte reduced re d blood cells [facility] Start: 04-01-2024 Covid-19 Vaccine ( season) Covid-19 Vaccine ( season) [facility] Start: 04-01-2024 Influenza vaccination Influenza Vacc ine (#1) [facility] Start: 03-01-2024 Urine microalbumin profile DTaP,Tdap,Td Vaccine (3 - Td or Tdap) [facility] Start: 01-18-2024 Urine microalbumin profile DTAP,TDAP,TD (2 - Td or Tdap) [facility] Start: 05-13-2022 Liquid based cervica l cytology screening [facility] Work Phone: Start: 04-01-2022 Influenza vaccination INFLUENZA (#1) [facility] Start: 10-16-2020 PAP TESTING PAP TESTING [facility] Start: 04-01-2019 Influenza vaccination Flu vaccine (# 1) [place], [place] Start: 10-16-2018 Screening for malign ant neoplasm of cervix Cervical Cancer Screening [facility] Start: 04-15-2017 End: 04-15-2017 Appointment Appointment [facility] Work Phone: Start: 03-28-2017 End: 03-28-2017 Appointment Appointment [facility] Work Phone: Start: 03-28-2017 End: 03-28-2017 Streptococcus.beta-hemol ytic [Presence] in Throat by Organism specific culture *Culture, R/O Strep A Swab [facility] Work Phone: Start: 2017 HPV TESTING HPV TESTING [facility] Start: 2006 Hepatitis B Vaccine (1 of 3 - 19+ 3-dose series) Hepatitis B Vaccine (1 of 3 - 19+ 3-dose series) [facility] Start: 2006 Pneumococcal vaccination Pneum ococcal Vaccine (1 of 2 - PCV) [facility] Start: 2005 Anxiety Screening Anxiety Screening [facility] Start: 2005 Depression Screening Depression Scre ening [facility] Start: 1999 Adult depression screening assessment DEPRESSION SCREENING [facility] Start: 1993 PNEUMOCOCCAL (1 - PCV) PNEUMOCOCCAL (1 - PCV) [facility] Start: 1987 COVID-19 VACCINE (#1) COVID-19 VACCI NE (#1) [facility] Estradiol (E2) [Mass/volume] in Serum or Plasma [facility] Work Phone: Follitropin and Lutr opin panel [Units/volume] - Serum or Plasma [facility] Work Phone: MG Breast - bilatera l Screening [facility] Work Phone: Nonrebreather mask oxygen Nonrebreather mask oxygen Respiratory Care Routine Daily until discontinued starting 05/07/2019 [facility] [place] Comment on above: Daily until disconti nued starting 05/07/2019 Path report.final Dx Spec [facility] Work Phone: Patient Education Bruises (Contusions) [facility] Work Phone: Patient referral [facility] Work Phone: T4 free measurement [facility] Work Phone: Thyroid stimulating hormone measurement [facility] Work Phone: Urinalysis macro (dipstick) panel - Urine [facility] Pelvis [facility] Work Phone: [place] Pelvis transvaginal [facility] Work Phone: Immunizations Immunization Date Immunization Notes Care Provider Fa [facility] 09-12-2017 influenza, injectabl e, quadrivalent, preservative free Dr. Damion Wright Work Phone: [facility] 09-12-2017 influenza, seasonal, injectable Dr. Damion Wright Work Phone: [facility] 09-12-2017 influenza, seasonal, injectable, preservative free Diann Evans SPORTS ANALYST.[employer]IVATE [employer] LPN Work Phone: [facility] 09-12-2017 influenza virus vaccine, unspecified formulation Diann Evans SPORTS ANALYST.PRIVATE D[employer]Y LPN Work Phone: [facility] 03-01-2014 tetanus toxoid, redu meghan diphtheria toxoid, and acellular pertussis vaccine, adsorbed Dr. Damion Wright Work Phone: [facility] 01-17-2014 tetanus toxoid, redu meghan diphtheria toxoid, and acellular pertussis vaccine, adsorbed Kerry De Guzman SPORTS ANALYST.[employer]IVATE D[employer] LPN Work Phone: [facility] Payers Date Payer Category Payer Medicaid [id number] 2024 Self-pay [id number] 2024 Unknown [id number] 2022 Medicaid [id number] 2022 Unknown [id number] 2020 Unknown ANTHEM BLUE CARD PPO OOS [id number] 2020-Present [phone] [address] [place] [address] PPO [id number] Private Health Insurance [id number] Unknown ANTHEM [id number] Unknown CARESOURCE [id number] Unknown OBC [id number] Unknown [id number] 2.0.1.125855.3.579.2. 462 Unknown [id number] 2.0.1.946379.3.579.2. 462 Unknown [id number] .0.1.025240.3.579.2. 462 Unknown [id number] .0.1.384753.3.579.2. 462 Unknown [id number] 2.0.1.976462.3.579.2. 462 Unknown [id number] 2.0.1.562016.3.579.2. 462 Unknown [id number] 2.0.1.089959.3.579.2. 462 Unknown [id number] 2.16.840.1.293937.3.579.2. 462 Unknown [id number] 2.16.840.1.721003.3.579.2. 462 Unknown [id number] 2.16.840.1.557398.3.579.2. 462 Unknown [id number] 2.16.840.1.116099.3.579.2. 462 Unknown [id number] 2.16.840.1.639932.3.579.2. 462 Unknown [id number] 2.16.840.1.864263.3.579.2. 462 Unknown [id number] 2.16.840.1.442356.3.579.2. 462 Unknown [id number] 2.16.840.1.396457.3.579.2. 462 Unknown [id number] 2.16.840.1.578160.3.579.2. 462 Unknown [id number] 2.16.840.1.078150.3.579.2. 462 Unknown [id number] 2.16.840.1.007129.3.579.2. 462 Unknown [id number] 2.16.840.1.436986.3.579.2. 462 Unknown [id number] 2.16.840.1.231083.3.579.2. 462 Unknown [id number] 2.16.840.1.850864.3.579.2. 462 Unknown [id number] 2.16.840.1.725680.3.579.2. 462 Social History Date Type Detail Facility Start: 09-03-2012 End: 09-20-2024 Tobacco smoking status NHIS Current every day smoker [facility] Start: 09-03-2012 History of tobacco use Cigarette Smo ker [place] Start: 05-07-2019 End: 10-30-2024 Cigarettes smoked current (pack per day) - Reported [place] Start: 05-07-2019 End: 10-30-2024 Alcohol intake Never [place] Start: 05-07-2019 History SDOH Alcohol Frequency 1 Jonna [facility] TIFFANY ROBERTSON Start: 1985 Sex Assigned At [facility] on file [facility] Start: 09-03-2012 History of tobacco use Smoker [facility] Start: 01-29-2022 End: 09-20-2024 Tobacco use and exposure Smokeless tobacco non-user [facility] Start: 01-29-2022 End: 10-30-2024 Alcohol intake Current non-drinker of alcohol (finding) [facility] Start: 01-29-2022 End: 09-20-2024 Tobacco Comment vaping [facility] Start: 01-19-2022 End: 01-29-2022 Exposure to SARS-CoV-2 (event) Not sure [facility] Start: 05-13-2022 End: 07-18-2023 Tobacco smoking status WYIS Unknown if ever smoked [facility] Start: 1985 Sex Assigned At Female W [facility] Start: 09-27-2024 Tobacco smoking stat us WYIS Ex-smoker (finding) [facility] Start: 10-11-2024 End: 11-20-2024 Sex Female (finding) [facility] Start: 11-20-2024 Vapor Vapor [place] [facility] NEGATED: Highlighted row Not [facility] Medical Equipment Procedure Code Equipment Code Equipment Origin al Text Equipment Identifier Dates Mirena Iud - [id number] Start: 09-02-2015 Goals Date Patient Goal Desired Activity /State Functional Status Date Assessment Result Facility 03-04-2015 Are you deaf, or do you have serious difficulty hearing No 03/04/2015 5:41 PM Mayte Morris MA No [facility] 03-04-2015 Are you blind, or do you have serious difficulty seeing, even when wearing glasses No 03/04/2015 5:41 PM Mayte Morris MA No [facility] 03-04-2015 Do you have serious difficulty walking or climbing stairs No 03/04/2015 5:41 PM Mayte Morris MA No [facility] 03-04-2015 Do you have difficul ty dressing or bathing No 03/04/2015 5:41 PM Mayte Morris MA No [facility] 03-04-2015 Because of a physica l, mental, or emotional condition, do you have difficulty doing errands alone such as visiting a physician's office or shopping No 03/04/2015 5:41 PM EDT Mayte Sierra MA No [facility] Mental Status Date Assessment Result Facility 11-20-2024 Cognitive function Level Of Cons ciousness Sedated [facility] Work Phone: 11-20-2024 Cognitive function Voice/Name [facility] Work Phone: 03-04-2015 Because of a physica l, mental, or emotional condition, do you have serious difficulty concentrating, remembering, or making decisions No 03/04/2015 5:41 PM EDT Mayte Sierra MA No [facility] Clinical Notes 09-03-2013 to 01-21-2025 Blaine Marrufo RT(R) - 01/21/2025 12:00 PM Jackelyn Martinez PA - 01/21/2025 11:48 AM EDT Note Date & Type Note Facility 01-21-2025 History of Present illness Narrative Radiology Service Progress Note PATIENT NAME: Deja Wolfe DATE OF SERVICE: January 21, 2025 TIME: 11:51 AM PATIENT IDENTITY VERIFICATION COMPLETED USING TWO (2) IDENTIFIERS: Name and Date of confirmed by patient verbally. FALL SCREENING: Has the patient had 2 falls in the last year or 1 fall with injury or currently using an Ambulatory Assistive Device (Walker, Cane, Wheelchair, Crutches, etc.)? No PATIENT GENDER DATA: Assigned female at . status: : No status: NO. PATIENT RELEVANT IMPLANT DATA REVIEWED: Yes PATIENT PRESENTS WITH AN IMPLANTABLE OR ATTACHED FILLING AND STAPLING MACHINE OPERATOR: No RADIOLOGY DEPARTMENT: General X-ray: Exam(s) Completed: Lower Extremity X-Ray(s): Ankle, Left and Foot, Left PERIPHERAL IV DATA: Not applicable SIGNED BY: RT Carolyn(R) January 21, 2025 11:51 AM documented in this encounter [facility] 01-21-2025 Note HNO ID: [id number] Author: BLAINE MARRUFO RT(R) Service: ? Author Type: Fraud Examiner Type: Progress Notes Filed: 01/21/2025 12:02 Note Text: Radiology Service Progress Note PATIENT NAME: Deja Wolfe DATE OF SERVICE: January 21, 2025 TIME: 11:51 AM PATIENT IDENTITY VERIFICATION COMPLETED USING TWO (2) IDENTIFIERS: Name and Date of confirmed by patient verbally. FALL SCREENING: Has the patient had 2 falls in the last year or 1 fall with injury or currently using an Ambulatory Assistive Device (Walker, Cane, Wheelchair, Crutches, etc.)? No PATIENT GENDER DATA: Assigned female at . status: : No status: NO. PATIENT RELEVANT IMPLANT DATA REVIEWED: Yes PATIENT PRESENTS WITH AN IMPLANTABLE OR ATTACHED FILLING AND STAPLING MACHINE OPERATOR: No RADIOLOGY DEPARTMENT: General X-ray: Exam(s) Completed: Lower Extremity X-Ray(s): Ankle, Left and Foot, Left PERIPHERAL IV DATA: Not applicable SIGNED BY: RT Carolyn(R) January 21, 2025 11:51 AM [facility] 01-21-2025 Note HNO ID: [id number] Author: JACKELYN ACOSTA PA Service: ? Author Type: Physician Custom Wood Stair Builder Type: Progress Notes Filed: 01/21/2025 12:22 Note Text: [facility] Subjective Deja Wolfe is a 39 year old female. Patient presents with: Ankle Injury: left x 1 day, rolled HPI Right Ankle Pain: - Acute onset of severe pain in the right ankle following an injury yesterday. - Incident occurred while walking down a hill in flip-flops; ankle snapped to the inside after stepping on dirt and gravel. - Sully and felt a pop at the time of injury. - Applied ice and rested the ankle in a pool immediately after the incident. - Pain worsened overnight; reports intense pain with any movement. - Localized pain on the lateral and anterior aspects of the ankle and foot. - Able to wiggle toes but with significant discomfort. - Denies previous injuries to the right ankle. - Taking Tylenol for pain management. 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 (Patient not taking: Reported on 10/30/2024) albuterol HFA (PROVENTIL HFA) 90 mcg/actuation inhaler Inhale 2 Puffs as instructed every 4 hours as needed for wheezing/shortness of breath. (Patient not taking: Reported on 01/21/2025) citalopram (CELEXA) 20 mg tablet Take 1 tablet by mouth once daily. (Patient not taking: Reported on 09/20/2024) citalopram hydrobromide (CELEXA) 10 mg tablet Take 1 tablet by mouth once daily. (Patient not taking: Reported on 09/20/2024) oxyCODONE-acetaminophen (PERCOCET) 5-325 mg tablet Take 1 tablet by mouth every 4 hours as needed for Pain. FOR PAIN. (Patient not taking: Reported on 09/20/2024) ibuprofen (MOTRIN) 800 mg tablet Take 1 tablet by mouth every 8 hours as needed for Pain. FOR PAIN. (Patient not taking: Reported on 09/20/2024) FAMILY HISTORY Problem Relation Age of Onset Breast Cancer Paternal Aunt P AUNT X 2 Diabetes Paternal Grandfather Heart Maternal Grandmother Hypertension Maternal Grandmother Hypertension Paternal Grandfather Thyroid Paternal Grandmother Social History Tobacco Use Smoking status: Every Day Types: Cigarettes Start date: 09/03/2012 Smokeless tobacco: Never Tobacco comments: vaping Substance Use Topics Alcohol use: No Drug use: No Review of Systems Musculoskeletal: (+) ankle pain, (+) foot pain, (+) decreased ankle range of motion, (+) difficulty ambulating, (-) posterior ankle pain Objective BP 122/68 Pulse 94 Temp 37.2 ?C (98.9 ?F) Resp 16 Wt 61.2 kg (134 lb 14.7 oz) LMP 10/18/2024 (Approximate) SpO2 97% BMI 23.16 kg/m? Physical Exam Vitals and nursing note reviewed. Constitutional: General: She is not in acute distress. Appearance: Normal appearance. She is not toxic-appearing. Musculoskeletal: Left ankle: Swelling present. Tenderness present over the lateral malleolus and base of 5th metatarsal. Decreased range of motion. Normal pulse. Left Achilles Tendon: Normal. Lopez's test negative. Left foot: Swelling, tenderness and bony tenderness present. Comments: Tenderness over left lateral ankle and lateral malleolus. Tenderness over left proximal 5th metatarsal. Nontender medial ankle. Nontender posterior ankle. Achilles intact. Decreased ROM left ankle due to pain. Swollen left ankle and left foot noted. Normal ROM of the toes. Normal sensation of the toes. Cap refill less than 2 seconds. DP and PT pulses 2+. Ambulating with a limp due to pain Skin: General: Skin is warm and dry. Neurological: Mental Status: She is alert. General: No acute distress. MSK/Ext: Pain and swelling in lateral and anterior aspects of ankle; no pain in posterior aspect of ankle; pain with toe movement; decreased range of motion in ankle; negative Lopez test. {1. Acute left ankle pain (M25.572) - Onset following inversion injury while walking down a hill in flip-flops; heard and felt a pop at the time of injury. - Significant tenderness on lateral aspect of the ankle and dorsum of the foot; no tenderness on the posterior aspect. - Decreased range of motion noted; able to wiggle toes with pain. - Negative Lopez test indicating intact Achilles tendon. - X-rays of the foot and ankle show no fractures or dislocations. - Likely sp (more content not included)... [facility] 01-21-2025 History of Present illness Narrative [facility] Deja Wolfe is a 39 year old female. Patient presents with: Ankle Injury: left x 1 day, rolled HPI Right Ankle Pain: - Acute onset of severe pain in the right ankle following an injury yesterday. - Incident occurred while walking down a hill in flip-flops; ankle snapped to the inside after stepping on dirt and gravel. - Sully and felt a pop at the time of injury. - Applied ice and rested the ankle in a pool immediately after the incident. - Pain worsened overnight; reports intense pain with any movement. - Localized pain on the lateral and anterior aspects of the ankle and foot. - Able to wiggle toes but with significant discomfort. - Denies previous injuries to the right ankle. - Taking Tylenol for pain management. 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 (Patient not taking: Reported on 10/30/2024) albuterol HFA (PROVENTIL HFA) 90 mcg/actuation inhaler Inhale 2 Puffs as instructed every 4 hours as needed for wheezing/shortness of breath. (Patient not taking: Reported on 01/21/2025) citalopram (CELEXA) 20 mg tablet Take 1 tablet by mouth once daily. (Patient not taking: Reported on 09/20/2024) citalopram hydrobromide (CELEXA) 10 mg tablet Take 1 tablet by mouth once daily. (Patient not taking: Reported on 09/20/2024) oxyCODONE-acetaminophen (PERCOCET) 5-325 mg tablet Take 1 tablet by mouth every 4 hours as needed for Pain. FOR PAIN. (Patient not taking: Reported on 09/20/2024) ibuprofen (MOTRIN) 800 mg tablet Take 1 tablet by mouth every 8 hours as needed for Pain. FOR PAIN. (Patient not taking: Reported on 09/20/2024) FAMILY HISTORY Problem Relation Age of Onset Breast Cancer Paternal Aunt P AUNT X 2 Diabetes Paternal Grandfather Heart Maternal Grandmother Hypertension Maternal Grandmother Hypertension Paternal Grandfather Thyroid Paternal Grandmother Social History Tobacco Use Smoking status: Every Day Types: Cigarettes Start date: 09/03/2012 Smokeless tobacco: Never Tobacco comments: vaping Substance Use Topics Alcohol use: No Drug use: No Review of Systems Musculoskeletal: (+) ankle pain, (+) foot pain, (+) decreased ankle range of motion, (+) difficulty ambulating, (-) posterior ankle pain Objective BP 122/68 Pulse 94 Temp 37.2 C (98.9 F) Resp 16 Wt 61.2 kg (134 lb 14.7 oz) LMP 10/18/2024 (Approximate) SpO2 97% BMI 23.16 kg/m Physical Exam Vitals and nursing note reviewed. Constitutional: General: She is not in acute distress. Appearance: Normal appearance. She is not toxic-appearing. Musculoskeletal: Left ankle: Swelling present. Tenderness present over the lateral malleolus and base of 5th metatarsal. Decreased range of motion. Normal pulse. Left Achilles Tendon: Normal. Lopez's test negative. Left foot: Swelling, tenderness and bony tenderness present. Comments: Tenderness over left lateral ankle and lateral malleolus. Tenderness over left proximal 5th metatarsal. Nontender medial ankle. Nontender posterior ankle. Achilles intact. Decreased ROM left ankle due to pain. Swollen left ankle and left foot noted. Normal ROM of the toes. Normal sensation of the toes. Cap refill less than 2 seconds. DP and PT pulses 2+. Ambulating with a limp due to pain Skin: General: Skin is warm and dry. Neurological: Mental Status: She is alert. General: No acute distress. MSK/Ext: Pain and swelling in lateral and anterior aspects of ankle; no pain in posterior aspect of ankle; pain with toe movement; decreased range of motion in ankle; negative Lopez test. {1. Acute left ankle pain (M25.572) - Onset following inversion injury while walking down a hill in flip-flops; heard and felt a pop at the time of injury. - Significant tenderness on lateral aspect of the ankle and dorsum of the foot; no tenderness on the posterior aspect. - Decreased range of motion noted; able to wiggle toes with pain. - Negative Lopez test indicating intact Achilles tendon. - X-rays of the foot and ankle show no fractures or dislocations. - Likely sprain; applied compression wrap to reduce swelling.- KI wrap from back office supply. - Advised use of Tylenol and Motrin for pain and inflammation management. - Recommended ice application and elevation of the affected limb. - Instructed to wear supportive footwear once swelling subsides. - Advised weight-bearing as tolerated. - If no improvement in symptoms within two weeks, follow-up with primary care physician. Recording using [employer] software for draft documentation of the visit was discussed with the patient/authorized client representative; all questions welcomed and answered. Patient/authorized client representative agreed to proceed Differential Diagnoses - ankle sprain is more likely for the following reason(s): suggested by H&P - fracture is less likely for the following reason(s): no evidence on imaging Disposition The patient was discharged. OTC Medications were advised: Tylenol/motrin Procedures documented in this encounter [facility] 11-20-2024 History and physical note [facility] 11-20-2024 Discharge summary Note Date/Time November 20, 2024 1:53pm [facility] Medical Records Department [facility] [place] [address] Instructions for Home/Discharge Instructions 11/20/24 1352 MR#: [id number] Acct: [id number] Name: DEJA WOLFE Rep #:[id number] : 1985 39 From: Laureen Hernandez DO PCP: Dr. Damion Wright MD Status:REG S DC Discharge Instructions Diet Discharge Diet: No restrictions DC O2, CPAP, BIPAP needs Home O2 Discharge instructions: No Dressing / Incision Discharge Activity: Return to Normal Activity, May Shower and May Take a Tub Bath (after 1 week) May resume sexual activity in: 1-2 weeks Weight Bearing Status: Weight bearing as tolerated Lifting Restrictions: none Dressing / Incision Call your doctor if you observe: Fever of 101 or Higher, Using more than 1 pad per hour, Shortness of breath and Uncontrolled pain Follow Up Care Please Follow Up With: Laureen Hernandez DO When: Call [phone] to schedule appointment. Test Results: Test results from this visit will be discussed in further detail at your follow-up appointment, if applicable. Discharge Plan Admission Primary Reason for Your Visit: hysteroscopy dilation and curettage Attending Provider: Laureen Hernandez Primary Care Provider: Damion Wright Instructions Print Language: Malay Discharge Orders/Prescriptions Prescriptions: New ibuprofen 800 mg tablet 800 mg PO Q8H PRN (Reason: pain) Qty: 20 0RF No Action cholecalciferol (vitamin D3) [Vitamin D3] 25 mcg (1,000 unit) capsule 15,000 unit PO .weekly Referrals / Follow Up: Damion Wright MD [Primary Care Provider] - Disposition Disposition (needs filled in before D/C Order can be placed): Home, Self Care 11/20/24 9263<Electronically signed by Laureen Hernandez DO>Laureen Hernandez DO CC: Dr. Damion Wright MD ~ Signed [facility] Work Phone: 1(993) 542-167204-22-2025 Procedure note [facility] Medical Records Department [address] [place] [id number] Operative Report 11/20/24 1525 MR#: [id number] Acct: [id number] Name: DEJA WOLFE Rep #:[id number] : 1985 39 From: Laureen Hernandez DO PCP: Dr. Damion Wright MD Status:REG S [place] Location: [place] [address] Problems Associated Problem List Diagnoses (1) Polyp of cervix: (2) Abnormal uterine bleeding: Multi Select Codes Urinary/Genital Urinary/Genital CPT Codes: 84924 Hysteroscopy,EMC, Polypectomy Operative Report (Standard) Operative Information Date of Procedure: 11/20/24 Pre-Operative Diagnosis: abnormal uterine bleeding, cervical polyp Post-Operative Diagnosis: abnormal uterine bleeding, cervical polyp Surgery/Procedure Performed: hysteroscopy dilation and curettage criminal researcher: No Type of Anesthesia: MAC RN Documented Start/Stop Times: Operation Date: 11/20/24 13:40 Case Time Into Pre-Op 11/20/24 12:05 Out of Pre-Op 11/20/24 14:00 Anesthesia Start 11/20/24 14:02 Into Room 11/20/24 14:02 Procedure End 04/22/25 14:28 Into Recovery 11/20/24 14:31 Anesthesia End 11/20/24 14:32 Out of Room 11/20/24 14:32 Into Phase II Recovery 11/20/24 15:19 Out of Recovery 11/20/24 15:19 Procedure Start Time: 14:02 Procedure Stop Time: 14:28 Select all DRAINS/GRAFTS/IMPLANTS that apply: None Estimated Blood Loss: 10cc Specimen collected: Yes Description of specimen(s) removed: endometrial curetting's Description of surgery: Patient was prepped and draped in a normal sterile fashion under MAC anesthesia. A weighted speculum was placed in the vagina and the anterior lip of the cervixwas grasped with a single-tooth tenaculum. A paracervical block was placed with1% lidocaine. Cervix was progressively dilated to allow passage of a 5 mm hysteroscope. The lining was fully visualized and noted to have some detached tissue, but not consistent with the ultrasound suggestion of polyp . The uterussounded to 9 cm. Curettage was performed and scant tissue was sent to pathology. All instruments were removed from the vagina andexcellent hemostasis was noted. Patient was awoken and taken to recovery in stable condition. Surgical Findings: scant endometrial tissue, normal cervix and lining of uterus Complications Complications: No Admit VTE Documentation VTE Present on Admission: No VTE Mechan Device Prophylaxis: SCD's VTE Pharm Prophylaxis ordered?: No 11/20/24 1529 Cosigner Signature (if applicable): CC: Dr. Laureen Hernandez DO; Dr. Damion Wright MD~ Signed [facility]04-22-2025 Consult note Author Tristen Fuentes [facility] Note Date/Time November 20, 2024 1:2 6pm [facility] Medical Records Department [address] [place] [address] Pre-Anesthesia Evaluation 11/20/24 1308 MR#: [id number] Acct: [id number] Name: DEJA WOLFE Rep #:[id number] : 1985 39 From: Tristen Fuentes MD PCP: Dr. Damion Wright MD Status:REG S DC Y Race: C Location: [facility]18-1 ASA Classification* ASA Classification ASA Classification: 2 Assessment & Plan Anesthesia* Anesthesia Assessment Anesthesia Assessment: Discussed sedation and/or anesthesia options, risks, benefits, and alternatives with patient/parents/legal guardian/POA. Questions invited. The patient/parents/legal guardian/POA seems to understand and agrees to proceedwith anesthesia plan. Reviewed the physical assessment, medical history, allergy history and patient home medications list prior to surgery/procedure/anesthetic and documented any changes. Performed airway and anesthesia risk assessments. Anesthesia Type Anesthesia Type: MAC History Source History Obtained from:: Patient and Chart Anesthesia Focused Assessment* Temperature: 98.1 F Pulse Rate: 60 Blood Pressure: 110/80 Respiratory Rate: 16 Pulse Ox: 100 Oxygen Delivery Method: Room Air Airway Assessment Mouth opens: >3 cm Mallampati Score: I Teeth Condition: Chipped/Broken (Patient has a broken tooth #4. It is sealed. Rest of the teeth are tight.) Neck Range of motion (ROM): Full ROM Focused Labs Anesthesia Preop lab: CBC WBC 5.4 K/mm3 (4.4-11.0) 11/05/24 12:11/05/24 RBC 4.46 M/mm3 (4.2-5.4) 11/05/24 12:34 11/05/24 Hgb 11.8 g/dL (12.0-15.0) L 11/05/24 12:34 5 Hct 36.5 % (37-47) L 11/05/24 12:34 11/05/24 Plt Count 327 K/mm3 (150-450) 11/05/24 12:34 11/05/24 CHEMISTRY Potassium 3.5 mmol/L (3.5-5.1) 05/12/21 12:45 05/12/21 Sodium 140 mmol/L (136-145) 05/12/21 12:45 05/12/21 BUN 6 mg/dL (7-18) L 05/12/21 12:45 05/12/21 Creatinine 0.74 mg/dL (0.55-1.02) 05/12/21 12:45 05/12/21 Glucose 94 mg/dL (74-106) 05/12/21 12:45 05/12/21 TSH 2.32 uIU/mL (0.358-3.74) 06/01/22 09:35 COAG Urine Test Negative Negative 04/22/17 01:00 04/22/17 Pre-Assessment Diagnosis/Proposed Procedure Planned Operative Procedure(s): HYSTEROSCOPY D&C POLPECTOMY Anesthesia History 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 When Was Last Pacemaker Check QUESTION #4 FULL TEXT: You/Your Family Experience fever (hyperthermia) with Anesthesia Last Oral Intake Last Oral intake: Last Oral Intake NPO since 07:00 11/20/24 12:41 Meds taken in AM with sips of No 11/20/24 12:41 water? Meds patient instructed to take am of surgery Any additional information?: Yes NPO since: 07:00 (Patient water at 7 AM.) PONV PONV - metal sander: PONV - metal sander Female Yes 11/15/24 11:47 HX of Motion Sickness No 11/15/24 11:47 HX of N/V After Surgery No 11/15/24 11:47 Non-Smoker No 11/15/24 11:47 Duration of Surgery greater No 11/15/24 11:47 than 60 minutes Number of Risk Factors 1 11/15/24 11:47 PONV Score Low Risk 11/15/24 11:47 Height & Weight Height & Weight: Anesthesia: Height & Weight Height 5 ft 2 in 11/20/24 12:41 Weight: 59.3 kg 11/20/24 12:41 Body Mass Index (BMI) 23.9 11/20/24 12:41 Respiratory Assessment Respiratory Assessment - metal sander: Respiratory Tract Infection Hx - metal sander Hx Respiratory Tract Infection Yes: STREP/TREATED/RESOLVED 11/15/24 11:47 Any additional information?: Yes Hx Respiratory Tract Infection: Yes (Patient has strep 2 to 3 weeks ago. Currently completely resolved.) STOP Sleep Apnea STOP Sleep Apnea - metal sander: STOP Sleep Apnea - metal sander Hx Hypertension Yes: DURING PREGANANCY/201311/15/24 11:47 Hx Sleep Apnea No 11/15/24 11:47 CPAP BIPAP Do you snore loudly (louder No 11/15/24 11:47 than talking or can be heard Do you often feel tired/ Yes 11/15/24 11:47 fatigued/ sleepy during daytime? Has anyone observed you stop No 11/15/24 11:47 breathing during sleep? STOP Results Positive 11/15/24 11:47 QUESTION #5 FULL TEXT : Do you snore loudly (louder than talking or can be heard through closed doors)? 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 Specify any problems Hx of Preganancy in last 3 No 11/15/24 11:47 Months Nurse Filling Out Transfusion DSCHRIBER 11/15/24 11:47 & Questions: Date: 11/15/24 11/15/24 11:47 Time: 11:49 11/15/24 11:47 Patient unable to answer at this time (ie. confused, unrespo /Reproduction History /Reproductive History - metal sander: /Reproductive Hx- metal sander Hx Now No 11/15/24 11:47 Gestational Age (in weeks): EDC: Hx Hx Para Hx Section SAB No 11/15/24 11:47 PFSH Medical History Wears glasses Easy bruising Migraine headache Gastric reflux Vapes nicotine containing substance ADHD Mass of left forearm Contusion of left upper arm Anemia Home Medications ?Medication ?Instructions ?Recorded ?Last Taken ?Type cholecalciferol (vitamin D3) 25 15,000 unit PO .weekly 11/20/24 Unknown History mcg (1,000 unit) capsule (Vitamin D3) Allergy/AdvReac Type Severity Reaction Status Date / Time fentanyl AdvReac Severe Pruritis Verified 11/20/24 13:22 Family History Aunt Breast cancer x2 Surgical History History of excision of lesion History of wisdom tooth extraction Hx of laparoscopy H/O dilation and curettage delivery delivered H/O tubal ligation Social History adopted: No number of children: 3 current occupational status: unemployed Smoking Status: Former smoker alcohol intake: never substance use type: does not use caffeine: Yes what type of physical activity do you participate in: walking frequency: 1-2 times per week seatbelt use: always do you feel safe at home: Yes additional social history: Review of Systems (Anesthesia) ROS Narrative System reviewed and no additional complaints, except as documented. 11/20/24 1326 <Electronically signed by Tristen mckeon MD> Date _ Tristen Fuentes MD Cosigner Signature: Date CC: ~ Signed [facility] Work Phone: 1(556) 540-548604-22-2025 Consult note [facility] Medical Records Department [address] [place] [address] Anesthesia Postop Eval I 11/20/24 1438 MR#: [id number] Acct: [id number] Name: DEJA WOLFE Rep #:[id number] : 1985 39 From: Juan peters CRNA PCP: Dr. Damion Wright MD Status:REG S DC Y Race: C Location: [place] [address] Anesthesia: Postop Eval I Current Vital Signs Temperature: 97.3 F Pulse Rate: 60 Blood Pressure: 90/60 Respiratory Rate: 16 Pulse Ox: 99 Oxygen Delivery Method: Nasal Cannula Oxygen Flow Rate (L/min): 2 Assessment Airway patent: Yes Spontaneous unlabored respirations: Yes Mental status: Asleep nausea: No Vomiting: No Anesthesia Complication: No Fluid Hydration Crystalloid volume administer (ml): 250 Total IV fluid infused: 250 Progress Note Anesthesia document: Postop Eval 1 completed: Yes 11/20/24 1439 tler BORING INSPECTOR> Date _ Juan Robles BORING INSPECTOR Cosigner Signature: Date CC: ~ Signed [facility]04-22-2025 History and physical note Author Laureen [facility] Note Date/Time November 20, 2024 3:5 4pm [facility] Medical Records Department [address] [place] [id number] History & Physical Exam 11/20/24 1216 MR#: [id number] Acct: [id number] Name: DEJA WOLFE Rep #:[id number] : 1985 39 From: Laureen Hernandez DO PCP: Dr. Damion Wright MD Status:REG S DC Location: [address] History and Physical Date of Admission: 11/20/24 Intake Vital Signs 10/18/2510:40 11/05/2510:58 11/06/2511:00 Height 5 ft 2 in 5 ft 2 in 5 ft 2 in Weight: 133 lb 8 oz BMI 24.4 BP 127/81 H Intake Visit Reasons: D&C polypectomy Degree Clerk Required: No Is patient in pain?: No Allergies fentanyl Adverse Reaction (Verified 11/05/24 11:58) Hives Medications ?Medication ?Instructions ?Recorded ?Confirmed ?Type norethindrone (contraceptive) 0.35 0.35 mg PO QDAY #90 tabs 05/21/24 Rx mg tablet fluconazole 150 mg tablet 150 mg PO ONCE #1 TAB 11/05/24 11/05/24 Rx Post menopausal: No Patient : No : No PFSH Medical History ADHD Mass of left forearm Contusion of left upper arm Anxiety and depression Anemia Endometriosis determined by laparoscopy Surgical History [place] teeth extracted H/O dilation and curettage Hematoma delivery delivered H/O tubal ligation Family History Aunt Breast cancer x2 Social History adopted: No number of children: 3 current occupational status: unemployed Smoking Status: Former smoker alcohol intake: never substance use type: does not use caffeine: Yes what type of physical activity do you participate in: walking frequency: 1-2 times per week seatbelt use: always do you feel safe at home: Yes additional social history: HPI D&C polypectomy Details: DEJA WOLFE is a 39 year old who presents for a pre-op hysteroscopy. She haspersistent irregular periods as well as recurrent yeast infections. the progesterone did not stop the irregular bleeding patterns and we discussed that it is likely due to the ultrasound Findings suggestive of a 5 mm x 5 mm x 3 mm polyp at the cervical os on ultrasound. This polyp is not seen clinically on exam. She has undergone 3 sections and multiple diagnostic laparoscopicprocedures and wants a hysterectomy. We discussed attempting to removed the polyp first in the office and if not successful, then in the OR before we jump to hysterectomy. She agrees. History 3 Elective abortions Hx Para 3 Spontaneous abortions Hx # Term Pregnancies 3 Ectopic pregnancies Hx # Pregnancies Multiple births # of living children 3 Past Pregnancies Del. Date Name GA/Weeks Outcome Route Bth Weight Infant Gen [facility] Unknown Ian 2010 Unknown Nico 2010 Unknown Demarcus 2014 ROS Const ROS Unobtainable: All systems reviewed & are unremarkable except as noted in H Resp Resp: Reports system reviewed and no additional complaints, except as documented; Denies cough GI GI: Reports as per HPI Psych Psych: Reports system reviewed and no additional complaints, except as documented Exam Const General: cooperative, healthy appearing, comfortable and no acute distress Resp Effort & Inspection: normal respiratory effort Skin General: no rashes or lesions noted Psych Appearance: grossly normal Speech and Movement: speech and movement normal Coding Level of Care Code Off vis,est,level 4 Diagnoses Polyp of cervix N84.1 Abnormal uterine bleeding N93.9 History of endometriosis Z87.42 Assessment and Plan Assessment and Plan (1) Polyp of cervix: Status: Acute (2) Abnormal uterine bleeding: Status: Acute (3) History of endometriosis: Status: Acute Orders: Orders CBC-Complete Blood Cnt No Diff Today N84.1 - Polyp of cervix uteri Type & Screen - PAT ONLY Today N84.1 - Polyp of cervix uteri Vitamin D,25 Hydroxy Today N84.1 - Polyp of cervix uteri Medications: New fluconazole 150 mg PO ONCE 1 TAB 3RF Plan After discussing the patient's diagnosis and treatment plan options, patient wishes to proceed with surgical management. I have discussed with the patient the risks, benefits, and alternatives of the procedure which include but are notlimited to risks of anesthesia, bleeding, infection, possible damage to bowel, bladder, or surrounding vasculature which could lead to additional surgery to evaluate any complications. Patient agrees to procedure and wishes to proceed. ACOG/uptodate references given for additional information regarding procedure. Plan is for hysteroscopy dilation and curettage, polypectomy 11/20/24 1216 <Electronically signed by Laureen Hernandez DO> Cosigner Signature (if applicable): CC: Dr. Laureen Hernandez DO; Dr. Damion Wright MD~ Signed [facility] Work Phone: 1(149) 253-991304-22-2025 Discharge summary [facility] Medical Records Department [address] [place] [id number] Instructions for Home/Discharge Instructions 11/20/24 1352 MR#: [id number] Acct: [id number] Name: DEJA WOLFE Rep #:[id number] : 1985 39 From: Laureen Hernandez DO PCP: Dr. Damion Wright MD Status:REG S DC Discharge Instructions Diet Discharge Diet: No restrictions DC O2, CPAP, BIPAP needs Home O2 Discharge instructions: No Dressing / Incision Discharge Activity: Return to Normal Activity, May Shower and May Take a Tub Bath (after 1 week) May resume sexual activity in: 1-2 weeks Weight Bearing Status: Weight bearing as tolerated Lifting Restrictions: none Dressing / Incision Call your doctor if you observe: Fever of 101 or Higher, Using more than 1 pad per hour, Shortness of breath and Uncontrolled pain Follow Up Care Please Follow Up With: Laureen Hernandez DO When: Call [phone] to schedule appointment. Test Results: Test results from this visit will be discussed in further detail at your follow- up appointment, if applicable. Discharge Plan Admission Primary Reason for Your Visit: hysteroscopy dilation and curettage Attending Provider: Laureen Hernandez Primary Care Provider: Damino Wright Instructions Print Language: Malay Discharge Orders/Prescriptions Prescriptions: New ibuprofen 800 mg tablet 800 mg PO Q8H PRN (Reason: pain) Qty: 20 0RF No Action cholecalciferol (vitamin D3) [Vitamin D3] 25 mcg (1,000 unit) capsule 15,000 unit PO .weekly Referrals / Follow Up: Damion Wright MD [Primary Care Provider] - Disposition Disposition (needs filled in before D/C Order can be placed): Home, Self Care 11/20/24 1353Jennmilla Hernandez DO CC: Dr. Damion Wright MD ~ Signed [facility]04-22-2025 Consult note [facility] Medical Records Department [address] [place] [address] Pre-Anesthesia Evaluation 11/20/24 1308 MR#: [id number] Acct: [id number] Name: DEJA WOLFE Rep #:[id number] : 1985 39 From: Tristen Fuentes MD PCP: Dr. Damion Wright MD Status:REG S DC Y Race: C Location: [facility] ASA Classification* ASA Classification ASA Classification: 2 Assessment & Plan Anesthesia* Anesthesia Assessment Anesthesia Assessment: Discussed sedation and/or anesthesia options, risks, benefits, and alternatives with patient/parents/legal guardian/POA. Questions invited. The patient/parents/legal guardian/POA seems to understand and agrees to proceedwith anesthesia plan. Reviewed the physical assessment, medical history, allergy history and patient home medications list prior to surgery/procedure/anesthetic and documented any changes. Performed airway and anesthesia risk assessments. Anesthesia Type Anesthesia Type: MAC History Source History Obtained from:: Patient and Chart Anesthesia Focused Assessment* Temperature: 98.1 F Pulse Rate: 60 Blood Pressure: 110/80 Respiratory Rate: 16 Pulse Ox: 100 Oxygen Delivery Method: Room Air Airway Assessment Mouth opens: >3 cm Mallampati Score: I Teeth Condition: Chipped/Broken (Patient has a broken tooth #4. It is sealed. Rest of the teeth aretight.) Neck Range of motion (ROM): Full ROM Focused Labs Anesthesia Preop lab: CBC WBC 5.4 K/mm3 (4.4-11.0) 11/05/24 12:11/05/24 RBC 4.46 M/mm3 (4.2-5.4) 11/05/24 12:34 11/05/24 Hgb 11.8 g/dL (12.0-15.0) L 11/05/24 12:34 5 Hct 36.5 % (37-47) L 11/05/24 12:34 11/05/24 Plt Count 327 K/mm3 (150-450) 11/05/24 12:34 11/05/24 CHEMISTRY Potassium 3.5 mmol/L (3.5-5.1) 05/12/21 12:45 05/12/21 Sodium 140 mmol/L (136-145) 05/12/21 12:45 05/12/21 BUN 6 mg/dL (7-18) L 05/12/21 12:45 05/12/21 Creatinine 0.74 mg/dL (0.55-1.02) 05/12/21 12:45 05/12/21 Glucose 94 mg/dL (74-106) 05/12/21 12:45 05/12/21 TSH 2.32 uIU/mL (0.358-3.74) 06/01/22 09:35 COAG Urine Test Negative Negative 04/22/17 01:00 04/22/17 Pre-Assessment Diagnosis/Proposed Procedure Planned Operative Procedure(s): HYSTEROSCOPY D&C POLPECTOMY Anesthesia History 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 When Was Last Pacemaker Check QUESTION #4 FULL TEXT: You/Your Family Experience fever (hyperthermia) with Anesthesia Last Oral Intake Last Oral intake: Last Oral Intake NPO since 07:00 11/20/24 12:41 Meds taken in AM with sips of No 11/20/24 12:41 water? Meds patient instructed to take am of surgery Any additional information?: Yes NPO since: 07:00 (Patient water at 7 AM.) PONV PONV - metal sander: PONV - metal sander Female Yes 11/15/24 11:47 HX of Motion Sickness No 11/15/24 11:47 HX of N/V After Surgery No 11/15/24 11:47 Non-Smoker No 11/15/24 11:47 Duration of Surgery greater No 11/15/24 11:47 than 60 minutes Number of Risk Factors 1 11/15/24 11:47 PONV Score Low Risk 11/15/24 11:47 Height & Weight Height & Weight: Anesthesia: Height & Weight Height 5 ft 2 in 11/20/24 12:41 Weight: 59.3 kg 11/20/24 12:41 Body Mass Index (BMI) 23.9 11/20/24 12:41 Respiratory Assessment Respiratory Assessment - metal sander: Respiratory Tract Infection Hx - metal sander Hx Respiratory Tract Infection Yes: STREP/TREATED/RESOLVED 11/15/24 11:47 Any additional information?: Yes Hx Respiratory Tract Infection: Yes (Patient has strep 2 to 3 weeks ago. Currently completely resolved.) STOP Sleep Apnea STOP Sleep Apnea - metal sander: STOP Sleep Apnea - metal sander Hx Hypertension Yes: DURING PREGANANCY/201311/15/24 11:47 Hx Sleep Apnea No 11/15/24 11:47 CPAP BIPAP Do you snore loudly (louder No 11/15/24 11:47 than talking or can be heard Do you often feel tired/ Yes 11/15/24 11:47 fatigued/ sleepy during daytime? Has anyone observed you stop No 11/15/24 11:47 breathing during sleep? STOP Results Positive 11/15/24 11:47 QUESTION #5 FULL TEXT : Do you snore loudly (louder than talking or can be heard through closeddoors)? 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 Specify any problems Hx of Preganancy in last 3 No 11/15/24 11:47 Months Nurse Filling Out Transfusion DSCHRIBER 11/15/24 11:47 & Questions: Date: 11/15/24 11/15/24 11:47 Time: 11:49 11/15/24 11:47 Patient unable to answer at this time (ie. confused, unrespo /Reproduction History /Reproductive History - metal sander: /Reproductive Hx- metal sander Hx Now No 11/15/24 11:47 Gestational Age (in weeks): EDC: Hx Hx Para Hx Section SAB No 11/15/24 11:47 PFSH Medical History Wears glasses Easy bruising Migraine headache Gastric reflux Vapes nicotine containing substance ADHD Mass of left forearm Contusion of left upper arm Anemia Home Medications ?Medication ?Instructions ?Recorded ?Last Taken ?Type cholecalciferol (vitamin D3) 25 15,000 unit PO .weekly 11/20/24 Unknown History mcg (1,000 unit) capsule (Vitamin D3) Allergy/AdvReac Type Severity Reaction Status Date / Time fentanyl AdvReac Severe Pruritis Verified 11/20/24 13:22 Family History Aunt Breast cancer x2 Surgical History History of excision of lesion History of wisdom tooth extraction Hx of laparoscopy H/O dilation and curettage delivery delivered H/O tubal ligation Social History adopted: No number of children: 3 current occupational status: unemployed Smoking Status: Former smoker alcohol intake: never substance use type: does not use caffeine: Yes what type of physical activity do you participate in: walking frequency: 1-2 times per week seatbelt use: always do you feel safe at home: Yes additional social history: Review of Systems (Anesthesia) ROS Narrative System reviewed and no additional complaints, except as documented. 11/20/24 1326 mike GAO> Date _ Tristen Fuentes MD [facility] St[facility] Louisign Signature: Date CC: ~ Signed [facility]04-22-2025 [facility] Medical Records Department [address] [place] [address] History Physical Exam 11/20/24 1216 MR#: [id number] Acct: [id number] Name: DEJA WOLFE Rep #: [id number] : 1985 39 From: Laureen Hernandez DO PCP: Dr. Damion Wright MD Status:[facility] Location: [place] [address] History and Physical Date of Admission: 11/20/24 Intake Vital Signs 10/18/2510:40 11/05/2510:58 11/06/2511:00 Height 5 ft 2 in 5 ft 2 in 5 ft 2 in Weight: 133 lb 8 oz BMI 24.4 BP 127/81 H Intake Visit Reasons: D C polypectomy Degree Clerk Required: No Is patient in pain?: No Allergies fentanyl Adverse Reaction (Verified 11/05/24 11:58) Hives Medications ???Medication ???Instructions ???Recorded ???Confirmed ???Type norethindrone (contraceptive) 0.35 0.35 mg PO QDAY #90 tabs 05/21/24 11/05/24 Rx mg tablet fluconazole 150 mg tablet 150 mg PO ONCE #1 TAB 11/05/24 11/05/24 Rx Post menopausal: No Patient : No : No PFSH Medical History ADHD Mass of left forearm Contusion of left upper arm Anxiety and depression Anemia Endometriosis determined by laparoscopy Surgical History [place] teeth extracted H/O dilation and curettage Hematoma delivery delivered H/O tubal ligation Family History Aunt Breast cancer x2 Social History adopted: No number of children: 3 current occupational status: unemployed Smoking Status: Former smoker alcohol intake: never substance use type: does not use caffeine: Yes what type of physical activity do you participate in: walking frequency: 1-2 times per week seatbelt use: always do you feel safe at home: Yes additional social history: HPI D C polypectomy Details: DEJA WOLFE is a 39 year old who presents for a pre-op hysteroscopy. She has persistent irregular periods as well as recurrent yeast infections. the progesterone did not stop the irregular bleeding patterns and we discussed that it is likely due to the ultrasound Findings suggestive of a 5 mm x 5 mm x 3 mm polyp at the cervical os on ultrasound. This polyp is not seen clinically on exam. She has undergone 3 sections and multiple diagnostic laparoscopic procedures and wants a hysterectomy. We discussed attempting to removed the polyp first in the office and if not successful, then in the OR before we jump to hysterectomy. She agrees. History 3 Elective abortions Hx Para 3 Spontaneous abortions Hx # Term Pregnancies 3 Ectopic pregnancies Hx # Pregnancies Multiple births # of living children 3 Past Pregnancies Del. Date Name GA/Weeks Outcome Route Bth Weight Gen Labor Lgth Anesthesia Del Locatn Provider FOB Unknown Ian 2010 Unknown Nico 2010 Unknown Demarcus 2013 ROS Const ROS Unobtainable: All systems reviewed are unremarkable except as noted in H Resp Resp: Reports system reviewed and no additional complaints, except as documented; Denies cough GI GI: Reports as per HPI Psych Psych: Reports system reviewed and no additional complaints, except as documented Exam Const General: cooperative, healthy appearing, comfortable and no acute distress Resp Effort Inspection: normal respiratory effort Skin General: no rashes or lesions noted Psych Appearance: grossly normal Speech and Movement: speech and movement normal Coding Level of Care Code Off vis,est,level 4 Diagnoses Polyp of cervix N84.1 Abnormal uterine bleeding N93.9 History of endometriosis Z87.42 Assessment and Plan Assessment and Plan (1) Polyp of cervix: Status: Acute (2) Abnormal uterine bleeding: Status: Acute (3) History of endometriosis: Status: Acute Orders: Orders CBC-Complete Blood Cnt No Diff Today N84.1 - Polyp of cervix uteri Type Screen - PAT ONLY Today N84.1 - Polyp of cervix uteri Vitamin D,25 Hydroxy Today N84.1 - Polyp of cervix uteri Medications: New fluconazole 150 mg PO ONCE 1 TAB 3RF Plan After discussing the patient's diagnosis and treatment plan options, patient wishes to proceed with surgical management. I have discussed with the patient the risks, benefits, and alternatives of the procedure which include but are not limited to risks of anesthesia, bleeding, infection, possible damage to bowel, bladder, or surrounding vasculature which could lead to additional surgery to evaluate any complications. Patient agrees to procedure and wishes to proceed. ACOG/uptodate references given for additional information regarding procedure. Plan is for hystero (more content not included)...[facility] 10-30-2024 NoteHNO ID: [id number] Author: ZUNILDA MOTTA APRN.PR[employer] D[employer]Y LPN Service: ? Author Type: Nurse Practitioner Type: Progress Notes Filed: 10/30/2024 11:13 Note Text: [facility] Subjective Deja Wolfe is a 39 year old female. Patient presents with: Sore Throat: Body aches, headache, low grade fever x this 39 year old female with PMH hypothyroidism presents for illness. Acute onset yesterday +sore throat +nasal congestion +lymph node +headache +body ache +fever Of note, she spent the weekend in [place] Flew there and back. Tylenol Just feel like this is strep throat The history is provided by the patient. No medical language specialist was used. URI There is no chest tightness, cough, difficulty breathing, frequent throat clearing, hemoptysis, hoarse voice, shortness of breath, sputum production or wheezing. This is a new problem. The current episode started yesterday. The problem occurs constantly. The problem has been gradually worsening. Associated symptoms include ear pain, a fever, headaches, malaise/fatigue, myalgias, nasal congestion, rhinorrhea and a sore throat. Pertinent negatives include no appetite change, chest pain, dyspnea on exertion, ear congestion, heartburn, orthopnea, PND, postnasal drip, sneezing, sweats, trouble swallowing or weight loss. Her symptoms are aggravated by nothing. She reports no improvement on treatment. There are no known risk factors for lung disease. There is no history of asthma, bronchiectasis, bronchitis, COPD, emphysema or pneumonia. 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 amoxicillin (AMOXIL) 500 mg capsule Take 1 capsule by mouth two times a day for 10 days. Norethindrone, Contraceptive, 0.35 mg tablet Take 1 tablet by mouth every afternoon. (Patient not taking: Reported on 10/30/2024) citalopram (CELEXA) 20 mg tablet Take 1 tablet by mouth once daily. (Patient not taking: Reported on 09/20/2024) citalopram hydrobromide (CELEXA) 10 mg tablet Take 1 tablet by mouth once daily. (Patient not taking: Reported on 09/20/2024) oxyCODONE-acetaminophen (PERCOCET) 5-325 mg tablet Take 1 tablet by mouth every 4 hours as needed for Pain. FOR PAIN. (Patient not taking: Reported on 09/20/2024) ibuprofen (MOTRIN) 800 mg tablet Take 1 tablet by mouth every 8 hours as needed for Pain. FOR PAIN. (Patient not taking: Reported on 09/20/2024) FAMILY HISTORY Problem Relation Age of Onset Breast Cancer Paternal Aunt P AUNT X 2 Diabetes Paternal Grandfather Heart Maternal Grandmother Hypertension Maternal Grandmother Hypertension Paternal Grandfather Thyroid Paternal Grandmother Social History Tobacco Use Smoking status: Every Day Types: Cigarettes Start date: 09/03/2012 Smokeless tobacco: Never Tobacco comments: vaping Substance Use Topics Alcohol use: No Drug use: No Review of Systems Constitutional: Positive for fever and malaise/fatigue. Negative for appetite change and weight loss. HENT: Positive for ear pain, rhinorrhea and sore throat. Negative for hoarse voice, postnasal drip, sneezing and trouble swallowing. Eyes: Negative for pain, discharge, redness and itching. Respiratory: Negative for apnea, cough, hemoptysis, sputum production, chest tightness, shortness of breath and wheezing. Cardiovascular: Negative for chest pain, dyspnea on exertion and PND. Gastrointestinal: Negative for abdominal pain, diarrhea, heartburn, nausea and vomiting. Musculoskeletal: Positive for myalgias. Skin: Negative for color change, pallor, rash and wound. Allergic/Immunologic: Negative for environmental allergies, food allergies and immunocompromised state. Neurological: Positive for headaches. Negative for dizziness and facial asymmetry. Hematological: Positive for adenopathy. Does not bruise/bleed easily. Psychiatric/Behavioral: Negative for agitation and behavioral problems. Objective BP 120/81 Pulse 96 Temp 37.5 ?C (99.5 ?F) Resp 22 Wt 61 kg (134 lb 7.7 oz) LMP 10/18/2024 (Approximate) SpO2 100% BMI 23.08 kg/m? Physical Exam Vitals and nursing note reviewed. Constitutional: General: She is not in acute distress. Appearance: Normal appearance. She (more content not included)...[facility]04-01-2025 History of Present illness Narrative* Zunilda Motta APRN.PR[employer] D[employer]Y LPN - 10/30/2024 10:43 AM EDT [facility] Subjective Deja Wolfe is a 39 year old female. Patient presents with: Sore Throat: Body aches, headache, low grade fever x this 39 year old female with PMH hypothyroidism presents for illness. Acute onset yesterday +sore throat +nasal congestion +lymph node +headache +body ache +fever Of note, she spent the weekend in [place] Flew there and back. Tylenol Just feel like this is strep throat The history is provided by the patient. No medical language specialist was used. URI There is no chest tightness, cough, difficulty breathing, frequent throat clearing, hemoptysis, hoarse voice, shortness of breath, sputum production or wheezing. This is a new problem. The current episode started yesterday. The problem occurs constantly. The problem has been gradually worsening. Associated symptoms include ear pain, a fever, headaches, malaise/fatigue, myalgias, nasal congestion,rhinorrhea and a sore throat. Pertinent negatives include no appetite change, chest pain, dyspnea on exertion, ear congestion, heartburn, orthopnea, PND, postnasal drip, sneezing, sweats, trouble swallowing or weight loss. Her symptoms are aggravated by nothing. She reports no improvement on treatment. There are no known risk factors for lung disease. There is no history of asthma, bronchiectasis, bronchitis, COPD, emphysema or pneumonia. 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 amoxicillin (AMOXIL) 500 mg capsule Take 1 capsule by mouth two times a day for 10 days. Norethindrone, Contraceptive, 0.35 mg tablet Take 1 tablet by mouth every afternoon. (Patient not taking: Reported on 10/30/2024) citalopram (CELEXA) 20 mg tablet Take 1 tablet by mouth once daily. (Patient not taking: Reported on 09/20/2024) citalopram hydrobromide (CELEXA) 10 mg tablet Take 1 tablet by mouth once daily. (Patient not taking: Reported on 09/20/2024) oxyCODONE-acetaminophen (PERCOCET) 5-325 mg tablet Take 1 tablet by mouth every 4 hours as needed for Pain. FOR PAIN. (Patient not taking: Reported on 09/20/2024) ibuprofen (MOTRIN) 800 mg tablet Take 1 tablet by mouth every 8 hours as needed for Pain. FOR PAIN.(Patient not taking: Reported on 09/20/2024) FAMILY HISTORY Problem Relation Age of Onset Breast Cancer Paternal Aunt P AUNT X 2 Diabetes Paternal Grandfather Heart Maternal Grandmother Hypertension Maternal Grandmother Hypertension Paternal Grandfather Thyroid Paternal Grandmother Social History Tobacco Use Smoking status: Every Day Types: Cigarettes Start date: 09/03/2012 Smokeless tobacco: Never Tobacco comments: vaping Substance Use Topics Alcohol use: No Drug use: No Review of Systems Constitutional: Positive for fever and malaise/fatigue. Negative for appetite change and weight loss. HENT: Positive for ear pain, rhinorrhea and sore throat. Negative for hoarse voice, postnasal drip,sneezing and trouble swallowing. Eyes: Negative for pain, discharge, redness and itching. Respiratory: Negative for apnea, cough, hemoptysis, sputum production, chest tightness, shortness of breath and wheezing. Cardiovascular: Negative for chest pain, dyspnea on exertion and PND. Gastrointestinal: Negative for abdominal pain, diarrhea, heartburn, nausea and vomiting. Musculoskeletal: Positive for myalgias. Skin: Negative for color change, pallor, rash and wound. Allergic/Immunologic: Negative for environmental allergies, food allergies and immunocompromised state. Neurological: Positive for headaches. Negative for dizziness and facial asymmetry. Hematological: Positive for adenopathy. Does not bruise/bleed easily. Psychiatric/Behavioral: Negative for agitation and behavioral problems. Objective BP 120/81 Pulse 96 Temp 37.5 C (99.5 F) Resp 22 Wt 61 kg (134 lb 7.7 oz) LMP 10/18/2024 (Approximate) SpO2 100% BMI 23.08 kg/m Physical Exam Vitals and nursing note reviewed. Constitutional: General: She is not in acute distress. Appearance: Normal appearance. She is normal weight. She is not ill-appearing, toxic-appearing or diaphoretic. HENT: Head: Normocephalic and atraumatic. Right Ear: Ear canal and external ear normal. Left Ear: Ear canal and external ear normal. Nose: Rhinorrhea present. No congestion. Mouth/Throat: Mouth: Mucous membranes are moist. Pharynx: Posterior oropharyngeal erythema present. No oropharyngeal exudate. Eyes: General: Right eye: No discharge. Left eye: No discharge. Extraocular Movements: Extraocular movements intact. Conjunctiva/sclera: Conjunctivae normal. Pupils: Pupils are equal, round, and reactive to light. Cardiovascular: Rate and Rhythm: Normal rate and regular rhythm. Pulses: Normal pulses. Heart sounds: Normal heart sounds. No murmur heard. No friction rub. Pulmonary: Effort: Pulmonary effort is normal. No respiratory distress. Breath sounds: Normal breath sounds. No stridor. No wheezing, rhonchi or rales. Chest: Chest wall: No tenderness. Abdominal: General: Abdomen is flat. There is no distension. Palpations: Abdomen is soft. There is no mass. Tenderness: There is no abdominal tenderness. There is no right CVA tenderness, left CVA tenderness, guarding or rebound. Hernia: No hernia is present. Musculoskeletal: General: No swelling, tenderness, deformity or signs of injury. Normal range of motion. Cervical back: Normal range of motion and neck supple. No rigidity. Right lower leg: No edema. Left lower leg: No edema. Lymphadenopathy: Cervical: Cervical adenopathy present. Skin: General: Skin is warm and dry. Capillary Refill: Capillary refill takes less than 2 seconds. Coloration: Skin is not jaundiced or pale. Findings: No bruising, erythema, lesion or rash. Neurological: General: No focal deficit present. Mental Status: She is alert and oriented to person, place, and time. Cranial Nerves: No cranial nerve deficit. Sensory: No sensory deficit. Motor: No weakness. Coordination: Coordination normal. Gait: Gait normal. Psychiatric: Mood and Affect: Mood normal. Behavior: Behavior normal. Thought Content: Thought content normal. Judgment: Judgment normal. {ASSESSMENT/PLAN: 1. Strep pharyngitis - ICD9: 034.0, ICD10: J02.0 - suspect strep - - Group A strep molecular testing positive - antibiotic as written - Discussed supportive care treatment with fluids, rest and analgesia. - The patient may also use OTC cough and cold meds as needed, warm salt water gargles, throat lozenges and/or OTC throat spray as needed, and nasal saline gtts and suction prn. - Contagious dz precautions discussed- including considered contagious until on antibiotics for 24 hours - The patient should follow up in 3-5 days if symptoms persist or worsen - Call back if drooling, increased temperature, symptoms of dehydration and/or still sick in one week - STREP A MOLECULAR (POC) Zunilda Motta APRN.[employer] LPN History and Record Review Clinical information obtained from an independent historian. History obtained from or confirmed by:friend. 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 [facility]* Diagnosis Onset Date Resolution Status Admit Date Abnormal uterine bleeding acute October 03, 2024 9:35am History of endometriosis acute October 03, 2024 9:35am Monilial vaginitis noneactive October 03, 2024 9:35am [facility] Work Phone: 1(730) 821-649403-05-2025 Evaluation note* Diagnosis Onset Date Resolution Status Admit Date Abnormal uterine bleeding acute October 03, 2024 9:35am History of endometriosis acute October 03, 2024 9:35am Monilial vaginitis noneactive October 03, 2024 9:35am Abnormal uterine bleeding acute October 18, 2024 11:31am History of endometriosis acute October 18, 2024 11:31am Polyp of cervix acute September 11:31am [facility] Work Phone: 1(601) 822-313503-05-2025 Evaluation note* Diagnosis Onset Date Resolution Status Admit Date Abnormal uterine bleeding acute October 03, 2024 9:35am History of endometriosis acute October 03, 2024 9:35am Monilial vaginitis noneactive October 03, 2024 9:35am Abnormal uterine bleeding acute October 18, 2024 11:31am History of endometriosis acute October 18, 2024 11:31am Polyp of cervix acute September 11:31am Abnormal uterine bleeding acute November 05, 2024 11:57am History of endometriosis acute November 05, 2024 11:57am Polyp of cervix acute October 11:57am Burning with urination acute Ap ril 2024 9:39am Abnormal uterine bleeding acute November 20, 2024 11:57am Polyp of cervix acute October 11:57am [facility] Work Phone: [phone]) 966-545403-05-2025 Evaluation note* Diagnosis Onset Date Resolution Status Admit Date Abnormal uterine bleeding acute October 03, 2024 9:35am History of endometriosis acute October 03, 2024 9:35am Monilial vaginitis noneactive October 03, 2024 9:35am Abnormal uterine bleeding acute October 18, 2024 11:31am History of endometriosis acute October 18, 2024 11:31am Polyp of cervix acute September 11:31am Abnormal uterine bleeding acute November 05, 2024 11:57am History of endometriosis acute November 05, 2024 11:57am Polyp of cervix acute October 11:57am Burning with urination acute Ap ril 2024 9:39am Abnormal uterine bleeding acute November 20, 2024 11:57am Polyp of cervix acute October 11:57am Burning with urination acute 2024 9:01am Vaginitis acute December 03, 2024 9:01am Abnormal uterine bleeding acute December 04, 2024 10:28am History of endometriosis acute December 04, 2024 10:28am Menorrhagia acute December 04, 2024 10:28am Polyp of cervix acute December 04, 2024 10:28am [facility] Work Phone: 1(655) 677-452603-04-2025 Radiology Diagnostic study note [facility] [address] [place] [address] Pelvic w/ Transvaginal MR#: [id number] Acct: [id number] Name: DEJA WOLFE Rep #: [id number] : 1985 F 39 From: Conor Henry MD PCP: Dr. Damion Wright MD Status: [facility] Study:Pelvic w/ Transvaginal Date of Exam: 10/02/24 Exam# [id number] Ordering Dr: Laureen Copeland DO PROCEDURE: PELVIC W/ TRANSVAGINAL REASON FOR EXAM: Abnormal uterine bleeding. TECHNIQUE: Transabdominal and transvaginal pelvic ultrasound COMPARISON: None. FINDINGS: LMP: September 25, 2024 Measurements: Uterus: 9.9 cm x 5.1 cm x 4 cm with a volume of 114.4 mL Endometrial Thickness: 8.9 mm Right Ovary: 2.7 cm x 2.2 cm x 1.6 with a volume of 4.94 mL. Left Ovary: 2.9 cm x 2 cm x 1.9 cm with a volume of 5.95 mL. TRANSABDOMINAL: Uterus: Normal size, myometrial echotexture, and contour. Findings suggestive of a 5 mm x 5 mm x 3 mm polyp at the cervical os. Endometrium: Unremarkable. Right ovary: Normal size and echotexture. Left ovary: Normal size and echotexture. No large pelvic mass identified. Transvaginal sonography was performed to better visualize the endometrium. TRANSVAGINAL: Uterus: Anteverted. Normal contour and myometrial echotexture. Endometrium: Normal echotexture. Right ovary: Normal size and echotexture. Left ovary: Normal size and echotexture. Other adnexal findings: None. Cul-de-sac: No free intraperitoneal fluid identified. No tenderness. US/Pelvic w/ Transvaginal IMPRESSION: Findings suggestive of a 5 mm x 5 mm x 3 mm polyp at the cervical os. Reading Location: [id number] CC: Dr. Laureen Hernandez DO; Dr. Damion Wright MD ~ Retail Wireless Sales Consultant: Signed [facility]02-20-2025 NoteHNO ID: [id number] Author: DIANN EVANS APRN.PR[employer] D[employer]Y LPN Service: ? Author Type: Nurse Practitioner Type: Progress Notes Filed: 09/20/2024 16:08 Note Text: This note was created using Itiva. Radha Wolfe is a 39 year old female. Patient is a 39-year-old female, with no significant past medical history, presenting to the clinic for complaints of recurrent nasal drainage, sinus pressure, over the past couple weeks, in addition to a cough, shortness of breath, since Tuesday. Patient states cough is productive in nature, with very scant sputum. Sputum is clear at times. She states shortness of breath with exertion. She denies any chest pain, she has felt feverish, has had decreased appetite, and increased fatigue. She denies any abdominal pain, nausea, vomiting or diarrhea, denies any urinary symptoms. She states she was seen by one of her colleagues, who listened to her, and felt she had abnormal lung sounds, concerning for pneumonia, recommended she come to be evaluated. Cough This is a new problem. The current episode started more than 2 days ago. The problem occurs every few minutes. The problem has been gradually worsening. The cough is Productive of sputum. There has been no fever. Associated symptoms include rhinorrhea, sore throat, shortness of breath and wheezing. Pertinent negatives include no chest pain, no chills, no ear congestion, no ear pain, no headaches, no myalgias and no eye redness. She has tried nothing for the symptoms. She is not a smoker. Her past medical history does not include pneumonia or asthma. Review of Systems Constitutional: Positive for appetite change and fatigue. Negative for chills and fever. HENT: Positive for congestion, rhinorrhea, sinus pressure, sinus pain and sore throat. Negative for ear pain. Eyes: Negative for redness. Respiratory: Positive for cough, shortness of breath and wheezing. Cardiovascular: Negative for chest pain. Gastrointestinal: Negative for abdominal distention, diarrhea, nausea and vomiting. Genitourinary: Negative for decreased urine volume and difficulty urinating. Musculoskeletal: Negative for myalgias. Neurological: Negative for dizziness, weakness, numbness and headaches. Objective BP 124/76 Pulse 73 Temp 36.8 ?C (98.2 ?F) (Left Tympanic) Resp 16 Wt 59.4 kg (130 lb 15.3 oz) LMP 08/09/2024 (Approximate) SpO2 99% BMI 22.48 kg/m? Physical Exam Vitals and nursing note reviewed. Constitutional: General: She is not in acute distress. Appearance: She is not ill-appearing or diaphoretic. HENT: Head: Normocephalic and atraumatic. Right Ear: Tympanic membrane and ear canal normal. Left Ear: Tympanic membrane and ear canal normal. Nose: Right Sinus: Maxillary sinus tenderness present. Left Sinus: Maxillary sinus tenderness present. Mouth/Throat: Mouth: Mucous membranes are moist. Pharynx: Oropharynx is clear. No oropharyngeal exudate. Tonsils: No tonsillar exudate. 1+ on the right. 0 on the left. Eyes: Extraocular Movements: Extraocular movements intact. Pupils: Pupils are equal, round, and reactive to light. Cardiovascular: Rate and Rhythm: Normal rate and regular rhythm. Pulses: Normal pulses. Heart sounds: Normal heart sounds. Pulmonary: Effort: Pulmonary effort is normal. Breath sounds: Examination of the left-lower field reveals rales. Rales present. No wheezing. Abdominal: General: Bowel sounds are normal. There is no distension. Palpations: Abdomen is soft. Tenderness: There is no abdominal tenderness. Musculoskeletal: General: No tenderness. Normal range of motion. Right lower leg: No edema. Left lower leg: No edema. Skin: General: Skin is warm and dry. Capillary Refill: Capillary refill takes less than 2 seconds. Neurological: General: No focal deficit present. Mental Status: She is alert and oriented to person, place, and time. Mental status is at baseline. Psychiatric: Mood and Affect: Mood normal. Behavior: Behavior normal. Assessment and Plan ASSESSMENT/PLAN: 1. Pneumonia of left lower lobe due to infectious organism - ICD9: 486, ICD10: J18.9 (primary diagnosis) 2. Bacterial sinusitis - ICD9: 473.9, 041.9, ICD10: J32.9, B96.89 - Will begin treatment with Doxycycline, albuterol, mucinex, and tessalon perles. - Supportive care with plenty of fluids, rest, and analgesia prn. - Follow up as needed if symptoms persist or worsen. Diann Evans, DESHAWN.[facility] History of Present illness Narrative* Diann Evans, DESHAWN.SO - 09/20/2024 3:50 PM EST This note was created using Itiva. Subjective Deja Wolfe is a 39 year old female. Patient is a 39-year-old female, with no significant past medical history, presenting to the clinicfor complaints of recurrent nasal drainage, sinus pressure, over the past couple weeks, in additionto a cough, shortness of breath, since Tuesday. Patient states cough is productive in nature, with very scant sputum. Sputum is clear at times. She states shortness of breath with exertion. She deniesany chest pain, she has felt feverish, has had decreased appetite, and increased fatigue. She denies any abdominal pain, nausea, vomiting or diarrhea, denies any urinary symptoms. She states she was seen by one of her colleagues, who listened to her, and felt she had abnormal lung sounds, concerning for pneumonia, recommended she come to be evaluated. Cough This is a new problem. The current episode started more than 2 days ago. The problem occurs every few minutes. The problem has been gradually worsening. The cough is Productive of sputum. There has been no fever. Associated symptoms include rhinorrhea, sore throat, shortness of breath and wheezing.Pertinent negatives include no chest pain, no chills, no ear congestion, no ear pain, no headaches,no myalgias and no eye redness. She has tried nothing for the symptoms. She is not a smoker. Her past medical history does not include pneumonia or asthma. Review of Systems Constitutional: Positive for appetite change and fatigue. Negative for chills and fever. HENT: Positive for congestion, rhinorrhea, sinus pressure, sinus pain and sore throat. Negative forear pain. Eyes: Negative for redness. Respiratory: Positive for cough, shortness of breath and wheezing. Cardiovascular: Negative for chest pain. Gastrointestinal: Negative for abdominal distention, diarrhea, nausea and vomiting. Genitourinary: Negative for decreased urine volume and difficulty urinating. Musculoskeletal: Negative for myalgias. Neurological: Negative for dizziness, weakness, numbness and headaches. Objective BP 124/76 Pulse 73 Temp 36.8 C (98.2 F) (Left Tympanic) Resp 16 Wt 59.4 kg (130 lb 15.3 oz) LMP 08/09/2024 (Approximate) SpO2 99% BMI 22.48 kg/m Physical Exam Vitals and nursing note reviewed. Constitutional: General: She is not in acute distress. Appearance: She is not ill-appearing or diaphoretic. HENT: Head: Normocephalic and atraumatic. Right Ear: Tympanic membrane and ear canal normal. Left Ear: Tympanic membrane and ear canal normal. Nose: Right Sinus: Maxillary sinus tenderness present. Left Sinus: Maxillary sinus tenderness present. Mouth/Throat: Mouth: Mucous membranes are moist. Pharynx: Oropharynx is clear. No oropharyngeal exudate. Tonsils: No tonsillar exudate. 1+ on the right. 0 on the left. Eyes: Extraocular Movements: Extraocular movements intact. Pupils: Pupils are equal, round, and reactive to light. Cardiovascular: Rate and Rhythm: Normal rate and regular rhythm. Pulses: Normal pulses. Heart sounds: Normal heart sounds. Pulmonary: Effort: Pulmonary effort is normal. Breath sounds: Examination of the left-lower field reveals rales. Rales present. No wheezing. Abdominal: General: Bowel sounds are normal. There is no distension. Palpations: Abdomen is soft. Tenderness: There is no abdominal tenderness. Musculoskeletal: General: No tenderness. Normal range of motion. Right lower leg: No edema. Left lower leg: No edema. Skin: General: Skin is warm and dry. Capillary Refill: Capillary refill takes less than 2 seconds. Neurological: General: No focal deficit present. Mental Status: She is alert and oriented to person, place, and time. Mental status is at baseline. Psychiatric: Mood and Affect: Mood normal. Behavior: Behavior normal. Assessment and Plan ASSESSMENT/PLAN: 1. Pneumonia of left lower lobe due to infectious organism - ICD9: 486, ICD10: J18.9 (primary diagnosis) 2. Bacterial sinusitis - ICD9: 473.9, 041.9, ICD10: J32.9, B96.89 - Will begin treatment with Doxycycline, albuterol, mucinex, and tessalon perles. - Supportive care with plenty of fluids, rest, and analgesia prn. - Follow up as needed if symptoms persist or worsen. Diann Evans APRN.PRIVATE [employer] LPN documented in this encounterR[facility]02-20-2025 Instructions* Patient Instructions* Diann Evans APRN.SO - 09/20/2024 3:49 PM EST Nursing clinic for complaints of coughing, shortness of breath, sinus congestion Based on physical exam, it was felt you had a left lower lobe pneumonia, in addition to a sinus infection. At this time, you will be started on antibiotics, please take them as directed until completed. Youwill be provided with an albuterol inhaler, please use this as needed for any coughing, shortness of breath or wheezing. In addition you will be started on Tessalon Perles, to assist with reducing your cough. Take them as needed. Lastly you will be started on Mucinex, which will assist with mucus production. Please increase your oral hydration, with water, electrolyte drinks such as Gatorade. If you have any worsening issues, it is recommend you follow-up with your primary care, return to the clinic. documented in this encounterRiverview [facility] Institute10-13-2022 NotePap Smear Specimen AdequacyOctober 2021 11:59pmComment.Satisfactory for evaluation. Endocervical and/or squamous metaplasticcells (endocervical component)are present.[facility] A#[id number] [facility] Work Phone: Comment on above:Satisfactory for evaluation. Endocervical and/or squamous metaplasticcells (endocervical component)are present.05-13-2022 NotePap Smear QC ReviewOctober 2021 11:59pmComment. Meagan Pablo Supervisory Bottom Hoop Driver (ASCP)[facility] A#[id number] [facility] Work Phone: Comment on above:Meagan Pablo Supervisory Bottom Hoop Driver (ASCP)05-13-2022 NotePap Smear Specimen AdequacyOctober 2021 10:59pmComment.Satisfactory for evaluation. Endocervical and/or squamous metaplasticcells (endocervical component)are present.[facility] A#[id number] Health [facility] Work Phone: Comment on above:Satisfactory for evaluation. Endocervical and/or squamous metaplasticcells (endocervical component)are present.05-13-2022 NotePap Smear QC ReviewOctober 2021 10:59pmComment. Meagan Pablo Supervisory Bottom Hoop Driver (ASCP)[facility] A#[id number] [facility] Work Phone: Comment on above:Earnestine Limaory Bottom Hoop Driver (ASC)05-13-2022 NotePap Smear Specimen AdequacyOctober 2021 10:59pmComment.Satisfactory for evaluation. Endocervical and/or squamous metaplasticcells (endocervical component)are present.[facility] A#[id number] Health Miami [facility] Hospital SouthComment on above:Satisfactory for evaluation. Endocervical and/or squamous metaplasticcells (endocervical component)are present.05-13-2022 NotePap Smear QC ReviewOctober 2021 10:59pmComment.Meagan Pablo Supervisory Bottom Hoop Driver (ASCP)[facility] A#[id number] Health Miami Valley Hospital SouthComment on above:Meagan Pablo Supervisory Bottom Hoop Driver (ASCP)01-29-2022 History of Present illness Narrative* Kerry De Guzman APRN.[employer] LPN - 01/29/2022 1:14 PM EDT Images from the original note were not included. Subjective HPI Deja Wolfe is a 36 year old female who presents with swelling on the right side of her nose, pressure in her nose and bilateral ears. She has had this for 3 days. Last night she squeezed the area and did get some white drainage from it. Today she noticed the swelling, and tenderness on the side of her nose. It extends to below her right eye. She denies current nasal congestion or drainage. Review of Systems Constitutional: Negative for chills and fever. HENT: Negative for congestion and ear pain. Eyes: Negative for pain. Respiratory: Negative for cough. Skin: Negative for itching and rash. 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 citalopram (CELEXA) 20 mg tablet Take 1 tablet by mouth once daily. citalopram hydrobromide (CELEXA) 10 mg tablet Take 1 tablet by mouth once daily. oxyCODONE-acetaminophen (PERCOCET) 5-325 mg tablet Take 1 tablet by mouth every 4 hours as needed for Pain. FOR PAIN. ibuprofen (MOTRIN) 800 mg tablet Take 1 tablet by mouth every 8 hours as needed for Pain. FOR PAIN. FAMILY HISTORY Problem Relation Age of Onset Breast Cancer Paternal Aunt P AUNT X 2 Diabetes Paternal Grandfather Heart Maternal Grandmother Hypertension Maternal Grandmother Hypertension Paternal Grandfather Thyroid Paternal Grandmother Social History Tobacco Use Smoking status: Current Every Day Smoker Years: 1.00 Start date: 09/03/2012 Smokeless tobacco: Never Used Tobacco comment: vaping Substance Use Topics Alcohol use: No Drug use: No Objective Physical Exam Vitals and nursing note reviewed. Constitutional: Appearance: Normal appearance. HENT: Head: Nose: Nasal tenderness (external nose) present. No congestion. Right Nostril: No occlusion. Cardiovascular: Rate and Rhythm: Normal rate. Pulmonary: Effort: Pulmonary effort is normal. Skin: General: Skin is warm and dry. Capillary Refill: Capillary refill takes less than 2 seconds. Findings: Erythema (slight) present. No rash. Neurological: Mental Status: She is alert. ASSESSMENT/PLAN: 1. Skin pimple - ICD9: 709.8, ICD10: R23.8 - with infection. Will treat with cephalexin. - warm compresses three times daily. - Follow-up with your PCP in 3-5 days if symptoms have not improved or sooner if symptoms worsen - Discussed red flags and need for immediate medical evaluation if any occur. - Discussed supportive care treatment with fluids, rest and analgesia. - Discussed expected course of illness Kerry De Guzman APRN.CNP documented in this encounterRiver[facility] Health Institute07-01-2022 Instructions* Patient Instructions* Kerry De Guzman APRN.CNP - 01/29/2022 1:11 PM EDT ASSESSMENT/PLAN: 1. Skin pimple - ICD9: 709.8, ICD10: R23.8 - with infection. Will treat with cephalexin. - warm compresses three times daily. - Follow-up with your PCP in 3-5 days if symptoms have not improved or sooner if symptoms worsen - Discussed red flags and need for immediate medical evaluation if any occur. - Discussed supportive care treatment with fluids, rest and analgesia. - Discussed expected course of illness Kerry De Guzman APRN.CNP documented in this encounterRiver[facility] Institute02-03-2014 History of Past illness Narrative* Problem Noted Date Resolved Date Family history of cleft lip and palate 4 11/19/2013 Overview: 09/03/2013The father of the baby's second cousin born with cleft lip and palate. November 19, 2013 doesn't increase her risk. Nicky Smith MD documented as of this encounter (statuses as of 01/29/2022) [facility] InstituteConsult note Author Juan Robles [facility] Note Date/Time November 20, 2024 2:3 9pm [facility] Medical Records Department [address] [place] [address] Anesthesia Postop Eval I 11/20/24 1438 MR#: [id number] Acct: [id number] Name: DEJA WOLFE Rep #:[id number] : 1985 39 From: Juan peters CRNA PCP: Dr. Damion Wright MD Status:REG S DC Y Race: C Location: [place] [address] Anesthesia: Postop Eval I Current Vital Signs Temperature: 97.3 F Pulse Rate: 60 Blood Pressure: 90/60 Respiratory Rate: 16 Pulse Ox: 99 Oxygen Delivery Method: Nasal Cannula Oxygen Flow Rate (L/min): 2 Assessment Airway patent: Yes Spontaneous unlabored respirations: Yes Mental status: Asleep nausea: No Vomiting: No Anesthesia Complication: No Fluid Hydration Crystalloid volume administer (ml): 250 Total IV fluid infused: 250 Progress Note Anesthesia document: Postop Eval 1 completed: Yes 11/20/24 1439 <Electronically signed by Juan trent BORING INSPECTOR> Date _ Juan Robles CRNA Cosigner Signature: Date CC: ~ Signed [facility] Work Phone: Evaluation note* Diagnosis Skin pimple- Primary documented in this encounter [facility] note* Diagnosis Onset Date Resolution Status Encounter for routine gynecological examination noneactive [facility] Work Phone: Evaluation note* Diagnosis Onset Date Resolution Status Possible exposure to STD non eactive [facility] Work Phone: Evaluation note* Diagnosis Onset Date Resolution Status Possible exposure to STD non eactive Encounter for routine gynecological examination noneactive [facility] Work Phone: Evaluation note* Diagnosis Onset Date Resolution Status Encounter for routine gynecological examination noneactive Lipoma of right thigh acute Lipoma of right thigh acute [facility] Work Phone: Evaluation note* Diagnosis Onset Date Resolution Status Lipoma of right thigh acute Lipoma of right thigh acute [facility] Work Phone: Evaluation note* Diagnosis Pneumonia of left lower lobe due to infectious organism- Primary Bacterial sinusitis Unspecified sinusitis (chronic) documented in this encounter [facility] note* Diagnosis Strep pharyngitis- Primary Streptococcal sore throat documented in this encounter [facility] note* Diagnosis Acute left ankle pain- Primary Acute left ankle pain documented in this encounter [facility] note* Diagnosis Acute left ankle pain documented in this encounter [facility] for referral (narrative)No reason for referral information availableWAshtabula [facility] Work Phone: Reason for visit Narrative* Diagnostic Procedure Only (Urgent) - Closed Specialty Diagnoses / Procedures Referred By Dez t Referred To Contact XR IMAGING Diagnoses Acute left ankle pain Procedures XR FOOT GENERAL 3V AP/LAT/OBL LEFT RADEX FOOT COMPLETE MINIMUM 3 VIEWS Jackelyn Acosta, MI[address] [place] [address] Phone: tel: fax: [place] [phone] Referral ID Status Reason Start Date Expiration Date V isits Requested Visits Authorized [id number] Closed Auto-Generate d Referral 01/21/2025 02/20/2026 1 1 [facility] Discharge Inst[facility] * Attachments The following attachments cannot be sent through Care Everywhere. 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) ABN BLEEDING/HX OF MALIGNANT NEOPLASM OF BREAST INT LABS Reason for Visit Encounter for routin e gynecological examination Chief Complaint STD test Reason for Visit Possible exposure to STD Chief Complaint STD test 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) SCREENING Reason for Visit Possible exposure to STD Encounter for routine gynecological examination Chief Complaint 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) SCREENING LIPOMA R THIGH THIGH LIPOMA EXCISION Reason for Visit Encounter for routin e gynecological examination Lipoma of right thigh Lipoma of right thigh Chief Complaint LIPOMA R THIGH THIGH LIPOMA EXCISION Reason for Visit Lipoma of right thig h Lipoma of right thigh Chief Complaint Admit Date ankle injury September 16, 2024 1:47pm SCREENING September 28, 2024 10:11am AUB October 02, 2024 8:51 am Ongoing vaginal itching and burning Demetri h 2024 9:35am Reason for Visit Admit Date Abnormal uterine bleeding October 03 9:35am History of endometriosis October 03, 2024 9:35am Monilial vaginitis October 03, 2024 9:35 am Chief Complaint Admit Date ankle injury September 16, 2024 1:47pm SCREENING September 28, 2024 10:11am AUB October 02, 2024 8:51 am Ongoing vaginal itching and burning Demetri h 2024 9:35am Discuss US/hysterectomy October 18, 2024 11:31am Reason for Visit Admit Date Abnormal uterine bleeding October 03 9:35am History of endometriosis October 03, 2024 9:35am Monilial vaginitis October 03, 2024 9:35 am Abnormal uterine bleeding October 18 11:31am History of endometriosis October 18 11:31am Polyp of cervix October 18, 2024 11: 31am Chief Complaint Admit Date ankle injury September 16, 2024 1:47pm SCREENING September 28, 2024 10:11am AUB October 02, 2024 8:51 am Ongoing vaginal itching and burning Demetri h 2024 9:35am ABN UTERINE BLEEDING October 18, 2024 8: 00am Discuss US/hysterectomy October 18, 2024 11:31am D&C polypectomy November 05, 2024 11:5 7am NV only - UA/culture per JV November 16, 2024 9:39am Hysteroscopy,Dilation and Curettage, Jayden ypectomy November 20, 2024 11:57am Hysteroscopy,Dilation and Curettage, Jayden ypectomy November 20, 2024 12:16pm Reason for Visit Admit Date Abnormal uterine bleeding October 03 9:35am History of endometriosis October 03, 2024 9:35am Monilial vaginitis October 03, 2024 9:35 am Abnormal uterine bleeding October 18 11:31am History of endometriosis October 18 11:31am Polyp of cervix October 18, 2024 11: 31am Abnormal uterine bleeding November 05 11:57am History of endometriosis November 05, 2024 11:57am Polyp of cervix November 05, 2024 11:5 7am Burning with urination November 16, 2024 9:39am Abnormal uterine bleeding November 20 11:57am Polyp of cervix November 20, 2024 11: 57am Chief Complaint Admit Date ankle injury September 16, 2024 1:47pm SCREENING September 28, 2024 10:11am AUB October 02, 2024 8:51 am Ongoing vaginal itching and burning Demetri 2024 9:35am ABN UTERINE BLEEDING October 18, 2024 8: 00am Discuss US/hysterectomy October 18, 2024 11:31am D&C polypectomy November 05, 2024 11:5 7am NV only - UA/culture per JV November 16, 2024 9:39am Hysteroscopy,Dilation and Curettage, Jayden ypectomy November 20, 2024 11:57am Hysteroscopy,Dilation and Curettage, Jayden ypectomy November 20, 2024 12:16pm RO yeast infection postop 11/20December 03, 2024 9:01am 2 wk D&C polypectomy December 04, 2024 10:28 am Reason for Visit Admit Date Abnormal uterine bleeding October 03 9:35am History of endometriosis October 03, 2024 9:35am Monilial vaginitis October 03, 2024 9:35 am Abnormal uterine bleeding October 18 11:31am History of endometriosis October 18 11:31am Polyp of cervix October 18, 2024 11: 31am Abnormal uterine bleeding November 05 11:57am History of endometriosis November 05, 2024 11:57am Polyp of cervix November 05, 2024 11:5 7am Burning with urination November 16, 2024 9:39am Abnormal uterine bleeding November 20 11:57am Polyp of cervix November 20, 2024 11: 57am Burning with urination December 03, 2024 9:0 1am Vaginitis December 03, 2024 9:01am Abnormal uterine bleeding December 04, 2024 10:28am History of endometriosis December 04, 2024 1 0:28am Menorrhagia December 04, 2024 10:28a m Polyp of cervix December 04, 2024 10:28a m Chief Complaint Admit Date ankle injury September 16, 2024 1:47pm SCREENING September 28, 2024 10:11am AUB October 02, 2024 8:51 am Ongoing vaginal itching and burning Demetri 2024 9:35am ABN UTERINE BLEEDING October 18, 2024 8: 00am Discuss US/hysterectomy October 18, 2024 11:31am D&C polypectomy November 05, 2024 11:5 7am NV only - UA/culture per JV November 16, 2024 9:39am Hysteroscopy,Dilation and Curettage, Jayden ypectomy November 20, 2024 11:57am Hysteroscopy,Dilation and Curettage, Jayden ypectomy November 20, 2024 12:16pm RO yeast infection postop 11/20December 03, 2024 9:01am 2 wk D&C polypectomy December 04, 2024 10:28 am TRH Lysis of Adhesions/Medicaid form nee ds signd January 07, 2025 8:34am Advance Directives No Advanced Directives Records Found Advance Directive Response Recorded Date/ Time Living Will No April 29, 2021 10:27am Power of Disaster Recovery Analyst No April 10:27am Advance Directive Response Recorded Date/ Time Living Will No April 29, 2021 9:27am Power of Disaster Recovery Analyst No April 9:27am Advance Directive Response Recorded Date/ Time Living Will No September 16 2:53pm Power of Disaster Recovery Analyst No September 16, 2024 2:53pm Living Will No April 29, 2021 10:27am Power of Disaster Recovery Analyst No April 10:27am Advance Directive Response Recorded Date/ Time Living Will No September 16, 2:53pm Do you have a Healthcare Power of Disaster Recovery Analyst? No September 16, 2024 2:53pm Living Will No April 29, 2021 10:27am Do you have a Healthcare Power of Disaster Recovery Analyst? No April 29, 2021 10:27am Advance Directive Response Recorded Date/ Time Living Will No September 16, 025 2:53pm Do you have a Healthcare Power of Disaster Recovery Analyst? No September 16, 2024 2:53pm Living Will No April 29, 2021 10:27am Do you have a Healthcare Power of Disaster Recovery Analyst? No April 29, 2021 10:27am Living Will No November 15, 2024 11:47am Do you have a Healthcare Power of Disaster Recovery Analyst? No November 15, 2024 11:47am Summary Purpose Family History No Family History Records Found Additional Source Comments Reason for Visit (unrecogniz ed section and content) Reason Comments Migraine Reason Comments Swelling (RT) side nose, swel ling x1 day denied pain Reason Comments Cough With chest tightness , chest congestion & sinus drainage x4 days Reason Comments Sore Throat Body aches, headache , low grade fever x this Reason Comments Ankle Injury left x 1 day, rolled Source Comments (unrecognize d section and content) In the event this informatio n is protected by the Federal Confidentiality of Alcohol and Drug Abuse Patient Records regulations: The Federal rules restrict any use of the information to criminally investigate or prosecute any alcohol or drug abuse patient.[facility] InstituteIn the event this information is protected by the Federal Confidentiality of Alcohol and Drug Abuse Patient Records regulations: The Federal rules restrict any use of the information to criminally investigate or prosecute any alcohol or drug abuse patient.[facility] InstituteIn the event this information is protected by the Federal Confidentiality of Alcohol and Drug Abuse Patient Records regulations: The Federal rules restrict any use of the information to criminally investigate or prosecute any alcohol or drug abuse patient.[facility] InstituteIn the event this information is protected by the Federal Confidentiality of Alcohol and Drug Abuse Patient Records regulations: The Federal rules restrict any use of the information to criminally investigate or prosecute any alcohol or drug abuse patient.[facility] InstituteIn the event this information is protected by the Federal Confidentiality of Alcohol and Drug Abuse Patient Records regulations: The Federal rules restrict any use of the information to criminally investigate or prosecute any alcohol or drug abuse patient.[facility] Care Teams (unrecognized sec tion and content) Humid System Operator Relationship Specialty Start Date End Date Damion Wright MD PCP - General Family Practice 2/3/14 Team Status: Active Member Role Status Dates Dr. Damion Wright MD Family Provider Active Dr. Damion Wright MD Primary Care Provider Active Team Status: Inactive Member Role Status Dates Dr. Laureen Hernandez DO Attending Provider Activ e Dr. Damion Wright MD Primary Care Provider, Referring Provider Active Team Status: Inactive Member Role Status Dates Dr. Damion Wright MD Primary Care Provider Active Dr. Laureen Hernandez DO Attending Provider Activ e Team Status: Inactive Member Role Status Dates Dr. Damion Wright MD Primary Care Provider Active Dr. Laureen Hernandez DO Attending Provider, Refe rring Provider Active Team Status: Inactive Member Role Status Dates Dr. Damion Wright MD Primary Care Provider Active Dr. Marce Lindsay MD Attending Provider Active Team Status: Inactive Member Role Status Dates Dr. Damion Wright MD Primary Care Provider, Referring Provider Active Felipa Singer VACUUM CASTER, VACUUM CASTER-C Attending Provider Active Team Status: Inactive Member Role Status Dates Dr. Damion Wright MD Primary Care Provider Active Felipa Singer VACUUM CASTER, VACUUM CASTER-C Attending Provider Active Team Status: Inactive Member Role Status Dates Dr. Damion Wright MD Primary Care Provider, Referring Provider Active Dr. Laureen Hernandez DO Attending Provider Activ e Team Status: Inactive Member Role Status Dates Dr. Damion Wright MD Primary Care Provider, Referring Provider Active Dr. Darcy Klein MD Attending Provider Active Team Status: Inactive Member Role Status Dates Dr. Damion Wright MD Primary Care Provider Active Dr. Darcy Klein MD Attending Provider Active Team Status: Inactive Member Role Status Dates Dr. Damion Wright MD Primary Care Provi avelina, Attending Provider, Referring Provider Active Humid System Operator Relationship Specialty Start Date End Date Damion Wright MD PCP - General Family Medicine 09/03/13 Team Status: Active Member Role Status Dates Dr. Damion Wright MD Primary Care Provider Active Team Status: Inactive Member Role Status Dates Dr. Damion Wright MD Primary Care Provider Active Start: September 16, 2024 End: September 16, 2024 Dr. Joe Kasper DO Attending Provider Active Start: September 16, 2024 End: September 16, 2024 Dr. Joe Kasper DO Emergency Provider Active Start: September 16, 2024 End: September 16, 2024 Team Status: Inactive Member Role Status Dates Dr. Damion Wright MD Primary Care Provider Active Start: September 28, 2024 End: September 28, 2024 Dr. Laureen Hernandez DO Attending Provider Activ e Start: September 28, 2024 End: September 28, 2024 Dr. Laureen Hernandez DO Referring Provider Activ e Start: September 28, 2024 End: September 28, 2024 Team Status: Active Member Role Status Dates Dr. Damion Wright MD Primary Care Provider Active Start: October 02, 2024 Dr. Laureen Hernandez DO Attending Provider Activ e Start: October 02, 2024 Dr. Laureen Hernandez DO Referring Provider Activ e Start: October 02, 2024 Team Status: Inactive Member Role Status Dates Dr. Damion Wright MD Primary Care Provider Active Start: October 03, 2024 End: October 03, 2024 Dr. Damion Wright MD Referring Provider Active Start: October 03, 2024 End: October 03, 2024 Felipa Singer VACUUM CASTER, VACUUM CASTER-C Attending Provider Active Start: October 03, 2024 End: October 03, 2024 Team Status: Active Member Role Status Dates Dr. Damion Wright MD Primary Care Provider Active Start: October 03, 2024 Felipa Singer VACUUM CASTER, VACUUM CASTER-C Attending Provider Active Start: October 03, 2024 Felipa Singer VACUUM CASTER, VACUUM CASTER-C Referring Provider Active Start: October 03, 2024 Team Status: Inactive Member Role Status Dates Dr. Damion Wright MD Primary Care Provider Active Start: October 02, 2024 End: October 02, 2024 Dr. Laureen Hernandez DO Attending Provider Activ e Start: October 02, 2024 End: October 02, 2024 Dr. Laureen Hernandez DO Referring Provider Activ e Start: October 02, 2024 End: October 02, 2024 Team Status: Inactive Member Role Status Dates Dr. Damion Wright MD Primary Care Provider Active Start: October 03, 2024 End: October 03, 2024 Felipa Singer VACUUM CASTER, VACUUM CASTER-C Attending Provider Active Start: October 03, 2024 End: October 03, 2024 Felipa Singer VACUUM CASTER, VACUUM CASTER-C Referring Provider Active Start: October 03, 2024 End: October 03, 2024 Team Status: Inactive Member Role Status Dates Dr. Damion Wright MD Primary Care Provider Active Start: October 18, 2024 End: October 18, 2024 Dr. Damion Wright MD Referring Provider Active Start: October 18, 2024 End: October 18, 2024 Dr. Laureen Hernandez DO Attending Provider Activ e Start: October 18, 2024 End: October 18, 2024 Team Status: Inactive Member Role Status Dates Dr. Damion Wright MD Primary Care Provider Active Start: October 18, 2024 End: October 18, 2024 Dr. Laureen Hernandez DO Attending Provider Activ e Start: October 18, 2024 End: October 18, 2024 Dr. Laureen Hernandez DO Referring Provider Activ e Start: October 18, 2024 End: October 18, 2024 Humid System Operator Relationship Specialty Start Date End Date Damion Wright MD PCP - General Family Medicine 09/03/13 Team Status: Active Member Role Status Dates Dr. Damion Wright MD Primary Care Provider Active Start: October 18, 2024 Dr. Abdullahi Elizabeth MD Attending Provider Active Start: October 18, 2024 Dr. Abdullahi Elizabeth MD Referring Provider Active Start: October 18, 2024 Team Status: Inactive Member Role Status Dates Dr. Damion Wright MD Primary Care Provider Active Start: November 05, 2024 End: November 05, 2024 Dr. Damion Wright MD Referring Provider Active Start: November 05, 2024 End: November 05, 2024 Dr. Laureen Hernandez DO Attending Provider Activ e Start: November 05, 2024 End: November 05, 2024 Team Status: Inactive Member Role Status Dates Dr. Damion Wright MD Primary Care Provider Active Start: November 16, 2024 End: November 16, 2024 Dr. Damion Wright MD Referring Provider Active Start: November 16, 2024 End: November 16, 2024 Dr. Belle Ibarra MD Attending Provider Active Start: November 16, 2024 End: November 16, 2024 Team Status: Active Member Role Status Dates Dr. Damion Wright MD Primary Care Provider Active Start: November 16, 2024 Dr. Laureen Hernandez , DO Attending Provider Activ e Start: November 16, 2024 Dr. Laureen Hernandez , DO Referring Provider Activ e Start: November 16, 2024 Team Status: Inactive Member Role Status Dates Dr. Damion Wright MD Primary Care Provider Active Start: November 20, 2024 End: November 20, 2024 Dr. Laureen Hernandez , DO Attending Provider Activ e Start: November 20, 2024 End: November 20, 2024 Dr. Laureen Hernandez DO Referring Provider Activ e Start: November 20, 2024 End: November 20, 2024 Team Status: Active Member Role Status Dates Dr. Damion Wright MD Primary Care Provider Active Start: November 20, 2024 Dr. Laureen Hernandez DO Attending Provider Activ e Start: November 20, 2024 Dr. Laureen Hernandez DO Referring Provider Activ e Start: November 20, 2024 Dr. Laureen Hernandez DO Other Provider Active Start: November 20, 2024 Team Status: Inactive Member Role Status Dates Dr. Damion Wright MD Primary Care Provider Active Start: November 16, 2024 End: November 16, 2024 Dr. Laureen Hernandez DO Attending Provider Activ e Start: November 16, 2024 End: November 16, 2024 Dr. Laureen Hernandez DO Referring Provider Activ e Start: November 16, 2024 End: November 16, 2024 Team Status: Inactive Member Role Status Dates Dr. Damion Wright MD Primary Care Provider Active Start: December 03, 2024 End: December 03, 2024 Dr. Damion Wright MD Referring Provider Active Start: December 03, 2024 End: December 03, 2024 Felipa Singer VACUUM CASTER, VACUUM CASTER-C Attending Provider Active Start: December 03, 2024 End: December 03, 2024 Team Status: Inactive Member Role Status Dates Dr. Damion Wright MD Primary Care Provider Active Start: December 03, 2024 End: December 03, 2024 Felipa Singer VACUUM CASTER, VACUUM CASTER-C Attending Provider Active Start: December 03, 2024 End: December 03, 2024 Felipa Singer VACUUM CASTER, VACUUM CASTER-C Referring Provider Active Start: December 03, 2024 End: December 03, 2024 Team Status: Inactive Member Role Status Dates Dr. Damion Wright MD Primary Care Provider Active Start: December 04, 2024 End: December 04, 2024 Dr. Damion Wright MD Referring Provider Active Start: December 04, 2024 End: December 04, 2024 Dr. Laureen Hernandez DO Attending Provider Activ e Start: December 04, 2024 End: December 04, 2024 Team Status: Inactive Member Role Status Dates Dr. Damion Wright MD Primary Care Provider Active Start: January 07, 2025 End: January 07, 2025 Dr. Damion Wright MD Referring Provider Active Start: January 07, 2025 End: January 07, 2025 Dr. Laureen Hernandez DO Attending Provider Activ e Start: January 07, 2025 End: January 07, 2025 Humid System Operator Relationship Specialty Start Date End Date Damion Wright MD PCP - General Family Medicine 09/03/13 Humid System Operator Relationship Specialty Start Date End Date Damion Wright MD PCP - General Family Medicine 09/03/13 Goals (unrecognized section and content) Goals may be documented in a n alternate sectionGoals may be documented in an alternate sectionGoals may be documented in an alternate sectionGoals may be documented in an alternate sectionGoals may be documented in an alternate sectionGoals may be documented in an alternate sectionGoals may be documented in an alternate sectionGoals may be documented in an alternate sectionGoals may be documented in an alternate sectionGoals may be documented in an alternate sectionGoals may be documented in an alternate sectionGoals may be documented in an alternate section INFORMATION SOURCE (unrecogn ized section and content) DATE CREATED AUTHOR 01/22/2025 [facility] DATE CREATED AUTHOR 'S JAMAL QUAN 02/22/2025 [facility] FOR RECORDS PERTAINING TO PATIENTS WHO ARE OR HAVE BEEN ENROLLED IN A CHEMICAL DEPENDENCY/SUBSTANCEABUSE PROGRAM, SOME INFORMATION MAY BE OMITTED. This clinical summary was aggregated from multiple sources. Caution should be exercised in using it in the provision of clinical care. This summary normalizes information from multiple sources, and as a consequence, information in this document may materially change the coding, format and clinical context of patient data. In addition, data may be omitted in some cases. CLINICAL DECISIONS SHOULD BE BASED ON THE PRIMARY CLINICAL RECORDS. [facility] provides no warranty or guarantee of the accuracy or completeness of information in this document.
--- OUTSIDE RECORDS SUMMARY | 2025-02-22 05:45 | XMS RPT_ITS | CCD ---
Author Organization [facility] Care Team Providers Care Wellness Program Manager Name Role Phone Wade Pacheco Unavailable Unavailable [...] Provider Dr. Damion Wright Referring Provider Lucrecia MEMBER OF PARLIAMENTJOEY-Odalis Leo Attending Provider Dr. Damion Wright Primary Care Provider Dr. Damion Wright Referring Provider Lucrecia MEMBER OF PARLIAMENT, MEMBER OF PARLIAMENT-C Felipa Attending Provider Dr. Laureen Hernandez Attending Provider Dr. Damion Wright Primary Care Provider Dr. Damion Wright Referring Provider Dr. Darcy Klein Attending Provider Dr. Damion Wright Primary Care Provider Dr. Damion Wright Referring Provider Dr. Darcy Klein Attending Provider Adriana GAO, Damion Melara Primary Care Provider Adriana GAO, Dr. Bruno Primary Care Provider Dr. Joe Kasper DO Attending Provider Majo LISA, Dr. Diaz Emergency Provider Dr. Laureen Hernandez DO Attending Provider Renetta Garcia DO, Dr. Garduno Referring Provider Adriana GAO, Dr. Bruno Referring Provider [phone] Lucrecia MEMBER OF PARLIAMENT-CFelipa Attending Provider Lucrecia MEMBER OF PARLIAMENT-CFelipa Referring Provider Clara GAO, Dr. Fernando Attending Provider Clara GAO, Dr. Fernando Referring Provider Stacey GAO, Dr. Odonnell Attending Provider Renetta Garcia DO, Dr. Garduno Other Provider [phone] Adriana GAO, Damion Melara Primary Care Provider [...] e Wright, Damion Primary Care Unavailable Lucrecia MEMBER OF PARLIAMENT, Felipa Referring Unavailable [place] MEMBER OF PARLIAMENT, Felipa Attending Unavailable Vande Velde, Laureen Referring Unavailabl e Wright, Damion Primary Care Unavailable Vande Velde, Laureen Attending Unavailabl e Wright, Damion Primary Care Unavailable Wright, Damion Referring Unavailable Vande Velde, Laureen Attending Unavailabl e [place] MEMBER OF PARLIAMENT, Felipa Referring Unavailable [place] MEMBER OF PARLIAMENT, Felipa Attending Unavailable Wright, Damion Primary Care Unavailable Vande Velde, Laureen Referring Unavailabl e Wright, Damion Primary Care Unavailable Vande Velde, Laureen Attending Unavailabl e Wright, Damion Referring Unavailable Wright, Damion Primary Care Unavailable Vande Velde, Laureen Attending Unavailabl e Vande Velde, Laureen Attending Unavailabl e Wright, Damion Primary Care Unavailable Wright, Damion Referring Unavailable Wright, Damion Referring Unavailable [place] MEMBER OF PARLIAMENT, Felipa Attending Unavailable Wright, Damion Primary Care [...] Primary Care Unavailable Wright, Damion Referring Unavailable [place] MEMBER OF PARLIAMENT, Felipa Attending Unavailable Wright, Damion Referring Unavailable Wade Pacheco Attending Unavailable Wright, Damion Primary Care Unavailable Vande Velde, Laureen Referring Unavailabl e Vande Velde, Laureen Attending Unavailabl e Wright, Damion Primary Care Unavailable Wright, Damion Primary Care Unavailable Joe Kasper Attending Unavailable Allergies Allergy Classification Reported Allergen(s) Allergy Type Date of Onset Reaction(s) Facility (4 sources) FENTANYL-BUPIVAC JEANNETTE-NACL drug allergy 03-28-2017 rash [facility] Work Phone: (20 sources) fentaNYL; Translations: [FENTANYL] Drug Allergy 01-29-2022 Rash [facility] (1 source) fentaNYL Drug Allergy 02-08-2025 [facility] Repository Medications Current Medications Medication Drug Class(es) [...] hours as needed for Pain. FOR PAIN. [id number] 200 actuat albuterol 0.09 mg/actuat metered dose [...] on above: Take 1 capsule by mo [facility] three times daily for 7 days. cholecalciferol 0.025 mg oral capsule (20 sources) Vitamin D Start: 11-20-2024 take 1 capsule by mouth every week Cholecalciferol (Vitamin D3) (Vitamin D3) 25 mcg (1,000 unit) capsule Active 31070 U PO .weekly November 20, 2024 12:00am [...] Active Start: 10-17-2015 [facility] citalopram hydrobromide (CELEXA) 10 mg tablet Take 1 tablet by mouth once daily. 30 tablet 3 10/17/2015 Active Comment on above: Take 1 tablet [facility]. doxycycline monohydrate 100 mg oral [...] 0.5 mg/ml oral solution (15 sources) Uncompetitive B-mwjlcr-I-aspartat e Receptor Antagonist, Sigma-1 Agonist, alpha-1 Adrenergic Agonist Start: 04-19-2020 End: 09-04-2020 Vlemzsqce-Lw-Pgqu desouza-Guaifen (Mucinex Cold,Flu,Sore Throat) 10-20-650 mg/20 mL liquid Discontinued mL PO April 19, 2020 12:00am September 04, 2020 2:43pm Start: 04-19-2020 End: 09-04-2020 Itswxwjjy-Zp-Tezbfpsb-Guaife n (Mucinex Cold,Flu,Sore Throat) 10-20-650 mg/20 mL [...] 1, then 250 mg days 2-4 PO C81-Tbmrrnslljqc Calcium-B6 2-1.13-25 mg tablet (3 sources) Start: 11-15-2024 End: 11-20-2024 take 2 tablets by mouth once daily F34-Wxqplsdlmwor Calcium-B6 2-1.13-25 mg tablet Discontinued 1 {tbl} [...] by mouth three times daily CYCLOBENZAPRINE HCL [id number] Hakan Scanlon MD dexamethasone 4 mg oral [...] take 1 capsule by mouth at bedtime [place] Carbonate 300 mg capsule Discontinued 300 mg [...] One tablet by mouth twice daily. NAPROXEN [id number] Hakan Scanlon MD nitrofurantoin, macrocrystals 25 mg [...] Test Name Value Interpretation Reference Range Facility [id number] 02-18-2025 ANTIBODY ID [facility] Comment on above: Order Comment: RADHA COL UNITS ORDERED DUE TO ALLOANTIBODY(S).Reason for Laboratory Test pre [id number] Performed By: #### P SUIV #### [facility] [address] [place], [place], [id number] [facility] 02-18-2025 [facility] Comment on above: Result Comment: [id number] AP RC XM COMPATIBLE [id number] AP XM COMPATIBLE Performed By: #### B TSPAT, [id number], L100.0500, BR #### [facility] [address] [place], [address] CBC-Complete Blood Cnt No Di ffon 02-18-2025 Erythrocyte distribution width (RBC) [Ratio] 13.4 % Normal 11.6-14.6 [facility] Comment on above: Performed By: #### B TSPAT, [id number], L100.0500, BRC #### [facility] [address] [place], [address] Hematocrit (Bld) [Volume fraction] 35.2 % Low 37-47 [facility] Comment on above: Performed By: #### Sukumar TSPAT, [id number], L100.0500, BRC #### [facility] [address] [place], [address] Hemoglobin (Bld) [Mass/Vol] 11.2 g/dL Low 12.0-15.0 [facility] Comment on above: Performed By: #### Sukumar TSPAT, [id number], L100.0500, BR #### [facility] [address] [place], [address] MCH (RBC) [Entitic mass] 26.4 pg Low 27.0-32.0 [facility] Comment on above: Performed By: #### Sukumar TSPAT, [id number], L100.0500, BR #### [facility] [address] [place], [address] MCHC (RBC) [Mass/Vol] 31.8 g/dL Low 32-36 [facility] Comment on above: Performed By: #### B TSPAT, [id number], L100.0500, BRC #### [facility] [address] [place], [address] MCV (RBC) [Entitic vol] 83.0 fL Normal 81-99 [facility] Comment on above: Performed By: #### Sukumar TSPAT, [id number], L100.0500, BRC #### [facility] [address] [place], [address] Platelet mean volume (Bld) [Entitic vol] 9.6 fL Normal 6.2-12.0 [facility] Comment on above: Performed By: #### B TSPAT, [id number], L100.0500, [facility] #### [facility] [address] [place], [address] Platelets (Bld) [#/Vol] 324 10*3/uL Normal 150-450 [facility] Comment on above: Performed By: #### B TSPAT, [id number], L100.0500, [facility] #### [facility] [address] [place], [address] RBC (Bld) [#/Vol] 4.24 10*6/uL Normal 4.2-5.4 [facility] Comment on above: Performed By: #### B TSPAT, [id number], L100.0500, [facility] #### [facility] [address] [place], [address] RDW SD 41.0 fl Normal 35.1-43.9 [facility] Comment on above: Performed By: #### B TSPAT, [id number], L100.0500, [facility] #### [facility] [address] [place], [address] WBC (Bld) [#/Vol] 5.5 10*3/uL Normal 4.4-11.0 [facility] Comment on above: Performed By: #### B TSPAT, [id number], L100.0500, [facility] #### [facility] [address] [place], [address] Magnesiumon 02-18-2025 Magnesium [Mass/Vol] 2.0 mg/dL Normal 1.5-2.2 [facility] Comment on above: Performed By: #### P SUIV #### [facility] [address] [place], [place], [address] Partial Thromboplast Timeon 02-18-2025 aPTT Coag (Bld) [Time] 27.0 s Normal 24.1-36.2 [facility] Comment on above: Performed By: #### P SUIV #### [facility] [address] [place], [place], [address] Prothrombin Time w/INRon INR Coag (PPP) [Relative time] 1.0 {INR} Normal [facility] Comment on above: Performed By: #### P SUIV #### [facility] [address] [place], [place], [address] PT Coag (PPP) [Time] 13.1 s Normal 11.7-14.9 [facility] Comment on above: Performed By: #### P SUIV #### [facility] [address] [place], [place], [address] Type AND Screen - PAT ONLYon 02-18-2025 Ab SCREEN GEL Positive Normal [facility] Comment on above: Order Comment: Reaso n for Laboratory Test pre op [id number] N No N N S HYSTERECTOMY Performed By: #### B TSPAT, [id number], L100.0500, BRC #### [facility] [address] [place], [place], [address] CNOVon 01-21-2025 CNOV Office Visit (UCWSTR ) DEJA WOLFE ([id number]) 1985 F Date Time Provider Department 01/21/25 [...] after stepping on dirt and gravel. - [place] and felt a pop at the time [...] (more content not included)... Normal [facility] No Panel InformationOrdered By: Ccf Provider on 01-21-2025 [facility] No Panel Informationon 01-21 Radiology Study observation (narrative) [facility] XR ANKLE 3V AP/LAT/OBL LTon 01-21-2025 XR [...] seen. IMPRESSION: No acute process is seen. Physical Security Engineer: CARMEL Transcribe Date/Time: Jan 21 2025 12:06P Dictated by : BERNICE GARCIA MD This examination was interpreted and the report reviewed and electronically signed by: BERNICE GARCIA MD on Jan 21 2025 12:08PM EST [id number] Normal [facility] XR Ankle - left AP and Later al and obliqueon 01-21-2025 IMPRESSION: No acute process is seen. Physical Security Engineer: CARMEL Transcribe Date/Time: Jan 21 2025 12:06P [...] abnormality is seen. DIVISION OF RADIOLOGY Provider, [facility] - 01/21/2025 * * *Final Report* * [...] IMPRESSION IMPRESSION: No acute process is seen. Physical Security Engineer: [facility] Transcribe Date/Time: Jan 21 2025 12:06P Dictated by : BERNICE GARCIA MD This examination was interpreted and the report reviewed and electronically signed by: BERNICE GARCIA MD on Jan 21 2025 12:08PM EST [facility] XR FOOT 3V AP/LAT/OBL LTon 0 01-21-2025 [...] seen. IMPRESSION: No acute process is seen. Physical Security Engineer: [facility] Transcribe Date/Time: Jan 21 2025 12:07P Dictated by : BERNICE GARCIA MD This examination was interpreted and the report reviewed and electronically signed by: BERNICE GARCIA MD on Jan 21 2025 12:07PM EST [id number] Normal [facility] XR Foot - left AP and Latera l and obliqueon 01-21-2025 IMPRESSION: No acute process is seen. Physical Security Engineer: CARMLE Transcribe Date/Time: Jan 21 2025 12:07P Dictated by : BERNICE GARCIA MD This examination was interpreted and the report reviewed and electronically signed by: BERNICE GARCIA MD on Jan 21 2025 12:07PM [facility] DIVISION OF RADIOLOGY * * *Final Report* [...] abnormality is seen. DIVISION OF RADIOLOGY Provider, [facility] - 01/21/2025 * * *Final Report* * [...] IMPRESSION IMPRESSION: No acute process is seen. Physical Security Engineer: CARMEL Transcribe Date/Time: Jan 21 2025 12:07P Dictated by : BERNICE GARCIA MD This examination was interpreted and the report reviewed and electronically signed by: BERNICE GARCIA MD on Jan 21 2025 12:07PM EST [facility] Director Of Psychiatry Office Visit Reporton 01-07-2025 Director Of Psychiatry Office Visit Report [facility] [address], [address] [place] [address] OFFICE VISIT Date of Service: 01/07/25 MR#: [id number] Acct: [id number] Name: DEJA WOLFE Rep #: [id number] : 1985 Provider: Dr. Laureen Serrano DO Age/Sex: 39/F Location: [facility] [place] Status: Signed Intake Vital Signs 12/04/24 10:30 01/07/25 08:37 01/07/25 08:37 Height 5 ft 2 in 5 ft 2 in 5 ft 2 in Weight: 131 lb 137 lb 2 oz BMI 23.9 25.0 BP 121/84 H 106/74 Intake Visit Reasons: TRH Lysis of Adhesions/Medicaid form needs signd Watershed Tender Required: No Is patient in pain?: No [...] Psych Appearanc (more content not included)... Normal [facility] Genital Culture Comprehensiv leanna 12-04-2024 VAC Reason for Exam: vaginitis Normal genital faith isolated Normal [facility] Comment on above: Performed By: #### M 100.3200, M100.2000 #### [facility] [address] [place], [address] Director Of Psychiatry Office Visit Reporton 12-04-2024 Director Of Psychiatry Office Visit Report [facility] [address], [address] [place] [address] OFFICE VISIT Date of Service: 12/04/24 MR#: [id number] Acct: [id number] Name: DEJA WOLFE Rep #: [id number] : 1985 Provider: Dr. Laureen Serrano DO Age/Sex: 39/F Location: [facility] [place] Status: Signed Intake Vital Signs 10/18/24 11:40 12/03/24 08:54 12/04/24 10:30 Height 5 ft 2 in 5 ft 2 in 5 ft 2 in Weight: 131 lb BMI 23.9 BP 121/84 H Intake Visit Reasons: 2 wk D C polypectomy Watershed Tender Required: No Is patient in pain?: No [...] menopausal: No Patient : No : No [facility] Medical History Wears glasses Easy bruising Migraine [...] as docum (more content not included)... Normal [facility] Urine Cultureon 12-04-2024 URC Culture exhibits no growth. Normal [facility] Comment on above: Performed By: #### M 100.3200, M100.2000 #### [facility] [address] [place], [address] Genital cultureOrdered By: Quinton Singer on 12-03-2024 Source specific culture Normal genital f geovanni isolated [facility] Gram Stainon 12-03-2024 GS Reason for Exam: vaginitis Gram Stain No Gram negative diplococci 1+ Gram positive cocci 3+ Gram positive rods 2+ Gram variable gavin Score =3 Interpretation: 0-3 Normal, 4-6 Intermediate, 7-10 Positive BV Normal [facility] Comment on above: Performed By: #### P SUIV #### [facility] [address] [place], [address] Gram stainOrdered By: Felipa Singer on 12-03-2024 Microscopic observation Gram stain Nom (Unsp spec) [facility] - Chemistry and C hemistry - challengeOrdered By: Felipa Singer on 12-03-2024 Bilirubin Ql (U) Negative [facility] Glucose Ql (U) Negative [facility] Ketones Ql (U) Negative [facility] pH (U) 5.0 [pH] [facility] Specific gravity (U) [Rel density] 1.025 [facility] Urobilinogen (U) [Mass/Vol] Negative [facility] - Hematology and Cell countsOrdered By: Felipa Singer on 12-03-2024 Hemoglobin Ql (U) Hemolyzed [facility] - Specimen inform ationOrdered By: Felipa Singer on 12-03-2024 Clarity (U) Clear [facility] Color (U) YELLOW [facility] - UrinalysisOrder ed By: Felipa Singer on 12-03-2024 Nitrite Ql (U) Negative [facility] Protein Ql (U) Negative [facility] No Panel InformationOrdered By: Felipa Singer on 12-03-2024 POC Bacterial Vaginitis (Rapid) Negative [facility] Urine Leukocytes Positive [facility] Urine Non-Hemolyzed Blood Moderate [facility] Director Of Psychiatry Office Visit Reporton 12-03-2024 Director Of Psychiatry Office Visit Report [facility] [address] [place] [address] OFFICE VISIT Date of Service: 12/03/24 MR#: [id number] Acct: [id number] Name: DEJA WOLFE Rep #: [id number] : 1985 Provider: DAMIEN javed Age/Sex: 39/F Location: [facility] [place] Status: Signed Intake Vital Signs 11/20/24 12:41 12/03/24 08:54 Height 5 ft 2 in 5 ft 2 in Weight: 131 lb BMI 23.9 BP 105/71 Intake Visit Reasons: RO yeast infection postop 11/20 Watershed Tender Required: No Is patient in pain?: No [...] Unknown Ian 2010 Unknown Nico 2010 Unknown Willis 2014 ROS Const Constitutional: Reports system reviewed [...] Lundberg on 12/03/24 09:29 Off Ur Spec [place] 1.025 Last Edit by January Lundberg on [...] January Brennan (more content not included)... Normal [facility] Urine cultureOrdered By: Eve Singer on 12-03-2024 Bacteria identified Cx Nom (U) Culture exhibits no growth. [facility] Discharge Instructionon 10-31 Discharge Instruction [facility] Medical Records Department [address] [place] [address] Instructions for Home/Discharge Instructions 11/20/24 1352 MR#: [id number] Acct: [id number] Name: DEJA WOLFE Rep #: [id number] : 1985 39 From: Laureen Hernandez DO PCP: Dr. Damion Wright MD [place] [facility] [place] Instructions Diet Discharge Diet: No restrictions [...] Up With: Laureen Hernandez DO When: Call [phone] to schedule appointment. Test Results: Test results from this visit will be discussed in further detail at your follow-up appointment, if applicable. Discharge Plan Admission Primary Reason for Your Visit: hysteroscopy dilation and curettage Attending Provider: Laureen Hernandez Primary Care Provider: Damion Wright Instructions Print Language: Yoruba Discharge Orders/Prescriptions Prescriptions: New ibuprofen 800 mg [...] CC: Dr. Damion Wright MD Signed Normal [facility] MR/POSTOP.ANEon 11-20-2024 MR/POSTOP.[facility] Medical Records Department [address] [place] [address] Anesthesia Postop Eval I 11/20/24 1438 MR#: [id number] Acct: [id number] Name: DEJA WOLFE Rep #: [id number] : 1985 39 From: Juan Robles CRNA PCP: Dr. Damion Wright MD Status:[facility] Y Race: C Location: [place] [address] Anesthesia: Postop Eval I Current Vital Signs [...] completed: Yes 11/20/24 1439 Date Juan Robles PEST CONTROL SERVICE TECHNICIAN Cosigner Signature: Date CC: Signed Normal [facility] MR/[id number] [facility]-20-2024 [facility] Medical Records Department [address] [place] [address] Anesthesia Postop Eval II 11/20/242022 MR#: [id number] Acct: [id number] Name: DEJA WOLFE Rep #: [id number] : 1985 39 From: Tristen Fuentes MD PCP: Dr. Damion Wright MD Status:[facility] Y Race: C [place] [facility] [place]esthesia Postop Eval I Sum Postop Eval Completion status Anesthesia document: Postop Eval 1 completed: Yes Anesthesia Postop Eval I Summary Anesthesia Postop Eval I Summary: Anesthesia Postop Eval I: Assessment Summary Airway patent Yes 11/20/24 14:39 PEST CONTROL SERVICE TECHNICIAN.BHOS Spontaneous unlabored Yes 11/20/24 14:39 PEST CONTROL SERVICE TECHNICIAN.BHOS respirations Mental status Asleep 11/20/24 14:39 PEST CONTROL SERVICE TECHNICIAN.BHOS nausea No 11/20/24 14:39 PEST CONTROL SERVICE TECHNICIAN.BHOS Vomiting No 11/20/24 14:39 PEST CONTROL SERVICE TECHNICIAN.BHOS Anesthesia Postop Eval I: Fluid Summary Crystalloid volume administer 250 11/20/24 14:39 PEST CONTROL SERVICE TECHNICIAN.BHOS (ml) Colloids volume administered ( ml) Blood Product volume administered (ml) Total IV fluid infused 250 11/20/24 14:39 PEST CONTROL SERVICE TECHNICIAN.BHOS Anesthesia Postop Eval I: Summary Notes Anesthesia Complication No 11/20/24 14:39 PEST CONTROL SERVICE TECHNICIAN.BHOS Anesthesia Complication Comment: Post-operative progress note Anesthesia: Postop Eval II Evaluation Mental status: Awake and Calm Pain Level: 3 nausea: No Vomiting: No Progress Note Post-operative progress note: Pain treated mostly with Toradol instead of narcotic. Complications Anesthesia Complication: No 11/20/242022 Date Tristen Fuentes MD Cosigner Signature: Date CC: Signed Normal [facility] Operative Reporton Operative Report [facility] Medical Records Department [address] [place] [address] Operative Report 11/20/24 1525 MR#: [id number] Acct: [id number] Name: DEJA WOLFE Rep #: [id number] : 1985 39 From: Laureen Hernandez DO PCP: Dr. Damion Wright MD [place] [facility] [place]: [place] [address] Problems Associated Problem List Diagnoses (1) Polyp of cervix: (2) Abnormal uterine bleeding: Multi Select Codes Urinary/Genital Urinary/Genital CPT Codes: 04218 Hysteroscopy,EMC, Polypectomy Operative Report (Standard) Operative Information Date of Procedure: 11/20/24 Pre-Operative Diagnosis: abnormal uterine bleeding, cervical polyp Post-Operative Diagnosis: abnormal uterine bleeding, cervical polyp Surgery/Procedure Performed: hysteroscopy dilation and curettage campus receptionist: No Type of Anesthesia: MAC RN Documented [...] SCD's VTE Pharm Prophylaxis ordered?: No 11/20/24 8029 Cosigner Signature (if applicable): CC: Dr. Laureen Hernandez DO; Dr. Damion Wright MD Signed Normal [facility] Surgery Specimen Level Hemant 11-20-2024 Surgery Specimen Level IV ---- Patient Age/Sex Location Account Attending Physician ---- DEJA WOLFE 39/F [facility] [place] [id number] Karla John ---- Specimen: [id number] Received: 11/21/24 Status: KOMAL Brooksstefani Num: [id number] Spec Type: ENDOM BX/C Subm Dr: Dr. [...] in aggregate. Submitted in toto in A1. [facility] 11/22/2024 CPT:21865 ---- Patient Age/Sex Location Account Attending Physician ---- DEJA WOLFE 39/F [facility] [place] [id number] Karla John ---- Signed (signature on file) Dr. Hafsa Vargas MD 11/22/24 1608 ---- Normal [facility] Comment on above: Performed By: #### P SUIV #### [facility] [address] [place], [place], [address] Urine Cultureon 11-18-2024 URC #1, 2 Below infectio n level. Streptococcus agalactiae (B) [place] Count <1000 Mixed Gram Positive Organisms Mixed Gram Positive Organisms MIXC Mixed contaminants. Submit a new specimen if indicated. Normal [facility] Comment on above: Performed By: #### M 100.2200 #### [facility] [address] [place], [place], [address] Laboratory - Chemistry and C hemistry - challengeOrdered By: Belle Ibarra on 11-16-2024 Bilirubin Ql (U) Negative [facility] Glucose Ql (U) Negative [facility] Ketones Ql (U) Small (15+) [facility] pH (U) 5 [pH] [facility] Specific gravity (U) [Rel density] 1.030 [facility] Urobilinogen (U) [Mass/Vol] Negative [facility] [facility] Hematology and Cell countsOrdered By: Belle Ibarra on 11-16-2024 Hemoglobin Ql (U) Moderate [facility] - Specimen inform ationOrdered By: Belle Ibarra on 11-16-2024 Clarity (U) Clear [facility] Color (U) Yellow [facility] - UrinalysisOrder ed By: Belle Ibarra on 11-16-2024 Nitrite Ql (U) Negative [facility] Protein Ql (U) Negative [facility] No Panel InformationOrdered By: Belle Ibarra on 11-16-2024 Urine Leukocytes Negatve [facility] Urine Non-Hemolyzed Blood Non-Hemolyzed [facility] Office Visit Reporton 2024 Office Visit Report [facility] [address] [place] [address] OFFICE VISIT Date of Service: 11/16/24 MR#: [id number] Acct: [id number] Patient: DEJA WOLFE #: [id number] : 1985 Provider: Dr. Belle zambrano MD Age/Sex: 39/F Location: [facility] [place] Status: Signed Intake Vital Signs 11/05/24 12:00 11/16/24 10:01 Height 5 ft 2 in 5 ft 2 in Weight: 126 lb 6 oz BMI 23.1 BP 137/88 H Intake Visit Reasons: NV only - UA/culture per JV Chief Complaint: UA/Culture Watershed Tender Required: No Is patient in pain?: No [...] Fernandez on 11/16/24 10:24 Off Ur Spec [place] 1.030 Last Edit by Evelia Fernandez on [...] Cowan Signature: Date (if applicable) CC: Normal [facility] Urine cultureOrdered By: Gely Garcia on 11-16-2024 Bacteria identified Cx Nom (U) Streptococcus agalactiae (B) Abnormal [facility] Bacteria identified Cx Nom (U) Positive Abnormal [facility] Antigen Little c Series 1on 11-06-2024 ANTIGEN ID Negative [facility] Comment on above: Order Comment: Reaso n for Exam: polyp of [id number] d C Performed By: #### M 100.3200, M1.1999 #### [facility] [address] [place], [address] [id number] 11-06-2024 ANTIBODY ID LC Normal [facility] Comment on above: Order Comment: Reaso n for Exam: polyp of [id number] d C Performed By: #### M 100.3200, M100.1999 #### [facility] [address] [place], [address] BRCon 11-06-2024 RC Normal [facility] Comment on above: Result Comment: [id number] AP RC READY [id number] AP RC READY Performed By: #### M 100.3200, #### [facility] [address] [place], [address] Type AND Screen - PAT ONLYon 11-06-2024 ABO and Rh group Nom (Bld) Blood group A Rh(D) positive Normal [facility] Comment on above: Order Comment: Reaso n for Exam: polyp of [id number] d C Performed By: #### M 100.3200, #### [facility] [address] [place], [address] CBC-Complete Blood Cnt No Di ffon 11-05-2024 Erythrocyte distribution width (RBC) [Ratio] 13.1 % Normal 11.6-14.6 [facility] Comment on above: Performed By: #### P SUIV #### [facility] [address] [place], [address] Hematocrit (Bld) [Volume fraction] 36.5 % Low 37-47 [facility] Comment on above: Performed By: #### P SUIV #### [facility] [address] [place], [address] Hemoglobin (Bld) [Mass/Vol] 11.8 g/dL Low 12.0-15.0 [facility] Comment on above: Performed By: #### P SUIV #### [facility] [address] [place], [address] MCH (RBC) [Entitic mass] 26.5 pg Low 27.0-32.0 [facility] Comment on above: Performed By: #### P SUIV #### [facility] [address] [place], [address] MCHC (RBC) [Mass/Vol] 32.3 g/dL Normal 32-36 [facility] Comment on above: Performed By: #### P SUIV #### [facility] [address] [place], [address] MCV (RBC) [Entitic vol] 81.8 fL Normal 81-99 [facility] Comment on above: Performed By: #### P SUIV #### [facility] [address] [place], [address] Platelet mean volume (Bld) [Entitic vol] 9.1 fL Normal 6.2-12.0 [facility] Comment on above: Performed By: #### P SUIV #### [facility] [address] [place], [address] Platelets (Bld) [#/Vol] 327 10*3/uL Normal 150-450 [facility] Comment on above: Performed By: #### P SUIV #### [facility] [address] [place], [address] RBC (Bld) [#/Vol] 4.46 10*6/uL Normal 4.2-5.4 [facility] Comment on above: Performed By: #### P SUIV #### [facility] [address] [place], [address] RDW SD 38.8 fl Normal 35.1-43.9 [facility] Comment on above: Performed By: #### P SUIV #### [facility] [address] [place], [address] WBC (Bld) [#/Vol] 5.4 10*3/uL Normal 4.4-11.0 [facility] Comment on above: Performed By: #### P SUIV #### [facility] [address] [place], [address] Erythrocyte distribution wid th (RBC) [Ratio]Ordered By: Laureen Garcia on 11-05-2024 Erythrocyte distribution width (RBC) [Entitic vol] 38.8 fL 35.1-43.9 [facility] Erythrocyte distribution wid th ratioOrdered By: Laureen Garcia on 11-05-2024 Erythrocyte distribution width (RBC) [Ratio] 13.1 % 11.6-14.6 [facility] Erythrocyte distribution wid th standard deviationOrdered By: Laureen Garcia on 11-05-2024 Erythrocyte distribution width (RBC) [Ratio] 38.8 fl 35.1-43.9 [facility] Hematocrit Auto (Bld) [Volum e fraction]Ordered By: Laureen Garcia on 11-05-2024 Hematocrit (Bld) [Volume fraction] 36.5 % Low 37-47 [facility] Hemoglobin measurementOrdere d By: Laureen Garcia on 11-05-2024 Hemoglobin (Bld) [Mass/Vol] 11.8 g/dL Low 12.0-15.0 [facility] MCV (mean corpuscular volume ) determinationOrdered By: Laureen Garcia on 11-05-2024 MCV (RBC) [Entitic vol] 81.8 fL 81-99 [facility] Mean corpuscular hemoglobin (MCH) determinationOrdered By: Laureen Garcia on 11-05-2024 MCH (RBC) [Entitic mass] 26.5 pg Low 27.0-32.0 [facility] Mean corpuscular hemoglobin concentration (MCHC) determinationOrdered By: Laureen Garcia on 11-05-2024 MCHC (RBC) [Mass/Vol] 32.3 g/dL 32-36 [facility] Mean platelet volume determi nationOrdered By: Laureen Garcia on 11-05-2024 Platelet mean volume (Bld) [Entitic vol] 9.1 fL 6.2-12.0 [facility] Director Of Psychiatry Office Visit Reporton 11-05-2024 Director Of Psychiatry Office Visit Report [address], [address] [place] [address] OFFICE VISIT Date of Service: 11/05/24 MR#: [id number] Acct: [id number] Name: NICOLASAEDJA MIKE Rep #: [id number] : 1985 Provider: Dr. Laureen Serrano, DO Age/Sex: 39/F Location: [facility] [place] Status: Signed Intake Vital Signs 10/18/24 11:40 11/05/24 11:58 11/05/24 12:00 Height 5 ft 2 in 5 ft 2 in 5 ft 2 in Weight: 133 lb 8 oz BMI 24.4 BP 127/81 H Intake Visit Reasons: D C polypectomy Watershed Tender Required: No Is patient in pain?: No [...] Anemia Endometriosis determined by laparoscopy Surgical History [place] teeth extracted H/O dilation and curettage Hematoma [...] Unknown Ian 2009 Unknown Nico 2010 Unknown Willis 2013 ROS Const ROS Unobtainable: All systems [...] and curett (more content not included)... Normal [facility] Platelet countOrdered By: Romario Garcia on 11-05-2024 Platelets (Bld) [#/Vol] 327 10*3/uL 150-450 [facility] RBC Auto (Bld) [#/Vol]Ordere d By: Laureen Garcia on 11-05-2024 RBC (Bld) [#/Vol] 4.46 10*6/uL 4.2-5.4 [facility] Vitamin D, 25-hydroxyOrdered By: Laureen Garcia on 11-05-2024 Vitamin D 25-Hydroxy 23.9 ng/mL Low 30-100 [facility] Comment on above: Vitamin D StatusDefi ciency: <20 ng/mL (50nmol/L)Insufficiency: 20-30 ng/mL (50-75 nmol/L)Sufficiency: 30-100 ng/mL (75-250 nmol/L)Toxicity: >100 ng/mL (>250 nmol/L) Vitamin D,25 Hydroxyon 11-05 Vitamin D 25-OH 23.9 ng/mL Low 30-100 [facility] Comment on above: Result Comment: Anaid min D Status Deficiency: <20 ng/mL (50nmol/L) Insufficiency: 20-30 ng/mL (50-75 nmol/L) Sufficiency: 30-100 ng/mL (75-250 nmol/L) Toxicity: >100 ng/mL (>250 nmol/L) Performed By: #### P SUIV #### [facility] [place], [address] White blood cell (WBC) count Ordered By: Laureen Garcia on 11-05-2024 WBC (Bld) [#/Vol] 5.4 10*3/uL 4.4-11.0 [facility] CNOVon 10-30-2024 CNOV Office Visit (UCWSTR ) DEJA WOLFE ([id number]) 1985 F Date Time Provider Department 10/30/24 [...] history is provided by the patient. No director fraud was used. URI There is no chest [...] (more content not included)... Normal [facility] STREP A MOLECULAR (POC)on Interpretation and review of laboratory results Abnormal [facility] Procedural Control Valid [facility] Strep A (POCT) Positive Abnormal Negative [facility] Surgical pathology reportOrd ered By: Abdullahi Elizabeth on 10-24-2024 Surgical pathology study [facility] Other Phone: Genital Culture Comprehensiv leanna 10-20-2024 VAC Reason for Exam: vaginal discharge Normal vaginal faith isolated. No yeast, Gardnerella, Neisseria or beta-hemolytic Streptococcus isolated. Normal [facility] Comment on above: Performed By: #### M 100.3200, M100.1999 #### [facility] [address] [place], [place], [address] Genital cultureOrdered By: Charisma Garcia on 10-18-2024 Genital Culture Neisseria or beta-hemolytic Streptococcus isolated. [facility] Source specific culture Neisseria or beta-hemolytic Streptococcus isolated. [facility] Gram Stainon 10-18-2024 GS Reason for Exam: vaginal discharge Gram Stain 2+ Gram positive rods No Gram negative diplococci No White Blood Cells Score = 2 Interpretation: 0-3 Normal, 4-6 Intermediate, 7-10 Positive BV Normal [facility] Comment on above: Performed By: #### M 100.3200, M100.1999 #### [facility] [address] [place], [place], [id number] Gram stainOrdered By: Sheila Garcia on 10-18-2024 Microscopic observation Gram stain Nom (Unsp spec) [facility] Director Of Psychiatry Office Visit Reporton 10-18-2024 Director Of Psychiatry Office Visit Report [facility] [address], [address] [place] [address] OFFICE VISIT Date of Service: 10/18/24 MR#: [id number] Acct: [id number] Name: DEJA WOLFE Rep #: [id number] : 1985 Provider: Dr. Laureen Serrano DO Age/Sex: 39/F Location: [facility] [place] Status: Signed Intake Vital Signs 09/16/24 13:47 09/27/24 13:34 10/03/24 09:50 10/18/24 11:37 10/18/24 11:40 Height 5 ft 2 in 5 ft 2 in 5 ft 2 in 5 ft 2 in 5 ft 2 in Weight: 137 lb 8 oz BMI 25.1 BP 112/75 Intake Visit Reasons: Discuss US/hysterectomy Chief Complaint: Discuss US/Hyst. Watershed Tender Required: No Is patient in pain?: No [...] Anemia Endometriosis determined by laparoscopy Surgical History [place] teeth extracted H/O dilation and curettage Hematoma [...] Attending Physician ---- DEJA WOLFE 39/F LABSPEC [id number] Karla John ---- Specimen: [id number] Received: 10/19/24 Status: KOMAL Guerra Num: [id number] Spec Type: ENDOM BX/C Subm Dr: Dr. [...] is totally submitted in one cassette. 10/19/2024 CPT:69964 , TC:4 ---- Patient Age/Sex Location Account Attending Physician ---- DEJA WOLFE 39/F LABSPEC [id number] Karla John ---- Signed (signature on file) Dr. Abdullahi Elizabeth MD 10/24/24 1722 ---- Normal [facility] Comment on above: Performed By: #### P SUIV #### [facility] [address] [place], [place], [address] Genital Culture Comprehensiv leanna 10-06-2024 VAC Reason for Exam: vaginal itching Normal vaginal faith isolated. No yeast, Gardnerella, Neisseria or beta-hemolytic Streptococcus isolated. Normal [facility] Comment on above: Performed By: #### M 100.3200, M100.1999 #### [facility] [address] [place], [place], [address] Genital cultureOrdered By: Quinton Singer on 10-03-2024 Genital Culture Neisseria or beta-hemolytic Streptococcus isolated. [facility] Source specific culture Neisseria or beta-hemolytic Streptococcus isolated. [facility] Gram Stainon 10-03-2024 GS Reason for Exam: vaginal itching Gram Stain 4+ Gram positive rods 3+ Gram negative rods Rare White Blood Cells No Gram negative diplococci Score = 3 Interpretation: 0-3 Normal, 4-6 Intermediate, 7-10 Positive BV Normal [facility] Comment on above: Performed By: #### M 100.3200, M100.1999 #### [facility] [address] [place], [place], [address] Gram stainOrdered By: Felipa Singer on 10-03-2024 Microscopic observation Gram stain Nom (Unsp spec) [facility] Director Of Psychiatry Office Visit Reporton 10-03-2024 Director Of Psychiatry Office Visit Report [facility] [address], [address] [place] [address] OFFICE VISIT Date of Service: 10/03/24 MR#: [id number] Acct: [id number] Name: DEJA WOLFE Rep #: [id number] : 1985 Provider: DAMIEN javed Age/Sex: 39/F Location: [facility] [place] Status: Signed Intake Vital Signs 09/27/24 13:34 10/03/24 09:40 10/03/24 09:50 Height 5 ft 2 in 5 ft 2 in 5 ft 2 in Weight: 122 lb BMI 22.3 BP 118/84 H Intake Visit Reasons: Ongoing vaginal itching and burning Chief Complaint: Vaginal itching and burning Watershed Tender Required: No Is patient in pain?: No [...] Anemia Endometriosis determined by laparoscopy Surgical History [place] teeth extracted H/O dilation and curettage Hematoma [...] Akersigner Signature: Date (if applicable) CC: Normal [facility] Pelvic w/ Transvaginalon Pelvic w/ Transvaginal [facility] [address] [place], [place] [address] Pelvic w/ Transvaginal MR#: [id number] Acct: [id number] Name: DEJA WOLFE Rep #: [id number] : 1985 F 39 From: Christian gerardo MD PCP: Dr. Damion Wright MD Status: REG CLI Study: Pelvic w/ Transvaginal Date of Exam: 10/02/24 Exam# [id number] Ordering Dr: Laureen Hernandez DO PROCEDURE: PELVIC [...] polyp at the cervical os. Reading Location: [id number] CC: Dr. Laureen Hernandez DO; Dr. Damion Wright MD Physical Security Engineer: Signed Normal [facility] Breast imaging reportOrdered By: Zara Fernandez on 09-28-2024 Study report [facility] [address] [place] [address] SCRN MAMM (CAD)W/TREMAINE BILAT MR#: [id number] Acct: [id number] Name: DEJA WOLFE Rep #: [id number] : 1985 F 39 From: Liliana Fernandez MD PCP: Dr. Damion Wright MD Status: REG C ESEQUIEL Study:SCRN MAMM (CAD)W/TREMAINE BILAT Date of Exa m: 09/28/24 Exam# [id number] Ordering Dr: Laureen Copeland DO PROCEDURE: SCRN [...] of the results by letter. Reading Location: [facility] CC: Dr. Laureen Hernandez DO; Dr. Damion Wright MD ~ Physical Security Engineer: Signed [facility] SCRN MAMM (CAD)W/TREMAINE BILATo n 09-28-2024 SCRN MAMM (CAD)W/TREMAINE BILAT [facility] [address], [place] [id number] SCRN MAMM (CAD)W/TREMAINE BILAT MR#: [id number] Acct: [id number] Name: DEJA WOLFE Rep #: [id number] : 1985 F 39 From: Zara Fernandez MD PCP: Dr. Damion Wright MD Status: [facility] CLI Study: SCRN MAMM (CAD)W/TREMAINE BILAT Date of Exam: 09/02 03/25 Exam# [id number] Ordering Dr: Laureen Hernandez DO PROCEDURE: SCRN [...] of the results by letter. Reading Location: [facility] CC: Dr. Laureen Hernandez DO; Dr. Damion Wright MD Physical Security Engineer: Signed Normal [facility] CNOVon 09-20-2024 CNOV Office Visit (UCWSTR ) NICOLASADEJA N ([id number]) 1985 F Date Time Provider Department 09/20/24 4:00 PM DIANN EVANS WSTR During your visit today, we recorded the following information about you: Temperature Pulse Respiration Blood pressure 98.2 degrees 73/minute 16/minute 124/76 Weight Last Period 59.4 kg 08/09/24 Diann Evans APRN.STRAIGHTENER AND ALIGNER 09/20/2024 3:49 PM Signed Nursing clinic for [...] care, return to the clinic. Diann Evans APRN.STRAIGHTENER AND ALIGNER 09/20/2024 4:08 PM Signed This note was created using [employer] Mathter. Subjective Deja Wolfe is a 39 year [...] (more content not included)... Normal [facility] Ankle min 3 Viewson 09-16-19 Ankle min 3 Views [facility] [address] [place] [address] Ankle min 3 Views MR#: [id number] Acct: [id number] Name: DEJA WOLFE Rep #: [id number] : 1985 F 39 From: Willa Becker nd, MD PCP: Dr. Damion Wright MD Status: PRE ER Study: Ankle min 3 Views Date of Exam: 09/16/24 Exam# [id number] Ordering Dr: Joe Kasper DO PROCEDURE: ANKLE [...] Views IMPRESSION: NEGATIVE ANKLE SERIES Reading Location: [facility] CC: Dr. Joe Kasper DO; Dr. Damion Wright MD Physical Security Engineer: Signed Normal [facility] Emergency Department Summary on 09-16-2024 Emergency Department Summary [facility] Medical Records Department [address] [place] [address] Emergency Department Summary 09/16/24 MR#: [id number] Acct: [id number] Name: DEJA WOLFE Rep #: [id number] : 1985 39 From: Joe Kasper DO [...] is worried that it may be broken. [facility] Medical History ADHD Mass of left forearm [...] History Aunt Breast cancer x2 Surgical History [place] teeth extracted H/O dilation and curettage Hematoma [...] Radiography Diag (more content not included)... Normal [facility] Director Of Psychiatry Office Visit Reporton 05-21-2024 Director Of Psychiatry Office Visit Report [address], [address] [place] [address] OFFICE VISIT Date of Service: 05/21/24 MR#: [id number] Acct: [id number] Name: DEJA WOLFE Rep #: [id number] : 1985 Provider: Dr. 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 Normal [facility] Urgent Care Visit Reporton 0 03-28-2024 Urgent Care Visit Report [facility] [address], [address] [place] [address] OFFICE VISIT Date of Service: 03/28/24 MR#: [id number] Acct: [id number] Name: DEJA WOLFE Rep #: [id number] : 1985 Provider: MIKE Huynh Age/Sex: 39/F Location: [facility] [place] Status: Signed Intake Vital Signs 02/28/24 15:25 [...] Intake Visit Reasons: Rash Chief Complaint: rash Watershed Tender Required: No Is patient in pain?: No [...] worked up for RA by ortho physician retail assistant manager but has not gotten results yet. 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 No history of trauma to the same she so states. No qbxt-izv-xryhovw products taken to assist. No complaints of fever, chills, sweats, lightheadedness/dizzin ess, nausea/vomiting, or chest pain/shortness of breath/dizzy on exertion. Currently being worked up by private provider for potential connective tissue disorders/arthralgias with lab results pending at this time. [id number]. No other associated symptoms and no other [...] (considering PM (more content not included)... Normal [facility] ANTINUCLEAR ANTIBODIES DIREC Ton 03-23-2024 KELY,DIRECT Negative Normal Negative [facility] Comment on above: Result Comment: Perf ormed at: [address] [id number] Electrical Checkout Mechanic: Duane Montelongo PhD, Phone: [phone] Performed By: #### M 100.3200, M100.1999 #### [facility] [address] [facility] [address] CCP IgG Antibodieson 024 CCP IgG Ab. 3 units Normal 0-19 [facility] Comment on above: Result Comment: Nega tive <20 Weak positive 20 - 39 Moderate positive 40 - 59 Strong positive >59 Performed at: [facility] [employer] [id number] Electrical Checkout Mechanic: Duane Montelongo PhD, Phone: [phone] Performed By: #### M 100.3200, M100.1999 #### [facility] [address] [facility] [id number] Lyme Screen W/Reflex WBon LYME SCREEN Ab Negative Normal Negative [facility] Comment on above: Result Comment: Lyme antibodies [...] Performed By: #### M 100.3200, M100.1999 #### [facility] [address] [place], [address] CBC W/Diff, Automatedon 08-2 Absolute Lymph 1.97 X10 3/uL Normal 0.83-4.51 [facility] Comment on above: Performed By: #### M 100.3200, #### [facility] [address] [place], [address] Absolute Neut 3.0 X10 3/uL Normal 2.0-7.7 [facility] Comment on above: Performed By: #### M 100.3200, #### [facility] [address] [place], [address] Basophils/100 WBC (Bld) 0.9 % Normal 0-1 [facility] Comment on above: Performed By: #### M 100.3200, #### [facility] [address] [place], [address] Eosinophils/100 WBC (Bld) 4.2 % Normal 0-5 [facility] Comment on above: Performed By: #### M 100.3200, #### [facility] [address] [place], [address] Erythrocyte distribution width (RBC) [Ratio] 13.4 % Normal 11.6-14.6 [facility] Comment on above: Performed By: #### M 100.3200, #### [facility] [address] [place], [address] Hematocrit (Bld) [Volume fraction] 38.0 % Normal 37-47 [facility] Comment on above: Performed By: #### M 100.3200, #### [facility] [address] [place], [address] Hemoglobin (Bld) [Mass/Vol] 12.5 g/dL Normal 12.0-15.0 [facility] Comment on above: Performed By: #### M 100.3200, #### [facility] [address] [place], [address] IG% 0.200 Normal 0.0-0.9 [facility] Comment on above: Result Comment: IG% - Immature Granulocytes (promyelocytes, myelocytes and metamyelocytes) > 1% indicates that a LEFT SHIFT is Present. Performed By: #### M 100.3200, #### [facility] [address] [place], [address] Lymphocytes/100 WBC (Bld) 34.5 % Normal 19-41 [facility] Comment on above: Performed By: #### M 100.320, #### [facility] [address] [place], [address] MCH (RBC) [Entitic mass] 26.8 pg Low 27.0-32.0 [facility] Comment on above: Performed By: #### M 100.3200, #### [facility] [address] [place], [address] MCHC (RBC) [Mass/Vol] 32.9 g/dL Normal 32-36 [facility] Comment on above: Performed By: #### M 100.3200, #### [facility] [address] [place], [address] MCV (RBC) [Entitic vol] 81.4 fL Normal 81-99 [facility] Comment on above: Performed By: #### M 100.3200, #### [facility] [address] [place], [address] Monocytes/100 WBC (Bld) 7.4 % Normal 0-10 [facility] Comment on above: Performed By: #### M 100.3200, #### [facility] [address] [place], [address] Neutrophils/100 WBC (Bld) 52.8 % Normal 47-70 [facility] Comment on above: Performed By: #### M 100.3200, #### [facility] [address] [place], [address] Nucleated RBC (Bld) [#/Vol] 0 10*3/uL Normal 0-5 [facility] Comment on above: Performed By: #### M 100.3200, #### [facility] [address] [place], [address] Platelet mean volume (Bld) [Entitic vol] 10.7 fL Normal 6.2-12.0 [facility] Comment on above: Performed By: #### M 100.3199, #### [facility] [address] [place], [address] Platelets (Bld) [#/Vol] 339 10*3/uL Normal 150-450 [facility] Comment on above: Performed By: #### M 100.3199, #### [facility] [address] [place], [address] RBC (Bld) [#/Vol] 4.67 10*6/uL Normal 4.2-5.4 [facility] Comment on above: Performed By: #### M 100.3199, #### [facility] [address] [place], [address] RDW SD 39.2 fl Normal 35.1-43.9 [facility] Comment on above: Performed By: #### M 100.320, #### [facility] [address] [place], [address] WBC (Bld) [#/Vol] 5.7 10*3/uL Normal 4.4-11.0 [facility] Comment on above: Performed By: #### M 100.3200, M1 #### [facility] [address] [place], [address] CRPon 03-21-2024 C-REACTIVE PROT < 2.90 Normal 0.0-3.0 [facility] Comment on above: Result Comment: C-Re active Protein (CRP) provides useful information for the diagnosis, therapy and monitoring of inflammatory processes and associated diseases. For the evaluation of Relative Risk for Cardiovascular Disease, a High Sensitivity CRP (HSCRP) should be ordered. Performed By: #### M 100.3200, M1.1999 #### [facility] [address] [place], [address] Erythrocyte Sed Rateon 03-21 SED RATE 5 mm/hr Normal 0-30 [facility] Comment on above: Performed By: #### M 100.3200, .1999 #### [facility] [address] [place], [address] Rheumatoid Factoron 03-21-20 24 RHEUMATOID FAC < 10.0 Normal <15 [facility] Comment on above: Performed By: #### M 100.3200, M1.1999 #### [facility] [address] [place], [address] Uric Acidon 03-21-2024 URIC 4.1 mg/dL Normal 2.6-6.0 [facility] Comment on above: Result Comment: The drugs N-Acetylcysteine and Metamizole may falsely depress this assay. Performed By: #### M 100.3200, M1 #### [facility] [address] [place], [address] Urgent Care Visit Reporton 0 02-28-2024 Urgent Care Visit Report [facility] [address], [address] [place], [place] [address] OFFICE VISIT Date of Service: 02/28/24 MR#: [id number] Acct: [id number] Name: DEJA WOLFE Rep #: [id number] : 1985 Provider: MIKE Huynh Age/Sex: 39/F Location: [facility] Status: Signed Intake Vital Signs 06/28/23 10:16 [...] Visit Reasons: CONGESTION/FEVER/SINUS PRESSURE Chief Complaint: congestion Watershed Tender Required: No Is patient in pain?: No [...] last day or so. Chest feels heavy. 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 No [id number] taken to assist. No other associated symptoms [...] speech a (more content not included)... Normal [facility] Absolute lymphocyte countOrd ered By: Damion Wright on 10-20-2023 Lymphocytes Auto (Unsp spec) [#/Vol] 1.94 10*3/uL 0.83-4.51 [facility] Automated lymphocyte count a s percentage of total leukocytesOrdered By: Damion Wright on 10-20-2023 Lymphocytes/100 WBC Auto (Unsp spec) 27.5 % 19-41 [facility] Basophil percentageOrdered B y: Damion Wright on 10-20-2023 Basophils/100 WBC (Bld) 0.8 % 0-1 [facility] Eosinophils/100 WBC (Bld) 4.5 % 0-5 [facility] Hemoglobin (Bld) [Mass/Vol] 11.9 g/dL 12.0-15.0 [facility] Monocytes/100 WBC (Bld) 7.5 % 0-10 [facility] Neutrophils (Bld) [#/Vol] 4.2 10*3/uL 2.0-7.7 [facility] Neutrophils/100 WBC (Bld) 59.6 % 47-70 [facility] WBC (Bld) [#/Vol] 7.1 10*3/uL 4.4-11.0 [facility] Determination of erythrocyte mean corpuscular volume (MCV)Ordered By: Damion Wright on 10-20-2023 MCV (RBC) [Entitic vol] 84.2 fL 81-99 [facility] Erythrocyte distribution wid th ratioOrdered By: Damion Wright on 10-20-2023 Erythrocyte distribution width (RBC) [Ratio] 12.9 % 11.6-14.6 [facility] Erythrocyte distribution wid th standard deviationOrdered By: Damion Wright on 10-20-2023 Erythrocyte distribution width (RBC) [Entitic vol] 39.1 fL 35.1-43.9 [facility] Hematocrit Auto (Bld) [Volum e fraction]Ordered By: Damion Wright on 10-20-2023 Hematocrit (Bld) [Volume fraction] 37.7 % 37-47 [facility] Immature granulocytes/100 WB C Auto (Bld)Ordered By: Damion Wright on 10-20-2023 Immature granulocytes/100 WBC (Bld) 0.100 % 0.0-0.9 [facility] Comment on above: IG% - Immature Granu locytes (promyelocytes, myelocytes and metamyelocytes) > 1% indicates that a LEFT SHIFT is Present. Laboratory - Hematology and Cell countsOrdered By: Damion Wright on 10-20-2023 MCH (RBC) [Entitic mass] 26.6 pg 27.0-32.0 [facility] MCHC (RBC) [Mass/Vol] 31.6 g/dL 32-36 [facility] Nucleated RBC/100 WBC (Bld) [Ratio] 0 % 0-5 [facility] Platelet mean volume (Bld) [Entitic vol] 9.6 fL 6.2-12.0 [facility] Platelets (Bld) [#/Vol] 366 10*3/uL 150-450 [facility] RBC Auto (Bld) [#/Vol]Ordere d By: Damion Wright on 10-20-2023 RBC (Bld) [#/Vol] 4.48 10*6/uL 4.2-5.4 [facility] Serum or plasma uric acid me asurement (mass/volume)Ordered By: Damion Wright on 10-20-2023 Urate [Mass/Vol] 3.1 mg/dL 2.6-6.0 [facility] Comment on above: The drugs N-Acetylcy steine and Metamizole may falsely depress this assay. Chlamydia trachomatis rRNA d etection by probe and target amplification methodOrdered By: Felipa Singer on 03-02-2023 C. trachomatis rRNA YANELI+probe Ql (Unsp spec) Negative Negative [facility] - Microbiology an d Antimicrobial susceptibilityOrdered By: Felipa Singer on 03-02-2023 N. gonorrhoeae DNA YANELI+probe Ql (Unsp spec) Negative Negative [facility] Comment on above: Performed at: [address] [id number] Director: Belen Preciado MD, Phone: [phone] No Panel Informationon 03-02 POC Trichomonas (Rapid) Negative [facility] Culture, urineOrdered By: Dr Dontae Lindsay on 08-29-2022 Bacteria identified Cx Nom (U) Positive [facility] - Chemistry and C hemistry - challengeOrdered By: Dr. Garcia on 06-01-2022 Free T4 [Mass/Vol] 0.93 ng/dL 0.76-1.46 [facility] No Panel InformationOrdered By: Dr. Garcia on 06-01-2022 Follicle Stimulating Hormone 7.4 mIU/mL [facility] Comment on above: NORMAL REFERENCE RAN GES FEMALE FOLLICULAR 2.3 - 12.6 mIU/mL MID-CYCLE PEAK 5.2 - 17.5 mIU/mL LUTEAL 1.7 - 12.9 mIU/mL POST-MENOPAUSAL ON MHT 5.9 - 72.8 mIU/mL NOT ON MHT 12.7 - 132.2 mlU/mL MALE 0.7 - 10.8 mIU/mL Luteinizing Hormone 3.5 mIU/mL [facility] Comment on above: NORMAL REFERENCE RAN GES FEMALE FOLLICULAR 1.9 - 26.2 mIU/mL MID-CYCLE PEAK 22.8 - 76.1 mIU/mL LUTEAL 0.6 - 16.6 mIU/mL POST-MENOPAUSAL ON MHT 1.1 - 52.4 mIU/mL NOT ON MHT 8.6 - 61.8 mIU/mL MALE 1.2 - 10.6 mIU/mL Thyroid Stimulating Hormone (TSH) 2.32 uIU/mL 0.358-3.74 [facility] Serum or plasma estradiol (E 2) measurement (mass/volume)Ordered By: Dr. Garcia on 06-01-2022 E2 [Mass/Vol] 44.3 pg/mL [facility] Comment on above: NORMAL REFERENCE RAN GES [...] report Cyto stain Doc (Cvx/Vag) Comment . [facility] Comment on above: The Pap smear is [...] DNA Probe+sig amp Ql (Cvx) Negative Negative [facility] Comment on above: This nucleic acid am plification test detects fourteen high-risk HPV types (16,18,31,33,35,39,45,51,52,56,58,59,66,68)without differentiation.Performed at: - [address] [id number] Director: Belen Preciado MD, Phone: [phone] at: = - [facility] [id number] Director: Belen Preciado MD, Phone: [phone] Laboratory - CytologyOrdered By: Dr. Garcia on 05-13-2022 Steel Worker Cyto stain Nom (Cvx/Vag) [ID] Comment . [facility] Comment on above: Rayna Norwoodt echnologist (ASCP) Laboratory - Miscellaneous t estsOrdered By: Dr. Garcia on 05-13-2022 Service comment (Unsp spec) [Interp] Comment . [facility] Comment on above: This liquid based Th inPrep(R) pap test was screened withthe use of an image guided system. Service comment (Unsp spec) [Interp] . . [facility] No Panel InformationOrdered By: Dr. Garcia on 05-13-2022 Pathology report final diagnosis Narrative Comment . [facility] Comment on above: NEGATIVE FOR INTRAEP ITHELIAL LESION OR MALIGNANCY.SHIFT IN FAITH SUGGESTIVE OF BACTERIAL VAGINOSIS.THIS SPECIMEN WAS RESCREENED PART OF OUR UROLOGY TEACHER PROGRAM. Microbiology: Culture, R/O S trep Aon 03-31-2017 GE use only - for Link[employer] import when terms are not otherwise specified . Invalid Interpretation Code [facility] Work Phone: Microbiology: (P) Culture, R /O Strep Aon 03-30-2017 CUSTREPA . [facility] Work Phone: Office Visit: UC: pharyngiti s, tonsillolithon 03-28-2017 Documentation of current medications (procedure) Done Invalid Interpretation Code [facility] Work Phone: Documentation of current medications (procedure) T Invalid Interpretation Code [facility] Work Phone: [phone] Fall risk assessment No Invalid Interpretation Code [facility] Work Phone: Protein mass conc Done [facility] Work Phone: Protein mass conc T [facility] Work Phone: Rapid strep test Negative Invalid Interpretation Code [facility] Work Phone: S. pyogenes DNA YANELI+probe Ql (Throat) Negative [facility] Work Phone: Tobacco smoking status NHIS Current every day smoker [facility] Work Phone: Tobacco use CPHS Current every day smoker Invalid Interpretation Code [facility] Work Phone: Vital Signs Date Time Vital Sign Value Performing Clinician Facility 01-21-2025 11:43-0400 Body mass index (BMI) [Ratio] 23.16 kg/m2 Jackelyn MCKEON Work Phone: [facility] 01-21-2025 11:43-0400 Body temperature 98.91 [degF] Krislyn Aberegg PA Work Phone: [facility] 01-21-2025 11:43-0400 Body weight 61.2 kg Krislyn Aberegg PA Work Phone: [facility] 01-21-2025 11:43-0400 Diastolic blood pressure 68 mm[Hg] Krislyn Aberegg PA Work Phone: [facility] 01-21-2025 11:43-0400 Heart rate 94 /min Krislyn Aberegg PA Work Phone: [facility] 01-21-2025 11:43-0400 Respiratory rate 16 /min Krislyn Aberegg PA Work Phone: [facility] 01-21-2025 11:43-0400 SaO2% (BldA) [Mass fraction] 97 % Krislyn Aberegg PA Work Phone: [facility] 01-21-2025 11:43-0400 Systolic blood pressure 122 mm[Hg] Krislyn Aberegg PA Work Phone: [facility] 01-07-2025 08:37-0400 Body height 157.[address] Damion Wright MD Work Phone: [facility] 01-07-2025 08:37-0400 Body mass index (BMI) [Ratio] 25 kg/m2 Dr. Damion Wright MD Work Phone: [facility] 01-07-2025 08:37-0400 Body weight 62.[address] Damion Wright MD Work Phone: [facility] 01-07-2025 08:37-0400 Diastolic blood pressure 74 mm[Hg] Dr. Damion Wright MD Work Phone: [facility] 01-07-2025 08:37-0400 Systolic blood pressure 106 mm[Hg] Dr. Damion Wright MD Work Phone: [facility] 12-04-2024 10:30-0400 Body height 157.[address] Damion Wright MD Work Phone: [facility] 12-04-2024 10:30-0400 Body mass index (BMI) [Ratio] 23.9 kg/m2 Dr. Damion Wright MD Work Phone: [facility] 12-04-2024 10:30-0400 Body weight 59.[address] Damion Wright MD Work Phone: [facility] 12-04-2024 10:30-0400 Diastolic blood pressure 84 mm[Hg] Dr. Damion Wright MD Work Phone: [facility] 12-04-2024 10:30-0400 Systolic blood pressure 121 mm[Hg] Dr. Damion Wright MD Work Phone: [facility] 12-03-2024 08:54-0400 Body mass index (BMI) [Ratio] 23.9 kg/m2 Dr. Damion Wright MD Work Phone: [facility] 12-03-2024 08:54-0400 Body weight 59.[address] Damion Wright MD Work Phone: [facility] 12-03-2024 08:54-0400 Diastolic blood pressure 71 mm[Hg] Dr. Damion Wright MD Work Phone: [facility] 12-03-2024 08:54-0400 Systolic blood pressure 105 mm[Hg] Dr. Damion Wright MD Work Phone: [facility] 11-20-2024 15:00-0400 Body temperature 97.4 [degF] Dr. Damion Wright MD Work Phone: [facility] 11-20-2024 15:00-0400 Heart rate 65 /min Dr. Damion Wright MD Work Phone: [facility] 11-20-2024 15:00-0400 Respiratory rate 18 /min Dr. Damion Wright MD Work Phone: [facility] 11-20-2024 15:00-0400 SaO2% (BldA) [Mass fraction] 100 % Dr. Damion Wright MD Work Phone: [facility] 11-20-2024 14:45-0400 Diastolic blood pressure 49 mm[Hg] Dr. Damion Wright MD Work Phone: 3(745)502-242984 [place] [address] 11-20-2024 14:45-0400 Systolic blood pressure 94 mm[Hg] Dr. Damion Wright MD Work Phone: 5(936)524-670059 [place] [address] 11-20-2024 14:39-0400 Inhaled oxygen flow rate 2 L/min Dr. Damion Wright MD Work Phone: 4(695)404-264184 [place] [address] 11-20-2024 12:41-0400 Body height 157.[address] Damion Wright MD Work Phone: 9(495)061-294959 [place] [address] 11-20-2024 12:41-0400 Body mass index (BMI) [Ratio] 23.9 kg/m2 Dr. Damion Wright MD Work Phone: 4(464)420-166459 [place] [address] 11-20-2024 12:41-0400 Body weight 59.[address] Damion Wright MD Work Phone: 5(181)654-830659 [place] [address] 11-16-2024 10:01-0400 Body mass index (BMI) [Ratio] 23.1 kg/m2 Dr. Damion Wright MD Work Phone: 1(617)274-518159 [place] [address] 11-16-2024 10:01-0400 Body weight 57.[address] Damion Wright MD Work Phone: 8(592)422-406084 [place] [address] 11-16-2024 10:01-0400 Diastolic blood pressure 88 mm[Hg] Dr. Damion Wright MD Work Phone: 8(276)171-101884 [place] [address] 11-16-2024 10:01-0400 Systolic blood pressure 137 mm[Hg] Dr. Damion Wright MD Work Phone: 6(630)127-0015[address] [place] [address] 11-05-2024 11:58-0400 Body mass index (BMI) [Ratio] 24.4 kg/m2 Dr. Damion Wright MD Work Phone: 4(456)292-412359 [place] [address] 11-05-2024 11:58-0400 Body weight 60.[address] Damion Wright MD Work Phone: [facility] 11-05-2024 11:58-0400 Diastolic blood pressure 81 mm[Hg] Dr. Damion Wright MD Work Phone: [facility] 11-05-2024 11:58-0400 Systolic blood pressure 127 mm[Hg] Dr. Damion Wright MD Work Phone: [facility] 10-30-2024 10:35-0400 Body mass index (BMI) [Ratio] 23.08 kg/m2 Zunilda Motta BAKERY SUPERVISOR.STRAIGHTENER AND ALIGNER Work Phone: [facility] 10-30-2024 10:35-0400 Body temperature 99.5 [degF] Zunilda Motta BAKERY SUPERVISOR.STRAIGHTENER AND ALIGNER Work Phone: [facility] 10-30-2024 10:35-0400 Body weight 61 kg Zunilda Motta BAKERY SUPERVISOR.STRAIGHTENER AND ALIGNER Work Phone: [facility] 10-30-2024 10:35-0400 Diastolic blood pressure 81 mm[Hg] Zunilda Motta BAKERY SUPERVISOR.STRAIGHTENER AND ALIGNER Work Phone: [facility] 10-30-2024 10:35-0400 Heart rate 96 /min Zunilda Motta BAKERY SUPERVISOR.STRAIGHTENER AND ALIGNER Work Phone: [facility] 10-30-2024 10:35-0400 Respiratory rate 22 /min Zunilda Motta BAKERY SUPERVISOR.STRAIGHTENER AND ALIGNER Work Phone: [facility] 10-30-2024 10:35-0400 SaO2% (BldA) [Mass fraction] 100 % Zunilda Motta BAKERY SUPERVISOR.STRAIGHTENER AND ALIGNER Work Phone: [facility] 10-30-2024 10:35-0400 Systolic blood pressure 120 mm[Hg] Zunilda Motta BAKERY SUPERVISOR.STRAIGHTENER AND ALIGNER Work Phone: [facility] 10-18-2024 11:40-0400 Body height 157.[address] Damion Wright MD Work Phone: [facility] 10-18-2024 11:37-0400 Body mass index (BMI) [Ratio] 25.1 kg/m2 Dr. Damion Wright MD Work Phone: [facility] 10-18-2024 11:37-0400 Body weight 62.[address] Damion Wright MD Work Phone: [facility] 10-18-2024 11:37-0400 Diastolic blood pressure 75 mm[Hg] Dr. Damion Wright MD Work Phone: [facility] 10-18-2024 11:37-0400 Systolic blood pressure 112 mm[Hg] Dr. Damion Wright MD Work Phone: [facility] 10-03-2024 09:50-0500 Body height 157.[address] Damion Wright MD Work Phone: [facility] 10-03-2024 09:40-0500 Body mass index (BMI) [Ratio] 22.3 kg/m2 Dr. Damion Wright MD Work Phone: [facility] 10-03-2024 09:40-0500 Body weight 55.[address] Damion Wright MD Work Phone: [facility] 10-03-2024 09:40-0500 Diastolic blood pressure 84 mm[Hg] Dr. Damion Wright MD Work Phone: [facility] 10-03-2024 09:40-0500 Systolic blood pressure 118 mm[Hg] Dr. Damion Wright MD Work Phone: [facility] 09-20-2024 15:32-0500 Body mass index (BMI) [Ratio] 22.48 kg/m2 Diann [place] BAKERY SUPERVISOR.STRAIGHTENER AND ALIGNER Work Phone: [facility] 09-20-2024 15:32-0500 Body temperature 98.2 [degF] Diann [place] BAKERY SUPERVISOR.STRAIGHTENER AND ALIGNER Work Phone: [facility] 09-20-2024 15:32-0500 Body weight 59.4 kg Diann [place] BAKERY SUPERVISOR.STRAIGHTENER AND ALIGNER Work Phone: [facility] 09-20-2024 15:32-0500 Diastolic blood pressure 76 mm[Hg] Diann [place] BAKERY SUPERVISOR.STRAIGHTENER AND ALIGNER Work Phone: [facility] 09-20-2024 15:32-0500 Heart rate 73 /min Diann [place] BAKERY SUPERVISOR.STRAIGHTENER AND ALIGNER Work Phone: [facility] 09-20-2024 15:32-0500 Respiratory rate 16 /min Diann [place] BAKERY SUPERVISOR.STRAIGHTENER AND ALIGNER Work Phone: [facility] 09-20-2024 15:32-0500 SaO2% (BldA) [Mass fraction] 99 % Diann [place] BAKERY SUPERVISOR.STRAIGHTENER AND ALIGNER Work Phone: [facility] 09-20-2024 15:32-0500 Systolic blood pressure 124 mm[Hg] Diann [place] BAKERY SUPERVISOR.STRAIGHTENER AND ALIGNER Work Phone: [facility] 09-16-2024 14:30-0500 Body temperature 98.1 [degF] Dr. Damion Wright MD Work Phone: [facility] 09-16-2024 14:30-0500 Diastolic blood pressure 67 mm[Hg] Dr. Damion Wright MD Work Phone: [facility] 09-16-2024 14:30-0500 Heart rate 74 /min Dr. Damion Wright MD Work Phone: [facility] 09-16-2024 14:30-0500 Respiratory rate 15 /min Dr. Damion Wright MD Work Phone: [facility] 09-16-2024 14:30-0500 SaO2% (BldA) [Mass fraction] 99 % Dr. Damion Wright MD Work Phone: [facility] 09-16-2024 14:30-0500 Systolic blood pressure 109 mm[Hg] Dr. Damion Wright MD Work Phone: [facility] 09-16-2024 13:47-0500 Body mass index (BMI) [Ratio] 23.8 kg/m2 Dr. Damion Wright MD Work Phone: [facility] 09-16-2024 13:47-0500 Body weight 58.[address] Damion Wright MD Work Phone: [facility] 06-28-2023 10:16-0500 Body height 159.[address] Damion Wright Work Phone: [facility] 06-28-2023 10:16-0500 Body mass index (BMI) [Ratio] 21.4 kg/m2 Dr. Damion Wright Work Phone: [facility] 06-28-2023 10:16-0500 Body weight 54.[address] Damion Wright Work Phone: [facility] 06-28-2023 10:16-0500 Diastolic blood pressure 71 mm[Hg] Dr. Damion Wright Work Phone: [facility] 06-28-2023 10:16-0500 Respiratory rate 16 /min Dr. Damion Wright Work Phone: [facility] 06-28-2023 10:16-0500 Systolic blood pressure 113 mm[Hg] Dr. Damion Wright Work Phone: [facility] 05-18-2023 10:41-0400 Body height 159.[address] Damion Wright Work Phone: [facility] 05-18-2023 10:41-0400 Body mass index (BMI) [Ratio] 20.7 kg/m2 Dr. Damion Wright Work Phone: [facility] 05-18-2023 10:41-0400 Body weight 52.[address] Damion Wright Work Phone: [facility] 05-18-2023 10:41-0400 Diastolic blood pressure 79 mm[Hg] Dr. Damion Wright Work Phone: [facility] 05-18-2023 10:41-0400 Systolic blood pressure 125 mm[Hg] Dr. Damion Wright Work Phone: [facility] 03-02-2023 14:41-0400 Body height 159.[address] Damion Wright Work Phone: [facility] 03-02-2023 14:34-0400 Body mass index (BMI) [Ratio] 21.7 kg/m2 Dr. Damion Wright Work Phone: [facility] 03-02-2023 14:34-0400 Body weight 55.[address] Damion Wright Work Phone: [facility] 03-02-2023 14:34-0400 Diastolic blood pressure 76 mm[Hg] Dr. Damion Wright Work Phone: [facility] 03-02-2023 14:34-0400 Systolic blood pressure 120 mm[Hg] Dr. Damion Wright Work Phone: [facility] 05-13-2022 14:01-0400 Body height 159.[address] Damion Wright Work Phone: [facility] 05-13-2022 14:00-0400 Body mass index (BMI) [Ratio] 22.5 kg/m2 Dr. Damion Wright Work Phone: [facility] 05-13-2022 14:00-0400 Body weight 57.[address] Damion Wright Work Phone: [facility] 05-13-2022 14:00-0400 Diastolic blood pressure 84 mm[Hg] Dr. Damion Wright Work Phone: [facility] 05-13-2022 14:00-0400 Systolic blood pressure 138 mm[Hg] Dr. Damion Wright Work Phone: [facility] 01-29-2022 12:59-0400 Body temperature 98.6 [degF] Kerryjose Vázquezler-Mike BAKERY SUPERVISOR.[employer]ENER AND ALIGNER Work Phone: [facility] 01-29-2022 12:59-0400 Body weight 57.34 kg Kerry Pracandisler-Mike BAKERY SUPERVISOR.[employer]ER Work Phone: [facility] 01-29-2022 12:59-0400 Diastolic blood pressure 78 mm[Hg] Kerry Praisler-Wood BAKERY SUPERVISOR.[employer]ENER [employer]ER Work Phone: [facility] 01-29-2022 12:59-0400 Heart rate 112 /min Kerry Vázquezler-Wood BAKERY SUPERVISOR.[employer]ENER AND [employer]IGNER Work Phone: [facility] 01-29-2022 12:59-0400 Respiratory rate 18 /min Kerry Campbellisler-Wood BAKERY SUPERVISOR.[employer]ENER AND ALIGNER Work Phone: [facility] 01-29-2022 12:59-0400 SaO2% (BldA) [Mass fraction] 99 % Kerry Campbellisler-Wood BAKERY SUPERVISOR.STRAIGHTENER AND ALIGNER Work Phone: [facility] 01-29-2022 12:59-0400 Systolic blood pressure 124 mm[Hg] Kerry Praisler-Wood BAKERY SUPERVISOR.[facility] Work Phone: [facility] 05-07-2019 22:42-0400 BP Diastolic 94 mm[Hg] [place] 05-07-2019 22:42-0400 BP Systolic 143 mm[Hg] [place] 05-07-2019 22:42-0400 Pulse (Heart Rate) 67 /min [place], [place] 05-07-2019 22:42-0400 Pulse Oximetry 100 % [place] 05-07-2019 22:42-0400 Respiratory Rate 16 /min [place], [place] 05-07-2019 20:31-0400 BMI (Body Mass Index) 22.86 kg/m2 [place], [place] 05-07-2019 20:31-0400 Body Temperature 98.4 [degF] [place] 05-07-2019 20:31-0400 Body weight 56.7 kg [facility] [place] 05-07-2019 20:31-0400 Height 157.5 cm [place] 03-28-2017 16:20-0400 BMI (Body Mass Index) 22.52 kg/m2 Wade [facility]KE[facility] Work Phone: 03-28-2017 16:20-0400 Body Temperature 98.8 [degF] Wade MCKEON [facility] Work Phone: 03-28-2017 16:20-0400 BP Diastolic 78 mm[Hg] Wade MCKEON [facility] Work Phone: 03-28-2017 16:20-0400 BP Systolic 112 mm[Hg] Wade MCKEON [facility] Work Phone: 03-28-2017 16:20-0400 Height 162.56 cm Wade MCKEON [facility] Work Phone: 03-28-2017 16:20-0400 Pulse (Heart Rate) 96 /min Wade MCKE[facility] Work Phone: 03-28-2017 16:20-0400 Respiratory Rate 14 /min Wade MCKEON [facility] Work Phone: 03-28-2017 16:20-0400 Weight 59.51 kg Wade MCKEON [facility] Work Phone: Encounters Encounter Date Encounter Type Care Provider Facility Start: 02-22-2025 [facility] Start: 02-21-2025 Encounter for other preprocedural examination Laureennacho [facility] Start: 01-21-2025 End: 01-21-2025 Subsequent hospital visit by physician Xr [facility] Work Phone: Radiology Comment on above: Acute left ankle shant n [M25.572] Start: 01-21-2025 End: 01-21-2025 Patient encounter procedure Jackelyn MCKEON Work Phone: [facility] Comment on above: Acute left ankle shant n (Primary Dx) Start: 01-21-2025 End: 01-21-2025 ambulatory DAMION WRIGHT Facility:[facility] Start: 01-07-2025 End: 01-07-[address] Laureen Hernandez DO -[facility] Work Phone: Start: 01-07-2025 End: 01-07-[address] Damion Wright MD Work Phone: [facility] Work Phone: Start: 12-04-2024 End: 12-04-[address] Laureen Hernandez DO -[facility] Work Phone: Start: 12-04-2024 End: 12-04-2024 ambulatory Laureen Hernandez Facility:[facility] Start: 12-03-2024 End: 12-03-[address] Damion Wright MD Work Phone: [facility] Work Phone: Start: 12-03-2024 End: 12-03-2024 Patient encounter procedure Felipa Ebervale NP-C -Laboratory, Specimen Work Phone: Start: 12-03-2024 End: 12-03-2024 Patient encounter procedure Felipa Lucrecia MEMBER OF [employer]ENT-C -[facility] Work Phone: Start: 12-03-2024 End: 12-03-2024 ambulatory Damion Wright Facility:[facility] Start: 12-03-2024 End: 12-03-2024 ambulatory Felipa Ebervale NP Facility:[facility] Start: 11-20-2024 Non-patient / Non-visit Dr. Romario Hernandez DO -[facility] Start: 11-20-2024 End: 11-20-2024 Admission to same day surgery center Dr. Laureen Hernandez DO -[facility] Start: 11-20-2024 End: 11-20-[address] Damion Wright MD Work Phone: [facility] Work Phone: Start: 11-16-2024 End: 11-16-[address] Laureen Hernandez DO -Laboratory, Specimen Work Phone: Start: 11-16-2024 End: 11-16-[address] Belle Ibarra MD -[facility] Work Phone: Start: 11-16-2024 End: 11-16-2024 ambulatory Belle Ibarra Facility:[facility] Start: 11-16-2024 End: 11-16-2024 ambulatory Laureen Hernandez Facility:[facility] Start: 11-05-2024 End: 11-05-[address] Laureen Hernandez DO -[facility] Work Phone: Start: 11-05-2024 End: 11-05-2024 ambulatory Damion Wright Facility:[facility] Start: 10-30-2024 End: 10-30-2024 ambulatory DAMION WRIGHT Facility:[facility] Start: 10-30-2024 End: 10-30-2024 Patient encounter procedure Zunildadavonte Motta APRN.[employer]IGHTENER AND ALIGNER Work Phone: [facility] Comment on above: Strep pharyngitis (P rimary Dx) Start: 10-18-2024 End: 10-18-[address] Damion Wright MD Work Phone: [facility] Work Phone: Start: 10-18-2024 End: 10-18-[address] Laureen Hernandez DO -Laboratory, Specimen Work Phone: Start: 10-18-2024 End: 10-18-[address] Laureen Hernandez DO -[facility] Work Phone: Start: 10-18-2024 End: 10-18-2024 ambulatory Damion Wright Facility:[facility] Start: 10-18-2024 Non-patient / Non-visit Dr. Abdullahi soto MD -[facility] Start: 10-18-2024 End: 10-18-2024 ambulatory Laureen Hernandez Facility:[facility] Start: 10-03-2024 End: 10-03-[address] Damion Wright MD Work Phone: [facility] Work Phone: Start: 10-03-2024 End: 10-03-2024 Patient encounter procedure Felipa Singer JOEY-[place] -Laboratory, Specimen Work Phone: Start: 10-03-2024 End: 10-03-2024 Patient encounter procedure Felipa Singer JOEY-C -[facility] Work Phone: Start: 10-03-2024 End: 10-03-2024 ambulatory Damion Wright Facility:[facility] Start: 10-02-2024 End: 10-03-[address] Damion Wright MD Work Phone: [facility] Work Phone: Start: 10-02-2024 End: 10-02-[address] Laureen Hernandez DO -[facility] Work Phone: Start: 10-02-2024 End: 10-02-2024 ambulatory Laureen Hernandez Facility:[facility] Start: 09-28-2024 End: 09-28-[address] Damion Wright MD Work Phone: [facility] Work Phone: Start: 09-28-2024 End: 09-28-[address] Laureen Hernandez DO -Outpatient Breast Imaging Work Phone: Start: 09-28-2024 End: 09-28-2024 ambulatory Laureen Hernandez Facility:[facility] Start: 09-20-2024 End: 09-20-2024 ambulatory DAMION WRIGHT Facility:[facility] Start: 09-20-2024 End: 09-20-2024 Office outpatient visit 15 minutes Diann Evans APRN.[employer]ENER AND ALIGNER Work Phone: [facility] Comment on above: Pneumonia of left lo wer lobe due to infectious organism (Primary Dx); Bacterial sinusitis Start: 09-16-2024 End: 09-16-2024 Emergency department patient visit Dr. Joe Kasper DO -Emergency Department Work Phone: Start: 05-21-2024 Encounter for gynecological examination (general) (routine) without abnormal findings Laureen Hernandez [facility] Start: 05-21-2024 End: 05-21-2024 ambulatory Damion Wright Facility:[facility] Start: 03-28-2024 End: 03-28-2024 ambulatory Damion Wright Facility:[facility] Start: 03-21-2024 End: 03-21-2024 ambulatory Shyanne Mahan Facility:[facility] Start: 02-28-2024 End: 02-28-2024 ambulatory Damion Wright Facility:[facility] Start: 10-20-2023 End: 10-20-[address] Damion Wright Work Phone: [facility] Work Phone: Start: 10-20-2023 End: 10-20-[address] Damion Wright Work Phone: [facility]-Laboratory, [place] Work Phone: Start: 07-18-2023 End: 07-18-[address] Damion Wright Work Phone: [facility] Work Phone: Start: 07-18-2023 End: 07-18-[address] Damion Wright Work Phone: [facility]-Laboratory, Specimen Work Phone: Start: 07-18-2023 End: 07-18-[address] Damion Wright Work Phone: [facility] Work Phone: Start: 06-28-2023 End: 06-28-[address] Damion Wright Work Phone: [facility] Work Phone: Start: 06-07-2023 End: 06-07-[address] Damion Wright Work Phone: [facility] Work Phone: Start: 06-07-2023 End: 06-07-[address] Damion Wright Work Phone: [facility]-Outpatient Breast Imaging Work Phone: Start: 05-18-2023 End: 05-18-[address] Damion Wright Work Phone: [facility] Work Phone: Start: 03-02-2023 End: 03-02-[address] Damion Wright Work Phone: [facility] Work Phone: Start: 03-02-2023 End: 03-02-[address] Damion Wright Work Phone: [facility]-Laboratory, Specimen Work Phone: Start: 03-02-2023 End: 03-02-[address] Damion Wright Work Phone: [facility] Work Phone: Start: 08-27-2022 End: 08-27-[address] Damion Wright Work Phone: [facility] Work Phone: Start: 08-27-2022 End: 08-27-[address] [facility] Start: 06-01-2022 End: 06-01-[address] Damion Wright Work Phone: [facility] Work Phone: Start: 06-01-2022 End: 06-01-[address] [facility] Start: 05-31-2022 End: 05-31-[address] Damion Wright Work Phone: [facility] Work Phone: Start: 05-31-2022 End: 05-31-[address] Damion Wright Work Phone: [facility] Start: 05-13-2022 End: 05-13-[address] Damion Wright Work Phone: [facility] Work Phone: Start: 05-13-2022 End: 05-13-[address] Damion Wright Work Phone: [facility]-Laboratory, Specimen Start: 05-13-2022 End: 05-13-[address] Damion Wright Work Phone: [facility] Start: 01-29-2022 End: 01-29-2022 Patient encounter procedure Kerry De Guzman APRN.CNP Work Phone: [facility] Comment on above: Skin pimple (Primary Dx) Start: 05-07-2019 End: 05-07-2019 Emergency department patient visit Godwin Garza Work Phone: [facility] Comment on above: Headache disorder (P [...] 10-30-2024 STREP A MOLECULAR (POC) [place] TOISTRAIGHTENER AND ALIGNER Work Phone: Start: 10-18-2024 Gram stain microscopy [...] History of C-s ection Kerry De Guzman APRN.STRAIGHTENER AND ALIGNER Work Phone: Bacteria identified in Urine by Culture Dr. Damion Wright Work Phone: Urine culture Dr. Damion estrada Work Phone: Plan of Treatment Date Care Activity Detail Author Start: 04-01-2025 Influenza vaccination Influenz a Vaccine (Season Ended) [facility] Start: 11-20-2024 Ambulation without limitation [facility] Start: 11-20-2024 Medication education [facility] Start: 11-20-2024 Patient discharge [facility] Start: 11-20-2024 Procedure discontinued [facility] Start: 11-20-2024 Taking patient vital signs [facility] Start: 11-20-2024 Vital signs measurements [facility] Start: 11-20-2024 [facility] Start: 11-20-2024 Medical regimen orde rs management [facility] Start: 11-20-2024 Anes hysteroscopy&/hysterosal pingography w/bx ANESTH HYSTEROSCOPE/GRAPH [facility] Start: 11-20-2024 Hysteroscopy bx endometrium&/polypc w/wo d&c HYSTEROSCOPY BIOPSY [facility] Start: 11-06-2024 Leukocyte reduced re d blood cells [facility] Start: 04-01-2024 Covid-19 Vaccine ( season) Covid-19 Vaccine ( season) [facility] Start: 04-01-2024 Influenza vaccination Influenza Vacc ine (#1) [facility] Start: 03-01-2024 Urine microalbumin profile DTaP,Tdap,Td Vaccine (3 - Td or Tdap) [facility] Start: 01-18-2024 Urine microalbumin profile DTAP,TDAP,TD (2 - Td or Tdap) [facility] Start: 05-13-2022 Liquid based cervica l cytology screening [facility] Work Phone: Start: 04-01-2022 Influenza vaccination INFLUENZA (#1) [facility] Start: 10-16-2020 PAP TESTING PAP TESTING [facility] Start: 04-01-2019 Influenza vaccination Flu vaccine (# 1) [place] Start: 10-16-2018 Screening for malign ant neoplasm of cervix Cervical Cancer Screening [facility] Start: 04-15-2017 End: 04-15-2017 Appointment Appointment [facility] Work Phone: Start: 03-28-2017 End: 03-28-2017 Appointment Appointment [facility] Work Phone: Start: 03-28-2017 End: 03-28-2017 Streptococcus.beta-hemol ytic [Presence] in Throat by Organism specific culture *Culture, R/O Strep A Swab [facility] Work Phone: Start: 2017 HPV TESTING HPV TESTING [facility] Start: 2006 Hepatitis B Vaccine (1 of 3 - 19+ 3-dose series) Hepatitis B Vaccine (1 of 3 - 19+ 3-dose series) [facility] Start: 2006 Pneumococcal vaccination Pneum ococcal Vaccine (1 of 2 - PCV) [facility] Start: 2005 Anxiety Screening Anxiety Screening [facility] Start: 2005 Depression Screening Depression Scre ening [facility] Start: 1999 Adult depression screening assessment DEPRESSION SCREENING [facility] Start: 1993 PNEUMOCOCCAL (1 - PCV) PNEUMOCOCCAL (1 - PCV) [facility] Start: 1987 COVID-19 VACCINE (#1) COVID-19 VACCI NE (#1) [facility] Estradiol (E2) [Mass/volume] in Serum or Plasma [facility] Work Phone: Follitropin and Lutr opin panel [Units/volume] - Serum or Plasma [facility] Work Phone: MG Breast - bilatera l Screening [facility] Work Phone: Nonrebreather mask oxygen Nonrebreather mask oxygen Respiratory Care Routine Daily until discontinued starting 05/07/2019 [facility] [place] Comment on above: Daily until disconti nued starting 05/07/2019 Path report.final Dx Spec [facility] Work Phone: Patient Education Bruises (Contusions) [facility] Work Phone: Patient referral [facility] Work Phone: T4 free measurement [facility] Work Phone: Thyroid stimulating hormone measurement [facility] Work Phone: Urinalysis macro (dipstick) panel - Urine [facility] Pelvis [facility] Work Phone: US Pelvis transvaginal [facility] Work Phone: Immunizations Immunization Date Immunization Notes Care Provider Fa [facility] 09-12-2017 influenza, injectabl e, quadrivalent, preservative free Dr. Damion Wright Work Phone: [facility] 09-12-2017 influenza, seasonal, injectable Dr. Damion Wright Work Phone: [facility] 09-12-2017 influenza, seasonal, injectable, preservative free Diann Evans BAKERY SUPERVISOR.STRAIGHTENER AND ALIGNER Work Phone: [facility] 09-12-2017 influenza virus vaccine, unspecified formulation Diann Evans BAKERY SUPERVISOR.STRAIGHTENER AND ALIGNER Work Phone: [facility] 03-01-2014 tetanus toxoid, redu meghan diphtheria toxoid, and acellular pertussis vaccine, adsorbed Dr. Damion Wright Work Phone: [facility] 01-17-2014 tetanus toxoid, redu meghan diphtheria toxoid, and acellular pertussis vaccine, adsorbed Kerry De Guzman BAKERY SUPERVISOR.STRAIGHTENER AND ALIGNER Work Phone: [facility] Payers Date Payer Category Payer Medicaid [id number] 2024 Self-pay [id number] 2024 Unknown [id number] 2022 Medicaid [id number] 2022 Unknown [id number] 2020 Unknown [employer]THEM BLUE CARD PPO OOS [id number] 2020-Present [phone] [address] [place] [address] PPO [id number] Private Health Insurance [id number] Unknown ANTHEM [id number] Unknown [employer] [id number] Unknown OBC [id number] Unknown [id number] [id number]. 462 Unknown [id number] 2.0.1.061889.3.579.2. 462 Unknown [id number] .[id number]. 462 Unknown [id number] .[id number]. 462 Unknown [id number] 2.0.1.450947.3.579.2. 462 Unknown [id number] 2.0.1.632076.3.579.2. 462 Unknown [id number] 2.0.1.926968.3.579.2. 462 Unknown [id number] 2.16.840.1.426422.3.579.2. 462 Unknown [id number] 2.16.840.1.443975.3.579.2. 462 Unknown [id number] 2.16.840.1.720996.3.579.2. 462 Unknown [id number] 2.16.840.1.532063.3.579.2. 462 Unknown [id number] 2.16.840.1.318702.3.579.2. 462 Unknown [id number] 2.16.840.1.526569.3.579.2. 462 Unknown [id number] 2.16.840.1.669031.3.579.2. 462 Unknown [id number] 2.16.840.1.554594.3.579.2. 462 Unknown [id number] 2.16.840.1.108144.3.579.2. 462 Unknown [id number] 2.16.840.1.911352.3.579.2. 462 Unknown [id number] 2.16.840.1.669375.3.579.2. 462 Unknown [id number] 2.16.840.1.470442.3.579.2. 462 Unknown [id number] 2.16.840.1.232766.3.579.2. 462 Unknown [id number] 2.16.840.1.782090.3.579.2. 462 Unknown [id number] 2.16.840.1.678586.3.579.2. 462 Social History Date Type Detail Facility Start: 09-03-2012 End: 09-20-2024 Tobacco smoking status NHIS Current every day smoker [facility] Start: 09-03-2012 History of tobacco use Cigarette Smo [place] Start: 05-07-2019 End: 10-30-2024 Cigarettes smoked current (pack per day) - Reported [place] Start: 05-07-2019 End: 10-30-2024 Alcohol intake Never [place] Start: 05-07-2019 History SDOH Alcohol Frequency [address] [facility] TIFFANY ROBERTSON Start: 1985 Sex Assigned At Not on file [facility] Start: 09-03-2012 History of tobacco use Smoker [facility] Start: 01-29-2022 End: 09-20-2024 Tobacco use and exposure Smokeless tobacco non-user [facility] Start: 01-29-2022 End: 10-30-2024 Alcohol intake Current non-drinker of alcohol (finding) [facility] Start: 01-29-2022 End: 09-20-2024 Tobacco Comment vaping [facility] Start: 01-19-2022 End: 01-29-2022 Exposure to SARS-CoV-2 (event) Not sure [facility] Start: 05-13-2022 End: 07-18-2023 Tobacco smoking status SCIS Unknown if ever smoked [facility] Start: 1985 Sex Assigned At Female W [facility] Start: 09-27-2024 Tobacco smoking stat us SCIS Ex-smoker (finding) [facility] Start: 10-11-2024 End: 11-20-2024 Sex Female (finding) [facility] Start: 11-20-2024 Vapor Vapor [place] [facility] NEGATED: Highlighted row Not [facility] Medical Equipment Procedure Code Equipment Code Equipment Origin al Text Equipment Identifier Dates Mirena Iud - [id number] Start: 09-02-2015 Goals Date Patient Goal Desired Activity /State Functional Status Date Assessment Result Facility 03-04-2015 Are you deaf, or do you have serious difficulty hearing No 03/04/2015 5:41 PM Mayte Morris MA No [facility] 03-04-2015 Are you blind, or do you have serious difficulty seeing, even when wearing glasses No 03/04/2015 5:41 PM Mayte Morris MA No [facility] 03-04-2015 Do you have serious difficulty walking or climbing stairs No 03/04/2015 5:41 PM Mayte Morris MA No [facility] 03-04-2015 Do you have difficul ty dressing or bathing No 03/04/2015 5:41 PM Mayte Morris MA No [facility] 03-04-2015 Because of a physica l, mental, or emotional condition, do you have difficulty doing errands alone such as visiting a physician's office or shopping No 03/04/2015 5:41 PM EDT Mayte Sierra MA No [facility] Mental Status Date Assessment Result Facility 11-20-2024 Cognitive function Level Of Cons ciousness Sedated [facility] Work Phone: 11-20-2024 Cognitive function Voice/Name [facility] Work Phone: 03-04-2015 Because of a physica l, mental, or emotional condition, do you have serious difficulty concentrating, remembering, or making decisions No 03/04/2015 5:41 PM EDT Mayte Sierra MA No [facility] Clinical Notes 09-03-2013 to 01-21-2025 Blaine Marrufo [...] PATIENT PRESENTS WITH AN IMPLANTABLE OR ATTACHED CAN INTAKE WORKER: No RADIOLOGY DEPARTMENT: General X-ray: Exam(s) Completed: Lower Extremity X-Ray(s): Ankle, Left and Foot, Left PERIPHERAL IV DATA: Not applicable SIGNED BY: RT Carolyn(R) January 21, 2025 11:51 AM documented in this encounter [facility] 01-21-2025 Note HNO ID: [id number] Author: BLAINE MARRUFO RT(R) Service: ? Author Type: Health Information Administrator Type: Progress Notes Filed: 01/21/2025 12:02 Note [...] PATIENT PRESENTS WITH AN IMPLANTABLE OR ATTACHED CAN INTAKE WORKER: No RADIOLOGY DEPARTMENT: General X-ray: Exam(s) Completed: Lower Extremity X-Ray(s): Ankle, Left and Foot, Left PERIPHERAL IV DATA: Not applicable SIGNED BY: RT Carolyn(R) January 21, 2025 11:51 AM [facility] 01-21-2025 Note HNO ID: [id number] Author: JACKELYN ACOSTA PA Service: ? Author Type: Physician Manager Membership Type: Progress Notes Filed: 01/21/2025 12:22 Note [...] after stepping on dirt and gravel. - [place] and felt a pop at the time [...] sp (more content not included)... [facility] 01-21-2025 History of Present illness Narrative EARLENE [...] after stepping on dirt and gravel. - [place] and felt a pop at the time [...] follow-up with primary care physician. Recording using [employer] software for draft documentation of the visit was discussed with the patient/authorized route sales representative; all questions welcomed and answered. Patient/authorized route sales representative agreed to proceed Differential Diagnoses - ankle sprain is more likely for the following reason(s): suggested by H&P - fracture is less likely for the following reason(s): no evidence on imaging Disposition The patient was discharged. OTC Medications were advised: Tylenol/motrin Procedures documented in this encounter [facility] 11-20-2024 History and physical note [facility] 11-20-2024 Discharge summary Note Date/Time November 20, 2024 1:53pm [facility] Medical Records Department [facility] [place] [address] Instructions for Home/Discharge Instructions 11/20/24 1352 MR#: [id number] Acct: [id number] Name: DEJA WOLFE Rep #:[id number] : 1985 39 From: Laureen Hernandez DO [...] Up With: Laureen Hernandez DO When: Call [phone] to schedule appointment. Test Results: Test results from this visit will be discussed in further detail at your follow-up appointment, if applicable. Discharge Plan Admission Primary Reason for Your Visit: hysteroscopy dilation and curettage Attending Provider: Larueen Hernandez Primary Care Provider: Damion Wright Instructions Print Language: Yoruba Discharge Orders/Prescriptions Prescriptions: New ibuprofen 800 mg tablet 800 mg PO Q8H PRN (Reason: pain) Qty: 20 0RF No Action cholecalciferol (vitamin D3) [Vitamin D3] 25 mcg (1,000 unit) capsule 15,000 unit PO .weekly Referrals / Follow Up: Damion Wright MD [Primary Care Provider] - Disposition Disposition (needs filled in before D/C Order can be placed): Home, Self Care 11/20/24 2363<Electronically signed by Laureen Hernandez DO>Laureen Hernandez DO CC: Dr. Damion Wright MD ~ Signed [facility] Work Phone: 1(893) 788-593504-22-2025 Procedure note [facility] Medical Records Department [address] [place] [address] Operative Report 11/20/24 1525 MR#: [id number] Acct: [id number] Name: DEJA WOLFE Rep #:[id number] : 1985 39 From: Laureen Hernandez DO PCP: Dr. Damion Wright MD Status:REG S MD Location: [place] [address] Problems Associated Problem List Diagnoses (1) Polyp of cervix: (2) Abnormal uterine bleeding: Multi Select Codes Urinary/Genital Urinary/Genital CPT Codes: 22482 Hysteroscopy,EMC, Polypectomy Operative Report (Standard) Operative Information Date of Procedure: 11/20/24 Pre-Operative Diagnosis: abnormal uterine bleeding, cervical polyp Post-Operative Diagnosis: abnormal uterine bleeding, cervical polyp Surgery/Procedure Performed: hysteroscopy dilation and curettage campus receptionist: No Type of Anesthesia: MAC RN Documented [...] Hernandez DO; Dr. Damion Wright MD~ Signed [facility]04-22-2025 Consult note Author Tristen Fuentes [facility] Note Date/Time November 20, 2024 1:2 6pm [facility] Medical Records Department [address] [place] [address] Pre-Anesthesia Evaluation 11/20/24 1308 MR#: [id number] Acct: [id number] Name: DEJA WOLFE Rep #:[id number] : 1985 39 From: Tristen Fuentes MD PCP: Dr. 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 Currently completely resolved.) STOP Sleep Apnea STOP Sleep Apnea - welt pocket machine operator: STOP Sleep Apnea - welt pocket machine operator Hx Hypertension Yes: DURING PREGANANCY/201311/15/24 11:47 Hx [...] Tobacco Use History Tobacco Use History - welt pocket machine operator: Tobacco Use History - welt pocket machine operator Tobacco Use Smoking Status Current every day smoker 11/15/24 11:47 Hx Tobacco Use Yes 11/15/24 11:47 Years Smoking Packs Smoked per Day Smoking Cessation Date was within the last 15 years Hx Smoking Cessation Date Hx Smoking Cessation No 11/15/24 11:47 Counseling Any additional information?: Yes Tobacco Use: Vapor (Patient vape today.) Hematologic Medial History Hematologic Hx - welt pocket machine operator: Hematologic Medical Hx - health coordinator Hx of Blood Transfusion Yes 11/15/24 11:47 [...] confused, unrespo /Reproduction History /Reproductive History - welt pocket machine operator: /Reproductive Hx- welt pocket machine operator Hx Now No 11/15/24 11:47 Gestational Age [...] MD Cosigner Signature: Date CC: ~ Signed [facility] Work Phone: 1(110) 181-570204-22-2025 Consult note [facility] Medical Records Department [address] [place] [address] Anesthesia Postop Eval I 11/20/24 1438 MR#: [id number] Acct: [id number] Name: DEJA WOLFE Rep #:[id number] : 1985 39 From: Juan peters CRNA PCP: Dr. Damion Wright MD Status:REG S DC Y Race: C Location: [place] [address] Anesthesia: Postop Eval I Current Vital Signs [...] Eval 1 completed: Yes 11/20/24 1439 tler PEST CONTROL SERVICE TECHNICIAN> Date _ Juan Robles PEST CONTROL SERVICE TECHNICIAN Cosigner Signature: Date CC: ~ Signed [facility]04-22-2025 History and physical note Author [facility]en [facility] Note Date/Time November 20, 2024 3:5 4pm [facility] Medical Records Department [address] [place] [address] History & Physical Exam 11/20/24 1216 MR#: [id number] Acct: [id number] Name: DEJA WOLFE Rep #:[id number] : 1985 39 From: Laureen Hernandez DO PCP: Dr. Damion Wright MD Status:REG S DC Location: [address] History and Physical Date of Admission: 11/20/24 Intake Vital Signs 10/18/2510:40 11/05/2510:58 11/06/2511:00 Height 5 ft 2 in 5 ft 2 in 5 ft 2 in Weight: 133 lb 8 oz BMI 24.4 BP 127/81 H Intake Visit Reasons: D&C polypectomy Watershed Tender Required: No Is patient in pain?: No [...] Anemia Endometriosis determined by laparoscopy Surgical History [place] teeth extracted H/O dilation and curettage Hematoma [...] Weight Infant Gen [facility] FOB Unknown Ian 2010 Unknown Nico [...] Hernandez DO; Dr. Damion Wright MD~ Signed [facility] Work Phone: 1(803) 359-442204-22-2025 Discharge summary [facility] Medical Records Department [address] [place] [address] Instructions for Home/Discharge Instructions 11/20/24 1352 MR#: [id number] Acct: [id number] Name: DEJA WOLFE Rep #:[id number] : 1985 39 From: Laureen Hernandez DO [...] Up With: Laureen Hernandez DO When: Call [phone] to schedule appointment. Test Results: Test results from this visit will be discussed in further detail at your follow- up appointment, if applicable. Discharge Plan Admission Primary Reason for Your Visit: hysteroscopy dilation and curettage Attending Provider: Laureen Hernandez Primary Care Provider: Damion Wright Instructions Print Language: Yoruba Discharge Orders/Prescriptions Prescriptions: New ibuprofen 800 mg [...] CC: Dr. 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 Currently completely resolved.) STOP Sleep Apnea STOP Sleep Apnea - welt pocket machine operator: STOP Sleep Apnea - welt pocket machine operator Hx Hypertension Yes: DURING PREGANANCY/201311/15/24 11:47 Hx [...] Tobacco Use History Tobacco Use History - welt pocket machine operator: Tobacco Use History - welt pocket machine operator Tobacco Use Smoking Status Current every day smoker 11/15/24 11:47 Hx Tobacco Use Yes 11/15/24 11:47 Years Smoking Packs Smoked per Day Smoking Cessation Date was within the last 15 years Hx Smoking Cessation Date Hx Smoking Cessation No 11/15/24 11:47 Counseling Any additional information?: Yes Tobacco Use: Vapor (Patient vape today.) Hematologic Medial History Hematologic Hx - welt pocket machine operator: Hematologic Medical Hx - health coordinator Hx of Blood Transfusion Yes 11/15/24 11:47 [...] confused, unrespo /Reproduction History /Reproductive History - welt pocket machine operator: /Reproductive Hx- welt pocket machine operator Hx Now No 11/15/24 11:47 Gestational Age [...] mike GAO> Date _ Tristen Fuentes MD [facility] Signature: Date CC: ~ Signed [facility]04-22-2025 [facility] Medical Records Department [address] [place] [address] History Physical Exam 11/20/24 1216 MR#: [id number] Acct: [id number] Name: DEJA WOLFE Rep #: [id number] : 1985 39 From: Laureen Hernandez DO PCP: Dr. Damion Wright MD Status:[facility] Location: [place] [address] History and Physical Date of Admission: 11/20/24 Intake Vital Signs 10/18/2510:40 11/05/2510:58 11/06/2511:00 Height 5 ft 2 in 5 ft 2 in 5 ft 2 in Weight: 133 lb 8 oz BMI 24.4 BP 127/81 H Intake Visit Reasons: D C polypectomy Watershed Tender Required: No Is patient in pain?: No [...] Anemia Endometriosis determined by laparoscopy Surgical History [place] teeth extracted H/O dilation and curettage Hematoma [...] not included)...[facility] 10-30-2024 NoteHNO ID: [id number] Author: ZUNILDA MOTTA APRN.STRAIGHTENER AND ALIGNER Service: ? Author Type: Nurse Practitioner Type: Progress Notes Filed: 10/30/2024 11:13 Note Text: [facility] Subjective Deja Wolfe is a [...] history is provided by the patient. No director fraud was used. URI There is no chest [...] appearance. She (more content not included)...[facility]04-01-2025 History of Present illness Narrative* Zunilda Motta APRN.STRAIGHTENER AND ALIGNER - 10/30/2024 10:43 AM EDT [facility] Subjective Deja Wolfe is a 39 year old female. Patient presents with: Sore Throat: Body aches, headache, low grade fever x this 39 year old female with PMH hypothyroidism presents for illness. Acute onset yesterday +sore throat +nasal congestion +lymph node +headache +body ache +fever Of note, she spent the weekend in [place] Flew there and back. Tylenol Just feel like this is strep throat The history is provided by the patient. No director fraud was used. URI There is no chest [...] - STREP A MOLECULAR (POC) Zunilda Motta APRN.STRAIGHTENER AND ALIGNER History and Record Review Clinical information obtained from an independent historian. History obtained from or confirmed by:friend. Differential Diagnoses - strep is more likely for the following reason(s): consistent with laboratory studies - INLETTER Disposition The patient was discharged. Procedures documented [facility] Evaluation note* Diagnosis Onset Date Resolution Status Admit Date Abnormal uterine bleeding acute October 03, 2024 9:35am History of endometriosis acute October 03, 2024 9:35am Monilial vaginitis noneactive October 03, 2024 9:35am [facility] Work Phone: [phone]) [phone] Evaluation note* Diagnosis Onset Date Resolution Status Admit Date Abnormal uterine bleeding acute October 03, 2024 9:35am History of endometriosis acute October 03, 2024 9:35am Monilial vaginitis noneactive October 03, 2024 9:35am Abnormal uterine bleeding acute October 18, 2024 11:31am History of endometriosis acute October 18, 2024 11:31am Polyp of cervix acute September 11:31am [facility] Work Phone: 1([phone]) [phone] Evaluation note* Diagnosis Onset Date Resolution Status [...] 11:57am Polyp of cervix acute October 11:57am [facility] Work Phone: 1(750) [phone] Evaluation note* Diagnosis Onset Date Resolution Status [...] of cervix acute December 04, 2024 10:28am [facility] Work Phone: 1(979) 154-646603-04-2025 Radiology Diagnostic study note [facility] Imaging Services [address] [place] [address] Pelvic w/ Transvaginal MR#: [id number] Acct: [id number] Name: DEJA WOLFE Rep #: [id number] : 1985 F 39 From: Conor Henry MD PCP: Dr. Damion Wright MD Status: [facility] Study:Pelvic w/ Transvaginal Date of Exam: 10/02/24 Exam# [id number] Ordering Dr: Laureen Copeland DO PROCEDURE: PELVIC [...] polyp at the cervical os. Reading Location: [id number] CC: Dr. Laureen Hernandez DO; Dr. Damion Wright MD ~ Physical Security Engineer: Signed [facility]02-20-2025 NoteHNO ID: [id number] Author: DIANN EVANS APRN.STRAIGHTENER AND ALIGNER Service: ? Author Type: Nurse Practitioner Type: Progress Notes Filed: 09/20/2024 16:08 Note Text: This note was created using [employer]. Radha Wolfe is a 39 year old [...] persist or worsen. Diann Evans, DESHAWN.[facility] History of Present illness Narrative* Diann Evans, DESHAWN.SO - 09/20/2024 3:50 PM EST This note was created using [employer]. Subjective Deja Wolfe is a 39 year [...] if symptoms persist or worsen. Diann Evans APRN.STRAIGHTENER AND ALIGNER documented in this encounterCherrington Hospital02-20-2025 Instructions* Patient Instructions* Diann Evans APRN.SO - [...] return to the clinic. documented in this encounterCher[facility] Hospital10-13-2022 NotePap Smear Specimen AdequacyOctober 2021 11:59pmComment.Satisfactory for evaluation. Endocervical and/or squamous metaplasticcells (endocervical component)are present.[facility] A#[id number] County Community Hospital Work Phone: Comment on above:Satisfactory for evaluation. Endocervical and/or squamous metaplasticcells (endocervical component)are present.05-13-2022 NotePap Smear QC ReviewOctober 2021 11:59pmComment. Meagan Pablo Supervisory Java J2Ee Technical Lead (ASCP)[facility] A#[id number] [facility] Work Phone: Comment on above:Meagan Pablo Supervisory Java J2Ee Technical Lead (ASCP)05-13-2022 NotePap Smear Specimen AdequacyOctober 2021 10:59pmComment.Satisfactory for evaluation. Endocervical and/or squamous metaplasticcells (endocervical component)are present.[facility] A#[id number] County Community Hospital Work Phone: Comment on above:Satisfactory for evaluation. Endocervical and/or squamous metaplasticcells (endocervical component)are present.05-13-2022 NotePap Smear QC ReviewOctober 2021 10:59pmComment. Meagan Pablo Supervisory Java J2Ee Technical Lead (ASCP)[facility] A#[id number] [facility] Work Phone: Comment on above:Earnestine Limaory Java J2Ee Technical Lead (ASC)05-13-2022 NotePap Smear Specimen AdequacyOctober 2021 10:59pmComment.Satisfactory for evaluation. Endocervical and/or squamous metaplasticcells (endocervical component)are present.[facility] A#[id number] County Community HospitalComment on above:Satisfactory for evaluation. Endocervical and/or squamous metaplasticcells (endocervical component)are present.05-13-2022 NotePap Smear QC ReviewOctober 2021 10:59pmComment.Meagan Pablo Supervisory Java J2Ee Technical Lead (ASCP)[facility] A#[id number] County Community HospitalComment on above:Meagan Pablo Supervisory Java J2Ee Technical Lead (ASCP)01-29-2022 History of Present illness Narrative* Kerry De Guzman APRN.STRAIGHTENER AND ALIGNER - 01/29/2022 1:14 PM EDT Images from [...] Kerry De Guzman APRN.CNP documented in this encounterCherrington Hospital07-01-2022 Instructions* Patient Instructions* Kerry De Guzman APRN.CNP [...] Kerry De Guzman APRN.CNP documented in this encounterCher[facility] Hospital02-03-2014 History of Past illness Narrative* Problem Noted Date Resolved Date Family history of cleft lip and palate 4 11/19/2013 Overview: 09/03/2013The father of the baby's second cousin born with cleft lip and palate. November 19, 2013 doesn't increase her risk. Nicky Smith MD documented as of this encounter (statuses as of 01/29/2022) [facility] HospitalConsult note Author Juan Robles [facility] Note Date/Time November 20, 2024 2:3 9pm [facility] Medical Records Department [address] [place] [address] Anesthesia Postop Eval I 11/20/24 1438 MR#: [id number] Acct: [id number] Name: DEJA WOLFE Rep #:[id number] : 1985 39 From: Juan peters CRNA PCP: Dr. Damion Wright MD Status:REG S DC Y Race: C Location: [place] [address] Anesthesia: Postop Eval I Current Vital Signs [...] 11/20/24 1439 <Electronically signed by Juan trent PEST CONTROL SERVICE TECHNICIAN> Date _ Juan Robles CRNA Cosigner Signature: Date CC: ~ Signed [facility] Work Phone: Evaluation note* Diagnosis Skin pimple- Primary documented in this encounter [facility] note* Diagnosis Onset Date Resolution Status Encounter for routine gynecological examination noneactive [facility] Work Phone: Evaluation note* Diagnosis Onset Date Resolution Status Possible exposure to STD non eactive [facility] Work Phone: Evaluation note* Diagnosis Onset Date Resolution Status Possible exposure to STD non eactive Encounter for routine gynecological examination noneactive [facility] Work Phone: Evaluation note* Diagnosis Onset Date Resolution Status Encounter for routine gynecological examination noneactive Lipoma of right thigh acute Lipoma of right thigh acute [facility] Work Phone: Evaluation note* Diagnosis Onset Date Resolution Status Lipoma of right thigh acute Lipoma of right thigh acute [facility] Work Phone: Evaluation note* Diagnosis Pneumonia of left lower lobe due to infectious organism- Primary Bacterial sinusitis Unspecified sinusitis (chronic) documented in this encounter [facility] note* Diagnosis Strep pharyngitis- Primary Streptococcal sore throat documented in this encounter [facility] note* Diagnosis Acute left ankle pain- Primary Acute left ankle pain documented in this encounter [facility] note* Diagnosis Acute left ankle pain documented in this encounter [facility] for referral (narrative)No reason for referral information availableWRiverview Health Institute Work Phone: Reason for visit Narrative* Diagnostic Procedure Only (Urgent) - Closed Specialty Diagnoses / Procedures Referred By Dez t Referred To Contact XR IMAGING Diagnoses Acute left ankle pain Procedures XR FOOT GENERAL 3V AP/LAT/OBL LEFT RADEX FOOT COMPLETE MINIMUM 3 VIEWS Jackelyn Acosta, MIKE [address] [place] [address] Phone: tel: fax: [place] [address] Referral ID Status Reason Start Date Expiration Date V isits Requested Visits Authorized [id number] Closed Auto-Generate d Referral 01/21/2025 02/20/2026 1 1 [facility] Dis[facility] Inst[facility] * Attachments The following attachments cannot be sent through Care Everywhere. 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) SCREENING Reason for Visit Possible exposure to STD Encounter for routine gynecological examination Chief Complaint 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) SCREENING LIPOMA R THIGH THIGH LIPOMA EXCISION [...] November 16, 2024 9:39am Hysteroscopy,Dilation and Curettage, Jadyen ypectomy November 20, 2024 11:57am Hysteroscopy,Dilation and [...] No April 29, 2021 10:27am Power of Inspector Of Dredging No April 10:27am Advance Directive Response Recorded Date/ Time Living Will No April 29, 2021 9:27am Power of Inspector Of Dredging No April 9:27am Advance Directive Response Recorded Date/ Time Living Will No September 16 2:53pm Power of Inspector Of Dredging No September 16, 2024 2:53pm Living Will No April 29, 2021 10:27am Power of Inspector Of Dredging No April 10:27am Advance Directive Response Recorded Date/ Time Living Will No September 16, 2:53pm Do you have a Healthcare Power of Inspector Of Dredging? No September 16, 2024 2:53pm Living Will No April 29, 2021 10:27am Do you have a Healthcare Power of Inspector Of Dredging? No April 29, 2021 10:27am Advance Directive Response Recorded Date/ Time Living Will No September 16, 025 2:53pm Do you have a Healthcare Power of Inspector Of Dredging? No September 16, 2024 2:53pm Living Will No April 29, 2021 10:27am Do you have a Healthcare Power of Inspector Of Dredging? No April 29, 2021 10:27am Living Will No November 15, 2024 11:47am Do you have a Healthcare Power of Inspector Of Dredging? No November 15, 2024 11:47am Summary Purpose [...] or prosecute any alcohol or drug abuse patient.[facility] HospitalIn the event this information is protected by the Federal Confidentiality of Alcohol and Drug Abuse Patient Records regulations: The Federal rules restrict any use of the information to criminally investigate or prosecute any alcohol or drug abuse patient.[facility] HospitalIn the event this information is protected by the Federal Confidentiality of Alcohol and Drug Abuse Patient Records regulations: The Federal rules restrict any use of the information to criminally investigate or prosecute any alcohol or drug abuse patient.[facility] HospitalIn the event this information is protected by the Federal Confidentiality of Alcohol and Drug Abuse Patient Records regulations: The Federal rules restrict any use of the information to criminally investigate or prosecute any alcohol or drug abuse patient.[facility] HospitalIn the event this information is protected by the Federal Confidentiality of Alcohol and Drug Abuse Patient Records regulations: The Federal rules restrict any use of the information to criminally investigate or prosecute any alcohol or drug abuse patient.[facility] Care Teams (unrecognized sec tion and content) Wellness Program Manager Relationship Specialty Start Date End Date Damion [...] Care Provider, Referring Provider Active Felipa Singer MEMBER OF PARLIAMENT, MEMBER OF PARLIAMENT-C Attending Provider Active Team Status: Inactive Member Role Status Dates Dr. Damion Wright MD Primary Care Provider Active Felipa Singer MEMBER OF PARLIAMENT, MEMBER OF PARLIAMENT-C Attending Provider Active Team Status: Inactive Member [...] Provi avelina, Attending Provider, Referring Provider Active Wellness Program Manager Relationship Specialty Start Date End Date Damion [...] 2024 End: October 03, 2024 Felipa Singer MEMBER OF PARLIAMENT, MEMBER OF PARLIAMENT-C Attending Provider Active Start: October 03, 2024 End: October 03, 2024 Team Status: Active Member Role Status Dates Dr. Damion Wright MD Primary Care Provider Active Start: October 03, 2024 Felipa Singer MEMBER OF PARLIAMENT, MEMBER OF PARLIAMENT-C Attending Provider Active Start: October 03, 2024 Felipa Singer MEMBER OF PARLIAMENT, MEMBER OF PARLIAMENT-C Referring Provider Active Start: October 03, 2024 [...] 2024 End: October 03, 2024 Felipa Singer MEMBER OF PARLIAMENT, MEMBER OF [facility] Attending Provider Active Start: October 03, 2024 End: October 03, 2024 Felipa Singer [employer], [employer] Referring Provider Active Start: October 03, 2024 [...] October 18, 2024 End: October 18, 2024 Wellness Program Manager Relationship Specialty Start Date End Date Damion [...] 2024 End: December 03, 2024 Dr. Damion Wrihgt MD Referring Provider Active Start: December 03, 2024 End: December 03, 2024 Felipa Singer [employer], [employer] Attending Provider Active Start: December 03, 2024 End: December 03, 2024 Team Status: Inactive Member Role Status Dates Dr. Damion Wright MD Primary Care Provider Active Start: December 03, 2024 End: December 03, 2024 Felipa Singer [employer], [employer] Attending Provider Active Start: December 03, 2024 End: December 03, 2024 Felipa Singer [employer], [employer] Referring Provider Active Start: December 03, 2024 [...] January 07, 2025 End: January 07, 2025 Wellness Program Manager Relationship Specialty Start Date End Date Damion Wright MD PCP - General Family Medicine 09/03/13 Wellness Program Manager Relationship Specialty Start Date End Date Damion [...] content) DATE CREATED AUTHOR 01/22/2025 [facility] DATE CREATED AUTHOR 'S JAMAL QUAN 02/22/2025 [facility] FOR RECORDS PERTAINING TO PATIENTS WHO ARE [...] BE BASED ON THE PRIMARY CLINICAL RECORDS. [facility]. provides no warranty or guarantee of the accuracy or completeness of information in this document.
[2025-02-22 06:08] LABS: Internal QC Validated? YES +Cl - CLEAR BKGD; Pregnancy, Urine Negative Negative; Record Kit Lot#,Urine Preg 0000962302
[2025-02-22] MEDS: Scopolamine 1mg/72hr Patch 1 PATCH TD (06:35)
[2025-02-22] MEDS: Lactated Ringers 1,000 ML 40 ML IV (06:36)
[2025-02-22] MEDS: Magnesium 1 GM over 15 mins IV (06:38)
--- NOTE | 2025-02-22 06:54 | PCM.PRE.AN2 ---
ASA Classification* ASA Classification ASA Classification: 2 Assessment & Plan Anesthesia* Anesthesia Assessment Anesthesia Assessment: Discussed sedation and/or anesthesia options, risks, benefits, and alternatives with patient/parents/legal guardian/POA. Questions invited. The patient/parents/legal guardian/POA seems to understand and agrees to proceed with anesthesia plan. Reviewed the physical assessment, medical history, allergy history and patient home medications list prior to surgery/procedure/anesthetic and documented any changes. Performed airway and anesthesia risk assessments. Anesthesia Type Anesthesia Type: General History Source History Obtained from:: Patient and Chart Anesthesia Focused Assessment* Temperature: 97.6 F Pulse Rate: 75 Blood Pressure: 106/50 Respiratory Rate: 16 Pulse Ox: 100 Oxygen Delivery Method: Room Air Airway Assessment Mouth opens: >3 cm Mallampati Score: I Teeth Condition: Chipped/Broken (Tooth #4 is broken.) Neck Range of motion (ROM): Full ROM Labs Anesthesia Preop lab: CBC WBC 5.5 K/mm3 (4.4-11.0) 02/18/25 14:21 02/18/25 RBC 4.24 M/mm3 (4.2-5.4) 02/18/25 14:21 02/18/25 Hgb 11.2 g/dL (12.0-15.0) L 02/18/25 14:21 02/18/25 Hct 35.2 % (37-47) L 02/18/25 14:21 02/18/25 Plt Count 324 K/mm3 (150-450) 02/18/25 14:21 02/18/25 CHEMISTRY Potassium 3.5 mmol/L (3.5-5.1) 05/12/21 12:45 05/12/21 Sodium 140 mmol/L (136-145) 05/12/21 12:45 05/12/21 Magnesium 2.0 mg/dL (1.5-2.2) 02/18/25 14:20 02/18/25 BUN 6 mg/dL (7-18) L 05/12/21 12:45 05/12/21 Creatinine 0.74 mg/dL (0.55-1.02) 05/12/21 12:45 05/12/21 Glucose 94 mg/dL (74-106) 05/12/21 12:45 05/12/21 TSH 2.32 uIU/mL (0.358-3.74) 06/01/22 09:35 06/01/22 COAG PT 13.1 SECONDS (11.7-14.9) 02/18/25 14:20 02/18/25 Urine Test Negative Negative 02/22/25 05:58 02/22/25 Pre-Assessment Diagnosis/Proposed Procedure Planned Operative Procedure(s): Lap Total Robotic Hysterectomy, Lysis of Adhesions, ERAS Anesthesia History Anesthesia History - prepared foods associate: Anesthesia History - prepared foods associate Hx Hospitalization No 02/08/25 08:23 Any Problems With Anesthesia No 02/08/25 08:23 Cholinesterase deficiency No 02/08/25 08:23 You/Your Family Experience No 02/08/25 08:23 fever (hyperthermia) with Relationship Recent Exposure to Contagious No 02/22/25 06:04 Disease Does patient have nerve No 02/08/25 08:23 stimulator Patient instructed to have device shut off --Does patient have Pacemaker No 02/22/25 06:04 or ICD? When Was Last Pacemaker Check QUESTION #4 FULL TEXT: You/Your Family Experience fever (hyperthermia) with Anesthesia Last Oral Intake Last Oral intake: Last Oral Intake NPO since 05:15 02/22/25 06:04 Meds taken in AM with sips of Yes 02/22/25 06:04 water? Meds patient instructed to take am of surgery Any additional information?: Yes NPO since: 05:15 (Patient had her preop Ensure at 5:15 a.m.) Meds taken in AM with sips of water?: No PONV PONV - prepared foods associate: PONV - prepared foods associate Female Yes 02/08/25 08:23 HX of Motion Sickness No 02/08/25 08:23 HX of N/V After Surgery No 02/08/25 08:23 Non-Smoker Yes 02/08/25 08:23 Duration of Surgery greater Yes 02/08/25 08:23 than 60 minutes Number of Risk Factors 3 02/08/25 08:23 PONV Score Moderate Risk 02/08/25 08:23 Height & Weight Height & Weight: Anesthesia: Height & Weight Height 5 ft 2 in 02/22/25 06:04 Weight: 59 kg 02/22/25 06:04 Body Mass Index (BMI) 23.8 02/22/25 06:04 Respiratory Assessment Respiratory Assessment - prepared foods associate: Respiratory Tract Infection Hx - prepared foods associate Hx Respiratory Tract Infection No 02/08/25 08:23 STOP Sleep Apnea STOP Sleep Apnea - prepared foods associate: STOP Sleep Apnea - prepared foods associate Hx Hypertension No 02/08/25 08:23 Hx Sleep Apnea No 02/08/25 08:23 CPAP BIPAP Do you snore loudly (louder No 02/08/25 08:23 than talking or can be heard Do you often feel tired/ No 02/08/25 08:23 fatigued/ sleepy during daytime? Has anyone observed you stop No 02/08/25 08:23 breathing during sleep? STOP Results Negative 02/08/25 08:23 QUESTION #5 FULL TEXT : Do you snore loudly (louder than talking or can be heard through closed doors)? Tobacco Use History Tobacco Use History - prepared foods associate: Tobacco Use History - prepared foods associate Tobacco Use Vapor 11/20/24 13:14 Smoking Status Former smoker 02/08/25 08:23 Hx Tobacco Use No 02/08/25 08:23 Years Smoking 8 02/08/25 08:23 Packs Smoked per Day Smoking Cessation Date was Yes - quit smoking within 15 02/08/25 08:23 within the last 15 years years Hx Smoking Cessation Date Hx Smoking Cessation No 02/08/25 08:23 Counseling Any additional information?: Yes Tobacco Use: Vapor (Patient vaped today.) Hematologic Medial History Hematologic Hx - prepared foods associate: Hematologic Medical Hx - best worker Hx of Blood Transfusion Yes 02/08/25 08:23 Hx of Transfusion in last 3 No 02/08/25 08:23 Months Date of Last Transfusion (if within last 3 months) Ever experience any problems No 02/08/25 08:23 with transfusion(s)? Specify any problems Hx of Preganancy in last 3 No 02/08/25 08:23 Months Nurse Filling Out Transfusion JZOLLLAVELLE 02/08/25 08:23 & Questions: Date: 02/08/25 02/08/25 08:23 Time: 08:26 02/08/25 08:23 Patient unable to answer at this time (ie. confused, unrespo /Reproduction History /Reproductive History - prepared foods associate: /Reproductive Hx- prepared foods associate Hx Now No 02/08/25 08:23 Gestational Age (in weeks): EDC: Hx Hx Para Hx Section SAB No 02/08/25 08:23 Active Medications Active Medications: Current Medications Generic Name Dose Route Start Last Admin Trade Name Freq PRN Reason Stop Dose Admin Acetaminophen 1,000 mg 02/22/25 07:30 02/22/25 06:37 Acetaminophen 500 Mg Tablet PO 02/22/25 07:31 1,000 mg PREOP ONE Administration Celecoxib 400 mg 02/22/25 07:30 02/22/25 06:37 Celecoxib 200 Mg Capsule PO 02/22/25 07:31 400 mg PREOP ONE Administration Gabapentin 600 mg 02/22/25 07:30 02/22/25 06:37 Gabapentin 600 Mg Tablet PO 02/22/25 07:31 600 mg PREOP ONE Administration Lactated Ringer's 1,000 mls @ 40 mls/hr 02/22/25 07:30 02/22/25 06:36 IV 40 mls/hr .Q25H RENETTA Administration Cefazolin Sodium 2 gm/ Sodium 110 mls @ 150 mls/hr 02/22/25 07:30 Chloride IV 02/22/25 08:13 INTRAOP ONE Lactated Ringer's 1,000 mls @ 70 mls/hr 02/22/25 07:30 IV .[id number] RENETTA Magnesium Sulfate 1 gm/ 102 mls @ 408 mls/hr 02/22/25 07:30 02/22/25 06:38 Dextrose IV 02/22/25 07:44 408 mls/hr PREOP ONE Administration Lactated Ringer's 1,000 mls @ 15 mls/hr 02/22/25 06:00 IV .Q48H RENETTA Insulin Human Lispro 0 unit 02/22/25 07:30 Insulin Lispro 100 Unit/Ml Insuln.Pen SC Q4H PRN PRN BG >/= 180, SEE PROTOCOL Protocol Ondansetron HCl 4 mg 02/22/25 07:30 Ondansetron 4 Mg/2 Ml Vial IV 02/22/25 07:31 INTRAOP ONE Phenazopyridine HCl 190 mg 02/22/25 07:30 02/22/25 06:36 Phenazopyridine 95 Mg Tablet PO 02/22/25 07:31 190 mg PREOP ONE Administration Scopolamine HBr 1 patch 02/22/25 07:30 02/22/25 06:35 Scopolamine 1mg/72hr Patch TD 02/22/25 07:31 1 patch PREOP ONE Administration PFSH Medical History Anxiety Marijuana use Alcohol use Low iron Loss of consciousness Former smoker History of echocardiogram History of stress test Wears glasses Easy bruising Migraine headache Gastric reflux Vapes nicotine containing substance ADHD Mass of left forearm Contusion of left upper arm Anemia Home Medications ?Medication ?Instructions ?Recorded ?Last Taken ?Type cholecalciferol (vitamin D3) 25 15,000 unit PO .weekly 11/20/24 Unknown History mcg (1,000 unit) capsule (Vitamin D3) ibuprofen 800 mg tablet 800 mg PO Q8H PRN pain #30 tabs 02/22/25 Unknown Rx ondansetron HCl 4 mg tablet 4 mg PO Q6H PRN nausea and 02/22/25 Unknown Rx vomiting #20 tabs oxycodone-acetaminophen 5 mg-325 1 tab PO Q4H PRN pain 7 days #20 02/22/25 Unknown Rx mg tablet (Percocet) tabs Allergy/AdvReac Type Severity Reaction Status Date / Time fentanyl AdvReac Severe Pruritis Verified 02/22/25 06:02 Family History Aunt Breast cancer x2 Surgical History H/O dilation and curettage History of excision of lesion History of wisdom tooth extraction Hx of laparoscopy H/O dilation and curettage delivery delivered H/O tubal ligation Social History adopted: No number of children: 3 current occupational status: unemployed Smoking Status: Former smoker alcohol intake: never substance use type: does not use caffeine: Yes what type of physical activity do you participate in: walking frequency: 1-2 times per week seatbelt use: always do you feel safe at home: Yes additional social history: Review of Systems (Anesthesia) ROS Narrative System reviewed and no additional complaints, except as documented.
--- NOTE | 2025-02-22 06:54 | PCM.PRE.AN2 ---
ASA Classification* ASA Classification ASA Classification: 2 Assessment & Plan Anesthesia* Anesthesia Assessment Anesthesia Assessment: Discussed sedation and/or anesthesia options, risks, benefits, and alternatives with patient/parents/legal guardian/POA. Questions invited. The patient/parents/legal guardian/POA seems to understand and agrees to proceed with anesthesia plan. Reviewed the physical assessment, medical history, allergy history and patient home medications list prior to surgery/procedure/anesthetic and documented any changes. Performed airway and anesthesia risk assessments. Anesthesia Type Anesthesia Type: General History Source History Obtained from:: Patient and Chart Anesthesia Focused Assessment* Temperature: 97.6 F Pulse Rate: 75 Blood Pressure: 106/50 Respiratory Rate: 16 Pulse Ox: 100 Oxygen Delivery Method: Room Air Airway Assessment Mouth opens: >3 cm Mallampati Score: I Teeth Condition: Chipped/Broken (Tooth #4 is broken.) Neck Range of motion (ROM): Full ROM Labs Anesthesia Preop lab: CBC WBC 5.5 K/mm3 (4.4-11.0) 02/18/25 14:21 02/18/25 RBC 4.24 M/mm3 (4.2-5.4) 02/18/25 14:21 02/18/25 Hgb 11.2 g/dL (12.0-15.0) L 02/18/25 14:21 02/18/25 Hct 35.2 % (37-47) L 02/18/25 14:21 02/18/25 Plt Count 324 K/mm3 (150-450) 02/18/25 14:21 02/18/25 CHEMISTRY Potassium 3.5 mmol/L (3.5-5.1) 05/12/21 12:45 05/12/21 Sodium 140 mmol/L (136-145) 05/12/21 12:45 05/12/21 Magnesium 2.0 mg/dL (1.5-2.2) 02/18/25 14:20 02/18/25 BUN 6 mg/dL (7-18) L 05/12/21 12:45 05/12/21 Creatinine 0.74 mg/dL (0.55-1.02) 05/12/21 12:45 05/12/21 Glucose 94 mg/dL (74-106) 05/12/21 12:45 05/12/21 TSH 2.32 uIU/mL (0.358-3.74) 06/01/22 09:35 06/01/22 COAG PT 13.1 SECONDS (11.7-14.9) 02/18/25 14:20 02/18/25 Urine Test Negative Negative 02/22/25 05:58 02/22/25 Pre-Assessment Diagnosis/Proposed Procedure Planned Operative Procedure(s): Lap Total Robotic Hysterectomy, Lysis of Adhesions, ERAS Anesthesia History Anesthesia History - sap bobj developer: Anesthesia History - sap bobj developer Hx Hospitalization No 02/08/25 08:23 Any Problems With Anesthesia No 02/08/25 08:23 Cholinesterase deficiency No 02/08/25 08:23 You/Your Family Experience No 02/08/25 08:23 fever (hyperthermia) with Relationship Recent Exposure to Contagious No 02/22/25 06:04 Disease Does patient have nerve No 02/08/25 08:23 stimulator Patient instructed to have device shut off --Does patient have Pacemaker No 02/22/25 06:04 or ICD? When Was Last Pacemaker Check QUESTION #4 FULL TEXT: You/Your Family Experience fever (hyperthermia) with Anesthesia Last Oral Intake Last Oral intake: Last Oral Intake NPO since 05:15 02/22/25 06:04 Meds taken in AM with sips of Yes 02/22/25 06:04 water? Meds patient instructed to take am of surgery Any additional information?: Yes NPO since: 05:15 (Patient had her preop Ensure at 5:15 a.m.) Meds taken in AM with sips of water?: No PONV PONV - sap bobj developer: PONV - sap bobj developer Female Yes 02/08/25 08:23 HX of Motion Sickness No 02/08/25 08:23 HX of N/V After Surgery No 02/08/25 08:23 Non-Smoker Yes 02/08/25 08:23 Duration of Surgery greater Yes 02/08/25 08:23 than 60 minutes Number of Risk Factors 3 02/08/25 08:23 PONV Score Moderate Risk 02/08/25 08:23 Height & Weight Height & Weight: Anesthesia: Height & Weight Height 5 ft 2 in 02/22/25 06:04 Weight: 59 kg 02/22/25 06:04 Body Mass Index (BMI) 23.8 02/22/25 06:04 Respiratory Assessment Respiratory Assessment - sap bobj developer: Respiratory Tract Infection Hx - sap bobj developer Hx Respiratory Tract Infection No 02/08/25 08:23 STOP Sleep Apnea STOP Sleep Apnea - sap bobj developer: STOP Sleep Apnea - sap bobj developer Hx Hypertension No 02/08/25 08:23 Hx Sleep Apnea No 02/08/25 08:23 CPAP BIPAP Do you snore loudly (louder No 02/08/25 08:23 than talking or can be heard Do you often feel tired/ No 02/08/25 08:23 fatigued/ sleepy during daytime? Has anyone observed you stop No 02/08/25 08:23 breathing during sleep? STOP Results Negative 02/08/25 08:23 QUESTION #5 FULL TEXT : Do you snore loudly (louder than talking or can be heard through closed doors)? 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 Specify any problems Hx of Preganancy in last 3 No 02/08/25 08:23 Months Nurse Filling Out Transfusion JZOLLLAVELLE 02/08/25 08:23 & Questions: Date: 02/08/25 02/08/25 08:23 Time: 08:26 02/08/25 08:23 Patient unable to answer at this time (ie. confused, unrespo /Reproduction History /Reproductive History - sap bobj developer: /Reproductive Hx- sap bobj developer Hx Now No 02/08/25 08:23 Gestational Age (in weeks): EDC: Hx Hx Para Hx Section SAB No 02/08/25 08:23 Active Medications Active Medications: Current Medications Generic Name Dose Route Start Last Admin Trade Name Freq PRN Reason Stop Dose Admin Acetaminophen 1,000 mg 02/22/25 07:30 02/22/25 06:37 Acetaminophen 500 Mg Tablet PO 02/22/25 07:31 1,000 mg PREOP ONE Administration Celecoxib 400 mg 02/22/25 07:30 02/22/25 06:37 Celecoxib 200 Mg Capsule PO 02/22/25 07:31 400 mg PREOP ONE Administration Gabapentin 600 mg 02/22/25 07:30 02/22/25 06:37 Gabapentin 600 Mg Tablet PO 02/22/25 07:31 600 mg PREOP ONE Administration Lactated Ringer's 1,000 mls @ 40 mls/hr 02/22/25 07:30 02/22/25 06:36 IV 40 mls/hr .Q25H RENETTA Administration Cefazolin Sodium 2 gm/ Sodium 110 mls @ 150 mls/hr 02/22/25 07:30 Chloride IV 02/22/25 08:13 INTRAOP ONE Lactated Ringer's 1,000 mls @ 70 mls/hr 02/22/25 07:30 IV .[id number] RENETTA Magnesium Sulfate 1 gm/ 102 mls @ 408 mls/hr 02/22/25 07:30 02/22/25 06:38 Dextrose IV 02/22/25 07:44 408 mls/hr PREOP ONE Administration Lactated Ringer's 1,000 mls @ 15 mls/hr 02/22/25 06:00 IV .Q48H RENETTA Insulin Human Lispro 0 unit 02/22/25 07:30 Insulin Lispro 100 Unit/Ml Insuln.Pen SC Q4H PRN PRN BG >/= 180, SEE PROTOCOL Protocol Ondansetron HCl 4 mg 02/22/25 07:30 Ondansetron 4 Mg/2 Ml Vial IV 02/22/25 07:31 INTRAOP ONE Phenazopyridine HCl 190 mg 02/22/25 07:30 02/22/25 06:36 Phenazopyridine 95 Mg Tablet PO 02/22/25 07:31 190 mg PREOP ONE Administration Scopolamine HBr 1 patch 02/22/25 07:30 02/22/25 06:35 Scopolamine 1mg/72hr Patch TD 02/22/25 07:31 1 patch PREOP ONE Administration PFSH Medical History Anxiety Marijuana use Alcohol use Low iron Loss of consciousness Former smoker History of echocardiogram History of stress test Wears glasses Easy bruising Migraine headache Gastric reflux Vapes nicotine containing substance ADHD Mass of left forearm Contusion of left upper arm Anemia Home Medications ?Medication ?Instructions ?Recorded ?Last Taken ?Type cholecalciferol (vitamin D3) 25 15,000 unit PO .weekly 11/20/24 Unknown History mcg (1,000 unit) capsule (Vitamin D3) ibuprofen 800 mg tablet 800 mg PO Q8H PRN pain #30 tabs 02/22/25 Unknown Rx ondansetron HCl 4 mg tablet 4 mg PO Q6H PRN nausea and 02/22/25 Unknown Rx vomiting #20 tabs oxycodone-acetaminophen 5 mg-325 1 tab PO Q4H PRN pain 7 days #20 02/22/25 Unknown Rx mg tablet (Percocet) tabs Allergy/AdvReac Type Severity Reaction Status Date / Time fentanyl AdvReac Severe Pruritis Verified 02/22/25 06:02 Family History Aunt Breast cancer x2 Surgical History H/O dilation and curettage History of excision of lesion History of wisdom tooth extraction Hx of laparoscopy H/O dilation and curettage delivery delivered H/O tubal ligation Social History adopted: No number of children: 3 current occupational status: unemployed Smoking Status: Former smoker alcohol intake: never substance use type: does not use caffeine: Yes what type of physical activity do you participate in: walking frequency: 1-2 times per week seatbelt use: always do you feel safe at home: Yes additional social history: Review of Systems (Anesthesia) ROS Narrative System reviewed and no additional complaints, except as documented.
--- NOTE | 2025-02-22 07:00 | DCINST_ITS ---
Discharge Instructions DC O2, CPAP, BIPAP needs Home O2 Discharge instructions: No Dressing / Incision Discharge Activity: May Shower May resume sexual activity in: 8 weeks Weight Bearing Status: Full weight bearing Lifting Restrictions: 10 pounds for 2 weeks Dressing / Incision Call your doctor if your incision/area has: Continuous Slow Oozing, Sudden I ncreased Bleeding, Increased Pain/ Swelling, Increased Redness and Foul Smelling Discharge Call your doctor if you observe: Fever of 101 or Higher, Using more than 1 pad per hour, Shortness of breath, Chest pain and Uncontrolled pain Suture Line Care: Avoid Pulling/Pushing and Avoid Pinching/Bending Remove Dressing in: 1 week (if present) Cleanse incision/area with: Soap & Water and Keep Dressing Clean & Dry Follow Up Care Please Follow Up With: Laureen Hernandez DO When: Call to make an appointment with your doctor for a postop visit in 2 and 6 weeks Test Results: Test results from this visit will be discussed in further detail at your follow- up appointment, if applicable. Discharge Plan Admission Primary Reason for Your Visit: robotic hysterectomy Attending Provider: Laureen Hernandez Primary Care Provider: Damion Wright Instructions Print Language: Stateless Discharge Orders/Prescriptions Prescriptions: New ibuprofen 800 mg tablet 800 mg PO Q8H PRN (Reason: pain) Qty: 30 0RF ondansetron HCl 4 mg tablet 4 mg PO Q6H PRN (Reason: nausea and vomiting) Qty: 20 0RF oxycodone-acetaminophen [Percocet] 5-325 mg tablet 1 tab PO Q4H PRN (Reason: pain) 7 Days Qty: 20 0RF No Action cholecalciferol (vitamin D3) [Vitamin D3] 25 mcg (1,000 unit) capsule 15,000 unit PO .weekly Referrals / Follow Up: Damion Wright MD [Primary Care Provider] - Disposition Disposition (needs filled in before D/C Order can be placed): Home, Self Care
--- NOTE | 2025-02-22 07:00 | HP.PCM_ITS ---
History and Physical Date of Admission: 02/22/25 Vital Signs 12/04/2509:30 01/08/2508:37 01/08/2508:37 Height 5 ft 2 in 5 ft 2 in 5 ft 2 in Weight: 131 lb 137 lb 2 oz BMI 23.9 25.0 BP 121/84 H 106/74 Intake Visit Reasons: TRH Lysis of Adhesions/Medicaid form needs signd General Surgery Physician Assistant Required: No Is patient in pain?: No Allergies fentanyl Adverse Reaction (Severe, Verified 01/07/25 08:37) Pruritis Medications ?Medication ?Instructions ?Recorded ?Confirmed ?Type cholecalciferol (vitamin D3) 25 15,000 unit PO .weekly 11/20/24 01/07/25 History mcg (1,000 unit) capsule (Vitamin D3) Post menopausal: No Patient : No : No PFSH Medical History Wears glasses Easy bruising Migraine headache Gastric reflux Vapes nicotine containing substance ADHD Mass of left forearm Contusion of left upper arm Anemia Surgical History H/O dilation and curettage History of excision of lesion History of wisdom tooth extraction Hx of laparoscopy H/O dilation and curettage delivery delivered H/O tubal ligation Family History Aunt Breast cancer x2 Social History adopted: No number of children: 3 current occupational status: unemployed Smoking Status: Former smoker alcohol intake: never substance use type: does not use caffeine: Yes what type of physical activity do you participate in: walking frequency: 1-2 times per week seatbelt use: always do you feel safe at home: Yes additional social history: HPI TRH Lysis of Adhesions/Medicaid form needs signd Details: LILY BALDWIN is a 39 year old ( sections) who presents for a preop exam for planned hysterectomy with lysis of adhesions. The endometrium was benign from her prior D&C this spring. She continues to have heavy periods and pelvic pain. She states that last week she passed out from the pain. she has laparoscopic proven endometriosis back in 2016 showing dense adhesions from her prior sections to her bladder and also some endometriosis lesions on the ovaries and pelvic side narayanan. She has a history of abnormal paps in the past also. She states that she is tired of the pain and bleeding and is not interested in having more children. Ultrasound showed the following priro to her D&C: Measurements: Uterus: 9.9 cm x 5.1 cm x 4 cm with a volume of 114.4 mL Endometrial Thickness: 8.9 mm Right Ovary: 2.7 cm x 2.2 cm x 1.6 with a volume of 4.94 mL. Left Ovary: 2.9 cm x 2 cm x 1.9 cm with a volume of 5.95 mL. TRANSABDOMINAL: Uterus: Normal size, myometrial echotexture, and contour. Findings suggestive of a 5 mm x 5 mm x 3 mm polyp at the cervical os. Endometrium: Unremarkable. Right ovary: Normal size and echotexture. Left ovary: Normal size and echotexture. No large pelvic mass identified. Transvaginal sonography was performed to better visualize the endometrium. TRANSVAGINAL: Uterus: Anteverted. Normal contour and myometrial echotexture. Endometrium: Normal echotexture. Right ovary: Normal size and echotexture. Left ovary: Normal size and echotexture. Other adnexal findings: None. Cul-de-sac: No free intraperitoneal fluid identified. No tenderness. US/Pelvic w/ Transvaginal IMPRESSION: Findings suggestive of a 5 mm x 5 mm x 3 mm polyp at the cervical os History 3 Elective abortions Hx Para 3 Spontaneous abortions Hx # Term Pregnancies 3 Ectopic pregnancies Hx # Pregnancies Multiple births # of living children 3 Past Pregnancies Del. Date Name GA/Weeks Outcome Route Bth Weight Infant Gen Labor Lgth Anesthesia Del Locatn Provider FOB Unknown Ian 2009 Unknown Nico 2010 Unknown Kendall 2013 ROS Const ROS Unobtainable: All systems reviewed & are unremarkable except as noted in H Resp Resp: Reports system reviewed and no additional complaints, except as documented; Denies cough GI GI: Reports as per HPI Psych Psych: Reports system reviewed and no additional complaints, except as documented Exam Const General: cooperative, healthy appearing, comfortable and no acute distress Resp Effort & Inspection: normal respiratory effort Skin General: no rashes or lesions noted Psych Appearance: grossly normal Speech and Movement: speech and movement normal Coding Level of Care Code Off vis,est,level 4 Diagnoses Endometriosis determined by laparoscopy N80.9 Menorrhagia N92.0 Abnormal uterine bleeding N93.9 Assessment and Plan Assessment and Plan (1) Endometriosis determined by laparoscopy: Status: Acute (2) Menorrhagia: Status: Acute (3) Abnormal uterine bleeding: Status: Acute Plan After discussing the patient's diagnosis and treatment plan options, patient wishes to proceed with surgical management. I have discussed with the patient the risks, benefits, and alternatives of the procedure which include but are not limited to risks of anesthesia, bleeding, infection, possible damage to bowel, bladder, or surrounding vasculature which could lead to additional surgery to evaluate any complications. Patient agrees to procedure and wishes to proceed. ACOG/uptodate references given for additional information regarding procedure. plan total robotic hysterectomy, bilateral salpingectomy (if tubes still present - had tubal ligation after last section), lysis of adhesion and cystoscopy.
--- NOTE | 2025-02-22 07:30 | UT_PTH ---
PATIENT: LILY BALDWIN LOC: [facility] – [place] U#:[id number] AGE/SX: 39/F ROOM: RE02/22/[address]: Dr. Laureen Hernandez DO : 1985 BED: DIS: 02/22/2025 SPEC #: [id number] RECD: 02/22/25 11:52 STATUS: KOMAL MAST #: [id number] AKSHAT: 02/22/25 07:[address]: Laureen Hernandez DEPT: SURGICAL PATHOLOGY RECD BY: Rell Reyes ENTERED: 02/22/25 13:51 SP TYPE: UTERUS OTHR DR: Dr. Damion Wright MD Tissues: A - Uterus, NOS Procedures: Surgery Specimen Level V HEADER OPERATION: ERAS, laparoscopic total robotic hysterectomy, lysis of adhesions PRE-OP DIAGNOSIS: Endometriosis determined by laparoscopy, menorrhagia, abnormal uterine bleeding TISSUE SUBMITTED: A- Uterus, cervix, bilateral fallopian tubes MICROSCOPIC DIAGNOSIS A. Uterus, cervix, fallopian tubes, endometriosis determined by laparoscopy, menorrhagia, abnormal uterine bleeding, total hysterectomy: - Cervix: hyperkeratosis, Nabothian cyst. - Endometrium: disordered proliferation. - Myometrium: no specific pathologic change. - Serosa: focal delicate adhesions, anterior. - Fallopian tubes: endometriosis (x1), paratubal cysts. MICROSCOPIC DESCRIPTION Slides are reviewed. GROSS DESCRIPTION A. Received in formalin labeled with the patient's name and date of . Designated as uterus, cervix, bilateral tubes is a 109.4 g, 8.8 x 4.9 x 3.8 cm uterus with detached adnexa. The serosa is austin-pink with patchy congestion and patchy adhesions (anterior). The attached cervix is austin-pink and glistening, measuring 3.2 x 2.9 cm; the 0.6 cm os is probe patent. Mucoid containing cysts are present. The specimen is inked as follows: Yutwlrcf-sbuydIblhdwloh-xspqoSbmseosmoby-orange. Opening reveals a 6.1 x 2.9 cm endometrial canal lined by austin-pink endometrium, measuring up to 0.2 cm thick. The myometrium is austin-pink and trabeculated, measuring up to 2.4 cm. No lesions are identified. 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
--- NOTE | 2025-02-22 07:30 | UT_PTH ---
PATIENT: LILY BALDWIN LOC: [facility] – [place] U#:[id number] AGE/SX: 39/F ROOM: RE02/22/[address]: Dr. Laureen Hernandez DO : 1985 BED: DIS: 02/22/2025 SPEC #: [id number] RECD: 02/22/25 11:52 STATUS: KOMAL MAST #: [id number] AKSHAT: 02/22/25 07:[address]: Laureen Hernandez DEPT: SURGICAL PATHOLOGY RECD BY: Rell Reyes ENTERED: 02/22/25 13:51 SP TYPE: UTERUS OTHR DR: Dr. Damion Wright MD Tissues: A - Uterus, NOS Procedures: Surgery Specimen Level V HEADER OPERATION: ERAS, laparoscopic total robotic hysterectomy, lysis of adhesions PRE-OP DIAGNOSIS: Endometriosis determined by laparoscopy, menorrhagia, abnormal uterine bleeding TISSUE SUBMITTED: A- Uterus, cervix, bilateral fallopian tubes MICROSCOPIC DIAGNOSIS A. Uterus, cervix, fallopian tubes, endometriosis determined by laparoscopy, menorrhagia, abnormal uterine bleeding, total hysterectomy: - Cervix: hyperkeratosis, Nabothian cyst. - Endometrium: disordered proliferation. - Myometrium: no specific pathologic change. - Serosa: focal delicate adhesions, anterior. - Fallopian tubes: endometriosis (x1), paratubal cysts. MICROSCOPIC DESCRIPTION Slides are reviewed. GROSS DESCRIPTION A. Received in formalin labeled with the patient's name and date of . Designated as uterus, cervix, bilateral tubes is a 109.4 g, 8.8 x 4.9 x 3.8 cm uterus with detached adnexa. The serosa is austin-pink with patchy congestion and patchy adhesions (anterior). The attached cervix is austin-pink and glistening, measuring 3.2 x 2.9 cm; the 0.6 cm os is probe patent. Mucoid containing cysts are present. The specimen is inked as follows: Vwqotplt-vgufeThhhofrnf-xyaphDhamocuappe-orange. Opening reveals a 6.1 x 2.9 cm endometrial canal lined by austin-pink endometrium, measuring up to 0.2 cm thick. The myometrium is austin-pink and trabeculated, measuring up to 2.4 cm. No lesions are identified. 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
--- NOTE | 2025-02-22 09:47 | PCM.OPRPT ---
Problems Associated Problem List Diagnoses (1) Complication of cystostomy: (2) Endometriosis determined by laparoscopy: Multi Select Codes Urinary/Genital Urinary/Genital CPT Codes: 54512 Cystoscopy, 88301 TLH+BS/O <250gr uterus and Other Procedure See Report (Cystotomy repair) Operative Report (Standard) Operative Information Date of Procedure: 02/22/25 Pre-Operative Diagnosis: pelvic pain, endometriosis, menorrhagia Post-Operative Diagnosis: pelvic pain, endometriosis, menorrhagia, incidental cystotomy Surgery/Procedure Performed: total robotic hysterectomy, bilateral salpingectomy, cystoscopy, cystotomy 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: Yes Background Investigator: Maura Leyva Tasks completed by medical assistant cardiology: Closing, Trocar and Retracting Additional certified physician's assistant?: No Type of Anesthesia: General RN Documented Start/Stop Times: Operation Date: 02/22/25 07:30 Case Time Into Pre-Op 02/22/25 05:53 Anesthesia Start 02/22/25 07:28 Into Room 02/22/25 07:28 Out of Pre-Op 02/22/25 07:28 Procedure Start 02/22/25 08:03 Procedure End 02/22/25 09:47 Procedure Start Time: 08:03 Procedure Stop Time: 09:47 Select all DRAINS/GRAFTS/IMPLANTS that apply: None Estimated Blood Loss: 60cc Specimen collected: Yes Description of specimen(s) removed: uterus, cervix, fallopian tubes Description of surgery: Reason for surgery: This is a 39-year-old G2, P2 who presented to my office with history of endometriosis, section history, pelvic pain, and menorrhagia. the planned procedure is for a robotic hysterectomy the risks benefits and alternatives were discussed with the patient the patient had a clear understanding of the procedure and a consent form was signed. Procedure: The patient was placed in the dorsal low lithotomy position and prepped and draped in the normal sterile fashion both abdominally and in the perineum. Her legs were placed in stirrups a Kelly catheter was inserted into the urethra without difficulty. A weighted speculum was placed in the vagina and a single-tooth tenaculum was used to grasp the anterior lip of the cervix. An advincula uterine manipulator was inserted through the cervix without complication. It was then tied into place at the 2 and 10:00 locations on the cervix. Gloves were changed and attention was turned towards the abdomen. Approximately 23 cm above the pubic symphysis in the midline, and after Marcaine injection, a 8 mm incision was made. An 8 mm trocar was inserted through the laparoscope, then inserted into the abdomen under direct visualization using the laparoscope. Good abdominal placement was noted and no complications were appreciated. An air seal device was utilized to create pneumoperitoneum. At 12 cm lateral to the midline on the left and right sides 8 mm accessory ports were placed. Next a left upper quadrant 8 mm certified physician's assistant port site was placed. The patient was placed in steep Trendelenburg position. The robot was docked. Right away dense adhesions were noted to the bladder and there was endometriosis obliterating part of the cul-de-sac. The vessel sealer was used to cauterize the endometriosis lesions that were in the cul-de-sac. The hysterectomy was initiated first by taking down the round ligament on each side using the vessel sealer device. The fallopian tube segments that were still in place from her prior tubal ligation procedure were grasped and the underlying mesosalpinx was cauterized and cut using the vessel sealer device. The broad ligament was then and taken down using the vessel sealer device. Next the bladder flap was taken down without complication. This was done using monopolar cautery to the level of the cervical vaginal junction. There was noted to be chocolate material that expelled from the separation of the bladder flap consistent with endometriosis. The same consistency was also noted on the fallopian tubes earlier. Careful dissection was performed however due to the dense scar tissue from the bladder to the uterus a 3 mm laceration was made in the bladder incidentally. Further dissection of the bladder flap was created and after the bladder flap was created, uterine vessels were then isolated and cauterized using the vessel sealer device and EndoShears. At this point the uterine vessels were taken down further starting from the ascending branch, dissecting along the edges of the cervix to the level of the cervical vaginal junction with hemostasis appreciated. The cervical vaginal junction was then using monopolar cautery in a circumferential pattern across the superior aspect of the cervix. The specimen was delivered through the vagina and sent to pathology. The bladder was repaired using 3 interrupted sutures in 2 layers using a 3-0 Vicryl. Next, the remaining vaginal cuff was then closed using a V lock suture. This was performed in a running technique. Excellent hemostasis was obtained and good closure was noted. Irrigation was then performed. All operative sites were noted to be hemostatic. A cystoscopy was performed with a 70 degree cystoscope through the urethra into the bladder without complication. The laceration was noted at the left upper dome of the bladder and not including the trigone. The bladder was instilled with approximately 250 cc of normal saline. Intraoperative images were made. Ureteral orifices and jets were identified. No suture material was appreciated in the bladder with the exception of the small sutures that were used to repair the cystotomy. Intraoperative images were also obtained in the abdomen and no leaking occurred from the cystotomy repair site.. The bladder was then drained and cystoscope was removed. A new clean Kelly catheter was inserted into the urethra. The abdominal cavity was again examined. All operative sites were noted to be hemostatic. The trochars were removed under direct visualization without complication and pneumoperitoneum was reduced. At this point the skin was then closed using 4-0 Monocryl subcuticular stitch and sealed with surgical glue. The patient tolerated the procedure well sponge lap and needle counts were correct x2 the patient was taken to the recovery room in stable condition. Surgical Findings: Endometriosis of the cul-de-sac and anterior uterine scar tissue and bladder endometriosis of the left fallopian tube and ovary. Complications Complications: Yes Complication Details: Incidental cystotomy, repaired intraoperatively Admit VTE Documentation VTE Present on Admission: No VTE Mechan Device Prophylaxis: SCD's VTE Pharm Prophylaxis ordered?: No
--- NOTE | 2025-02-22 10:05 | PCM.POST.ANE ---
Anesthesia: Postop Eval I Current Vital Signs Temperature: 97 F Pulse Rate: 65 Blood Pressure: 137/88 Respiratory Rate: 16 Pulse Ox: 100 Assessment Airway patent: Yes Spontaneous unlabored respirations: Yes nausea: No Vomiting: No Anesthesia Complication: No Fluid Hydration Crystalloid volume administer (ml): 1,100 Total IV fluid infused: 1,100 Progress Note Anesthesia document: Postop Eval 1 completed: Yes
[2025-02-22] MEDS: HYDROcodone Bitartrate/Apap 5/325 Tablet PO (11:52)
== END 2025-02-22 14:15 | disposition home or self-care (01) ==
LOC: SDC 05:29 → AC 05:31
PROVIDERS: Anesthesiology; PCP Family Medicine; Referring Provider Obstetrics & Gynecology; Visit Provider Obstetrics & Gynecology
PROC: 0UT94ZZ Resection of Uterus, Percutaneous Endoscopic Approach (ICD-10-PCS; CPT 58571; principal; 2025-02-22 07:10)
DX: N83.8 Other noninflammatory disorders of ovary, fallopian tube and broad ligament (principal); N88.8 Other specified noninflammatory disorders of cervix uteri; N92.0 Excessive and frequent menstruation with regular cycle; N80.109 Endometriosis of ovary, unspecified side, unspecified depth; Z87.891 Personal history of nicotine dependence
CPT/HCPCS: 58571; S2900; 00840; 36415; 81025; 82962; 83735; 85027; 85610; 85730; 86850; 86870; 86900; 86901; 86902; 86920; 86922; 88307; J2405; J3475

== ENCOUNTER 2025-03-02 10:22 | Emergency (ER) | payer MEDICAID, SELFPAY ==
[2025-03-02 10:23] VITALS: BP 152/86; PULSE 83; RESP 14; TEMP 37.2; O2SAT 99; BMI 23.6
--- NOTE | 2025-03-02 10:36 | CT_ITS ---
PROCEDURE: ABDOMEN/PELVIS W IV CONT ONLY 03/02/2025 REASON FOR EXAM: HYSTERECTOMY, ENDOMETRIOSIS REMOVED FROM BLADDER W TECHNIQUE: ABDOMEN/PELVIS W IV CONT ONLY Coronal and Sagittal reconstruction series were provided. Delayed imaging was also performed. CONTRAST: Isovue 370 VOLUME: 100 mL One or more dose reduction techniques were used (e.g., Automated exposure control, adjustment of the mA and/or kV according to patient size, use of iterative reconstruction technique. RADIATION DOSE SUMMARY: DLP: 800 mGycm COMPARISON: None. FINDINGS: Lung bases: Unremarkable. Liver: The liver is normal in size without suspicious hepatic mass. The major portal veins are patent. No biliary ductal dilation. Gallbladder: No radiopaque stones within the gallbladder. Spleen: Unremarkable. Pancreas: Unremarkable. Adrenals: No adrenal mass. Kidneys: No hydronephrosis or nephrolithiasis. Bladder: Decompressed by indwelling Eklly catheter. Reproductive Organs: Findings compatible with recent hysterectomy. Right physiologic corpus luteum. Trace pelvic fluid. Bowel: The bowel loops are nondilated. No abdominal ascites or free air. Normal appendix. Lymph nodes: Unremarkable. Vasculature: The abdominal aorta and IVC are normal. Bones: Unremarkable. CT/Abdomen/Pelvis W IV Cont ONLY IMPRESSION: No acute abdominopelvic finding. Findings compatible with recent hysterectomy. Reading Location: [id number]
--- NOTE | 2025-03-02 10:37 | EX.ED.DYSGE1 ---
HPI History of Present Illness Chief Complaint: Complaint Narrative Narrative: Patient is a 32-year-old female with past medical history of anxiety, GERD, ADHD, recent hysterectomy with removal of endometriosis from her bladder with Kelly catheter in place. She states that she had the surgery about 2 weeks ago and had been doing well until yesterday evening she developed fever and was not feeling well. She states that here in the near future she is post have a cystogram with potential Kelly removal. Patient states that given that she had a fever and she has increased urgency despite having Kelly catheter and she came here to be further evaluated. [facility] Medical History Anxiety Marijuana use Alcohol use Low iron Loss of consciousness Former smoker History of echocardiogram History of stress test Wears glasses Easy bruising Migraine headache Gastric reflux Vapes nicotine containing substance ADHD Mass of left forearm Contusion of left upper arm Anemia Home Medications ?Medication ?Instructions ?Recorded ?Last Taken ?Type ibuprofen 800 mg tablet 800 mg PO Q8H PRN pain #30 tabs 02/22/25 Unknown Rx nitrofurantoin 100 mg PO DAILY #10 caps 02/22/25 03/01/25 Rx monohydrate/macrocrystals 100 mg capsule (Macrobid) ondansetron HCl 4 mg tablet 4 mg PO Q6H PRN nausea and 02/22/25 Unknown Rx vomiting #20 tabs oxybutynin chloride 10 mg 10 mg PO DAILY #10 tabs 02/22/25 03/01/25 Rx tablet,extended release 24 hr oxycodone-acetaminophen 5 mg-325 1 tab PO Q4H PRN pain 7 days #20 02/22/25 Unknown Rx mg tablet (Percocet) tabs phenazopyridine 200 mg tablet 200 mg PO TID 10 days #30 tabs 02/22/25 03/01/25 Rx (Pyridium) ondansetron 4 mg disintegrating 4 mg PO Q6H PRN nausea and 03/02/25 Unknown Rx tablet vomiting #20 tabs Allergy/AdvReac Type Severity Reaction Status Date / Time fentanyl AdvReac Severe Pruritis Verified 03/02/25 10:23 Family History Aunt Breast cancer x2 Surgical History History of robot-assisted laparoscopic hysterectomy H/O dilation and curettage History of excision of lesion History of wisdom tooth extraction Hx of laparoscopy H/O dilation and curettage delivery delivered H/O tubal ligation Social History adopted: No number of children: 3 current occupational status: unemployed Smoking Status: Current some day smoker tobacco type: e-cigarettes alcohol intake: never substance use type: does not use caffeine: Yes what type of physical activity do you participate in: walking frequency: 1-2 times per week seatbelt use: always do you feel safe at home: Yes additional social history: ROS ROS ED ROS Narrative Constitutional: Complains of fever as noted above denies lightheadedness or dizziness Cardiovascular: Denies chest pain Respiratory: Shortness of breath Abdomen: Complains of lower abdominal discomfort denies vomiting diarrhea : Complains of urgency to urinate despite having Kelly catheter in place as noted above Neurological: Denies any numbness,'s, tingling Musculoskeletal: Denies back pain Skin: States that her surgical incisions are healing well EXAM Physical Exam Narrative Exam Narrative: General: Patient is lying in bed rest comfortably did not appear to be acute distress Head: Atraumatic, normocephalic Eyes: PERRL bilaterally, EOMI bilaterally, no conjunctival injection noted Neck: Soft, supple, trachea midline Cardiovascular: Regular rate and rhythm Respiratory: Clear to auscultation bilaterally Abdomen: Soft, nondistended, mild tenderness palpation in the lower portion of her abdomen no rebound or guarding on exam Extremities: +5/5 strength noted in the bilateral upper and lower extremities Neurological: Patient on commands knew that she was at [facility] the year is 2024 Skin: Warm, dry, surgical sites on her abdomen are well-healing no concern for infection no surrounding erythema no purulent drainage noted Const Vital Signs: 03/02/25 10:23 Temperature 98.9 F Temperature Source Temporal Pulse Rate 83 Respiratory Rate 14 Blood Pressure 152/86 H Blood Pressure Mean 108 Pulse Ox 99 Oxygen Delivery Method Room Air MDM MDM MDM Narrative Medical decision making narrative: Patient is a 32-year-old female who presented to the emergency department with a chief complaint of concern for UTI, fever. On the differential diagnose includes but not limited to intra-abdominal abscess, UTI, pyelonephritis. Once workup is obtained reviewed she will be reevaluated. Patient given IV fluids. Patient's CBC reviewed showed no evidence leukocytosis white blood count normal at 6.2, hemoglobin 11.8, platelet count was noted to be 303. Patient sodium was 130, potassium normal 3.9, creatinine 0.90. Patient's lactic acid was noted to be normal at less than 1, AST and ALT were 16 and 11 respectively lipase normal at 30. Patient urinalysis reviewed showed no evidence of infection. Patient's CT abdomen pelvis with IV contrast reviewed and showed no acute abdominal pelvic findings findings compatible with recent hysterectomy. I did discuss results with the patient and she would like to go home at this point in time. Patient was advised to follow-up with her [employer] in the outpatient setting at her scheduled appointments including obtaining the cystourethrogram to see if she can have her Kelly catheter removed. I notified her there is chance that she is coming down with a virus causing her symptoms. Will give her prescription for Zofran ODT. She was advised to return with any other concerns. She is agreeable this plan all course concerns answered she was discharged home in stable condition. Lab Data Labs: Laboratory Results - last 24 hr 03/02/25 03/02/25 11:15 11:22 WBC 6.2 RBC 4.51 Hgb 11.8 L Hct 36.5 L MCV 80.9 L MCH 26.2 L MCHC 32.3 RDW Std Deviation 38.4 RDW Coeff of Mary 13.2 Plt Count 303 MPV 9.6 Immature Gran % (Auto) 0.500 Neut % (Auto) 66.4 Lymph % (Auto) 20.1 [place] % (Auto) 6.6 Eos % (Auto) 5.6 H Baso % (Auto) 0.8 Absolute Neuts (auto) 4.1 Absolute Lymphs (auto) 1.25 Nucleated RBC % 0 Sodium 138 Potassium 3.9 Chloride 103 Carbon Dioxide 22.6 Anion Gap 13 BUN 9 Creatinine 0.90 Estim Creat Clear Calc 67.03 Est GFR (MDRD) Non-Af 84 BUN/Creatinine Ratio 10.5 Glucose 91 Lactic Acid < 1.0 Calcium 9.7 Total Bilirubin 0.70 AST 16 ALT 11 Alkaline Phosphatase 54 Total Protein 7.6 Albumin 4.5 Globulin 3.1 Albumin/Globulin Ratio 1.4 Lipase 30 Urine Color Yellow Urine Clarity Clear Urine pH 7.0 Ur Specific [place] 1.005 Urine Protein Negative Urine Glucose (UA) Normal Urine Ketones Negative Urine Occult Blood 10 H Urine Nitrite Negative Urine Bilirubin Negative Urine Urobilinogen Normal Ur Leukocyte Esterase Negative Urine RBC 0 SEEN Urine WBC 0 SEEN Ur Squamous Epith Cells 0 SEEN Urine Bacteria 0 SEEN Urine Mucus 0 SEEN Radiography Diagnostic Testing: Clinical Impression(s) from Imaging Studies Abdomen/Pelvis CT 03/02/25 10:36 IMPRESSION: No acute abdominopelvic finding. Findings compatible with recent hysterectomy. Reading Location: [facility] Discharge Plan Triage Chief Complaint: Complaint ED Provider: Jeff Jimenez Dx/Rx/DC Orders Clinical Impression: Abdominal pain, Nausea, Status post abdominal hysterectomy Prescriptions: New ondansetron 4 mg tablet,disintegrating 4 mg PO Q6H PRN (Reason: nausea and vomiting) Qty: 20 0RF No Action ibuprofen 800 mg tablet 800 mg PO Q8H PRN (Reason: pain) Qty: 30 0RF ondansetron HCl 4 mg tablet 4 mg PO Q6H PRN (Reason: nausea and vomiting) Qty: 20 0RF oxycodone-acetaminophen [Percocet] 5-325 mg tablet 1 tab PO Q4H PRN (Reason: pain) 7 Days Qty: 20 0RF oxybutynin chloride 10 mg tablet extended release 24hr 10 mg PO DAILY Qty: 10 0RF Patient Comments: COMPLETED YESTERDAY phenazopyridine [Pyridium] 200 mg tablet 200 mg PO TID 10 Days Qty: 30 0RF Patient Comments: COMPLETED YESTERDAY nitrofurantoin monohyd/m-cryst [Macrobid] 100 mg capsule 100 mg PO DAILY Qty: 10 0RF Rx Instructions: must administer with a meal/food Primary Care Provider: Damion Wright Referrals: Damion Wright MD [Primary Care Provider] - Activity Restrictions/Additional Instructions: Follow-up your doctors at your scheduled appointment in outpatient setting. Your blood work was normal today your urine did not show any evidence of infection. Your CT was normal. Return with worsening symptoms or any other concerns Print Language: Persian Disposition Disposition: Home, Self Care
--- OUTSIDE RECORDS SUMMARY | 2025-03-02 11:02 | XMS RPT_ITS | CCD ---
Author Organization [facility] Care Team Providers Care Geographic Information Systems Manager Name Role Phone Wade Pacheco Unavailable Unavailable Primary Care Provider Praveen Wright MD, Damion Tran Primary Care Provider Dr. Laureen Hernandez Attending Provider [phone] Adriana, Dr. Bruno Primary Care Provider Adriana, Dr. Bruno Referring Provider Dr. Laureen Hernandez Attending Provider [phone] Adriana, Dr. Bruno Primary Care Provider Adriana, Dr. Bruno Referring Provider Adriana, Dr. Bruno Primary Care Provider Dr. Damion Wright Referring Provider Lucrecia CAUSTIC ROOM ATTENDANT, JOEY-C Felipa Attending Provider Dr. Damion Wright Primary Care Provider Adriana, Dr. Bruno Referring Provider Lucrecia CAUSTIC ROOM ATTENDANT, CAUSTIC ROOM ATTENDANT-C Felipa Attending Provider Dr. Laureen Hernandez Attending Provider [phone] Adriana, Dr. Bruno Primary Care Provider Dr. Damion Wright Referring Provider Dr. Darcy Klein Attending Provider Dr. Damion Wright Primary Care Provider Dr. Damion Wright Referring Provider Dr. Darcy Klein Attending Provider Damion Wright MD Primary Care Provider Adriana GAO, Dr. Bruno Primary Care Provider [phone] Dr. Joe Kasper DO Attending Provider Dr. Joe Kasper DO Emergency Provider Dr. Laureen Hernandez DO Attending Provider Renetta Garcia DO, Dr. Garduno Referring Provider Adriana GAO, Dr. Bruno Referring Provider [place] CAUSTIC ROOM ATTENDANT-C, Felipa Attending Provider Lucrecia CAUSTIC ROOM ATTENDANT-C, Felipa Referring Provider Clara GAO, Dr. Fernando Attending Provider Clara GAO, Dr. Fernando Referring Provider Stacey GAO, Dr. Odonnell Attending Provider [phone] Dr. Laureen Hernandez DO Other Provider Adriana GAO, Damion Melara Primary Care Provider DAMION WRIGHT Primary Care Unavailable JACKELYN ACOSTA Referring Unavailable DAMION WRIGHT Primary Care Unavailable DAMION WRIGHT Primary Care Unavailable JACKELYN ACOSTA Attending Unavailable DAMION WRIGHT Primary Care Unavailable Adriana GAO, Dr. Bruno Primary Care Provider [phone] Adriana GAO, Dr. Bruno Referring Provider Dr. Laureen Hernandez DO Attending Provider Dr. Laureen Hernandez DO Referring Provider Lucrecia CAUSTIC ROOM ATTENDANT-C, Felipa Attending Provider Lucrecia CAUSTIC ROOM ATTENDANT-C, Felipa Referring Provider Damion Wright Referring Unavailable Wade Pacheco Attending Unavailable Adriana, Damion Primary Care Unavailable Adriana, Damion Referring Unavailable Laureen Hernandez Attending Unavailabl e Damion Wright Primary Care Unavailable Laureen Hernandez Attending Unavailabl e Wright, Damion Referring Unavailable Wright, Dmaion Primary Care Unavailable Shyanne Mahan Referring Unavailable Shyanne Mahan Attending Unavailable Wright, Damion Primary Care Unavailable Vande Velde, Laureen Referring Unavailabl e Wright, Damion Primary Care Unavailable Vande Velde, Laureen Attending Unavailabl e Vande Velde, Laureen Referring Unavailabl e Wright, Damion Primary Care Unavailable Vande Velde, Laureen Attending Unavailabl e Vande Velde, Laureen Referring Unavailabl e Vande Velde, Laureen Attending Unavailabl e Wright, Damion Primary Care Unavailable Vande Velde, Laureen Attending Unavailabl e Vande Velde, Laureen Referring Unavailabl e Wright, Damion Primary Care Unavailable Vande Velde, Laureen Attending Unavailabl e Wright, Damion Primary Care Unavailable Wright, Damion Referring Unavailable Vande Velde, Laureen Referring Unavailabl e Vande Velde, Laureen Attending Unavailabl e Wright, Damion Primary Care Unavailable Vande Velde, Laureen Referring Unavailabl e Wright, Damion Primary Care Unavailable Vande Velde, Laureen Attending Unavailabl e Lucrecia CAUSTIC ROOM ATTENDANTFelipa Attending Unavailable Wright, Damion Primary Care Unavailable Wright, Damion Referring Unavailable Wright, Damion Referring Unavailable Vande Velde, Laureen Attending Unavailabl e Wright, Damion Primary Care Unavailable Vande Velde, Laureen Consulting Unavailabl e Vande Velde, Laureen Referring Unavailabl e Vande Velde, Laureen Attending Unavailabl e Wright, Damion Primary Care Unavailable Adriana, Damion Referring Unavailable Vande Velde, Laureen Attending Unavailabl e Wright, Damion Primary Care Unavailable SailAbdullahi soliman Referring Unavailable SailAbdullahi soliman Attending Unavailable Wright, Damion Primary Care Unavailable Vande Velde, Luareen Attending Unavailabl e Vande Velde, Laureen Consulting Unavailabl e Vande Velde, Laureen Referring Unavailabl e Wright, Damion Primary Care Unavailable Belle Ibarra Attending Unavailable Wright, Damion Referring Unavailable Wright, Damion Primary Care Unavailable Wright, Damion Primary Care Unavailable Wright, Damion Referring Unavailable [place] CAUSTIC ROOM ATTENDANTFelipa Attending Unavailable Wright, Damion Primary Care Unavailable Wright, Damion Referring Unavailable Vande Velde, Laureen Attending Unavailabl e Wright, Damion Primary Care Unavailable Lucrecia CAUSTIC ROOM ATTENDANT, Felipa Referring Unavailable Felipa Singer NP Attending Unavailable Damion Wright Primary Care Unavailable Joe Kasper Attending Unavailable Felipa Singer NP Referring Unavailable Felipa Singer NP Attending Unavailable Damion Wright Primary Care Unavailable Allergies Allergy Classification Reported Allergen(s) Allergy Type Date of Onset Reaction(s) Facility (4 sources) FENTANYL-BUPIVAC JEANNETTE-NACL drug allergy 03-28-2017 rash [facility] Work Phone: (20 sources) fentaNYL; Translations: [FENTANYL] Drug Allergy 01-29-2022 Rash [facility] (1 source) fentaNYL Drug Allergy 02-22-2025 [facility] Repository Medications Current Medications Medication Drug Class(es) Dates Sig (Normalized) Sig (Original) acetaminophen 325 mg / oxyCODONE hydrochloride 5 mg oral tablet (6 sources) Opioid Agonist Start: 02-22-2025 take 1 tablet by mouth every four hours as needed for pain Oxycodone-Acetamino phen (Percocet) 5-325 mg tablet Active 1 {tbl} PO Q4H as needed for pain 20 7 0 February 22, 2025 Status post hysterectomy Acquired absence of both cervix and uterus Start: 08-13-2015 take 1 tablet by nilda th every four hours as needed oxyCODONE-acetaminophen (PERCOCET) 5-325 mg tablet Take 1 tablet by mouth every 4 hours as needed for Pain. FOR PAIN. 20 tablet 0 08/13/2015 Active Comment on above: Take 1 tablet by nilda th every 4 hours as needed for Pain. FOR PAIN. [id number] 200 actuat albuterol 0.09 mg/actuat metered dose inhaler (4 sources) beta2-Adrenergic Agonist Start: 2024 take 2 puff(s) by inhalation every four hours as needed for wheezing albuterol HFA (PROVENTIL HFA) 90 mcg/actuation inhaler Indications: bronchospasm prevention Inhale 2 Puffs as instructed every 4 hours as needed for wheezing/shortness of breath. 1 Each 09/20/2024 Active amoxicillin 500 mg oral capsule (1 source) Penicillin-class Antibacterial Start: 2024 End: 2024 take 1 capsule by mouth twice daily amoxicillin (AMOXIL) 500 mg capsule Take 1 capsule by mouth two times a day for 10 days. 20 capsule 10/30/2024 11/09/2024 Active benzonatate 100 mg oral capsule (1 source) Non-narcotic Antitussive Start: 2024 End: 2024 take 1 capsule by mouth every eight hours as needed benzonatate (TESSALON PERLE) 100 mg capsule Take 1 capsule by mouth three times a day as needed for cough for up to 7 days. 21 capsule 09/20/2024 09/27/2024 Active cephalexin 500 mg oral capsule (1 source) Cephalosporin Antibacterial Start: 2021 End: 2021 take 1 capsule by mouth three times daily cephALEXin (KEFLEX) 500 mg capsule Indications: Skin pimple Take 1 capsule by mouth three times daily for 7 days. 21 capsule 0 01/29/2022 02/05/2022 Active Comment on above: Take 1 capsule by mo [facility] three times daily for 7 days. cholecalciferol 0.025 mg oral capsule (20 sources) Vitamin D Start: 2024 take 1 capsule by mouth every week Cholecalciferol (Vitamin D3) (Vitamin D3) 25 mcg (1,000 unit) capsule Active 23650 U PO .weekly November 20, 2024 12:00am Start: 11-05-2024 End: 11-15-2024 take 1 capsule by mouth once daily Cholecalciferol (Vitamin D3) 125 mcg (5,000 unit) capsule Discontinued 125 ug PO daily 30 4 November 05, 2024 12:00am November 15, 2024 11:45am Start: 05-13-2022 End: 05-18-2023 take 1 capsule by mouth once daily Cholecalciferol (Vitamin D3) 10 mcg (400 unit) capsule Discontinued 10 ug PO DAILY 30 0 May 13, 2022 12:00am May 18, 2023 10:47am citalopram 20 mg oral tablet (10 sources) Serotonin Reuptake Inhibitor Start: 01-21-2016 take 1 tablet by mouth once daily citalopram (CELEXA) 20 mg tablet Take 1 tablet by mouth once daily. 30 tablet 12 01/21/2016 Active Start: 10-17-2015 take 1 tablet by nilda once daily citalopram hydrobromide (CELEXA) 10 mg tablet Take 1 tablet by mouth once daily. 30 tablet 3 10/17/2015 Active Comment on above: Take 1 tablet by nilda once daily. doxycycline monohydrate 100 mg oral tablet (1 source) Tetracycline-class Drug Start: End: take 1 tablet by mouth twice daily doxycycline monohydrate 100 mg tablet Take 1 tablet by mouth two times a day for 5 days. 10 tablet 09/20/2024 09/25/2024 Active eletriptan 20 mg oral tablet (1 source) Serotonin-1b and Serotonin-1d Receptor Agonist Start: 9 take 1-2 tablets by mouth once as [...] extended release oral tablet (1 source) Start: End: take 1 tablet by mouth twice daily guaiFENesin (MUCINEX) 600 mg 12 hr tablet Take 1 tablet by mouth two times a day for 5 days. 10 tablet 09/20/2024 09/25/2024 Active ibuprofen 800 mg oral tablet (10 sources) Nonsteroidal Anti-inflammatory Drug Start: take 1 tablet by mouth every eight hours as needed for pain Ibuprofen 800 mg tablet Active 800 mg PO Q8H as needed for pain 30 February 22, 2025 12:00am Start: 08-13-2015 End: 12-04-2024 take 1 tablet by mouth every eight hours as needed for pain Ibuprofen 800 mg tablet Discontinued 800 mg PO Q8H as needed for pain November 20, 2024 12:00am December 04, 2024 10:34am Comment on above: Take 1 tablet by nilda every 8 hours as needed for Pain. FOR PAIN. nitrofurantoin, macrocrystals 25 mg / nitrofurantoin, monohydrate 75 mg oral capsule (4 sources) Nitrofuran Antibacterial Start: take 1 capsule by mouth once daily at mealtime Nitrofurantoin Monohyd/M-Cryst (Macrobid) 100 mg capsule Active 100 mg PO DAILY February 22, 2025 12:00am must administer with a meal/food Start: 12-03-2024 End: 12-10-2024 take 1 capsule by mouth twice daily at mealtime Nitrofurantoin Monohyd/M-Cryst (Macrobid) 100 mg capsule Discontinued 100 mg PO TWICE A DAY 14 7 December 03, 2024 12:00am December 09, 2024 12:00am December 10, 2024 12:07am must administer with a meal/food ondansetron 4 mg oral tablet (1 source) Serotonin-3 Receptor Antagonist Start: 02-22-2025 take 1 tablet by mouth every six hours as needed for nausea and vomiting Ondansetron Hcl 4 mg tablet Active 4 mg PO EVERY 6 HOURS as needed for nausea and vomiting February 22, 2025 12:00am 24 hr oxybutynin chloride 10 mg extended release oral tablet (1 source) Cholinergic Muscarinic Antagonist Start: 02-22-2025 take 1 tablet by mouth once daily Oxybutynin Chloride 10 mg tablet extended release 24hr Active 10 mg PO DAILY February 22, 2025 12:00am phenazopyridine hydrochloride 200 mg oral tablet (1 source) Start: 02-22-2025 take 1 tablet by mouth three times daily Phenazopyridine (Pyridium) 200 mg tablet Active 200 mg PO THREE TIMES A DAY 30 February 22, 2025 12:00am prochlorperazine 5 mg oral tablet (1 source) Phenothiazine Start: 05-07-2019 take 1 tablet by mouth every six [...] / phenylephrine hydrochloride 0.5 mg/ml oral solution (16 sources) Uncompetitive I-djdjkq-Q-aspartat e Receptor Antagonist, Sigma-1 Agonist, alpha-1 Adrenergic Agonist Start: 04-19-2020 End: 09-04-2020 Fatqagfyp-Lq-Fyhd desouza-Guaifen (Mucinex Cold,Flu,Sore Throat) 10-20-650 mg/20 mL liquid Discontinued mL PO April 19, 2020 12:00am September 04, 2020 2:43pm Start: 04-19-2020 End: 09-04-2020 Hdykbpmje-Ka-Utemiwpq-Guaife n (Mucinex Cold,Flu,Sore Throat) 10-20-650 mg/20 mL liquid Discontinued ML PO April 19, 2020 12:00am September 04, 2020 2:43pm azithromycin 250 mg oral tablet (20 sources) Macrolide Antimicrobial Start: 02-28-2024 End: 03-28-2024 Azithromycin 250 mg tablet Discontinued 250 mg PO .COMPLEX 12 0 February 28, 2024 12:00am March 28, 2024 12:21pm 2 tablets (500 mg) on day 1, then 1 tablet daily on days 2 through 11 Start: 04-19-2020 End: 09-04-2020 take 2-4 tablets by mouth once daily Azithromycin 250 mg tablet Discontinued 0 PO .COMPLEX 6 0 April 19, 2020 12:00am September 04, 2020 2:43pm 500 mg day 1, then 250 mg days 2-4 PO L64-Rtbdskaeotot Calcium-B6 2-1.13-25 mg tablet (4 sources) Start: 11-15-2024 End: 11-20-2024 take 2 tablets by mouth once daily U84-Lcwlljlnhjby Calcium-B6 2-1.13-25 mg tablet Discontinued 1 {tbl} [...] by mouth three times daily CYCLOBENZAPRINE HCL [id number] Hakan Scanlon MD dexamethasone 4 mg oral tablet (1 source) Corticosteroid Start: 05-07-2019 End: 05-07-2019 dexamethasone (DECADRON) tablet 8 mg ergocalciferol 1.25 mg oral capsule (11 sources) Provitamin D2 Compound Start: 05-18-2023 End: 05-21-2024 Ergocalciferol (Vitamin D2) 1,250 mcg (50,000 unit) capsule Discontinued 1250 ug PO EVERY WEEK May 18, 2023 12:00am May 21, 2024 9:57am escitalopram 5 mg oral tablet (16 sources) Serotonin Reuptake Inhibitor Start: 09-04-2020 End: 05-12-2021 take 1 tablet by mouth once daily Escitalopram Oxalate (Lexapro) 5 mg tablet Discontinued 5 mg PO DAILY September 04, 2020 1:00am May 12, 2021 11:39am fluconazole 150 mg oral tablet (20 sources) Azole Antifungal Start: 11-30-2024 End: 12-03-2024 Fluconazole 150 mg tablet Discontinued 150 mg PO Every 3 Days 2 November 30, 2024 12:00am December 03, 2024 9:16am Start: 11-05-2024 End: 11-15-2024 take 1 tablet by mouth once Fluconazole 150 mg tablet Discontinued 150 mg PO ONCE 1 3 November 05, 2024 12:00am November 15, 2024 11:45am Start: 10-03-2024 End: 11-05-2024 Fluconazole 150 mg tablet Di scontinued 150 mg PO Every 3 Days 2 0 October 18, 2024 12:00am November 05, 2024 11:58am Start: 09-26-2024 End: 10-03-2024 take 1 tablet by mouth once Fluconazole 150 mg tablet Discontinued 150 mg PO ONCE 1 0 September 26, 2024 1:00am October 03, 2024 10:40am Start: 02-03-2022 End: 05-13-2022 Fluconazole 150 mg tablet Di scontinued 150 mg PO .COMPLEX 2 0 February 03, 2022 12:00am May 13, 2022 2:13pm 150 mg PO take one po now and repeat in 3 days Start: 07-07-2020 End: 09-04-2020 Fluconazole 150 mg tablet Di scontinued 150 mg PO .COMPLEX 2 0 July 07, 2020 1:00am September 04, 2020 2:43pm 150 mg PO take one po now and repeat in 3 days lisdexamfetamine dimesylate 20 mg oral capsule (11 sources) Central Nervous System Stimulant Start: 05-18-2023 End: 02-28-2024 take 1 capsule by mouth once daily Lisdexamfetamine (Vyvanse) 20 mg capsule Discontinued 20 mg PO DAILY 0 May 18, 2023 12:00am February 28, 2024 3:25pm lithium carbonate 300 mg oral capsule (12 sources) Start: 03-02-2023 End: 05-18-2023 take 1 capsule by mouth at bedtime [place] Carbonate 300 mg capsule Discontinued 300 mg [...] One tablet by mouth twice daily. NAPROXEN [id number] Hakan Scanlon MD norethindrone 0.35 mg oral tablet (12 sources) Start: 05-21-2024 End: 11-15-2024 take 1 tablet by mouth once daily Norethindrone (Contraceptive) 0.35 mg tablet Discontinued 0.35 mg PO daily 90 4 May 21, 2024 12:00am November 15, 2024 11:45am omeprazole 10 mg delayed release oral capsule (16 sources) Proton Pump Inhibitor Start: 04-21-2017 End: 12-31-2019 take 1 capsule by mouth once daily Omeprazole 10 MG capsule Discontinued 10 mg PO DAILY April 21, 2017 12:00am December 31, 2019 1:59pm terconazole 4 mg/ml vaginal cream (3 sources) Azole Antifungal Start: 12-03-2024 End: 12-10-2024 Terconazole 0.4 % cream Discontinued 1 NMA VAGINAL AT BEDTIME 45 7 0 December 03, 2024 12:00am December 09, 2024 12:00am December 10, 2024 12:07am Problems Active Problems Problem Classification Problem Date Documented Date Episodic/Chronic Acute and chronic tonsillitis (4 sources) Amygdalolith; Translations: [Other chronic diseases of tonsils and adenoids] Onset: 03-28-2017 03-28-2017 Chronic Attention-deficit, conduct, and disruptive behavior disorders (8 sources) Attention deficit hyperactivity disorder; Translations: [Attention-deficit hyperactivity disorder, unspecified type] 05-21-2024 Chronic Comment on above: SUPPLEMENTAL VITAMIN Complications of surgical procedures or medical care (3 sources) Complication of urinary catheter; Translations: [Other cystostomy complication] Onset: 02-22-2025 02-22-2025 Episodic Endometriosis (4 sources) Endometriosis (clinical); Translations: [Endometriosis, unspecified] Onset: 02-22-2025 01-07-2025 Chronic Genitourinary symptoms and ill-defined conditions (12 sources) Scalding pain on urination ; Translations: [Dysuria] Onset: 12-06-2024 11-15-2024 Episodic Immunizations and screening for infectious disease (7 sources) Patient encounter status; Translations: [Encounter for screening for COVID-19] 04-02-2021 Episodic Inflammatory diseases of female pelvic organs (7 sources) Vaginitis; Translations: [Acute vaginitis] Onset: 12-04-2024 12-03-2024 Episodic Menstrual disorders (7 sources) Menorrhagia; Translations: [Excessive and frequent menstruation with regular cycle] 12-04-2024 Chronic Mycoses (7 sources) Candidiasis of vagina; Translations: [Monilial vaginitis] 10-03-2024 Episodic Other and unspecified benign neoplasm (10 sources) Lipoma of thigh; Translations: [Benign lipomatous [...] tract] 12-31-2019 Episodic Other female genital disorders (20 sources) Polyp of cervix; Translations: [Polyp of cervix uteri] 10-18-2024 Episodic Other female genital disorders (2 sources) Polyp of cervix uteri; Translations: [Polyp of cervix uteri] Onset: 11-16-2024 Episodic Other injuries and conditions due to external causes (8 sources) Bone injury; Translations: [Other injury of unspecified body region, initial encounter] 09-24-2024 Episodic Other lower respiratory disease (4 sources) Cough; Translations: [Cough] 04-02-2021 Episodic Other non-traumatic joint disorders (6 sources) Acute ankle pain; Translations: [Pain in left ankle and joints of left foot] 01-21-2025 Episodic Other skin disorders (1 source) Pimple of skin; Translations: [Other skin changes] Episodic Other skin disorders (8 sources) Mass of forearm; Translations: [Localized swelling, [...] unspecified organism] 09-20-2024 Episodic Residual codes; unclassified (16 sources) Reduced libido; Translations: [Decreased libido] 05-13-2022 Episodic Residual codes; unclassified (1 source) Acquired absence of both cervix and uterus; Translations: [Acquired absence of both cervix and uterus] Onset: 02-22-2025 Episodic Past or Other Problems Problem Classification [...] abnormalities] Onset: 09-03-2013 Resolved: 11-19-2013 07-27-2021 Episodic Sprains and strains (4 sources) Low back strain; Translations: [Strain of muscle, fascia and tendon of lower back] Onset: 04-28-2010 04-28-2010 Episodic Superficial injury; contusion (9 sources) Contusion of left upper arm; Translations: [Contusion of left upper arm, initial encounter] Onset: 05-25-2024 03-28-2024 Episodic Results Test Name Value Interpretation Reference Range Facility Bedside Glucoseon 02-22-2025 [facility] GLU 143 mg/dL High 74-106 [facility] Comment on above: Result Comment: NORM HERNANDEZ OF PATIENT CARE PER NURSING PROTOCOL Performed By: #### M 100.3200, M100.2000 #### [facility] Laboratory [address] [place], [address] Discharge Instructionon 01-30 Discharge Instruction [facility] Medical Records Department [address] [place] [address] Instructions for Home/Discharge Instructions 02/22/25 0700 MR#: [id number] Acct: [id number] Name: DEJA WOLFE Rep #: [id number] : 1985 39 From: Laureen Hernandez DO PCP: Dr. Damion Wright MD Status:REG SDC Discharge Instructions DC O2, CPAP, BIPAP needs Home O2 Discharge instructions: No Dressing / Incision Discharge Activity: May Shower May resume sexual activity in: 8 weeks Weight Bearing Status: Full weight bearing Lifting Restrictions: 10 pounds for 2 weeks Dressing / Incision Call your doctor if your incision/area has: Continuous Slow Oozing, Sudden Increased Bleeding, Increased Pain/ Swelling, Increased Redness and Foul Smelling Discharge Call your doctor if you observe: Fever of 101 or Higher, Using more than 1 pad per hour, Shortness of breath, Chest pain and Uncontrolled pain Suture Line Care: Avoid Pulling/Pushing and Avoid Pinching/Bending Remove Dressing in: 1 week (if present) Cleanse incision/area with: Soap Water and Keep Dressing Clean Dry Follow Up Care Please Follow Up With: Laureen Hernandez DO When: Call to make an appointment with your doctor for a postop visit in 2 and 6 weeks Test Results: Test results from this visit will be discussed in further detail at your follow-up appointment, if applicable. Discharge Plan Admission Primary Reason for Your Visit: robotic hysterectomy Attending Provider: Laureen Hernandez Primary Care Provider: Damion Wright Instructions Print Language: [place] Discharge Orders/Prescriptions Prescriptions: New ibuprofen 800 mg tablet 800 mg PO Q8H PRN (Reason: pain) Qty: 30 0RF ondansetron HCl 4 mg tablet 4 mg PO Q6H PRN (Reason: nausea and vomiting) Qty: 20 0RF oxycodone-acetaminophe n [Percocet] 5-325 mg tablet 1 tab PO Q4H PRN (Reason: pain) 7 Days Qty: 20 0RF No Action cholecalciferol (vitamin D3) [Vitamin D3] 25 mcg (1,000 unit) capsule 15,000 unit PO .weekly Referrals / Follow Up: Damion Wright MD [Primary Care Provider] - Disposition Disposition (needs filled in before D/C Order can be placed): Home, Self Care 02/22/25 07 Laureen Renetta Garcia DO CC: Dr. Damion Wright MD Signed Normal [facility] deOrdered By: Laureen Garcia on 02-22-2025 Glucose [Mass/Vol] 143 mg/dL High 74-106 [facility] Comment on above: MANAGEMENT OF PATIEN T CARE PER NURSING PROTOCOL MR/POSTOP.ANEon 02-22-2025 MR/POSTOP.[facility] Medical Records Department [address] [place] [address] Anesthesia Postop Eval I 02/22/25 100 MR#: [id number] Acct: [id number] Name: DEJA WOLFE Rep #: [id number] : 1985 39 From: Behzad Dai CRNA PCP: Dr. Damion Wright MD [place] [facility] [place]: C Location: [place] [address] Anesthesia: Postop Eval I Current Vital Signs Temperature: 97 F Pulse Rate: 65 Blood Pressure: 137/88 Respiratory Rate: 16 Pulse Ox: 100 Assessment Airway patent: Yes Spontaneous unlabored respirations: Yes nausea: No Vomiting: No Anesthesia Complication: No Fluid Hydration Crystalloid volume administer (ml): 1,100 Total IV fluid infused: 1,100 Progress Note Anesthesia document: Postop Eval 1 completed: Yes 02/22/25 100 Date Behzad Dai CRNA Cosigner Signature: Date CC: Signed Normal [facility] Operative Reporton Operative Report [facility] Medical Records Department [address] [place] [address] Operative Report 02/22/25 0947 MR#: [id number] Acct: [id number] Name: DEJA WOLFE Rep #: [id number] : 1985 39 From: Laureen Hernandez DO PCP: Dr. Damion Wright MD Status:[facility] Location: [place] [address] Problems Associated Problem List Diagnoses (1) Complication of cystostomy: (2) Endometriosis determined by laparoscopy: Multi Select Codes Urinary/Genital Urinary/Genital CPT Codes: 45479 Cystoscopy, 15459 TLH+BS/O <250gr uterus and Other Procedure See Report (Cystotomy repair) Operative Report (Standard) Operative Information Date of Procedure: 02/22/25 Pre-Operative Diagnosis: pelvic pain, endometriosis, menorrhagia Post-Operative Diagnosis: pelvic pain, endometriosis, menorrhagia, incidental cystotomy Surgery/Procedure Performed: total robotic hysterectomy, bilateral salpingectomy, cystoscopy, cystotomy repair evp marketing: Yes Application Systems Engineer: Maura Leyva Tasks completed by business assistant: Closing, Trocar and Retracting Additional bricklayer's assistant?: No Type of Anesthesia: General RN Documented Start/Stop Times: Operation Date: 02/22/25 07:30 Case Time Into Pre-Op 02/22/25 05:53 Anesthesia Start 02/22/25 07:28 Into Room 02/22/25 07:28 Out of Pre-Op 02/22/25 07:28 Procedure Start 02/22/25 08:03 Procedure End 02/22/25 09:47 Procedure Start Time: 08:03 Procedure Stop Time: 09:47 Select all DRAINS/GRAFTS/IMPLANTS that apply: None Estimated Blood Loss: 60cc Specimen collected: Yes Description of specimen(s) removed: uterus, cervix, fallopian tubes Description of surgery: Reason for surgery: This is a 39-year-old G2, P2 who presented to my office with history of endometriosis, section history, pelvic pain, and menorrhagia. the planned procedure is for a robotic hysterectomy the risks benefits and alternatives were discussed with the patient the patient had a clear understanding of the procedure and a consent form was signed. Procedure: The patient was placed in the dorsal low lithotomy position and prepped and draped in the normal sterile fashion both abdominally and in the perineum. Her legs were placed in stirrups a Kelly catheter was inserted into the urethra without difficulty. A weighted speculum was placed in the vagina and a single-tooth tenaculum was used to grasp the anterior lip of the cervix. An advincTripcover uterine manipulator was inserted through the cervix without complication. It was then tied into place at the 2 and 10:00 locations on the cervix. Gloves were changed and attention was turned towards the abdomen. Approximately 23 cm above the pubic symphysis in the midline, and after Marcaine injection, a 8 mm incision was made. An 8 mm trocar was inserted through the laparoscope, then inserted into the abdomen under direct visualization using the laparoscope. Good abdominal placement was noted and no complications were appreciated. An air seal device was utilized to create pneumoperitoneum. At 12 cm lateral to the midline on the left and right sides 8 mm accessory ports were placed. Next a left upper quadrant 8 mm bricklayer's assistant port site was placed. The patient was placed in steep Trendelenburg position. The robot was docked. Right away dense adhesions were noted to the bladder and there was endometriosis obliterating part of the cul-de-sac. The vessel sealer was used to cauterize the endometriosis lesions that were in the cul-de-sac. The hysterectomy was initiated first by taking down the round ligament on each side using the vessel sealer device. The fallopian tube segments that were still in place from her prior tubal ligation procedure were grasped and the underlying mesosalpinx was cauterized and cut using the vessel sealer device. The broad ligament was then and taken down using the vessel sealer device. Next the bladder flap was taken down without complication. This was done using monopolar cautery to the level of the cervical vaginal junction. There was noted to be chocolate material that expelled from the separation of the bladder flap consistent with endometriosis. The same consistency was also noted on the fallopian tubes earlier. Careful dissection was performed however due to the dense scar tissue from the bladder to the uterus a 3 mm laceration was made in the bladder incidentally. Further dissection of the bladder flap was created and after the bladder flap was created, uterine vessels were then isolated and cauterized using the vessel sealer device and EndoShears. At this point the uterine vessels were taken down further starting from the ascending branch, dissecting along the edges of the cervix to the level of the cervical vaginal junction with hemostasis appreciated. The cervical vaginal junction was then using monopolar cautery in (more content not included)... Normal [facility] ,Urineon 02-22-2025 Beta HCG ( test) Ql (U) Negative Normal [facility] Comment on above: Result Comment: Very dilute urine specimens, as indicated by a low specific gravity, may not contain desk representative levels of hCG. If is still suspected, a first morning urine specimen should be collected 48 hours later and tested. Performed By: #### M 100.2200 #### [facility] [place], [address] Surgery Specimen Level Von 0 02-22-2025 Surgery Specimen Level V ------- ---- Patient Age/Sex Location Account Attending Physician ---- DEJA WOLFE 39/[place] [facility] [id number] Karla John ---- Specimen: [id number] Received: 02/22/25 Status: KOMAL Guerra Num: [id number] Spec Type: UTERUS Subm Dr: Dr. Laureen Hernandez, DO HEADER OPERATION: ERAS, laparoscopic total robotic hysterectomy, lysis of adhesions PRE-OP DIAGNOSIS: Endometriosis determined by laparoscopy, menorrhagia, abnormal uterine bleeding TISSUE SUBMITTED: A- Uterus, cervix, bilateral fallopian tubes ---- MICROSCOPIC DIAGNOSIS A. Uterus, cervix, fallopian tubes, endometriosis determined by laparoscopy, menorrhagia, abnormal uterine bleeding, total hysterectomy: - Cervix: hyperkeratosis, Nabothian cyst. - Endometrium: disordered proliferation. - Myometrium: no specific pathologic change. - Serosa: focal delicate adhesions, anterior. - Fallopian tubes: endometriosis (x1), paratubal cysts. MICROSCOPIC DESCRIPTION Slides are reviewed. GROSS DESCRIPTION A. Received in formalin labeled with the patient's name and date of . Designated as uterus, cervix, bilateral tubes is a 109.4 g, 8.8 x 4.9 x 3.8 cm uterus with detached adnexa. The serosa is austin-pink with patchy congestion and patchy adhesions (anterior). The attached cervix is austin-pink and glistening, measuring 3.2 x 2.9 cm; the 0.6 cm os is probe patent. Mucoid containing cysts are present. The specimen is inked as follows: Anterior-greenPosterio d-czvwpKyzhhzgvrfe-qcr nge. Opening reveals a 6.1 x 2.9 cm endometrial canal lined by austin-pink endometrium, measuring up to 0.2 cm thick. The myometrium is austin-pink and trabeculated, measuring up to 2.4 cm. No lesions are identified. The pink-purple fallopian tubes are fimbriated and measure 2.9 x 0.7 cm and 4.4 x 0.6 cm; few paratubal cyst are present, 0.4 cm to 0.9 cm Rock [employer]or sections are submitted as follows: A1: Anterior cervixA2: Posterior cervixA3: Anterior endomyometriumA4: Posterior endomyometriumA5: Anterior serosa with adhesionsA6-A7: Fallopian tubes DE 02/22/25 CPT:30609 ---- Patient Age/Sex Location Account Attending Physician ---- DEJA WOLFE 39/[place] [facility] [id number] Karla John ---- Signed (signature on file) Dr. Hafsa Vargas MD 02/28/25 1721 ---- [facility] Comment on above: Performed By: #### B TSPAT, [id number], L100.0500, [facility] #### [facility] [address] [place], [place], [id number] Urine testOrdered By: Laureen Garcia on 02-22-2025 HCG ( test) Ql (U) Negative [facility] Comment on above: Very dilute urine sp ecimens, as indicated by a low specificgravity, may not contain desk representative levels of hCG. If is still suspected, a first morning urinespecimen should be collected 48 hours later and tested. Activated partial thrombopla stin time (aPTT) in platelet poor plasma by coagulation aOrdered By: Douglas Muro on 02-18-2025 aPTT Coag (PPP) [Time] 27.0 s 24.1-36.2 [facility] [id number] 02-18-2025 ANTIBODY ID LC Normal [facility] Comment on above: Order Comment: RADHA COL UNITS ORDERED DUE TO ALLOANTIBODY(S). Reason for Laboratory Test pre op [id number] N No N N N H N Y S [id number] HYSTERECTOMY HYSTERECTOMY Performed By: #### B TSPAT, [id number], L100.0500, [facility] #### [facility] [address] [place], [place], [address] [facility] 02-18-2025 RC Normal [facility] Comment on above: Result Comment: [id number] AP RC XM COMPATIBLE [id number] AP RC XM COMPATIBLE Performed By: #### B TSPAT, [id number], L100.0500, BR #### [facility] [address] [place], [place], [address] CBC-Complete Blood Cnt No Di ffon 02-18-2025 Erythrocyte distribution width (RBC) [Ratio] 13.4 % Normal 11.6-14.6 [facility] Comment on above: Performed By: #### B TSPAT, [id number], L100.0500, BR #### [facility] [address] [place], [address] Hematocrit (Bld) [Volume fraction] 35.2 % Low 37-47 [facility] Comment on above: Performed By: #### B TSPAT, [id number], L100.0500, BRC #### [facility] [address] [place], [address] Hemoglobin (Bld) [Mass/Vol] 11.2 g/dL Low 12.0-15.0 [facility] Comment on above: Performed By: #### B TSPAT, [id number], L100.0500, BRC #### [facility] [address] [place], [address] MCH (RBC) [Entitic mass] 26.4 pg Low 27.0-32.0 [facility] Comment on above: Performed By: #### B TSPAT, [id number], L100.0500, BRC #### [facility] [address] [place], [address] MCHC (RBC) [Mass/Vol] 31.8 g/dL Low 32-36 [facility] Comment on above: Performed By: #### B TSPAT, [id number], L100.0500, BRC #### [facility] [address] [place], [address] MCV (RBC) [Entitic vol] 83.0 fL Normal 81-99 [facility] Comment on above: Performed By: #### B TSPAT, [id number], L100.0500, BRC #### [facility] [address] [place], [address] Platelet mean volume (Bld) [Entitic vol] 9.6 fL Normal 6.2-12.0 [facility] Comment on above: Performed By: #### B TSPAT, [id number], L100.0500, BRC #### [facility] [address] [place], [address] Platelets (Bld) [#/Vol] 324 10*3/uL Normal 150-450 [facility] Comment on above: Performed By: #### B TSPAT, [id number], L100.0500, BRC #### [facility] [address] [place], [address] RBC (Bld) [#/Vol] 4.24 10*6/uL Normal 4.2-5.4 [facility] Comment on above: Performed By: #### B TSPAT, [id number], L100.0500, BRC #### [facility] [address] [place], [address] RDW SD 41.0 fl Normal 35.1-43.9 [facility] Comment on above: Performed By: #### B TSPAT, [id number], L100.0500, BR #### [facility] [address] [place], [address] WBC (Bld) [#/Vol] 5.5 10*3/uL Normal 4.4-11.0 [facility] Comment on above: Performed By: #### B TSPAT, [id number], L100.0500, BRC #### [facility] [address] [place], [address] Erythrocyte distribution wid th ratioOrdered By: Laureen Garcia on 02-18-2025 Erythrocyte distribution width (RBC) [Ratio] 13.4 % 11.6-14.6 [facility] Erythrocyte distribution wid th standard deviationOrdered By: Laureen Garcia on 02-18-2025 Erythrocyte distribution width (RBC) [Ratio] 41.0 fl 35.1-43.9 [facility] Hematocrit Auto (Bld) [Volum e fraction]Ordered By: Laureen Garcia on 02-18-2025 Hematocrit (Bld) [Volume fraction] 35.2 % Low 37-47 [facility] Hemoglobin measurementOrdere d By: Laureen Garcia on 02-18-2025 Hemoglobin (Bld) [Mass/Vol] 11.2 g/dL Low 12.0-15.0 [facility] International normalized rat io (INR) calculationOrdered By: Douglas Muro on 02-18-2025 INR Coag (Bld) [Relative time] 1.0 {INR} [facility] MCV (mean corpuscular volume ) determinationOrdered By: Laureen Garcia on 02-18-2025 MCV (RBC) [Entitic vol] 83.0 fL 81-99 [facility] Magnesiumon 02-18-2025 Magnesium [Mass/Vol] 2.0 mg/dL Normal 1.5-2.2 [facility] Comment on above: Performed By: #### L 300.4310, L501.5200, L300.3900 #### [facility] [address] [place], [address] Magnesium measurement (mass/ volume)Ordered By: Douglas Muro on 02-18-2025 Magnesium (Unsp spec) [Mass/Vol] 2.0 mg/dL 1.5-2.2 [facility] Mean corpuscular hemoglobin (MCH) determinationOrdered By: Laureen Garcia on 02-18-2025 MCH (RBC) [Entitic mass] 26.4 pg Low 27.0-32.0 [facility] Mean corpuscular hemoglobin concentration (MCHC) determinationOrdered By: Laureen Garcia on 02-18-2025 MCHC (RBC) [Mass/Vol] 31.8 g/dL Low 32-36 [facility] Mean platelet volume determi nationOrdered By: Laureen Garcia on 02-18-2025 Platelet mean volume (Bld) [Entitic vol] 9.6 fL 6.2-12.0 [facility] Partial Thromboplast Timeon 02-18-2025 aPTT Coag (Bld) [Time] 27.0 s Normal 24.1-36.2 [facility] Comment on above: Performed By: #### M 100.3200, M100.2000 #### [facility] [address] [place], [address] Platelet countOrdered By: Romario Garcia on 02-18-2025 Platelets (Bld) [#/Vol] 324 10*3/uL 150-450 [facility] Prothrombin Time w/INRon INR Coag (PPP) [Relative time] 1.0 {INR} Normal [facility] Comment on above: Performed By: #### M 100.3200, M1.1999 #### [facility] [address] [place], [address] PT Coag (PPP) [Time] 13.1 s Normal 11.7-14.9 [facility] Comment on above: Performed By: #### M 100.3200, M1.1999 #### [facility] [address] [place], [address] Prothrombin timeOrdered By: Douglas Muro on 02-18-2025 PT Coag (PPP) [Time] 13.1 s 11.7-14.9 [facility] RBC Auto (Bld) [#/Vol]Ordere d By: Laureen Garcia on 02-18-2025 RBC (Bld) [#/Vol] 4.24 10*6/uL 4.2-5.4 [facility] Type AND Screen - PAT ONLYo n 02-18-2025 Ab SCREEN GEL Positive Normal [facility] Comment on above: Order Comment: Reaso n for Laboratory Test pre op [id number] N No N N S HYSTERECTOMY Performed By: #### B TSPAT, [id number], L100.0500, BRC #### [facility] [address] [place], [address] White blood cell (WBC) count Ordered By: Laureen Garcia on 02-18-2025 WBC (Bld) [#/Vol] 5.5 10*3/uL 4.4-11.0 [facility] CNOVon 01-21-2025 [facility] DE[facility]FE ([id number]) 1985 F Date Time Provider Department 01/21/25 11:45 AM JACKELYN ACOSTA [facility] During your visit today, we recorded the [...] after stepping on dirt and gravel. - [place] and felt a pop at the time [...] on late (more content not included)... Normal [facility] No Panel InformationOrdered By: Ccf Provider on 01-21-2025 [facility] No Panel Informationon 01-21 Radiology Study observation (narrative) [facility] XR ANKLE 3V AP/LAT/OBL LTon 01-21-2025 XR [...] seen. IMPRESSION: No acute process is seen. Casting Supervisor: CARMEL Transcribe Date/Time: Jan 21 2025 12:06P Dictated by : BERNICE GARCIA MD This examination was interpreted and the report reviewed and electronically signed by: BERNICE GARCIA MD on Jan 21 2025 12:08PM EST [id number] Normal [facility] XR Ankle - left AP and Later al and obliqueon 01-21-2025 IMPRESSION: No acute process is seen. Casting Supervisor: KIMBERLYN Transcribe Date/Time: Jan 21 2025 12:06P Dictated by : BERNICE GARCIA MD This examination was interpreted and the report reviewed and electronically signed by: BERNICE GARCIA MD on Jan 21 2025 12:08PM [facility] DIVISION OF RADIOLOGY * * *Final Report* [...] IMPRESSION IMPRESSION: No acute process is seen. Casting Supervisor: [facility] Transcribe Date/Time: Jan 21 2025 12:06P Dictated by : BERNICE GARCIA MD This examination was interpreted and the report reviewed and electronically signed by: BERNICE GARCIA MD on Jan 21 2025 12:08PM [facility] XR FOOT 3V AP/LAT/OBL LTon 0 [...] seen. IMPRESSION: No acute process is seen. Casting Supervisor: PSCB Transcribe Date/Time: Jan 21 2025 12:07P Dictated by : BERNICE GARCIA MD This examination was interpreted and the report reviewed and electronically signed by: BERNICE GARCIA MD on Jan 21 2025 12:07PM EST [id number] Normal [facility] XR Foot - left AP and Latera l and obliqueon 01-21-2025 IMPRESSION: No acute process is seen. Casting Supervisor: PSCB Transcribe Date/Time: Jan 21 2025 12:07P Dictated by : BERNICE GARCIA MD This examination was interpreted and the report reviewed and electronically signed by: BERNICE GARCIA MD on Jan 21 2025 12:07PM EST DIVISION OF RADIOLOGY * * *Final [...] IMPRESSION IMPRESSION: No acute process is seen. Casting Supervisor: PSCB Transcribe Date/Time: Jan 21 2025 12:07P Dictated by : BERNICE GARCIA MD This examination was interpreted and the report reviewed and electronically signed by: BERNICE GARCIA MD on Jan 21 2025 12:07PM EST [facility] Bag Bundler Office Visit Reporton 01-07-2025 Bag Bundler Office Visit Report [facility] [address], [address] [place] [address] OFFICE VISIT Date of Service: 01/07/25 MR#: [id number] Acct: [id number] Name: DEJA WOLFE Rep #: [id number] : 1985 Provider: Dr. Laureen Serrano DO Age/Sex: 39/F [place] [facility] [place]: Signed Intake Vital Signs 12/04/24 10:30 01/07/25 08:37 01/07/25 08:37 Height 5 ft 2 in 5 ft 2 in 5 ft 2 in Weight: 131 lb 137 lb 2 oz BMI 23.9 25.0 BP 121/84 H 106/74 Intake Visit Reasons: TRH Lysis of Adhesions/Medicaid form needs signd Web Specialist Required: No Is patient in pain?: No [...] Bth Weight [facility] F[facility] Unknown Ian 2010 [...] Psych Appearanc (more content not included)... Normal [facility] Genital Culture Comprehensiv leanna 12-04-2024 VAC Reason for Exam: vaginitis Normal genital faith isolated Normal [facility] Comment on above: Performed By: #### M 100.2200 #### [facility] [address] [place], [address] Bag Bundler Office Visit Reporton 12-04-2024 Bag Bundler Office Visit Report [facility] [address], [address] [place] [address] OFFICE VISIT Date of Service: 12/04/24 MR#: [id number] Acct: [id number] Name: DEJA WOLFE Rep #: [id number] : 1985 Provider: Dr. Laureen Serrano DO Age/Sex: 39/F [place] [facility] [place]: Signed Intake Vital Signs 10/18/24 11:40 12/03/24 08:54 12/04/24 10:30 Height 5 ft 2 in 5 ft 2 in 5 ft 2 in Weight: 131 lb BMI 23.9 BP 121/84 H Intake Visit Reasons: 2 wk D C polypectomy Web Specialist Required: No Is patient in pain?: No Allergies fentanyl Adverse Reaction (Severe, Verified 12/04/24 10:33) Pruritis Medications ???Medication ???Instructions ???Recorded ???Confirmed ???Type cholecalciferol (vitamin D3) 25 15,000 unit PO .weekly 11/20/24 History mcg (1,000 unit) capsule (Vitamin D3) nitrofurantoin 100 mg PO BID 7 days #14 caps 05/12/2312/04/24 Rx monohydrate/macrocryst als 100 mg capsule (Macrobid) [...] Provider FOB Unknown Ian 2010 Unknown [place] 2011 Unknown [place] 2014 ROS ENT ENT: Reports system reviewed and [...] as docum (more content not included)... Normal [facility] Urine Cultureon 12-04-2024 URC Culture exhibits no growth. Normal [facility] Comment on above: Performed By: #### Quinton 100.6708 #### [facility] [address] [place], [place], [id number] Genital cultureOrdered By: Quinton Singer on 12-03-2024 Source specific culture Normal genital f geovanni isolated [facility] Gram Stainon 12-03-2024 GS Reason for Exam: vaginitis Gram Stain No Gram negative diplococci 1+ Gram positive cocci 3+ Gram positive rods 2+ Gram variable gavin Score =3 Interpretation: 0-3 Normal, 4-6 Intermediate, 7-10 Positive BV Normal [facility] Comment on above: Performed By: #### M 100.6038 #### [facility] [address] [place], [address] Gram stainOrdered By: Felipa Singer on 12-03-2024 Microscopic observation Gram stain Nom (Unsp spec) [facility] - Chemistry and C hemistry - challengeOrdered By: Felipa Singer on 12-03-2024 Bilirubin Ql (U) Negative [facility] Glucose Ql (U) Negative [facility] Ketones Ql (U) Negative [facility] pH (U) 5.0 [pH] [facility] Specific gravity (U) [Rel density] 1.025 [facility] Urobilinogen (U) [Mass/Vol] Negative [facility] - Hematology and Cell countsOrdered By: Felipa Singer on 12-03-2024 Hemoglobin Ql (U) Hemolyzed [facility] - Specimen inform ationOrdered By: Felipa Singer on 12-03-2024 Clarity (U) Clear [facility] Color (U) YELLOW [facility] - UrinalysisOrder ed By: Felipa Singer on 12-03-2024 Nitrite Ql (U) Negative [facility] Protein Ql (U) Negative [facility] No Panel InformationOrdered By: Felipa Singer on 12-03-2024 POC Bacterial Vaginitis (Rapid) Negative [facility] Urine Leukocytes Positive [facility] Urine Non-Hemolyzed Blood Moderate [facility] Bag Bundler Office Visit Reporton 12-03-2024 Bag Bundler Office Visit Report [facility], [address] [place] [address] OFFICE VISIT Date of Service: 12/03/24 MR#: [id number] Acct: [id number] Name: NICOLASADEJA MIKE Rep #: [id number] : 1985 Provider: DAMIEN javed Age/Sex: 39/F Location: [facility] Status: Signed Intake Vital Signs 11/20/24 12:41 12/03/24 08:54 Height 5 ft 2 in 5 ft 2 in Weight: 131 lb BMI 23.9 BP 105/71 Intake Visit Reasons: RO yeast infection postop 11/20 Web Specialist Required: No Is patient in pain?: No [...] Unknown Ian 2010 Unknown [place] 2010 Unknown [place] 2014 ROS Const Constitutional: Reports system reviewed [...] Lundberg on 12/03/24 09:29 Off Ur Spec [place] 1.025 Last Edit by January Lundberg on [...] January Brennan (more content not included)... Normal [facility] Urine cultureOrdered By: Eve Singer on 12-03-2024 Bacteria identified Cx Nom (U) Culture exhibits no growth. [facility] Discharge Instructionon 10-31 Discharge Instruction [facility] Medical Records Department [address] [place] [address] Instructions for Home/Discharge Instructions 11/20/24 1352 MR#: [id number] Acct: [id number] Name: DEJA WOLFE Rep #: [id number] : 1985 39 From: Laureen Hernandez DO [...] Up With: Laureen Hernandez DO When: Call [phone] to schedule appointment. Test Results: Test results from this visit will be discussed in further detail at your follow-up appointment, if applicable. Discharge Plan Admission Primary Reason for Your Visit: hysteroscopy dilation and curettage Attending Provider: Laureen Hernandez Primary Care Provider: Damion Wright Instructions Print Language: [place] Discharge Orders/Prescriptions Prescriptions: New ibuprofen 800 mg [...] DO CC: Dr. Damion Wright MD Signed [facility] MR/POSTOP.ANEon 11-20-2024 MR/POSTOP.[facility] Medical Records Department [address] [place] [address] Anesthesia Postop Eval I 11/20/241437 MR#: [id number] Acct: [id number] Name: DEJA WOLFE Rep #: [id number] : 1985 39 From: Juan Robles CRNA PCP: Dr. Damion Wright MD [place] [facility] [place] Race: C Location: [place] [address] Anesthesia: Postop Eval I Current Vital Signs [...] Anesthesia document: Postop Eval 1 completed: Yes 11/20/241438 Date Juan Robles CRNA Cosigner Signature: Date CC: Signed [facility] MR/[id number] 11-20-2024 MR/POSTOPAN2 [facility] Medical Records Department [address] [place] [address] Anesthesia Postop Eval II 11/20/242022 MR#: [id number] Acct: [id number] Name: DEJA WOLFE Rep #: [id number] : 1985 39 From: Tristen Fuentes MD PCP: Dr. Dmaion Wright MD Status[place]DEP [facility] [place] Race: C [place] [facility] Anesthesia Postop Eval I Sum Postop Eval Completion status Anesthesia document: Postop Eval 1 completed: Yes Anesthesia Postop Eval I Summary Anesthesia Postop Eval I Summary: Anesthesia Postop Eval I: Assessment Summary Airway patent Yes 11/20/24 14:39 [employer]BHOS Spontaneous unlabored Yes 11/20/24 14:39 [employer]HEMATICS IMPROVEMENT TEACHER.BHOS respirations Mental status Asleep 11/20/24 14:39 [employer]HEMATICS IMPROVEMENT TEACHER.BHOS nausea No 11/20/24 14:39 [employer]HEMATICS IMPROVEMENT TEACHER.BHOS Vomiting No 11/20/24 14:39 MATHEMATICS IMPROVEMENT TEACHER.BHOS Anesthesia Postop Eval I: Fluid Summary Crystalloid volume administer 250 11/20/24 14:39 MATHEMATICS IMPROVEMENT TEACHER.BHOS (ml) Colloids volume administered ( ml) Blood Product volume administered (ml) Total IV fluid infused 250 11/20/24 14:39 MATHEMATICS IMPROVEMENT TEACHER.BHOS Anesthesia Postop Eval I: Summary Notes Anesthesia Complication No 11/20/24 14:39 MATHEMATICS IMPROVEMENT TEACHER.BHOS Anesthesia Complication Comment: Post-operative progress note Anesthesia: Postop Eval II Evaluation Mental status: Awake and Calm Pain Level: 3 nausea: No Vomiting: No Progress Note Post-operative progress note: Pain treated mostly with Toradol instead of narcotic. Complications Anesthesia Complication: No 11/20/242022 Date Tristen Fuentes MD Cosigner Signature: Date CC: Signed Normal [facility] Operative Reporton 5 Operative Report [facility] Medical Records Department [address] [place] [address] Operative Report 11/20/24 1525 MR#: [id number] Acct: [id number] Name: NICOLASADEJAERENDIRA MCKEON Rep #: [id number] : 1985 39 From: Laureen Hernandez DO PCP: Dr. Damion Wright MD Status:[facility] Location: [place] [address] Problems Associated Problem List Diagnoses (1) Polyp of cervix: (2) Abnormal uterine bleeding: Multi Select Codes Urinary/Genital Urinary/Genital CPT Codes: 65311 Hysteroscopy,EMC, Polypectomy Operative Report (Standard) Operative Information Date of Procedure: 11/20/24 Pre-Operative Diagnosis: abnormal uterine bleeding, cervical polyp Post-Operative Diagnosis: abnormal uterine bleeding, cervical polyp Surgery/Procedure Performed: hysteroscopy dilation and curettage evp marketing: No Type of Anesthesia: MAC RN Documented [...] on Admission: No VTE Mechan Device Prophylaxis: [facility] VTE Pharm Prophylaxis ordered?: No 11/20/24 1529 Cosigner Signature (if applicable): CC: Dr. Laureen Hernandez DO; Dr. Damion Wright MD Signed Normal [facility] Surgery Specimen Level Hemant 11-20-2024 Surgery Specimen Level IV ---- Patient Age/Sex Location Account Attending Physician ---- DEJA WOLFE 39/F [facility] [id number] Karla John ---- Specimen: [id number] Received: 11/21/24 Status: SURJITShelly Guerra Num: [id number] Spec Type: ENDOM BX/C Bri Dr: Dr. Laureen Hernandez DO HEADER OPERATION: Hysteroscopy, dilation and curettage, [...] in aggregate. Submitted in toto in A1. [facility] 11/22/2024 CPT:26130 ---- Patient Age/Sex Location Account Attending Physician ---- DEJA WOLFE 39/F [facility] [id number] Karla John ---- Signed (signature on file) Dr. Hafsa Vargas MD 11/22/24 1608 ---- Normal [facility] Comment on above: Performed By: #### M 100.2200 #### [facility] Laboratory [address] [facility] [place], [place], [id number] Urine Cultureon 11-18-2024 URC #1, 2 Below infectio n level. Streptococcus agalactiae (B) [place] Count <1000 Mixed Gram Positive Organisms Mixed Gram Positive Organisms MIXC Mixed contaminants. Submit a new specimen if indicated. Normal [facility] Comment on above: Performed By: #### M 100.2200 #### [facility] Laboratory [address] [facility] [address] [place], [place], [address] Laboratory - Chemistry and C hemistry - challengeOrdered By: Belle Ibarra on 11-16-2024 Bilirubin Ql (U) Negative [facility] Glucose Ql (U) Negative [facility] Ketones Ql (U) Small (15+) [facility] pH (U) 5 [pH] [facility] Specific gravity (U) [Rel density] 1.030 [facility] Urobilinogen (U) [Mass/Vol] Negative [facility] Laboratory - Hematology and Cell countsOrdered By: Belle Ibarra on 11-16-2024 Hemoglobin Ql (U) Moderate [facility] Laboratory - Specimen inform ationOrdered By: Belle Ibarra on 11-16-2024 Clarity (U) Clear [facility] Color (U) Yellow [facility] Laboratory - UrinalysisOrder ed By: Belle Ibarra on 11-16-2024 Nitrite Ql (U) Negative [facility] Protein Ql (U) Negative [facility] No Panel InformationOrdered By: Belle Ibarra on 11-16-2024 Urine Leukocytes Negatve [facility] Urine Non-Hemolyzed Blood Non-Hemolyzed [facility] Office Visit Reporton 2024 Office Visit Report [facility] [place] [address] OFFICE VISIT Date of Service: 11/16/24 MR#: [id number] Acct: [id number] Patient: DEJA WOLFE Rep #: [id number] : 1985 Provider: Dr. Belle zambrano MD Age/Sex: 39/F [place] [facility]: Signed Intake Vital Signs 11/05/24 12:00 11/16/24 10:01 Height 5 ft 2 in 5 ft 2 in Weight: 126 lb 6 oz BMI 23.1 BP 137/88 H Intake Visit Reasons: NV only - UA/culture per JV Chief Complaint: UA/Culture Web Specialist Required: No Is patient in pain?: No [...] Fernandez on 11/16/24 10:24 Off Ur Spec [place] 1.030 Last Edit by Evelia Fernandez on [...] Cowan Signature: Date (if applicable) CC: Normal [facility] Urine cultureOrdered By: Gely Garcia on 11-16-2024 Bacteria identified Cx Nom (U) Streptococcus agalactiae (B) Abnormal [facility] Bacteria identified Cx Nom (U) Positive Abnormal [facility] Antigen Little c Series 1on 11-06-2024 ANTIGEN ID Negative Normal [facility] Comment on above: Order Comment: Reaso n for Exam: polyp of [id number] d C Performed By: #### M 100.3200, M100.1999 #### [facility] Laboratory [address] [place], [address] [id number] 11-06-2024 ANTIBODY ID LC Normal [facility] Comment on above: Order Comment: Reaso n for Exam: polyp of [id number] d C Performed By: #### M 100.3200, M1.1999 #### [facility] Laboratory [address] [place], [address] BRCon 11-06-2024 RC Normal [facility] Comment on above: Result Comment: [id number] AP RC READY [id number] AP RC READY Performed By: #### M 100.3200, .1999 #### [facility] Laboratory [address] [place], [address] Type AND Screen - PAT ONLYon 11-06-2024 ABO and Rh group Nom (Bld) Blood group A Rh(D) positive Normal [facility] Comment on above: Order Comment: Reaso n for Exam: polyp of [id number] d C Performed By: #### M 100.2200 #### [facility] Laboratory [address] [place], [address] CBC-Complete Blood Cnt No Di ffon 11-05-2024 Erythrocyte distribution width (RBC) [Ratio] 13.1 % Normal 11.6-14.6 [facility] Comment on above: Performed By: #### M 100.2200 #### [facility] Laboratory [address] [place], [address] Hematocrit (Bld) [Volume fraction] 36.5 % Low 37-47 [facility] Comment on above: Performed By: #### M 100.2200 #### [facility] Laboratory [address] [place], [address] Hemoglobin (Bld) [Mass/Vol] 11.8 g/dL Low 12.0-15.0 [facility] Comment on above: Performed By: #### M 100.2200 #### [facility] Laboratory [address] [place], [address] MCH (RBC) [Entitic mass] 26.5 pg Low 27.0-32.0 [facility] Comment on above: Performed By: #### M 100.2200 #### [facility] [address] [place], [address] MCHC (RBC) [Mass/Vol] 32.3 g/dL Normal 32-36 [facility] Comment on above: Performed By: #### M 100.2200 #### [facility] Laboratory [address] [place], [address] MCV (RBC) [Entitic vol] 81.8 fL Normal 81-99 [facility] Comment on above: Performed By: #### M 100.0 #### [facility] [address] [place], [address] Platelet mean volume (Bld) [Entitic vol] 9.1 fL Normal 6.2-12.0 [facility] Comment on above: Performed By: #### M 100.2200 #### [facility] [address] [place], [address] Platelets (Bld) [#/Vol] 327 10*3/uL Normal 150-450 [facility] Comment on above: Performed By: #### M 100.2200 #### [facility] [address] [place], [address] RBC (Bld) [#/Vol] 4.46 10*6/uL Normal 4.2-5.4 [facility] Comment on above: Performed By: #### M 100.2200 #### [facility] [address] [place], [address] RDW SD 38.8 fl Normal 35.1-43.9 [facility] Comment on above: Performed By: #### M 100.2200 #### [facility] [address] [place], [address] WBC (Bld) [#/Vol] 5.4 10*3/uL Normal 4.4-11.0 [facility] Comment on above: Performed By: #### M 801.9613 #### [facility] [address] [place], [address] Erythrocyte distribution wid th (RBC) [Ratio]Ordered By: Laureen Garcia on 11-05-2024 Erythrocyte distribution width (RBC) [Entitic vol] 38.8 fL 35.1-43.9 [facility] Erythrocyte distribution wid th ratioOrdered By: Laureennacho Garcia on 11-05-2024 Erythrocyte distribution width (RBC) [Ratio] 13.1 % 11.6-14.6 [facility] Erythrocyte distribution wid th standard deviationOrdered By: Laureennacho Garcia on 11-05-2024 Erythrocyte distribution width (RBC) [Ratio] 38.8 fl 35.1-43.9 [facility] Hematocrit Auto (Bld) [Volum e fraction]Ordered By: Laureen Garcia on 11-05-2024 Hematocrit (Bld) [Volume fraction] 36.5 % Low 37-47 [facility] Hemoglobin measurementOrdere d By: Laureen Garcia on 11-05-2024 Hemoglobin (Bld) [Mass/Vol] 11.8 g/dL Low 12.0-15.0 [facility] MCV (mean corpuscular volume ) determinationOrdered By: Laureen Garcia on 11-05-2024 MCV (RBC) [Entitic vol] 81.8 fL 81-99 [facility] Mean corpuscular hemoglobin (MCH) determinationOrdered By: Laureen Garcia on 11-05-2024 MCH (RBC) [Entitic mass] 26.5 pg Low 27.0-32.0 [facility] Mean corpuscular hemoglobin concentration (MCHC) determinationOrdered By: Laureen Garcia on 11-05-2024 MCHC (RBC) [Mass/Vol] 32.3 g/dL 32-36 [facility] Mean platelet volume determi nationOrdered By: Laureen Garcia on 11-05-2024 Platelet mean volume (Bld) [Entitic vol] 9.1 fL 6.2-12.0 [facility] Bag Bundler Office Visit Reporton 11-05-2024 Bag Bundler Office Visit Report [facility] [address], [address] [place] [address] OFFICE VISIT Date of Service: 11/05/24 MR#: [id number] Acct: [id number] Name: DEJA WOLFE Rep #: [id number] : 1985 Provider: Dr. Laureen Serrano, Age/Sex: 39/F Location[place] [facility] Status: Signed Intake Vital Signs 10/18/24 11:40 11/05/24 11:58 11/05/24 12:00 Height 5 ft 2 in 5 ft 2 in 5 ft 2 in Weight: 133 lb 8 oz BMI 24.4 BP 127/81 H Intake Visit Reasons: D C polypectomy Web Specialist Required: No Is patient in pain?: No Allergies fentanyl Adverse Reaction (Verified 11/05/24 11:58) Hives Medications ???Medication ???Instructions ???Recorded ???Confirmed ???Type norethindrone (contraceptive) 0.35 0.35 mg PO QDAY #90 tabs 05/21/2 4 11/05/24 Rx mg tablet fluconazole 150 mg tablet 150 mg PO ONCE #1 TAB 11/05/2402/22 Rx Post menopausal: No Patient : No : No PFSH Medical History ADHD Mass of left forearm Contusion of left upper arm Anxiety and depression Anemia Endometriosis determined by laparoscopy Surgical History Mclean teeth extracted H/O dilation and curettage Hematoma [...] Bth Weight Gen Labor Lgth Anesthesia Del Locat Provider FOB Unknown Ian 2009 Unknown Nico [...] and curett (more content not included)... Normal [facility] Platelet countOrdered By: Romario Garcia on 11-05-2024 Platelets (Bld) [#/Vol] 327 10*3/uL 150-450 [facility] RBC Auto (Bld) [#/Vol]Ordere d By: Laureen Garcia on 11-05-2024 RBC (Bld) [#/Vol] 4.46 10*6/uL 4.2-5.4 [facility] Vitamin D, 25-hydroxyOrdered By: Laureen Garcia on 11-05-2024 Vitamin D 25-Hydroxy 23.9 ng/mL Low 30-100 [facility] Comment on above: Vitamin D StatusDefi ciency: <20 ng/mL (50nmol/L)Insufficiency: 20-30 ng/mL (50-75 nmol/L)Sufficiency: 30-100 ng/mL (75-250 nmol/L)Toxicity: >100 ng/mL (>250 nmol/L) Vitamin D,25 Hydroxyon 11-05 Vitamin D 25-OH 23.9 ng/mL Low 30-100 [facility] Comment on above: Result Comment: Anaid min D Status Deficiency: <20 ng/mL (50nmol/L) Insufficiency: 20-30 ng/mL (50-75 nmol/L) Sufficiency: 30-100 ng/mL (75-250 nmol/L) Toxicity: >100 ng/mL (>250 nmol/L) Performed By: #### M 100.2200 #### [facility] Laboratory [address] [place], [place], [address] White blood cell (WBC) count Ordered By: Laureen Garcia on 11-05-2024 WBC (Bld) [#/Vol] 5.4 10*3/uL 4.4-11.0 [facility] CNOVon 10-30-2024 CNOV Office Visit (WSTR ) DEJA WOLFE ([id number]) 1985 F Date Time Provider Department 10/30/24 10:30 AM ZUNILDA MOTTA [facility] During your visit today, we recorded the following information about you: Temperature Pulse Respiration Blood pressure 99.5 degrees 96/minute 22/minute 120/81 Weight Last Period 61 kg 10/18/24 Zunilda Motta APRN.HOUSEMAN 10/30/2024 11:13 AM Signed [facility] Subjective Deja Wolfe is a 39 year old female. Patient presents with: Sore Throat: Body aches, headache, low grade fever x this 39 year old female with PMH hypothyroidism presents for illness. Acute onset yesterday +sore throat +nasal congestion +lymph node +headache +body ache +fever Of note, she spent the weekend in [place] Flew there and back. Tylenol Just feel like this is strep throat The history is provided by the patient. No strategic consultant was used. URI There is no chest [...] behavioral proble (more content not included)... Normal [facility] STREP A MOLECULAR (POC)on Interpretation and review of laboratory results Abnormal [facility] Procedural Control Valid [facility] Strep A (POCT) Positive Abnormal Negative [facility] Surgical pathology reportOrd ered By: Abdullahi Elizabeth on 10-24-2024 Surgical pathology study [facility] Other Phone: Genital Culture Comprehensiv leanna 10-20-2024 VAC Reason for Exam: vaginal discharge Normal vaginal faith isolated. No yeast, Gardnerella, Neisseria or beta-hemolytic Streptococcus isolated. Normal [facility] Comment on above: Performed By: #### M 100.3200, M100.1999 #### [facility] Laboratory [address] [place], [address] Genital cultureOrdered By: Charisma Garcia on 10-18-2024 Genital Culture Neisseria or beta-hemolytic Streptococcus isolated. [facility] Source specific culture Neisseria or beta-hemolytic Streptococcus isolated. [facility] Gram Stainon 10-18-2024 Reason for Exam: vaginal discharge Gram Stain 2+ Gram positive rods No Gram negative diplococci No White Blood Cells Score = 2 Interpretation: 0-3 Normal, 4-6 Intermediate, 7-10 Positive BV Normal [facility] Comment on above: Performed By: #### M 100.3200, M100.1999 #### [facility] Laboratory [address] [place], [address] Gram stainOrdered By: Sheila Garcia on 10-18-2024 Microscopic observation Gram stain Nom (Unsp spec) [facility] Bag Bundler Office Visit Reporton 10-18-2024 Bag Bundler Office Visit Report [facility] [address], [address] [place] [address] OFFICE VISIT Date of Service: 10/18/24 MR#: [id number] Acct: [id number] Name: DEJA WOLFE Rep #: [id number] : 1985 Provider: Dr. Laureen Serrano, Age/Sex: 39/F Location[place] [facility] [place] Status: Signed Intake Vital Signs 09/16/24 13:47 09/27/24 13:34 10/03/24 09:50 10/18/24 11:37 10/18/24 11:40 Height 5 ft 2 in 5 ft 2 in 5 ft 2 in 5 ft 2 in 5 ft 2 in Weight: 137 lb 8 oz BMI 25.1 BP 112/75 Intake Visit Reasons: Discuss US/hysterectomy Chief Complaint: Discuss US/Hyst. Web Specialist Required: No Is patient in pain?: No Allergies fentanyl Adverse Reaction (Verified 10/18/24 11:36) Hives Medications ???Medication ???Instructions ???Recorded ???Confirmed ???Type norethindrone (contraceptive) 0.35 0.35 mg PO QDAY #90 tabs 4 10/18/24 Rx mg tablet fluconazole 150 mg tablet 150 mg PO .COMPLEX #2 tabs 5 10/18/24 Rx fluconazole 150 mg tablet 150 mg PO Q3D 2 doses #2 tabs 03 025 10/18/24 Rx Is last menstrual period known: Yes Last Menstrual Period: 10/17/24 Post menopausal: No Patient : No : No PFSH Medical History ADHD Mass of left forearm Contusion of left upper arm Anxiety and depression Anemia Endometriosis determined by laparoscopy Surgical History Mclean teeth extracted H/O dilation and curettage Hematoma [...] endometriosis Z87.42 (more content not included)... Normal [facility] Surgery Specimen Level Hemant 10-18-2024 Surgery Specimen Level IV ---- Patient Age/Sex Location Account Attending Physician ---- DEJA WOLFE 39/F [facility] [id number] Karla John ---- Specimen: [id number] Received: 10/19/24 Status: KOMAL Guerra Num: [id number] Spec Type: ENDOM BX/C Subm Dr: Dr. Laureen Hernandez, DO HEADER OPERATION: Endometrial biopsy PRE-OP DIAGNOSIS: [...] is totally submitted in one cassette. 10/19/2024 CPT:02546 , TC:4 ---- Patient Age/Sex Location Account Attending Physician ---- DEJA WOLFE 39/F [facility] [id number] Karla oJhn ---- Signed (signature on file) Dr. Abdullahi Elizabeth MD 10/24/24 1722 ---- Normal [facility] Comment on above: Performed By: #### B TSPAT, NXDE1930, L100.0500, BRC #### [facility] Laboratory [address] [place], [place], [address] Genital Culture Comprehensiv leanna 10-06-2024 [facility] Reason for Exam: vaginal itching Normal vaginal faith isolated. No yeast, Gardnerella, Neisseria or beta-hemolytic Streptococcus isolated. Normal [facility] Comment on above: Performed By: #### M 100.3200, M1 #### [facility] Laboratory [address] [place], [place], [address] Genital cultureOrdered By: Quinton Singer on 10-03-2024 Genital Culture Neisseria or beta-hemolytic Streptococcus isolated. [facility] Source specific culture Neisseria or beta-hemolytic Streptococcus isolated. [facility] Gram Stainon 10-03-2024 Reason for Exam: vaginal itching Gram Stain 4+ Gram positive rods 3+ Gram negative rods Rare White Blood Cells No Gram negative diplococci Score = 3 Interpretation: 0-3 Normal, 4-6 Intermediate, 7-10 Positive BV Normal [facility] Comment on above: Performed By: #### M 100.3200, M100 #### [facility] [address] [place], [place], [address] Gram stainOrdered By: Felipa Singer on 10-03-2024 Microscopic observation Gram stain Nom (Unsp spec) [facility] Bag Bundler Office Visit Reporton 10-03-2024 Bag Bundler Office Visit Report [facility] [address], [address] [place] [address] OFFICE VISIT Date of Service: 10/03/24 MR#: [id number] Acct: [id number] Name: DEJA WOLFE Rep #: [id number] : 1985 Provider: DAMIEN javed Age/Sex: 39/F Location[place] [facility] Status: Signed Intake Vital Signs 09/27/24 13:34 10/03/24 09:40 10/03/24 09:50 Height 5 ft 2 in 5 ft 2 in 5 ft 2 in Weight: 122 lb BMI 22.3 BP 118/84 H Intake Visit Reasons: Ongoing vaginal itching and burning Chief Complaint: Vaginal itching and burning Web Specialist Required: No Is patient in pain?: No [...] Anemia Endometriosis determined by laparoscopy Surgical History Mclean teeth extracted H/O dilation and curettage Hematoma [...] follow up 10/03/24 1003 Date Felipa Singer CAUSTIC ROOM ATTENDANT CAUSTIC ROOM ATTENDANT-C Cosigner Signature: Date (if applicable) CC: Normal [facility] Pelvic w/ Transvaginalon Pelvic w/ Transvaginal [facility] Imaging Services [address] [place], [place] [address] Pelvic w/ Transvaginal MR#: [id number] Acct: [id number] Name: DEJA WOLFE Rep #: [id number] : 1985 F 39 From: Christian gerardo MD PCP: Dr. Damion Wright MD Status: [facility] Study: Pelvic w/ Transvaginal Date of Exam: 10/02/24 Exam# [id number] Ordering Dr: Laureen Hernandez DO PROCEDURE: PELVIC [...] polyp at the cervical os. Reading Location: PRE-VPTIKGOTC-W CC: Dr. Laureen Hernandez DO; Dr. Damion Wright MD Casting Supervisor: Signed Normal [facility] Breast imaging reportOrdered By: Zara Fernandez on 09-28-2024 Study report [facility] Imaging Services [address] [place] [address] SCRN MAMM (CAD)W/TREMAINE BILAT MR#: [id number] Acct: [id number] Name: DEJA WOLFE Rep #: [id number] : 1985 F 39 From: Liliana Fernandez MD PCP: Dr. Damion Wright MD Status: [facility] Study:SCRN MAMM (CAD)W/TREMAINE BILAT Date of Exa m: 09/28/24 Exam# [id number] Ordering Dr: Laureen Copeland DO PROCEDURE: SCRN [...] of the results by letter. Reading Location: [facility] CC: Dr. Laureen Hernandez DO; Dr. Damion Wright MD ~ Casting Supervisor: Signed [facility] SCRN MAMM (CAD)W/TREMAINE BILATo n 09-28-2024 SCRN MAMM (CAD)W/TREMAINE BILAT [facility] Imaging Services [address] [address] SCRN MAMM (CAD)W/TREMAINE BILAT MR#: [id number] Acct: [id number] Name: DEJA WOLFE Rep #: [id number] : 1985 F 39 From: Zara Fernandez MD PCP: Dr. Damion Wright MD Status: REG CLI Study: SCRN MAMM (CAD)W/TREMAINE BILAT Date of Exam: 09/02 03/25 Exam# [id number] Ordering Dr: Laureen Hernandez DO PROCEDURE: SCRN [...] of the results by letter. Reading Location: [id number] CC: Dr. Laureen Hernandez DO; Dr. Damion Wright MD Casting Supervisor: Signed [facility] CN Office Visit ([facility] ) DEJA WOLFE ([id number]) 1985 F Date Time Provider Department 09/20/24 4:00 PM DIANN EVANS WSTR During your visit today, we recorded the following information about you: Temperature Pulse Respiration Blood pressure 98.2 degrees 73/minute 16/minute 124/76 Weight Last Period 59.4 kg 08/09/24 Diann Evans, HAND WASHER.HOUSEMAN 09/20/2024 3:49 PM Signed Nursing clinic for [...] primary care, return to the clinic. Diann Evans, HAND WASHER.HOUSEMAN 09/20/2024 4:08 PM Signed This note was created using [employer]. Subjective Deja Wolfe is a 39 year [...] Capillary Re (more content not included)... Normal [facility] Ankle min 3 Viewson 09-16-19 Ankle min 3 Views [facility] Imaging Services [address] [place] [address] Ankle min 3 Views MR#: [id number] Acct: [id number] Name: DEJA WOLFE Rep #: [id number] : 1985 F 39 From: Willa Becker nd, MD PCP: Dr. Damion Wright MD Status: PRE ER Study: Ankle min 3 Views Date of Exam: 09/16/24 Exam# [id number] Ordering Dr: Joe Kasper DO PROCEDURE: ANKLE [...] Views IMPRESSION: NEGATIVE ANKLE SERIES Reading Location: [facility] CC: Dr. Joe Kasper DO; Dr. Damion Wright MD Casting Supervisor: Signed Normal [facility] Emergency Department Summary on 09-16-2024 Emergency Department Summary [facility] Medical Records Department [address] [place] [address] Emergency Department Summary 09/16/24 MR#: [id number] Acct: [id number] Name: DEJA WOLFE Rep #: [id number] : 1985 39 From: Joe Kasper DO [...] is worried that it may be broken. PFSH PFSH Medical History ADHD Mass of left [...] History Aunt Breast cancer x2 Surgical History Mclean teeth extracted H/O dilation and curettage Hematoma [...] Radiography Diag (more content not included)... Normal [facility] Bag Bundler Office Visit Reporton 05-21-2024 Bag Bundler Office Visit Report [facility] [address], [address] [place] [address] OFFICE VISIT Date of Service: 05/21/24 MR#: [id number] Acct: [id number] Name: DEJA WOLFE Rep #: [id number] : 1985 Provider: Dr. 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 Normal [facility] Urgent Care Visit Reporton 0 03-28-2024 Urgent Care Visit Report [facility] [address], [address] [place] [address] OFFICE VISIT Date of Service: 03/28/24 MR#: [id number] Acct: [id number] Name: DEJA WOLFE Rep #: [id number] : 1985 Provider: MIKE Huynh Age/Sex: 39/F Location: [facility] Status: Signed Intake Vital Signs 02/28/24 15:25 [...] Intake Visit Reasons: Rash Chief Complaint: rash Web Specialist Required: No Is patient in pain?: No [...] worked up for RA by ortho physician bricklayer's assistant but has not gotten results yet. [facility] Medical History (Updated 03/28/24 @ 13:06 by Wade MCKEON, PA) Mass of left forearm Contusion of left upper arm Anxiety and depression Anemia Endometriosis determined by laparoscopy Surgical History Mclean teeth extracted H/O dilation and curettage Hematoma [...] at home: Yes additional social history: [employer] for [employer] HPI HPI Chief Complaint: rash Details: DEJA WOLFE, is a 39 F who presents to the office today for initial evaluation left upper extremity ecchymosis to medial upper arm as well as fluctuant tender mass to left forearm both first appreciated this morning after getting out of the shower. No history of trauma to the same she so states. No oquo-yrp-seipyql products taken to assist. No complaints of fever, chills, sweats, lightheadedness/dizzin ess, nausea/vomiting, or chest pain/shortness of breath/dizzy on exertion. Currently being worked up by private provider for potential connective tissue disorders/arthralgias with lab results pending at this time. [id number]. No other associated symptoms and no other [...] (considering PM (more content not included)... Normal [facility] ANTINUCLEAR ANTIBODIES DIREC Ton 03-23-2024 KELY,DIRECT Negative Normal Negative [facility] Comment on above: Result Comment: Perf ormed at: [facility] [employer] [id number] [address] Scan Technologist: Duane Montelongo PhD, Phone: [phone] Performed By: #### M 652.4179, G3 #### [facility] [address] [place], [address] CCP IgG Antibodieson 024 CCP IgG Ab. 3 units Normal 0-19 [facility] Comment on above: Result Comment: Nega tive <20 Weak positive 20 - 39 Moderate positive 40 - 59 Strong positive >59 Performed at: [facility] [employer] [id number] [address] Scan Technologist: Duane Montelongo PhD, Phone: [phone] Performed By: #### M 204.6934, M100 #### [facility] [address] [place], [address] Lyme Screen W/Reflex WBon LYME SCREEN Ab Negative Normal Negative [facility] Comment on above: Result Comment: Lyme antibodies [...] is recommended. Performed By: #### M 100.3200, #### [facility] [address] [place], [address] CBC W/Diff, Automatedon 03-02 Absolute Lymph 1.97 X10 3/uL Normal 0.83-4.51 [facility] Comment on above: Performed By: #### M 100.3200, #### [facility] [address] [place], [address] Absolute Neut 3.0 X10 3/uL Normal 2.0-7.7 [facility] Comment on above: Performed By: #### M 100.3200, #### [facility] [address] [place], [address] Basophils/100 WBC (Bld) 0.9 % Normal 0-1 [facility] Comment on above: Performed By: #### M 100.3200, #### [facility] [address] [place], [address] Eosinophils/100 WBC (Bld) 4.2 % Normal 0-5 [facility] Comment on above: Performed By: #### M 100.3200, #### [facility] [address] [place], [address] Erythrocyte distribution width (RBC) [Ratio] 13.4 % Normal 11.6-14.6 [facility] Comment on above: Performed By: #### M 100.3200, #### [facility] [address] [place], [address] Hematocrit (Bld) [Volume fraction] 38.0 % Normal 37-47 [facility] Comment on above: Performed By: #### M 100.3200, #### [facility] [address] [place], [address] Hemoglobin (Bld) [Mass/Vol] 12.5 g/dL Normal 12.0-15.0 [facility] Comment on above: Performed By: #### M 100.3200, #### [facility] [address] [place], [address] IG% 0.200 Normal 0.0-0.9 [facility] Comment on above: Result Comment: IG% - Immature Granulocytes (promyelocytes, myelocytes and metamyelocytes) > 1% indicates that a LEFT SHIFT is Present. Performed By: #### M 100.3200, #### [facility] [address] [place], [address] Lymphocytes/100 WBC (Bld) 34.5 % Normal 19-41 [facility] Comment on above: Performed By: #### M 100.3200, #### [facility] [address] [place], [address] MCH (RBC) [Entitic mass] 26.8 pg Low 27.0-32.0 [facility] Comment on above: Performed By: #### M 100.3200, #### [facility] [address] [place], [address] MCHC (RBC) [Mass/Vol] 32.9 g/dL Normal 32-36 [facility] Comment on above: Performed By: #### M 100.3200, #### [facility] [address] [place], [address] MCV (RBC) [Entitic vol] 81.4 fL Normal 81-99 [facility] Comment on above: Performed By: #### M 100.3200, #### [facility] [address] [place], [address] Monocytes/100 WBC (Bld) 7.4 % Normal 0-10 [facility] Comment on above: Performed By: #### M 100.320, #### [facility] [address] [place], [address] Neutrophils/100 WBC (Bld) 52.8 % Normal 47-70 [facility] Comment on above: Performed By: #### M 100.320, #### [facility] [address] [place], [address] Nucleated RBC (Bld) [#/Vol] 0 10*3/uL Normal 0-5 [facility] Comment on above: Performed By: #### M 100.320, #### [facility] [address] [place], [address] Platelet mean volume (Bld) [Entitic vol] 10.7 fL Normal 6.2-12.0 [facility] Comment on above: Performed By: #### M 100.3200, #### [facility] [address] [place], [address] Platelets (Bld) [#/Vol] 339 10*3/uL Normal 150-450 [facility] Comment on above: Performed By: #### M 100.320, #### [facility] [address] [place], [address] RBC (Bld) [#/Vol] 4.67 10*6/uL Normal 4.2-5.4 [facility] Comment on above: Performed By: #### M 100.3200, #### [facility] [address] [place], [address] RDW SD 39.2 fl Normal 35.1-43.9 [facility] Comment on above: Performed By: #### M 100.3200, #### [facility] [address] [place], [address] WBC (Bld) [#/Vol] 5.7 10*3/uL Normal 4.4-11.0 [facility] Comment on above: Performed By: #### M 100.3200, #### [facility] [address] [place], [address] CRPon 03-21-2024 C-REACTIVE PROT < 2.90 Normal 0.0-3.0 [facility] Comment on above: Result Comment: C-Re active Protein (CRP) provides useful information for the diagnosis, therapy and monitoring of inflammatory processes and associated diseases. For the evaluation of Relative Risk for Cardiovascular Disease, a High Sensitivity CRP (HSCRP) should be ordered. Performed By: #### M 100.3200, #### [facility] [address] [place], [address] Erythrocyte Sed Rateon 03-21 SED RATE 5 mm/hr Normal 0-30 [facility] Comment on above: Performed By: #### M 100.3200, #### [facility] [address] [place], [address] Rheumatoid Factoron 03-21-20 24 RHEUMATOID FAC < 10.0 Normal <15 [facility] Comment on above: Performed By: #### M 100.3200, #### [facility] [address] [place], [address] Uric Acidon 03-21-2024 URIC 4.1 mg/dL Normal 2.6-6.0 [facility] [facility] Comment on above: Result Comment: The drugs N-Acetylcysteine and Metamizole may falsely depress this assay. Performed By: #### M 100.3200, M100.1999 #### [facility] [address] [place], [address] Absolute lymphocyte countOrd ered By: Damion Wright on 10-20-2023 Lymphocytes Auto (Unsp spec) [#/Vol] 1.94 10*3/uL 0.83-4.51 [facility] Automated lymphocyte count a s percentage of total leukocytesOrdered By: Damion Wright on 10-20-2023 Lymphocytes/100 WBC Auto (Unsp spec) 27.5 % 19-41 [facility] Basophil percentageOrdered B y: Damion Wright on 10-20-2023 Basophils/100 WBC (Bld) 0.8 % 0-1 [facility] Eosinophils/100 WBC (Bld) 4.5 % 0-5 [facility] Hemoglobin (Bld) [Mass/Vol] 11.9 g/dL 12.0-15.0 [facility] Monocytes/100 WBC (Bld) 7.5 % 0-10 [facility] Neutrophils (Bld) [#/Vol] 4.2 10*3/uL 2.0-7.7 [facility] Neutrophils/100 WBC (Bld) 59.6 % 47-70 [facility] WBC (Bld) [#/Vol] 7.1 10*3/uL 4.4-11.0 [facility] Determination of erythrocyte mean corpuscular volume (MCV)Ordered By: Damion Wright on 10-20-2023 MCV (RBC) [Entitic vol] 84.2 fL 81-99 [facility] Erythrocyte distribution wid th ratioOrdered By: Damion Wright on 10-20-2023 Erythrocyte distribution width (RBC) [Ratio] 12.9 % 11.6-14.6 [facility] Erythrocyte distribution wid th standard deviationOrdered By: Damion Wright on 10-20-2023 Erythrocyte distribution width (RBC) [Entitic vol] 39.1 fL 35.1-43.9 [facility] Hematocrit Auto (Bld) [Volum e fraction]Ordered By: Damion Wright on 10-20-2023 Hematocrit (Bld) [Volume fraction] 37.7 % 37-47 [facility] Immature granulocytes/100 WB C Auto (Bld)Ordered By: Damion Wright on 10-20-2023 Immature granulocytes/100 WBC (Bld) 0.100 % 0.0-0.9 [facility] Comment on above: IG% - Immature Granu locytes (promyelocytes, myelocytes and metamyelocytes) > 1% indicates that a LEFT SHIFT is Present. Laboratory - Hematology and Cell countsOrdered By: Damion Wright on 10-20-2023 MCH (RBC) [Entitic mass] 26.6 pg 27.0-32.0 [facility] MCHC (RBC) [Mass/Vol] 31.6 g/dL 32-36 [facility] Nucleated RBC/100 WBC (Bld) [Ratio] 0 % 0-5 [facility] Platelet mean volume (Bld) [Entitic vol] 9.6 fL 6.2-12.0 [facility] Platelets (Bld) [#/Vol] 366 10*3/uL 150-450 [facility] RBC Auto (Bld) [#/Vol]Ordere d By: Damion Wright on 10-20-2023 RBC (Bld) [#/Vol] 4.48 10*6/uL 4.2-5.4 [facility] Serum or plasma uric acid me asurement (mass/volume)Ordered By: Damion Wright on 10-20-2023 Urate [Mass/Vol] 3.1 mg/dL 2.6-6.0 [facility] Comment on above: The drugs N-Acetylcy steine and Metamizole may falsely depress this assay. Chlamydia trachomatis rRNA d etection by probe and target amplification methodOrdered By: Felipa Singer on 03-02-2023 C. trachomatis rRNA YANELI+probe Ql (Unsp spec) Negative Negative [facility] Laboratory - Microbiology an d Antimicrobial susceptibilityOrdered By: Felipa Singer on 03-02-2023 N. gonorrhoeae DNA YANELI+probe Ql (Unsp spec) Negative Negative [facility] Comment on above: Performed at: [address] [id number] Director: Belen Preciado MD, Phone: [phone] No Panel Informationon 03-02 POC Trichomonas (Rapid) Negative [facility] Culture, urineOrdered By: Dr Dontae Lindsay on 08-29-2022 Bacteria identified Cx Nom (U) Positive [facility] Laboratory - Chemistry and C hemistry - challengeOrdered By: Dr. Garcia on 06-01-2022 Free T4 [Mass/Vol] 0.93 ng/dL 0.76-1.46 [facility] No Panel InformationOrdered By: Dr. Garcia on 06-01-2022 Follicle Stimulating Hormone 7.4 mIU/mL [facility] Comment on above: NORMAL REFERENCE RAN GES FEMALE FOLLICULAR 2.3 - 12.6 mIU/mL MID-CYCLE PEAK 5.2 - 17.5 mIU/mL LUTEAL 1.7 - 12.9 mIU/mL POST-MENOPAUSAL ON MHT 5.9 - 72.8 mIU/mL NOT ON MHT 12.7 - 132.2 mlU/mL MALE 0.7 - 10.8 mIU/mL Luteinizing Hormone 3.5 mIU/mL [facility] Comment on above: NORMAL REFERENCE RAN GES FEMALE FOLLICULAR 1.9 - 26.2 mIU/mL MID-CYCLE PEAK 22.8 - 76.1 mIU/mL LUTEAL 0.6 - 16.6 mIU/mL POST-MENOPAUSAL ON MHT 1.1 - 52.4 mIU/mL NOT ON MHT 8.6 - 61.8 mIU/mL MALE 1.2 - 10.6 mIU/mL Thyroid Stimulating Hormone (TSH) 2.32 uIU/mL 0.358-3.74 [facility] Serum or plasma estradiol (E 2) measurement (mass/volume)Ordered By: Dr. Garcia on 06-01-2022 E2 [Mass/Vol] 44.3 pg/mL [facility] Comment on above: NORMAL REFERENCE [...] report Cyto stain Doc (Cvx/Vag) Comment . [facility] Comment on above: The Pap smear is [...] DNA Probe+sig amp Ql (Cvx) Negative Negative [facility] Comment on above: This nucleic acid am plification test detects fourteen high-risk HPV types (16,18,31,33,35,39,45,51,52,56,58,59,66,68)without differentiation.Performed at: [facility] [id number] Director: Belen Preciado MD, Phone: [phone] at: =[facility] [id number] Director: Belen Preciado MD, Phone: [phone] Laboratory - CytologyOrdered By: Dr. Garcia on 05-13-2022 Critical Power Install Technician Cyto stain Nom (Cvx/Vag) [ID] Comment . [facility] Comment on above: Rayna Norwoodt echnologist (ASCP) Laboratory - Miscellaneous t estsOrdered By: Dr. Garcia on 05-13-2022 Service comment (Unsp spec) [Interp] Comment . [facility] Comment on above: This liquid based Th inPrep(R) pap test was screened withthe use of an image guided system. Service comment (Unsp spec) [Interp] . . [facility] No Panel InformationOrdered By: Dr. Garcia on 05-13-2022 Pathology report final diagnosis Narrative Comment . [facility] Comment on above: NEGATIVE FOR INTRAEP ITHELIAL LESION OR MALIGNANCY.SHIFT IN FAITH SUGGESTIVE OF BACTERIAL VAGINOSIS.THIS SPECIMEN WAS RESCREENED PART OF OUR LEAD PRINTER PROGRAM. Microbiology: Culture, R/O S trep Aon 03-31-2017 GE use only - for [employer] import when terms are not otherwise specified . Invalid Interpretation Code [facility] Work Phone: Microbiology: (P) Culture, R /O Strep Aon 03-30-2017 CUSTREPA . [facility] Work Phone: Office Visit: UC: pharyngiti s, tonsillolithon 03-28-2017 Documentation of current medications (procedure) Done Invalid Interpretation Code [facility] Work Phone: Documentation of current medications (procedure) T Invalid Interpretation Code [facility] Work Phone: Fall risk assessment No Invalid Interpretation Code [facility] Work Phone: Protein mass conc Done [facility] Work Phone: Protein mass conc T [facility] Work Phone: Rapid strep test Negative Invalid Interpretation Code [facility] Work Phone: S. pyogenes DNA YANELI+probe Ql (Throat) Negative [facility] Work Phone: Tobacco smoking status NHIS Current every day smoker [facility] Work Phone: Tobacco use CPHS Current every day smoker Invalid Interpretation Code [facility] Work Phone: Vital Signs Date Time Vital Sign Value Performing Clinician Facility 02-22-2025 13:36-0400 Body temperature 98 [degF] Dr. Damion Wright MD Work Phone: [facility] 02-22-2025 13:36-0400 Diastolic blood pressure 53 mm[Hg] Dr. Damion Wright MD Work Phone: [facility] 02-22-2025 13:36-0400 Heart rate 64 /min Dr. Damion Wright MD Work Phone: [facility] 02-22-2025 13:36-0400 Respiratory rate 18 /min Dr. Damion Wright MD Work Phone: [facility] 02-22-2025 13:36-0400 SaO2% (BldA) [Mass fraction] 98 % Dr. Damion Wright MD Work Phone: [facility] 02-22-2025 13:36-0400 Systolic blood pressure 116 mm[Hg] Dr. Damion Wright MD Work Phone: [facility] 02-22-2025 11:15-0400 Inhaled oxygen flow rate 4 L/min Dr. Damion Wright MD Work Phone: [facility] 02-22-2025 06:04-0400 Body height 157.[address] Damion Wright MD Work Phone: [facility] 02-22-2025 06:04-0400 Body mass index (BMI) [Ratio] 23.8 kg/m2 Dr. Damion Wright MD Work Phone: [facility] 02-22-2025 06:04-0400 Body weight [address] Damion Wright MD Work Phone: [facility] 01-21-2025 11:43-0400 Body mass index (BMI) [Ratio] 23.16 kg/m2 Krislyn Aberegg PA Work Phone: [facility] 01-21-2025 11:43-0400 Body temperature 98.91 [degF] Krislyn Aberegg PA Work Phone: [facility] 01-21-2025 11:43-0400 Body weight 61.2 kg Krislyn Aberegg PA Work Phone: [facility] 01-21-2025 11:43-0400 Diastolic blood pressure 68 mm[Hg] Krislyn Aberegg PA Work Phone: [facility] 01-21-2025 11:43-0400 Heart rate 94 /min Krislyn Aberegg PA Work Phone: [facility] 01-21-2025 11:43-0400 Respiratory rate 16 /min Krislyn Aberegg PA Work Phone: [facility] 01-21-2025 11:43-0400 SaO2% (BldA) [Mass fraction] 97 % Krislyn Aberegg PA Work Phone: [facility] 01-21-2025 11:43-0400 Systolic blood pressure 122 mm[Hg] Krislyn Aberegg PA Work Phone: [facility] 01-07-2025 08:37-0400 Body height 157.[address] Damion Wright MD Work Phone: [facility] 01-07-2025 08:37-0400 Body mass index (BMI) [Ratio] 25 kg/m2 Dr. Damion Wright MD Work Phone: [facility] 01-07-2025 08:37-0400 Body weight 62.[address] Damion Wright MD Work Phone: [facility] 01-07-2025 08:37-0400 Diastolic blood pressure 74 mm[Hg] Dr. Damion Wright MD Work Phone: [facility] 01-07-2025 08:37-0400 Systolic blood pressure 106 mm[Hg] Dr. Damion Wright MD Work Phone: [facility] 12-04-2024 10:30-0400 Body height 157.[address] Damion Wright MD Work Phone: [facility] 12-04-2024 10:30-0400 Body mass index (BMI) [Ratio] 23.9 kg/m2 Dr. Damion Wright MD Work Phone: [facility] 12-04-2024 10:30-0400 Body weight 59.[address] Damion Wright MD Work Phone: [facility] 12-04-2024 10:30-0400 Diastolic blood pressure 84 mm[Hg] Dr. Damion Wright MD Work Phone: [facility] 12-04-2024 10:30-0400 Systolic blood pressure 121 mm[Hg] Dr. Damion Wright MD Work Phone: 5(653)319-232233 [place] [address] 12-03-2024 08:54-0400 Body mass index (BMI) [Ratio] 23.9 kg/m2 Dr. Damion Wright MD Work Phone: 0(418)990-772433 [place] [address] 12-03-2024 08:54-0400 Body weight 59.[address] Damion Wright MD Work Phone: 3(612)331-902232 [place] [address] 12-03-2024 08:54-0400 Diastolic blood pressure 71 mm[Hg] Dr. Damion Wright MD Work Phone: 5(750)466-908132 [place] [address] 12-03-2024 08:54-0400 Systolic blood pressure 105 mm[Hg] Dr. Damion Wright MD Work Phone: 5(684)422-966333 [place] [address] 11-20-2024 15:00-0400 Body temperature 97.4 [degF] Dr. Damion Wright MD Work Phone: 7(804)854-400232 [place] [address] 11-20-2024 15:00-0400 Heart rate 65 /min Dr. Damion Wright MD Work Phone: 9(953)979-044933 [place] [address] 11-20-2024 15:00-0400 Respiratory rate 18 /min Dr. Damion Wright MD Work Phone: 4(736)785-752333 [place] [address] 11-20-2024 15:00-0400 SaO2% (BldA) [Mass fraction] 100 % Dr. Damion Wright MD Work Phone: 8(281)050-443833 [place] [address] 11-20-2024 14:45-0400 Diastolic blood pressure 49 mm[Hg] Dr. Damion Wright MD Work Phone: [facility] 11-20-2024 14:45-0400 Systolic blood pressure 94 mm[Hg] Dr. Damion Wright MD Work Phone: 0(457)788-916933 [place] [address] 11-20-2024 14:39-0400 Inhaled oxygen flow rate 2 L/min Dr. Damion Wright MD Work Phone: 8(671)967-583233 [place] [address] 11-20-2024 12:41-0400 Body height 157.[address] Damion Wright MD Work Phone: 8(325)833-691033 [place] [address] 11-20-2024 12:41-0400 Body mass index (BMI) [Ratio] 23.9 kg/m2 Dr. Damion Wright MD Work Phone: 8(752)062-853833 [place] [address] 11-20-2024 12:41-0400 Body weight 59.[address] Damion Wright MD Work Phone: 0(264)849-484432 [place] [address] 11-16-2024 10:01-0400 Body mass index (BMI) [Ratio] 23.1 kg/m2 Dr. Damion Wright MD Work Phone: 5(199)102-639032 [place] [address] 11-16-2024 10:01-0400 Body weight 57.[address] Damion Wright MD Work Phone: 9(550)402-079633 [place] [address] 11-16-2024 10:01-0400 Diastolic blood pressure 88 mm[Hg] Dr. Damion Wright MD Work Phone: 8(235)730-386932 [place] [address] 11-16-2024 10:01-0400 Systolic blood pressure 137 mm[Hg] Dr. Damion Wright MD Work Phone: 8(168)161-935332 [place] [address] 11-05-2024 11:58-0400 Body mass index (BMI) [Ratio] 24.4 kg/m2 Dr. Damion Wright MD Work Phone: 9(185)299-234933 [place] [address] 11-05-2024 11:58-0400 Body weight 60.[address] Damion Wright MD Work Phone: 9(423)909-079933 [place] [address] 11-05-2024 11:58-0400 Diastolic blood pressure 81 mm[Hg] Dr. Damion Wright MD Work Phone: 7(969)619-668633 [place] [address] 11-05-2024 11:58-0400 Systolic blood pressure 127 mm[Hg] Dr. Damion Wright MD Work Phone: 1(949)594-067333 [place] [address] 10-30-2024 10:35-0400 Body mass index (BMI) [Ratio] 23.08 kg/m2 Zunilda Motta HAND WASHER.HOUSEMAN Work Phone: [facility] 10-30-2024 10:35-0400 Body temperature 99.5 [degF] Zunilda Motta HAND WASHER.HOUSEMAN Work Phone: [facility] 10-30-2024 10:35-0400 Body weight 61 kg Zunilda Motta HAND WASHER.HOUSEMAN Work Phone: [facility] 10-30-2024 10:35-0400 Diastolic blood pressure 81 mm[Hg] Zunilda Motta HAND WASHER.HOUSEMAN Work Phone: [facility] 10-30-2024 10:35-0400 Heart rate 96 /min Zunilda Motta HAND WASHER.HOUSEMAN Work Phone: [facility] 10-30-2024 10:35-0400 Respiratory rate 22 /min Zunilda Motta HAND WASHER.HOUSEMAN Work Phone: [facility] 10-30-2024 10:35-0400 SaO2% (BldA) [Mass fraction] 100 % Zunilda Motta HAND WASHER.HOUSEMAN Work Phone: [facility] 10-30-2024 10:35-0400 Systolic blood pressure 120 mm[Hg] Zunilda Motta HAND WASHER.HOUSEMAN Work Phone: [facility] 10-18-2024 11:40-0400 Body height 157.[address] Damion Wright MD Work Phone: [facility] 10-18-2024 11:37-0400 Body mass index (BMI) [Ratio] 25.1 kg/m2 Dr. Damion Wright MD Work Phone: [facility] 10-18-2024 11:37-0400 Body weight 62.[address] Damion Wright MD Work Phone: [facility] 10-18-2024 11:37-0400 Diastolic blood pressure 75 mm[Hg] Dr. Damion Wright MD Work Phone: [facility] 10-18-2024 11:37-0400 Systolic blood pressure 112 mm[Hg] Dr. Damion Wright MD Work Phone: [facility] 10-03-2024 09:50-0500 Body height 157.[address] Damion Wright MD Work Phone: [facility] 10-03-2024 09:40-0500 Body mass index (BMI) [Ratio] 22.3 kg/m2 Dr. Damion Wright MD Work Phone: [facility] 10-03-2024 09:40-0500 Body weight 55.[address] Damion Wright MD Work Phone: [facility] 10-03-2024 09:40-0500 Diastolic blood pressure 84 mm[Hg] Dr. Damion Wright MD Work Phone: [facility] 10-03-2024 09:40-0500 Systolic blood pressure 118 mm[Hg] Dr. Damion Wright MD Work Phone: [facility] 09-20-2024 15:32-0500 Body mass index (BMI) [Ratio] 22.48 kg/m2 Diann Stehekin HAND WASHER.HOUSEMAN Work Phone: [facility] 09-20-2024 15:32-0500 Body temperature 98.2 [degF] Diann Stehekin HAND WASHER.HOUSEMAN Work Phone: [facility] 09-20-2024 15:32-0500 Body weight 59.4 kg Diann Stehekin HAND WASHER.HOUSEMAN Work Phone: [facility] 09-20-2024 15:32-0500 Diastolic blood pressure 76 mm[Hg] Diann Stehekin HAND WASHER.HOUSEMAN Work Phone: [facility] 09-20-2024 15:32-0500 Heart rate 73 /min Diann Stehekin HAND WASHER.HOUSEMAN Work Phone: [facility] 09-20-2024 15:32-0500 Respiratory rate 16 /min Diann Stehekin HAND WASHER.HOUSEMAN Work Phone: [facility] 09-20-2024 15:32-0500 SaO2% (BldA) [Mass fraction] 99 % Diann Evans HAND WASHER.HOUSEMAN Work Phone: [facility] 09-20-2024 15:32-0500 Systolic blood pressure 124 mm[Hg] Diann Evans HAND WASHER.HOUSEMAN Work Phone: [facility] 09-16-2024 14:30-0500 Body temperature 98.1 [degF] Dr. Damion Wright MD Work Phone: [facility] 09-16-2024 14:30-0500 Diastolic blood pressure 67 mm[Hg] Dr. Damion Wright MD Work Phone: [facility] 09-16-2024 14:30-0500 Heart rate 74 /min Dr. Damion Wright MD Work Phone: [facility] 09-16-2024 14:30-0500 Respiratory rate 15 /min Dr. Damion Wright MD Work Phone: [facility] 09-16-2024 14:30-0500 SaO2% (BldA) [Mass fraction] 99 % Dr. Damion Wright MD Work Phone: [facility] 09-16-2024 14:30-0500 Systolic blood pressure 109 mm[Hg] Dr. Damion Wright MD Work Phone: [facility] 09-16-2024 13:47-0500 Body mass index (BMI) [Ratio] 23.8 kg/m2 Dr. Damion Wright MD Work Phone: [facility] 09-16-2024 13:47-0500 Body weight 58.[address] Damion Wright MD Work Phone: [facility] 06-28-2023 10:16-0500 Body height 159.[address] Damion Wright Work Phone: [facility] 06-28-2023 10:16-0500 Body mass index (BMI) [Ratio] 21.4 kg/m2 Dr. Damion Wright Work Phone: [facility] 06-28-2023 10:16-0500 Body weight 54.[address] Damion Wright Work Phone: [facility] 06-28-2023 10:16-0500 Diastolic blood pressure 71 mm[Hg] Dr. Damion Wright Work Phone: [facility] 06-28-2023 10:16-0500 Respiratory rate 16 /min Dr. Damion Wright Work Phone: [facility] 06-28-2023 10:16-0500 Systolic blood pressure 113 mm[Hg] Dr. Damion Wright Work Phone: 2(883)195-278133 [place] [address] 05-18-2023 10:41-0400 Body height 159.[address] Damion Wright Work Phone: 5(901)872-551585 [address] 05-18-2023 10:41-0400 Body mass index (BMI) [Ratio] 20.7 kg/m2 Dr. Damion Wright Work Phone: 2(905)383-677833 [place] [address] 05-18-2023 10:41-0400 Body weight 52.[address] Damion Wright Work Phone: 7(891)318-921685 [address] 05-18-2023 10:41-0400 Diastolic blood pressure 79 mm[Hg] Dr. Damion Wright Work Phone: 9(839)800-432085 [address] 05-18-2023 10:41-0400 Systolic blood pressure 125 mm[Hg] Dr. Damion Wright Work Phone: [facility] 03-02-2023 14:41-0400 Body height 159.[address] Damion Wright Work Phone: 3(405)475-681485 [address] 03-02-2023 14:34-0400 Body mass index (BMI) [Ratio] 21.7 kg/m2 Dr. Damion Wright Work Phone: [facility] 03-02-2023 14:34-0400 Body weight 55.[address] Damion Wright Work Phone: 4(904)651-321833 [place] [address] 03-02-2023 14:34-0400 Diastolic blood pressure 76 mm[Hg] Dr. Damion Wright Work Phone: [facility] 03-02-2023 14:34-0400 Systolic blood pressure 120 mm[Hg] Dr. Damion Wright Work Phone: [facility] 05-13-2022 14:01-0400 Body height 159.[address] Damion Wright Work Phone: [facility] 05-13-2022 14:00-0400 Body mass index (BMI) [Ratio] 22.5 kg/m2 Dr. Damion Wright Work Phone: [facility] 05-13-2022 14:00-0400 Body weight 57.[address] Damion Wright Work Phone: [facility] 05-13-2022 14:00-0400 Diastolic blood pressure 84 mm[Hg] Dr. Damion Wright Work Phone: [facility] 05-13-2022 14:00-0400 Systolic blood pressure 138 mm[Hg] Dr. Damion Wright Work Phone: [facility] 01-29-2022 12:59-0400 Body temperature 98.6 [degF] Kerry Praisler-Wood HAND WASHER.HOUSEMAN Work Phone: [facility] 01-29-2022 12:59-0400 Body weight 57.34 kg Kerry Praisler-Wood HAND WASHER.HOUSEMAN Work Phone: [facility] 01-29-2022 12:59-0400 Diastolic blood pressure 78 mm[Hg] Kerry Praisler-Wood HAND WASHER.HOUSEMAN Work Phone: [facility] 01-29-2022 12:59-0400 Heart rate 112 /min Kerry Praisler-Wood HAND WASHER.HOUSEMAN Work Phone: [facility] 01-29-2022 12:59-0400 Respiratory rate 18 /min Kerry Praisler-Wood HAND WASHER.HOUSEMAN Work Phone: [facility] 01-29-2022 12:59-0400 SaO2% (BldA) [Mass fraction] 99 % Kerry De Guzman HAND WASHER.HOUSEMAN Work Phone: [facility] 01-29-2022 12:59-0400 Systolic blood pressure 124 mm[Hg] Kerry De Guzman APRN.HOUSEMAN Work Phone: [facility] 05-07-2019 22:42-0400 BP Diastolic 94 mm[Hg] [place], [place] 05-07-2019 22:42-0400 BP Systolic 143 mm[Hg] [place] 05-07-2019 22:42-0400 Pulse (Heart Rate) 67 /min [place], [place] 05-07-2019 22:42-0400 Pulse Oximetry 100 % [place], [place] 05-07-2019 22:42-0400 Respiratory Rate 16 /min [place], [place] 05-07-2019 20:31-0400 BMI (Body Mass Index) 22.86 kg/m2 [place], [place] 05-07-2019 20:31-0400 Body Temperature 98.4 [degF] [place], [place] 05-07-2019 20:31-0400 Body weight 56.7 kg [place] 05-07-2019 20:31-0400 Height 157.5 cm [place] 03-28-2017 16:20-0400 BMI (Body Mass Index) 22.52 kg/m2 Wade MCKEON [facility] Work Phone: 03-28-2017 16:20-0400 Body Temperature 98.8 [degF] Wade MCKEON [facility] Work Phone: 03-28-2017 16:20-0400 BP Diastolic 78 mm[Hg] Wade MCKEON [facility] Work Phone: 03-28-2017 16:20-0400 BP Systolic 112 mm[Hg] Wade MCKEON [facility] Work Phone: 03-28-2017 16:20-0400 Height 162.56 cm Wadesean MCKEON [facility] Work Phone: 03-28-2017 16:20-0400 Pulse (Heart Rate) 96 /min Wade MCKEON [facility] Work Phone: 03-28-2017 16:20-0400 Respiratory Rate 14 /min Wade MCKEON [facility] Work Phone: 03-28-2017 16:20-0400 Weight 59.51 kg Wade MCKEON [facility] Work Phone: Encounters Encounter Date Encounter Type Care Provider Facility Start: 03-08-2025 ambulatory Damion Wright Facility:[facility] Start: 02-22-2025 Encounter for other preprocedural examination Laureen Hernandez [facility] Start: 02-22-2025 Non-patient / Non-visit Dr. Romario Hernandez DO [facility] Start: 02-22-2025 End: 02-22-2025 Admission to same day surgery center Dr. Laureen Hernandez DO [facility] Start: 02-22-2025 End: 02-22-[address] Damion Wright MD Work Phone: [facility] Start: 01-21-2025 End: 01-21-2025 Subsequent hospital visit by physician [facility] Work Phone: Radiology Comment on above: Acute left ankle shant n [M25.572] Start: 01-21-2025 End: 01-21-2025 Patient encounter procedure Jackelyn MCKEON Work Phone: [facility] Comment on above: Acute left ankle shant n (Primary Dx) Start: 01-21-2025 End: 01-21-2025 ambulatory DAMION WRIGHT Facility:[facility] Start: 01-07-2025 End: 01-07-[address] Laureen Hernandez DO -[facility] Work Phone: Start: 01-07-2025 End: 01-07-[address] Damion Wright MD Work Phone: [facility] Work Phone: Start: 12-04-2024 End: 12-04-[address] Laureen Hernandez DO -[facility] Work Phone: Start: 12-04-2024 End: 12-04-2024 ambulatory Laureen Hernandez Facility:[facility] Start: 12-03-2024 End: 12-03-[address] Damion Wright MD Work Phone: [facility] Work Phone: Start: 12-03-2024 End: 12-03-2024 Patient encounter procedure Felipa Candelarias CAUSTIC ROOM ATTENDANT-C -Laboratory, Specimen Work Phone: Start: 12-03-2024 End: 12-03-2024 Patient encounter procedure Felipa Candelarias CAUSTIC ROOM ATTENDANT-C -[facility] Work Phone: Start: 12-03-2024 End: 12-03-2024 ambulatory Felipamaria alejandra Candelarias CAUSTIC ROOM ATTENDANT Facility:[facility] Start: 12-03-2024 End: 12-03-2024 ambulatory Felipa Lucrecia CAUSTIC ROOM ATTENDANT Facility:[facility] Start: 11-20-2024 Non-patient / Non-visit Dr. Romario Hernandez DO -[facility] Start: 11-20-2024 End: 11-20-2024 Admission to same day surgery center Dr. Laureen Hernandez DO -[facility] Start: 11-20-2024 End: 11-20-[address] Damion Wright MD Work Phone: [facility] Work Phone: Start: 11-16-2024 End: 11-16-[address] Laureen Hernandez DO -Laboratory, Specimen Work Phone: Start: 11-16-2024 End: 11-16-[address] Belle Ibarra MD -[facility] Work Phone: Start: 11-16-2024 End: 11-16-2024 ambulatory Belle Ibarra Facility:[facility] Start: 11-16-2024 End: 11-16-2024 ambulatory Laureen Renetta Garcia Facility:[facility] Start: 11-05-2024 End: 11-05-[address] Laureen Hernandez DO -[facility] Work Phone: Start: 11-05-2024 End: 11-05-2024 ambulatory Laureen Hernandez Facility:[facility] Start: 10-30-2024 End: 10-30-2024 ambulatory DAMION WRIGHT Facility:[facility] Start: 10-30-2024 End: 10-30-2024 Patient encounter procedure Zunilda Motta APRN.HOUSEMAN Work Phone: [facility] Comment on above: Strep pharyngitis (P rimary Dx) Start: 10-18-2024 End: 10-18-[address] Damion Wright MD Work Phone: [facility] Work Phone: Start: 10-18-2024 End: 10-18-[address] Laureen Hernandez DO -Laboratory, Specimen Work Phone: Start: 10-18-2024 End: 10-18-[address] Laureen Hernandez DO -[facility] Work Phone: Start: 10-18-2024 End: 10-18-2024 ambulatory Damion Wright Facility:[facility] Start: 10-18-2024 Non-patient / Non-visit Dr. Abdullahi soto MD -[facility] Start: 10-18-2024 End: 10-18-2024 ambulatory Laureen Renetta Garcia Facility:[facility] Start: 10-03-2024 End: 10-03-[address] Damion Wright MD Work Phone: [facility] Work Phone: Start: 10-03-2024 End: 10-03-2024 Patient encounter procedure Felipa Singer JOEY-C -Laboratory, Specimen Work Phone: Start: 10-03-2024 End: 10-03-2024 Patient encounter procedure Felipa Singer JOEY-C -[facility] Work Phone: Start: 10-03-2024 End: 10-03-2024 ambulatory Damion Wright Facility:[facility] Start: 10-02-2024 End: 10-03-[address] aDmion Wright MD Work Phone: [facility] Work Phone: Start: 10-02-2024 End: 10-02-[address] Laureen Hernandez DO -[facility] Work Phone: Start: 10-02-2024 End: 10-02-2024 ambulatory Laureen Hernandez Facility:[facility] Start: 09-28-2024 End: 09-28-[address] Damion Wright MD Work Phone: [facility] Work Phone: Start: 09-28-2024 End: 09-28-[address] Laureen Hernandez DO -Outpatient [facility] Work Phone: Start: 09-28-2024 End: 09-28-2024 ambulatory Laureen Hernandez Facility:[facility] Start: 09-20-2024 End: 09-20-2024 ambulatory DAMION WRIGHT Facility:[facility] Start: 09-20-2024 End: 09-20-2024 Office outpatient visit 15 minutes Diann Evans APRN.HOUSEMAN Work Phone: [facility] Comment on above: Pneumonia of left lo wer lobe due to infectious organism (Primary Dx); Bacterial sinusitis Start: 09-16-2024 End: 09-16-2024 Emergency department patient visit Dr. Joe Kasper DO -Emergency Department Work Phone: Start: 05-21-2024 Encounter for gynecological examination (general) (routine) without abnormal findings Laureen Hernandez [facility] Start: 05-21-2024 End: 05-21-2024 ambulatory Damion Wright Facility:[facility] Start: 03-28-2024 End: 03-28-2024 ambulatory Damion Wright Facility:[facility] Start: 03-21-2024 End: 03-21-2024 ambulatory Shyanne Mahan Facility:[facility] Start: 10-20-2023 End: 10-20-[address] Damion Wright Work Phone: [facility] Work Phone: Start: 10-20-2023 End: 10-20-[address] Damion Wright Work Phone: [facility]-Laboratory, [place] Work Phone: Start: 07-18-2023 End: 07-18-[address] Damion Wright Work Phone: [facility] Work Phone: Start: 07-18-2023 End: 07-18-[address] [facility] Start: 07-18-2023 End: 07-18-[address] Damion Wright Work Phone: [facility] Work Phone: Start: 06-28-2023 End: 06-28-[address] Damion Wright Work Phone: [facility] Work Phone: Start: 06-07-2023 End: 06-07-[address] Damion Wright Work Phone: [facility] Work Phone: Start: 06-07-2023 End: 06-07-[address] Damion Wright Work Phone: [facility]-Outpatient Breast Imaging Work Phone: Start: 05-18-2023 End: 05-18-[address] Damion Wright Work Phone: [facility] Work Phone: Start: 03-02-2023 End: 03-02-[address] Damion Wright Work Phone: [facility] Work Phone: Start: 03-02-2023 End: 03-02-[address] Damion Wright Work Phone: [facility]-Laboratory, [facility] Work Phone: Start: 03-02-2023 End: 03-02-[address] Damion Wright Work Phone: [facility] Work Phone: Start: 08-27-2022 End: 08-27-[address] Damion Wright Work Phone: [facility] Work Phone: Start: 08-27-2022 End: 08-27-[address] Damion Wright Work Phone: [facility]-Laboratory, [facility] Start: 06-01-2022 End: 06-01-[address] Damion Wright Work Phone: [facility] Work Phone: Start: 06-01-2022 End: 06-01-[address] Damion Wright Work Phone: [facility]-Laboratory Start: 05-31-2022 End: 05-31-[address] Damion Wright Work Phone: [facility] Work Phone: Start: 05-31-2022 End: 05-31-[address] Damion Wright Work Phone: [facility] Start: 05-13-2022 End: 05-13-[address] Damion Wright Work Phone: [facility] Work Phone: Start: 05-13-2022 End: 05-13-[address] Damion Wright Work Phone: [facility]-Laboratory, Spec[facility] Start: 05-13-2022 End: 05-13-[address] Damion Wright Work Phone: [facility] Start: 01-29-2022 End: 01-29-2022 Patient encounter procedure Kerry De Guzman APRN.CNP Work Phone: [facility] Comment on above: Skin pimple (Primary Dx) Start: 05-07-2019 End: 05-07-2019 Emergency department patient visit Godwin Garza Work Phone: [facility] ED Comment on above: Headache disorder (P rimary Dx); Diastolic blood pressure 90 mm Hg or higher Procedures Date Procedure Procedure Detail Performing Clinician Start: 02-22-[address] Damion Wright MD Work Phone: Start: 01-21-2025 Radex ankle complete minimum 3 views Jackelyn MCKEON Work Phone: Start: 12-03-2024 Gram stain microscopy D savannah Wright MD Work Phone: Start: 12-03-[address] Damion Wrigth MD Work Phone: Start: 12-03-2024 Urine culture [...] Start: 10-30-2024 STREP A MOLECULAR (POC) Shine Randall APRN.HOUSEMAN Work Phone: Start: 10-18-2024 Gram stain microscopy [...] H/O: section History of C-s ection Kerry CampbellfideMike HAND WASHER.HOUSEMAN Work Phone: Bacteria identified in Urine by Culture Dr. Damion Wright Work Phone: H/O: hysterectomy Status post hysterectomy Dr. Damion Wright MD Work Phone: Urine culture Dr. Damion estrada Work Phone: Plan of Treatment Date Care Activity Detail Author Start: 04-01-2025 Influenza vaccination Influenz a Vaccine (Season Ended) [facility] Start: 02-22-2025 Patient discharge [facility] Start: 02-22-2025 Ambulation without limitation [facility] Start: 02-22-2025 Medication education [facility] Start: 02-22-2025 Procedure discontinued [facility] Start: 02-22-2025 Taking patient vital signs [facility] Start: 02-22-2025 Vital signs measurements [facility] Start: 02-22-2025 [facility] Start: 02-18-2025 Leukocyte reduced re d blood cells [facility] Start: 02-18-2025 [facility] Start: 11-20-2024 Ambulation without limitation [facility] Start: 11-20-2024 Medication education [facility] Start: 11-20-2024 Patient discharge [facility] Start: 11-20-2024 Procedure discontinued [facility] Start: 11-20-2024 Taking patient vital signs [facility] Start: 11-20-2024 Vital signs measurements [facility] Start: 11-20-2024 [facility] Start: 11-20-2024 Medical regimen orde rs management [facility] Start: 11-20-2024 Anes hysteroscopy&/hysterosal pingography w/bx ANESTH HYSTEROSCOPE/GRAPH [facility] Start: 11-20-2024 Hysteroscopy bx endometrium&/polypc w/wo d&c HYSTEROSCOPY BIOPSY [facility] Start: 11-06-2024 Leukocyte reduced re d blood cells [facility] Start: 04-01-2024 Covid-19 Vaccine () Covid-19 Vaccine () [facility] Start: 04-01-2024 Influenza vaccination Influenza Vacc ine (#1) [facility] Start: 03-01-2024 Urine microalbumin profile DTaP,Tdap,Td Vaccine (3 - Td or Tdap) [facility] Start: 01-18-2024 Urine microalbumin profile DTAP,TDAP,TD (2 - Td or Tdap) [facility] Start: 05-13-2022 Liquid based cervica l cytology screening [facility] Work Phone: Start: 04-01-2022 Influenza vaccination INFLUENZA (#1) [facility] Start: 10-16-2020 PAP TESTING PAP TESTING [facility] Start: 04-01-2019 Influenza vaccination Flu vaccine (# 1) [place] Start: 10-16-2018 Screening for malign ant neoplasm of cervix Cervical Cancer Screening [facility] Start: 04-15-2017 End: 04-15-2017 Appointment Appointment [facility] Work Phone: Start: 03-28-2017 End: 03-28-2017 Appointment Appointment [facility] Work Phone: Start: 03-28-2017 End: 03-28-2017 Streptococcus.beta-hemol ytic [Presence] in Throat by Organism specific culture *Culture, R/O Strep A Swab [facility] Work Phone: Start: 2017 HPV TESTING HPV TESTING [facility] Start: 2006 Hepatitis B Vaccine (1 of 3 - 19+ 3-dose series) Hepatitis B Vaccine (1 of 3 - 19+ 3-dose series) [facility] Start: 2006 Pneumococcal vaccination Pneum ococcal Vaccine (1 of 2 - PCV) [facility] Start: 2005 Anxiety Screening Anxiety Screening [facility] Start: 2005 Depression Screening Depression Scre ening [facility] Start: 1999 Adult depression screening assessment DEPRESSION SCREENING [facility] Start: 1993 PNEUMOCOCCAL (1 - PCV) PNEUMOCOCCAL (1 - PCV) [facility] Start: 1987 COVID-19 VACCINE (#1) COVID-19 VACCI NE (#1) [facility] Estradiol (E2) [Mass/volume] in Serum or Plasma [facility] Work Phone: Follitropin and Lutr opin panel [Units/volume] - Serum or Plasma [facility] Work Phone: MG Breast - bilatera l Screening [facility] Work Phone: Nonrebreather mask oxygen Nonrebreather mask oxygen Respiratory Care Routine Daily until discontinued starting 05/07/2019 [facility], [place] Comment on above: Daily until disconti nued starting 05/07/2019 Path report.final Dx Spec [facility] Work Phone: Patient Education [facility] Work Phone: Patient referral [facility] Work Phone: T4 free measurement [facility] Work Phone: Thyroid stimulating hormone measurement [facility] Work Phone: Urinalysis macro (dipstick) panel - Urine [facility] Work Phone: [place] Pelvis transvaginal [facility] Work Phone: Immunizations Immunization Date Immunization Notes Care Provider Fa cili 09-12-2017 influenza, injectabl e, quadrivalent, preservative free Dr. Damion Wright Work Phone: [facility] 09-12-2017 influenza, seasonal, injectable Dr. Damion Wright Work Phone: [facility] 09-12-2017 influenza, seasonal, injectable, preservative free Diann Evans HAND WASHER.HOUSEMAN Work Phone: [facility] 09-12-2017 influenza virus vaccine, unspecified formulation Diann Evans HAND WASHER.HOUSEMAN Work Phone: [facility] 03-01-2014 tetanus toxoid, redu meghan diphtheria toxoid, and acellular pertussis vaccine, adsorbed Dr. Damion Wright Work Phone: [facility] 01-17-2014 tetanus toxoid, redu meghan diphtheria toxoid, and acellular pertussis vaccine, adsorbed Kerry De Guzman HAND WASHER.HOUSEMAN Work Phone: [facility] Payers Date Payer Category Payer Medicaid [id number] 2024 Self-pay [id number] 2024 Unknown [id number] 2022 Medicaid [id number] 2022 Unknown [id number] 2020 Unknown [employer] BLUE CARD PPO OOS [id number] 2020-Present [phone] [address] [place] [address] PPO [id number] Private Health Insurance [id number] Unknown [id number] Unknown [employer] [id number] Unknown [facility] [id number] Unknown [id number]. 462 Unknown [id number] 2.16.840.1.295044.3.579.2. 462 Unknown [id number] 2.16.840.1.191545.3.579.2. 462 Unknown [id number] 2.16.840.1.385615.3.579.2. 462 Unknown [id number] 2.16.840.1.893634.3.579.2. 462 Unknown [id number] 2.16.840.1.800809.3.579.2. 462 Unknown [id number] 2.16.840.1.903973.3.579.2. 462 Unknown [id number] 2.16.840.1.038799.3.579.2. 462 Unknown [id number] 2.16.840.1.779068.3.579.2. 462 Unknown [id number] 2.16.840.1.602684.3.579.2. 462 Unknown [id number] 2.16.840.1.576836.3.579.2. 462 Unknown [id number] 2.16.840.1.825417.3.579.2. 462 Unknown [id number] 2.16.840.1.285144.3.579.2. 462 Unknown [id number] 2.16.840.1.451597.3.579.2. 462 Unknown [id number] 2.16.840.1.117596.3.579.2. 462 Unknown [id number] 2.16.840.1.442056.3.579.2. 462 Unknown [id number] 2.16.840.1.937400.3.579.2. 462 Unknown [id number] 2.16.840.1.688863.3.579.2. 462 Unknown [id number] 2.16.840.1.262958.3.579.2. 462 Unknown [id number] 2.16.840.1.462068.3.579.2. 462 Unknown [id number] 2.16.840.1.206897.3.579.2. 462 Unknown [id number] 2.16.840.1.987178.3.579.2. 462 Unknown [id number] 2.16.840.1.403499.3.579.2. 462 Social History Date Type Detail Facility Start: 09-03-2012 End: 09-20-2024 Tobacco smoking status NHIS Current every day smoker [facility] Start: 09-03-2012 History of tobacco use Cigarette Smo ker [place] Start: 05-07-2019 End: 10-30-2024 Cigarettes smoked current (pack per day) - Reported [place] Start: 05-07-2019 End: 10-30-2024 Alcohol intake Never [place] Start: 05-07-2019 History SDOH Alcohol Frequency 1 [place] Start: 1985 Sex Assigned At Not on file [place] Start: 09-03-2012 History of tobacco use Smoker [facility] Start: 01-29-2022 End: 09-20-2024 Tobacco use and exposure Smokeless tobacco non-user [facility] Start: 01-29-2022 End: 10-30-2024 Alcohol intake Current non-drinker of alcohol (finding) [facility] Start: 01-29-2022 End: 09-20-2024 Tobacco Comment vaping [facility] Start: 01-19-2022 End: 01-29-2022 Exposure to SARS-CoV-2 (event) Not sure [facility] Start: 05-13-2022 End: 07-18-2023 Tobacco smoking status NHIS Unknown if ever smoked [facility] Start: 1985 Sex Assigned At Female W [facility] Start: 09-27-2024 End: 02-08-2025 Tobacco smoking status NHIS Ex-smoker (finding) [facility] Start: 10-11-2024 End: 11-20-2024 Sex Female (finding) [facility] Start: 11-20-2024 Vapor Vapor [facility] NEGATED: Highlighted row Not [facility] Medical Equipment Procedure Code Equipment Code Equipment Origin al Text Equipment Identifier Dates Zach Connd - [id number] Start: 09-02-2015 Goals Date Patient Goal Desired Activity /State Functional Status Date Assessment Result Facility 03-04-2015 Are you deaf, or do you have serious difficulty hearing No 03/04/2015 5:41 PM EDT Mayte Sierra MA No [facility] 03-04-2015 Are you blind, or do you have serious difficulty seeing, even when wearing glasses No 03/04/2015 5:41 PM EDT Mayte Sierra MA No [facility] 03-04-2015 Do you have serious difficulty walking or climbing stairs No 03/04/2015 5:41 PM EDT Mayte Sierra MA No [facility] 03-04-2015 Do you have difficul ty dressing or bathing No 03/04/2015 5:41 PM EDT Mayte Sierra MA No [facility] 03-04-2015 Because of a physica l, mental, or emotional condition, do you have difficulty doing errands alone such as visiting a physician's office or shopping No 03/04/2015 5:41 PM EDT Mayte Sierra MA No [facility] Mental Status Date Assessment Result Facility 02-22-2025 Cognitive function Voice/Name [facility] Work Phone: 02-22-2025 Cognitive function Patient Orien tation Person;Place;Time [facility] Work Phone: 11-20-2024 Cognitive function Level Of Cons ciousness Sedated [facility] Work Phone: 11-20-2024 Cognitive function Voice/Name [facility] Work Phone: 03-04-2015 Because of a physica l, mental, or emotional condition, do you have serious difficulty concentrating, remembering, or making decisions No 03/04/2015 5:41 PM EDT Mayte Sierra MA No [facility] Clinical Notes 09-03-2013 to 02-22-2025 Note Date & Type Note Facility 02-22-2025 Consult note [facility] 02-22-2025 History and physical note [facility] 02-22-2025 Consult note Note Date/Time February 22, 2025 2:15pm [facility] Medical Records Department [address] [place] [address] Anesthesia Postop Eval I 02/22/251004 MR#: [id number] Acct: [id number] Name: DEJA WOLFE Rep #:[id number] : 1985 39 From: Behzad BROWN PCP: Dr. Damion Wright MD Status:REG S DC Y Race: C Location: [place] [address] Anesthesia: Postop Eval I Current Vital Signs Temperature: 97 F Pulse Rate: 65 Blood Pressure: 137/88 Respiratory Rate: 16 Pulse Ox: 100 Assessment Airway patent: Yes Spontaneous unlabored respirations: Yes nausea: No Vomiting: No Anesthesia Complication: No Fluid Hydration Crystalloid volume administer (ml): 1,100 Total IV fluid infused: 1,100 Progress Note Anesthesia document: Postop Eval 1 completed: Yes 02/22/251004 <Electronically signed by Behzad Dai CRNA> Date _ Behzad Dai CRNA Cosigner Signature: Date CC: ~ Signed [facility] Work Phone: 1(844) 239-877207-25-2025 Procedure note [facility] Medical Records Department [address] [place] [address] Operative Report 02/22/25 0947 MR#: [id number] Acct: [id number] Name: DEJA WOLFE Rep #:[id number] : 1985 39 From: Laureen Hernandez DO PCP: Dr. Damion Wright MD Status:REG S DC Location: [place] [address] Problems Associated Problem List Diagnoses (1) Complication of cystostomy: (2) Endometriosis determined by laparoscopy: Multi Select Codes Urinary/Genital Urinary/Genital CPT Codes: 00284 Cystoscopy, 80310 TLH+BS/O <250gr uterus and Other Procedure See Report (Cystotomy repair) Operative Report (Standard) Operative Information Date of Procedure: 02/22/25 Pre-Operative Diagnosis: pelvic pain, endometriosis, menorrhagia Post-Operative Diagnosis: pelvic pain, endometriosis, menorrhagia, incidental cystotomy Surgery/Procedure Performed: total robotic hysterectomy, bilateral salpingectomy, cystoscopy, cystotomy repair evp marketing: Yes Application Systems Engineer: Maura Leyva Tasks completed by business assistant: Closing, Trocar and Retracting Additional bricklayer's assistant?: No Type of Anesthesia: General RN Documented Start/Stop Times: Operation Date: 02/22/25 07:30 Case Time Into Pre-Op 02/22/25 05:53 Anesthesia Start 02/22/25 07:28 Into Room 02/22/25 07:28 Out of Pre-Op 02/22/25 07:28 Procedure Start 02/22/25 08:03 Procedure End 02/22/25 09:47 Procedure Start Time: 08:03 Procedure Stop Time: 09:47 Select all DRAINS/GRAFTS/IMPLANTS that apply: None Estimated Blood Loss: 60cc Specimen collected: Yes Description of specimen(s) removed: uterus, cervix, fallopian tubes Description of surgery: Reason for surgery: This is a 39-year-old G2, P2 who presented to my office withhistory of endometriosis, section history, pelvic pain, and menorrhagia. the planned procedure is for a robotic hysterectomy the risks benefits and alternatives were discussed with the patient the patient had aclear understanding of the procedure and a consent form was signed. Procedure: The patient was placed in the dorsal low lithotomy position and prepped and draped in the normal sterile fashion both abdominally and in the perineum. Her legs were placed in stirrups a Kelly catheter was inserted into the urethra without difficulty. A weighted speculum was placed in the vagina prabha single- tooth tenaculum was used to grasp the anterior lip of the cervix. An advincula uterine manipulator was inserted through the cervix without complication. It wasthen tied into place at the 2 and 10:00 locations on the cervix. Gloves were changed and attention was turned towards the abdomen. Approximately 23 cm above the pubic symphysis in the midline, and after Marcaine injection, a 8 mm in cision was made. An 8 mm trocar was inserted through the laparoscope, then inserted into the abdomen under direct visualization using the laparoscope. Goodabdominal placement was noted and no complications were appreciated. An air seal device was utilized to create pneumoperitoneum. At 12 cm lateral to the midline on the left and right sides 8 mm accessory ports were placed. Next a left upper quadrant 8 mm bricklayer's assistant port site was placed. The patient was placed in steep Trendelenburg position. The robot was docked. Right away dense adhesions were noted to the bladder and there was endometriosisobliterating part of the cul-de-sac. The vessel sealer was used to cauterize the endometriosis lesions that were in the cul-de-sac. The hyster ectomy was initiated first by taking down the round ligament on each side using the vessel sealer device. The fallopian tube segments that were still in place from her prior tubal ligation procedure were grasped and the underlying mesosalpinx was cauterized and cut using the vessel sealer device. The broad ligament was then and taken down using the vessel sealer device. Next the bladderflap was taken down without complication. This was done using monopolar cautery to the level of thecervical vaginal junction. There was noted to be chocolate material that expelled from the separation of the bladder flap consistent with endometriosis. The same consistency was also noted on the fall opian tubes earlier. Careful dissection was performed however due to the dense scar tissue from thebladder to the uterus a 3 mm laceration was made in the bladder incidentally. Further dissection ofthe bladder flap was created and after the bladder flap was created, uterine vessels were then isolated and cauterized using the vessel sealer device and EndoShears. At this point the uterine vesselswere taken down further starting from the ascending branch, dissecting along the edges of the cervix to the level of the cervical vaginal junction withhemostasis appreciated. The cervical vaginal junction was then using monopolar cautery in a circumferential pattern across the superior aspect of thecervix. The specimen was delivered through the vagina and sent to pathology. The bladder was repaired using 3 interrupted sutures in 2 layers using a 3-0 Vicryl. Next, the remaining vaginal cuff was then closed using a V lock suture. This was performed in a running technique.Excellent hemostasis was obtained and good closure was noted. Irrigation was then performed. All operative siteswere noted to be hemostatic. A cystoscopy was performed with a 70 degree cystoscope through the urethra into the bladder withoutcomplication. The laceration was noted at the left upper dome of the bladder and not including the trigone. The bladder was instilled with approximately 250 cc of normal saline. Intraoperative imageswere made. Ureteral orifices and jets were identified. No suture material was appreciated in the malcom dder with the exception of the small sutures that were used to repair the cystotomy. Intraoperativeimages were also obtained in the abdomen and no leaking occurred from the cystotomy repair site.. The bladder was then drained and cystoscope was removed. A new clean Kelly catheter was inserted intothe urethra. The abdominal cavity was again examined. All operative sites were noted to be hemostatic. The trochars were removed under direct visualization without complication and pneumoperitoneum was reduced. At this point the skin was then closed using 4-0 Monocryl subcuticular stitch and sealed with surgical glue. The patient tolerated the procedure well sponge lap and needle counts were correct x2 the patient was taken to the recovery room in stable condition. Surgical Findings: Endometriosis of the cul-de-sac and anterior uterine scar tissue and bladder endometriosis of the left fallopian tube and ovary. Complications Complications: Yes Complication Details: Incidental cystotomy, repaired intraoperatively Admit VTE Documentation VTE Present on Admission: No VTE Mechan Device Prophylaxis: SCD's VTE Pharm Prophylaxis ordered?: No 02/22/25 0955 Cosigner Signature (if applicable): CC: Dr. Laureen Hernandez DO; Dr. Damion Wright MD~ Signed [facility]07-25-2025 Consult note Author Tristen [facility] Note Date/Time February 22, 2025 7:03 am [facility] Medical Records Department [address] [place] [address] Pre-Anesthesia Evaluation 02/22/25 0654 MR#: [id number] Acct: [id number] Name: DEJA WOLFE Rep #:[id number] : 1985 39 From: Tristen Fuentes MD PCP: Dr. Damino Wright MD Status:REG S DC Y Race: C Location: [facility]22-1 ASA Classification* ASA Classification ASA Classification: 2 [...] anesthesia risk assessments. Anesthesia Type Anesthesia Type: General History Source History Obtained from:: Patient and Chart Anesthesia Focused Assessment* Temperature: 97.6 F Pulse Rate: 75 Blood Pressure: 106/50 Respiratory Rate: 16 Pulse Ox: 100 Oxygen Delivery Method: Room Air Airway Assessment Mouth opens: >3 cm Mallampati Score: I Teeth Condition: Chipped/Broken (Tooth #4 is broken.) Neck Range of motion (ROM): Full ROM Labs Anesthesia Preop lab: CBC WBC 5.5 K/mm3 (4.4-11.0) 02/18/25 14:02/18/25 RBC 4.24 M/mm3 (4.2-5.4) 02/18/25 14:21 02/18/25 Hgb 11.2 g/dL (12.0-15.0) L 02/18/25 14:21 5 Hct 35.2 % (37-47) L 02/18/25 14:21 02/18/25 Plt Count 324 K/mm3 (150-450) 02/18/25 14:21 02/18/25 CHEMISTRY Potassium 3.5 mmol/L (3.5-5.1) 05/12/21 12:45 05/12/21 Sodium 140 mmol/L (136-145) 05/12/21 12:45 05/12/21 Magnesium 2.0 mg/dL (1.5-2.2) 02/18/25 14:20 02/18/25 BUN 6 mg/dL (7-18) L 05/12/21 12:45 05/12/21 Creatinine 0.74 mg/dL (0.55-1.02) 05/12/21 12:45 05/12/21 Glucose 94 mg/dL (74-106) 05/12/21 12:45 05/12/21 TSH 2.32 uIU/mL (0.358-3.74) 06/01/22 09:35 COAG PT 13.1 SECONDS (11.7-14.9) 02/18/25 14:20 Urine Test Negative Negative 02/22/25 05:58 02/22/25 Pre-Assessment Diagnosis/Proposed Procedure Planned Operative Procedure(s): Lap Total Robotic Hysterectomy, Lysis of Adhesions, ERAS Anesthesia History 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 When Was Last Pacemaker Check QUESTION #4 FULL TEXT: You/Your Family Experience fever (hyperthermia) with Anesthesia Last Oral Intake Last Oral intake: Last Oral Intake NPO since 05:15 02/22/25 06:04 Meds taken in AM with sips of Yes 02/22/25 06:04 water? 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 Female Yes 02/08/25 08:23 HX of Motion Sickness No 02/08/25 08:23 HX of N/V After Surgery No 02/08/25 08:23 Non-Smoker Yes 02/08/25 08:23 Duration of Surgery greater Yes 02/08/25 08:23 than 60 minutes Number of Risk Factors 3 02/08/25 08:23 PONV Score Moderate Risk 02/08/25 08:23 Height & Weight Height & Weight: Anesthesia: Height & Weight Height 5 ft 2 in 02/22/25 06:04 Weight: 59 kg 02/22/25 06:04 Body Mass Index (BMI) 23.8 02/22/25 06:04 Respiratory Assessment Respiratory Assessment - cnc laser operator: Respiratory Tract Infection Hx - cnc laser operator Hx Respiratory Tract Infection No 02/08/25 08:23 STOP Sleep Apnea STOP Sleep Apnea - cnc laser operator: STOP Sleep Apnea - cnc laser operator Hx Hypertension No 02/08/25 08:23 Hx Sleep Apnea No 02/08/25 08:23 CPAP BIPAP Do you snore loudly (louder No 02/08/25 08:23 than talking or can be heard Do you often feel tired/ No 02/08/25 08:23 fatigued/ sleepy during daytime? Has anyone observed you stop No 02/08/25 08:23 breathing during sleep? STOP Results Negative 02/08/25 08:23 QUESTION #5 FULL TEXT : Do you snore loudly (louder than talking or can be heard through closed doors)? 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 Specify any problems Hx of Preganancy in last 3 No 02/08/25 08:23 Months Nurse Filling Out Transfusion JAMESON 02/08/25 08:23 & Questions: Date: 02/08/25 02/08/25 08:23 Time: 08:26 02/08/25 08:23 Patient unable to answer at this time (ie. 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: /Reproductive Hx- cnc laser operator Hx Now No 02/08/25 08:23 Gestational Age (in weeks): EDC: Hx Hx Para Hx Section SAB No 02/08/25 08:23 Active Medications Active Medications: Current Medications Generic Name Dose Route Start Last Admin Trade Name Freq PRN Reason Stop Dose Admin Acetaminophen 1,000 mg 02/22/25 07:30 02/22/25 06:37 Acetaminophen 500 Mg Tablet PO 02/22/25 07:31 1,000 mg PREOP ONE Administration Celecoxib 400 mg 02/22/25 07:30 02/22/25 06:37 Celecoxib 200 Mg Capsule PO 02/22/25 07:31 400 mg PREOP ONE Administration Gabapentin 600 mg 02/22/25 07:30 02/22/25 06:37 Gabapentin 600 Mg Tablet PO 02/22/25 07:31 600 mg PREOP ONE Administration Lactated Ringer's 1,000 mls @ 40 mls/hr 02/22/25 07:30 02/22/25 06:36 IV 40 mls/hr .Q25H RENETTA Administration Cefazolin Sodium 2 gm/ Sodium 110 mls @ 150 mls/hr 02/22/25 07:30 Chloride IV 02/22/25 08:13 INTRAOP ONE Lactated Ringer's 1,000 mls @ 70 mls/hr 02/22/25 07:30 IV .[id number] RENETTA Magnesium Sulfate 1 gm/ 102 mls @ 408 mls/hr 02/22/25 07:30 02/22/25 06:38 Dextrose IV 02/22/25 07:44 408 mls/hr PREOP ONE Administration Lactated Ringer's 1,000 mls @ 15 mls/hr 02/22/25 06:00 IV .Q48H RENETTA Insulin Human Lispro 0 unit 02/22/25 07:30 Insulin Lispro 100 Unit/Ml Insuln.Pen SC Q4H PRN PRN BG >/= 180, SEE PROTOCOL Protocol Ondansetron HCl 4 mg 02/22/25 07:30 Ondansetron 4 Mg/2 Ml Vial IV 02/22/25 07:31 INTRAOP ONE Phenazopyridine HCl 190 mg 02/22/25 07:30 02/22/25 06:36 Phenazopyridine 95 Mg Tablet PO 02/22/25 07:31 190 mg PREOP ONE Administration Scopolamine HBr 1 patch 02/22/25 07:30 02/22/25 06:35 Scopolamine 1mg/72hr Patch TD 02/22/25 07:31 1 patch PREOP ONE Administration PFSH Medical History Anxiety Marijuana use Alcohol use Low iron Loss of consciousness Former smoker History of echocardiogram History of stress test Wears glasses Easy bruising Migraine headache Gastric reflux Vapes nicotine containing substance ADHD Mass of left forearm Contusion of left upper arm Anemia Home Medications ?Medication ?Instructions ?Recorded ?Last Taken ?Type cholecalciferol (vitamin D3) 25 15,000 unit PO .weekly 11/20/24 Unknown History mcg (1,000 unit) capsule (Vitamin D3) ibuprofen 800 mg tablet 800 mg PO Q8H PRN pain #30 t abs 02/22/25 Unknown Rx ondansetron HCl 4 mg tablet 4 mg PO Q6H PRN nausea and 02/22/25 Unknown Rx vomiting #20 tabs oxycodone-acetaminophen 5 mg-325 1 tab PO Q4H PRN pain 7 days #20 02/22/25 Unknown Rx mg tablet (Percocet) tabs Allergy/AdvReac Type Severity Reaction Status Date / Time fentanyl AdvReac Severe Pruritis Verified 02/22/25 06:02 Family History Aunt Breast cancer x2 Surgical History H/O dilation and curettage History [...] and no additional complaints, except as documented. 02/22/25 07 <Electronically signed by Tristen mckeon MD> Date _ Tristen Fuentes MD Cosigner Signature: Date CC: ~ Signed [facility] Work Phone: 1(532) 158-268407-25-2025 Discharge summary Author Laueren Garcia [facility] Note Date/Time February 22, 2025 7:03 am [facility] Medical Records Department [address] [place] [address] Instructions for Home/Discharge Instructions 02/22/25 0700 MR#: [id number] Acct: [id number] Name: DEJA WOLFE Rep #:[id number] : 1985 39 From: Laureen Hernandez DO PCP: Dr. Damion Wright MD Status:REG S DC Discharge Instructions DC O2, CPAP, BIPAP needs Home O2 Discharge instructions: No Dressing / Incision Discharge Activity: May Shower May resume sexual activity in: 8 weeks Weight Bearing Status: Full weight bearing Lifting Restrictions: 10 pounds for 2 weeks Dressing / Incision Call your doctor if your incision/area has: Continuous Slow Oozing, Sudden Increased Bleeding, Increased Pain/ Swelling, Increased Redness and Foul Smelling Discharge Call your doctor if you observe: Fever of 101 or Higher, Using more than 1 pad per hour, Shortness of breath, Chest pain and Uncontrolled pain Suture Line Care: Avoid Pulling/Pushing and Avoid Pinching/Bending Remove Dressing in: 1 week (if present) Cleanse incision/area with: Soap & Water and Keep Dressing Clean & Dry Follow Up Care Please Follow Up With: Laureen Hernandez DO When: Call to make an appointment with your doctor for a postop visit in 2 and 6weeks Test Results: Test results from this visit will be discussed in further detail at your follow- up appointment, if applicable. Discharge Plan Admission Primary Reason for Your Visit: robotic hysterectomy Attending Provider: Laureen Hernandez Primary Care Provider: Damion Wright Instructions Print Language: [place] Discharge Orders/Prescriptions Prescriptions: New ibuprofen 800 mg tablet 800 mg PO Q8H PRN (Reason: pain) Qty: 30 0RF ondansetron HCl 4 mg tablet 4 mg PO Q6H PRN (Reason: nausea and vomiting) Qty: 20 0RF oxycodone-acetaminophen [Percocet] 5-325 mg tablet 1 tab PO Q4H PRN (Reason: pain) 7 Days Qty: 20 0RF No Action cholecalciferol (vitamin D3) [Vitamin D3] 25 mcg (1,000 unit) capsule 15,000 unit PO .weekly Referrals / Follow Up: Damion Wright MD [Primary Care Provider] - Disposition Disposition (needs filled in before D/C Order can be placed): Home, Self Care 02/22/25 0703<Electronically signed by Laureen Hernandez DO>Laureen Hernandez DO CC: Dr. Damion Wright MD ~ Signed [facility] Work Phone: 1(226) 699-177207-25-2025 History and physical note Author Laureen Count Includes [facility] Note Date/Time February 22, 2025 2:15 pm [facility] Medical Records Department [address] [place] [id number] History & Physical Exam 02/22/25 0700 MR#: [id number] Acct: [id number] Name: DEJA WOLFE Rep #:[id number] : 1985 39 From: Laureen Hernandez DO PCP: Dr. Damion Wright MD Status:REG S DC Location: [place] [address] History and Physical Date of Admission: 02/22/25 Vital Signs 12/04/2509:30 01/08/2508:37 01/08/2508:37 Height 5 ft 2 in 5 ft 2 in 5 ft 2 in Weight: 131 lb 137 lb 2 oz BMI 23.9 25.0 BP 121/84 H 106/74 Intake Visit Reasons: TRH Lysis of Adhesions/Medicaid form needs signd Web Specialist Required: No Is patient in pain?: No Allergies fentanyl Adverse Reaction (Severe, Verified 01/07/25 08:37) Pruritis Medications ?Medication ?Instructions ?Recorded ?Confirmed ?Type cholecalciferol (vitamin D3) 25 15,000 unit PO .weekly 11/20/24 01/07/25 History mcg (1,000 unit) capsule (Vitamin D3) [...] hysterectomy with lysis of adhesions. The endometrium wasbenign from her prior D&C this spring. She continues to have heavy [...] children. Ultrasound showed the following priro to herD&C: Measurements: Uterus: 9.9 cm x 5.1 cm [...] Provider FOB Unknown Ian 2010 Unknown [place] 2011 Unknown [place] 2014 ROS Const ROS Unobtainable: All systems [...] of Care Code Off vis,est,level 4 Diagnoses Endometriosis determined by laparoscopy N80.9 Menorrhagia N92.0 Abnormal uterine bleeding N93.9 Assessment and Plan Assessment and Plan (1) Endometriosis determined by laparoscopy: Status: Acute (2) Menorrhagia: Status: Acute (3) Abnormal uterine bleeding: Status: Acute Plan After discussing the patient's diagnosis and [...] references given for additional information regarding procedure. plan total robotic hysterectomy, bilateral salpingectomy (if tubes still present- had tubal ligation after last section), lysis of adhesion and cystoscopy. 02/22/25 0700 <Electronically signed by Laureen Hernandez DO> Cosigner Signature (if applicable): CC: Dr. Laureen Hernandez DO; Dr. Damion Wright MD~ Signed [facility] Work Phone: [phone]) 927-534607-25-2025 Consult note [facility] Medical Records Department [address] [place] [address] Pre-Anesthesia Evaluation 02/22/25 0654 MR#: [id number] Acct: [id number] Name: DEJA WOLFE Rep #:[id number] : 1985 39 From: Tristen Fuentes MD PCP: Dr. Damion Wright MD Status:REG S DC Y Race: C Location: [place] [address] ASA Classification* ASA Classification ASA Classification: 2 [...] anesthesia risk assessments. Anesthesia Type Anesthesia Type: General History Source History Obtained from:: Patient and Chart Anesthesia Focused Assessment* Temperature: 97.6 F Pulse Rate: 75 Blood Pressure: 106/50 Respiratory Rate: 16 Pulse Ox: 100 Oxygen Delivery Method: Room Air Airway Assessment Mouth opens: >3 cm Mallampati Score: I Teeth Condition: Chipped/Broken (Tooth #4 is broken.) Neck Range of motion (ROM): Full ROM Labs Anesthesia Preop lab: CBC WBC 5.5 K/mm3 (4.4-11.0) 02/18/25 14:21 02/18/25 RBC 4.24 M/mm3 (4.2-5.4) 02/18/25 14:21 02/18/25 Hgb 11.2 g/dL (12.0-15.0) L 02/18/25 14:21 5 Hct 35.2 % (37-47) L 02/18/25 14:21 02/18/25 Plt Count 324 K/mm3 (150-450) 02/18/25 14:21 02/18/25 CHEMISTRY Potassium 3.5 mmol/L (3.5-5.1) 05/12/21 12:45 05/12/21 Sodium 140 mmol/L (136-145) 05/12/21 12:45 05/12/21 Magnesium 2.0 mg/dL (1.5-2.2) 02/18/25 14:20 02/18/25 BUN 6 mg/dL (7-18) L 05/12/21 12:45 05/12/21 Creatinine 0.74 mg/dL (0.55-1.02) 05/12/21 12:45 05/12/21 Glucose 94 mg/dL (74-106) 05/12/21 12:45 05/12/21 TSH 2.32 uIU/mL (0.358-3.74) 06/01/22 09:35 COAG PT 13.1 SECONDS (11.7-14.9) 02/18/25 14:20 Urine Test Negative Negative 02/22/25 05:58 02/22/25 Pre-Assessment Diagnosis/Proposed Procedure Planned Operative Procedure(s): Lap Total Robotic Hysterectomy, Lysis of Adhesions, ERAS Anesthesia History 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 When Was Last Pacemaker Check QUESTION #4 FULL TEXT: You/Your Family Experience fever (hyperthermia) with Anesthesia Last Oral Intake Last Oral intake: Last Oral Intake NPO since 05:15 02/22/25 06:04 Meds taken in AM with sips of Yes 02/22/25 06:04 water? 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 Female Yes 02/08/25 08:23 HX of Motion Sickness No 02/08/25 08:23 HX of N/V After Surgery No 02/08/25 08:23 Non-Smoker Yes 02/08/25 08:23 Duration of Surgery greater Yes 02/08/25 08:23 than 60 minutes Number of Risk Factors 3 02/08/25 08:23 PONV Score Moderate Risk 02/08/25 08:23 Height & Weight Height & Weight: Anesthesia: Height & Weight Height 5 ft 2 in 02/22/25 06:04 Weight: 59 kg 02/22/25 06:04 Body Mass Index (BMI) 23.8 02/22/25 06:04 Respiratory Assessment Respiratory Assessment - cnc laser operator: Respiratory Tract Infection Hx - cnc laser operator Hx Respiratory Tract Infection No 02/08/25 08:23 STOP Sleep Apnea STOP Sleep Apnea - cnc laser operator: STOP Sleep Apnea - cnc laser operator Hx Hypertension No 02/08/25 08:23 Hx Sleep Apnea No 02/08/25 08:23 CPAP BIPAP Do you snore loudly (louder No 02/08/25 08:23 than talking or can be heard Do you often feel tired/ No 02/08/25 08:23 fatigued/ sleepy during daytime? Has anyone observed you stop No 02/08/25 08:23 breathing during sleep? STOP Results Negative 02/08/25 08:23 QUESTION #5 FULL TEXT : Do you snore loudly (louder than talking or can be heard through closeddoors)? 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 Specify any problems Hx of Preganancy in last 3 No 02/08/25 08:23 Months Nurse Filling Out Transfusion JZOLLINGE 02/08/25 08:23 & Questions: Date: 02/08/25 02/08/25 08:23 Time: 08:02/08/25 08:23 Patient unable to answer at this time (ie. 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: /Reproductive Hx- cnc laser operator Hx Now No 02/08/25 08:23 Gestational Age (in weeks): EDC: Hx Hx Para Hx Section SAB No 02/08/25 08:23 Active Medications Active Medications: Current Medications Generic Name Dose Route Start Last Admin Trade Name Freq PRN Reason Stop Dose Admin Acetaminophen 1,000 mg 02/22/25 07:30 02/22/25 06:37 Acetaminophen 500 Mg Tablet PO 02/22/25 07:31 1,000 mg PREOP ONE Administration Celecoxib 400 mg 02/22/25 07:30 02/22/25 06:37 Celecoxib 200 Mg Capsule PO 02/22/25 07:31 400 mg PREOP ONE Administration Gabapentin 600 mg 02/22/25 07:30 02/22/25 06:37 Gabapentin 600 Mg Tablet PO 02/22/25 07:31 600 mg PREOP ONE Administration Lactated Ringer's 1,000 mls @ 40 mls/hr 02/22/25 07:30 02/22/25 06:36 IV 40 mls/hr .Q25H RENETTA Administration Cefazolin Sodium 2 gm/ Sodium 110 mls @ 150 mls/hr 02/22/25 07:30 Chloride IV 02/22/25 08:13 INTRAOP ONE Lactated Ringer's 1,000 mls @ 70 mls/hr 02/22/25 07:30 IV .[id number] RENETTA Magnesium Sulfate 1 gm/ 102 mls @ 408 mls/hr 02/22/25 07:30 02/22/25 06:38 Dextrose IV 02/22/25 07:44 408 mls/hr PREOP ONE Administration Lactated Ringer's 1,000 mls @ 15 mls/hr 02/22/25 06:00 IV .Q48H RENETTA Insulin Human Lispro 0 unit 02/22/25 07:30 Insulin Lispro 100 Unit/Ml Insuln.Pen SC Q4H PRN PRN BG >/= 180, SEE PROTOCOL Protocol Ondansetron HCl 4 mg 02/22/25 07:30 Ondansetron 4 Mg/2 Ml Vial IV 02/22/25 07:31 INTRAOP ONE Phenazopyridine HCl 190 mg 02/22/25 07:30 02/22/25 06:36 Phenazopyridine 95 Mg Tablet PO 02/22/25 07:31 190 mg PREOP ONE Administration Scopolamine HBr 1 patch 02/22/25 07:30 02/22/25 06:35 Scopolamine 1mg/72hr Patch TD 02/22/25 07:31 1 patch PREOP ONE Administration PFSH Medical History Anxiety Marijuana use Alcohol use Low iron Loss of consciousness Former smoker History of echocardiogram History of stress test Wears glasses Easy bruising Migraine headache Gastric reflux Vapes nicotine containing substance ADHD Mass of left forearm Contusion of left upper arm Anemia Home Medications ?Medication ?Instructions ?Recorded ?Last Taken ?Type cholecalciferol (vitamin D3) 25 15,000 unit PO .weekly 11/20/24 Unknown History mcg (1,000 unit) capsule (Vitamin D3) ibuprofen 800 mg tablet 800 mg PO Q8H PRN pain #30 t abs 02/22/25 Unknown Rx ondansetron HCl 4 mg tablet 4 mg PO Q6H PRN nausea and 02/22/25 Unknown Rx vomiting #20 tabs oxycodone-acetaminophen 5 mg-325 1 tab PO Q4H PRN pain 7 days #20 02/22/25 Unknown Rx mg tablet (Percocet) tabs Allergy/AdvReac Type Severity Reaction Status Date / Time fentanyl AdvReac Severe Pruritis Verified 02/22/25 06:02 Family History Aunt Breast cancer x2 Surgical History H/O dilation and curettage History [...] and no additional complaints, except as documented. 02/22/25 07 mike GAO> Date _ Tristen Fuentes MD Cosigner Signature: Date CC: ~ Signed [facility]07-25-2025 Discharge summary [facility] Medical Records Department [address] [place] [address] Instructions for Home/Discharge Instructions 02/22/25 07 MR#: [id number] Acct: [id number] Name: DEJA WOLFE Rep #:[id number] : 1985 39 From: Laureen Hernandez DO PCP: Dr. Damion Wright MD Status:REG S DC Discharge Instructions DC O2, CPAP, BIPAP needs Home O2 Discharge instructions: No Dressing / Incision Discharge Activity: May Shower May resume sexual activity in: 8 weeks Weight Bearing Status: Full weight bearing Lifting Restrictions: 10 pounds for 2 weeks Dressing / Incision Call your doctor if your incision/area has: Continuous Slow Oozing, Sudden Increased Bleeding, Increased Pain/ Swelling, Increased Redness and Foul Smelling Discharge Call your doctor if you observe: Fever of 101 or Higher, Using more than 1 pad per hour, Shortness of breath, Chest pain and Uncontrolled pain Suture Line Care: Avoid Pulling/Pushing and Avoid Pinching/Bending Remove Dressing in: 1 week (if present) Cleanse incision/area with: Soap & Water and Keep Dressing Clean & Dry Follow Up Care Please Follow Up With: Laureen Hernandez DO When: Call to make an appointment with your doctor for a postop visit in 2 and 6weeks Test Results: Test results from this visit will be discussed in further detail at your follow- up appointment, if applicable. Discharge Plan Admission Primary Reason for Your Visit: robotic hysterectomy Attending Provider: Luareen Hernandez Primary Care Provider: Damion Wright Instructions Print Language: [place] Discharge Orders/Prescriptions Prescriptions: New ibuprofen 800 mg tablet 800 mg PO Q8H PRN (Reason: pain) Qty: 30 0RF ondansetron HCl 4 mg tablet 4 mg PO Q6H PRN (Reason: nausea and vomiting) Qty: 20 0RF oxycodone-acetaminophen [Percocet] 5-325 mg tablet 1 tab PO Q4H PRN (Reason: pain) 7 Days Qty: 20 0RF No Action cholecalciferol (vitamin D3) [Vitamin D3] 25 mcg (1,000 unit) capsule 15,000 unit PO .weekly Referrals / Follow Up: Damion Wright MD [Primary Care Provider] - Disposition Disposition (needs filled in before D/C Order can be placed): Home, Self Care 02/22/25 0703Jennifer Renetta Garcia DO CC: Dr. Damion Wright MD ~ Signed [facility]07-25-2025 [facility] Medical Records Department [address] [place] [address] History Physical Exam 02/22/25 0700 MR#: [id number] Acct: [id number] Name: DEJA WOLFE Rep #: [id number] : 1985 39 From: Laureen Hernandez DO PCP: Dr. Damion Wright MD Status:[facility] Location: [place] [address] History and Physical Date of Admission: 02/22/25 Vital Signs 12/04/2509:30 01/08/2508:37 01/08/2508:37 Height 5 ft 2 in 5 ft 2 in 5 ft 2 in Weight: 131 lb 137 lb 2 oz BMI 23.9 25.0 BP 121/84 H 106/74 Intake Visit Reasons: TRH Lysis of Adhesions/Medicaid form needs signd Web Specialist Required: No Is patient in pain?: No Allergies fentanyl Adverse Reaction (Severe, Verified 01/07/25 08:37) Pruritis Medications ???Medication ???Instructions ???Recorded ???Confirmed ???Type cholecalciferol (vitamin D3) 25 15,000 unit PO .weekly 11/20/24 01/07/25 History mcg (1,000 unit) capsule (Vitamin D3) [...] Skin General: no rashes or lesions noted (more content not included)...[facility]06-23-2025 History of Present illness Narrative* Blaine Marrufo RT(R) - 01/21/2025 12:00 PM EDT Radiology Service Progress Note PATIENT NAME: Deja Wolfe DATE OF SERVICE: January 21, 2025 TIME: 11:51 AM PATIENT IDENTITY VERIFICATION COMPLETED USING TWO (2) IDENTIFIERS: Name and Date of confirmedby patient verbally. FALL SCREENING: Has the patient had 2 falls in the last year or 1 fall with injury or currently using an Ambulatory Assistive Device (Walker, Cane, Wheelchair, Crutches, etc.)? No PATIENT GENDER DATA: Assigned female at . status: : No status:NO. PATIENT RELEVANT IMPLANT DATA REVIEWED: Yes PATIENT PRESENTS WITH AN IMPLANTABLE OR ATTACHED RESEARCH ATTORNEY: No RADIOLOGY DEPARTMENT: General X-ray: Exam(s) Completed: Lower Extremity X- Ray(s): Ankle, Left and Foot, Left PERIPHERAL IV DATA: Not applicable SIGNED BY: RT Carolyn(Saritha) January 21, 2025 11:51 AM [facility]-2025 NoteHNO ID: [id number] Author: BLAINE MARRUFO RT(R) Service: ? Author Type: Tongue Lining Stitcher Type: Progress Notes Filed: 01/21/2025 12:02 Note [...] PATIENT PRESENTS WITH AN IMPLANTABLE OR ATTACHED RESEARCH ATTORNEY: No RADIOLOGY DEPARTMENT: General X-ray: Exam(s) Completed: Lower Extremity X-Ray(s): Ankle, Left and Foot, Left PERIPHERAL IV DATA: Not applicable SIGNED BY: RT Carolyn(R) January 21, 2025 11:51 [facility]06-23-2025 NoteHNO ID: [id number] Author: JACKELYN ACOSTA PA Service: ? Author Type: Physician Search Engineer Type: Progress Notes Filed: 01/21/2025 12:22 Note [...] after stepping on dirt and gravel. - [place] and felt a pop at the time [...] dislocations. - Likely sp (more content not included)...[facility]06-23-2025 History of Present illness Narrative* Jackelyn Acosta PA - 01/21/2025 11:48 AM EDT [facility] Subjective Deja [...] after stepping on dirt and gravel. - [place] and felt a pop at the time [...] pain management. PAST MEDICAL HISTORY Diagnosis Date 2010 FRACTURE 2004,2006 LEFT WRIST AND RIGHT [...] (+) decreased ankle range of motion, (+) difficultyambulating, (-) posterior ankle pain Objective BP 122/68 [...] of ankle; no pain in posterior aspect ofankle; pain with toe movement; decreased range of [...] follow-up with primary care physician. Recording using Grow Mobile software for draft documentation of the visit was discussed with the patient/authorized desk representative; all questions welcomed and answered. Patient/authorized desk representative agreed to proceed Differential Diagnoses - ankle sprain is more likely for the following reason(s): suggested by H&P - fracture is less likely for the following reason(s): no evidence on imaging Disposition The patient was discharged. OTC Medications were advised: Tylenol/motrin Procedures [facility]04-[facility]-2025 History and physical note [facility] Medical Records Department [address] [place] [address] History & Physical Exam 11/20/24 1216 MR#: [id number] Acct: [id number] Name: DEJA WOLFE Rep #:[id number] : 1985 39 From: Laureen Hernandez DO PCP: Dr. Damion Wright MD Status:REG S LA Location: [place] [address] History and Physical Date of Admission: 11/20/24 Intake Vital Signs 10/18/2510:40 11/05/2510:58 11/06/2511:00 Height 5 ft 2 in 5 ft 2 in 5 ft 2 in Weight: 133 lb 8 oz BMI 24.4 BP 127/81 H Intake Visit Reasons: D&C polypectomy Web Specialist Required: No Is patient in pain?: No [...] Anemia Endometriosis determined by laparoscopy Surgical History Mclean teeth extracted H/O dilation and curettage Hematoma [...] treatment plan options, patient wishes to proceed withsurgical management. I have discussed with the patient the risks, benefits, and alternatives of theprocedure which include but are notlimited to risks of anesthesia, bleeding, infection, possible damage to bowel, bladder, or surrounding vasculature which could lead to additional surgery to evaluate any complications. Patient agrees to procedure and wishes to proceed. ACOG/uptodate references given for additional information regarding procedure. Plan is for hysteroscopy dilation and curettage, polypectomy 11/20/24 1216 Cosigner Signature (if applicable): CC: Dr. Laureen Hernandez DO; Dr. Damion Wright MD~ [facility]04-22-2025 Discharge summary Author Laureen Garcia [facility] Note Date/Time November 20, 2024 1:5 3pm [facility] Medical Records Department [address] [place] [address] Instructions for Home/Discharge Instructions 11/20/24 1352 MR#: [id number] Acct: [id number] Name: DEJA WOLFE Rep #:[id number] : 1985 39 From: Laureen Hernandez DO [...] Up With: Laureen Hernandez DO When: Call [phone] to schedule appointment. Test Results: Test results from this visit will be discussed in further detail at your follow- up appointment, if applicable. Discharge Plan Admission Primary Reason for Your Visit: hysteroscopy dilation and curettage Attending Provider: Laureen Hernandez Primary Care Provider: Damion Wright Instructions Print Language: [place] Discharge Orders/Prescriptions Prescriptions: New ibuprofen 800 mg tablet 800 mg PO Q8H PRN (Reason: pain) Qty: 20 0RF No Action cholecalciferol (vitamin D3) [Vitamin D3] 25 mcg (1,000 unit) capsule 15,000 unit PO .weekly Referrals / Follow Up: Damion Wright MD [Primary Care Provider] - Disposition Disposition (needs filled in before D/C Order can be placed): Home, Self Care 11/20/24 1353<Electronically signed by Laureen Hernandez DO>Laureen Hernandez DO CC: Dr. Damion Wright MD ~ Signed [facility] Work Phone: 1(880) 631-753604-22-2025 Procedure note [facility] Medical Records Department [address] [place] [address] Operative Report 11/20/24 1525 MR#: [id number] Acct: [id number] Name: DEJA WOLFE Rep #:[id number] : 1985 39 From: Laureen Hernandez DO PCP: Dr. Damion Wright MD Status:REG S DC Location: [place] [address] Problems Associated Problem List Diagnoses (1) Polyp of cervix: (2) Abnormal uterine bleeding: Multi Select Codes Urinary/Genital Urinary/Genital CPT Codes: 65308 Hysteroscopy,EMC, Polypectomy Operative Report (Standard) Operative Information Date of Procedure: 11/20/24 Pre-Operative Diagnosis: abnormal uterine bleeding, cervical polyp Post-Operative Diagnosis: abnormal uterine bleeding, cervical polyp Surgery/Procedure Performed: hysteroscopy dilation and curettage evp marketing: No Type of Anesthesia: MAC RN Documented [...] Hernandez DO; Dr. Damion Wright MD~ Signed [facility]04-22-2025 Consult note Author Tristen Fuentes [facility] Note Date/Time November 20, 2024 1:2 6pm [facility] Medical Records Department [address] [place] [address] Pre-Anesthesia Evaluation 11/20/24 1308 MR#: [id number] Acct: [id number] Name: DEJA WOLFE Rep #:[id number] : 1985 39 From: Tristen Fuentes MD PCP: Dr. 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 Currently completely resolved.) STOP Sleep Apnea STOP Sleep Apnea - cnc laser operator: STOP Sleep Apnea - cnc laser operator Hx Hypertension Yes: DURING PREGANANCY/201311/15/24 11:47 [...] 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 operator Tobacco Use Smoking Status Current every day smoker 11/15/24 11:47 Hx Tobacco Use Yes 11/15/24 11:47 Years Smoking Packs Smoked per Day Smoking Cessation Date was within the last 15 years Hx Smoking Cessation Date Hx Smoking Cessation No 11/15/24 11:47 Counseling Any additional information?: Yes Tobacco Use: Vapor (Patient vape today.) Hematologic Medial History Hematologic Hx - cnc laser operator: Hematologic Medical Hx - hand pleater Hx of Blood Transfusion Yes 11/15/24 11:47 [...] 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: /Reproductive Hx- cnc laser operator Hx Now No 11/15/24 11:47 Gestational [...] MD Cosigner Signature: Date CC: ~ Signed [facility] Work Phone: 1(984) 882-830904-22-2025 Consult note [facility] Medical Records Department [address] [place] [address] Anesthesia Postop Eval I 11/20/24 1438 MR#: [id number] Acct: [id number] Name: DEJA WOLFE Rep #:[id number] : 1985 39 From: Juan peters MATHEMATICS IMPROVEMENT TEACHER PCP: Dr. Damion Wright MD Status:REG S DC Y Race: C Location: [place] [address] Anesthesia: Postop Eval I Current Vital Signs [...] Eval 1 completed: Yes 11/20/24 1439 tler MATHEMATICS IMPROVEMENT TEACHER> Date _ Juan Robles MATHEMATICS IMPROVEMENT TEACHER Cosigner Signature: Date CC: ~ Signed [facility]04-22-2025 History and physical note Author Laureen Garcia [facility] Note Date/Time November 20, 2024 3:5 4pm [facility] Medical Records Department [address] [place] [address] History & Physical Exam 11/20/24 1216 MR#: [id number] Acct: [id number] Name: DEJA WOLFE Rep #:[id number] : 1985 39 From: Laureen Hernandez DO PCP: Dr. Damion Wright MD Status:REG S DC Location: [place] [address] History and Physical Date of Admission: 11/20/24 Intake Vital Signs 10/18/2510:40 11/05/2510:58 11/06/2511:00 Height 5 ft 2 in 5 ft 2 in 5 ft 2 in Weight: 133 lb 8 oz BMI 24.4 BP 127/81 H Intake Visit Reasons: D&C polypectomy Web Specialist Required: No Is patient in pain?: No [...] Anemia Endometriosis determined by laparoscopy Surgical History Mclean teeth extracted H/O dilation and curettage Hematoma [...] Hernandez DO; Dr. Damion Wright MD~ Signed [facility] Work Phone: 1(798) 130-300504-22-2025 Discharge summary [facility] Medical Records Department [address] [place] [address] Instructions for Home/Discharge Instructions 11/20/24 1352 MR#: [id number] Acct: [id number] Name: DEJA WOLFE Rep #:[id number] : 1985 39 From: Laureen Hernandez DO [...] Up With: Laureen Hernandez DO When: Call [phone] to schedule appointment. Test Results: Test results from this visit will be discussed in further detail at your follow- up appointment, if applicable. Discharge Plan Admission Primary Reason for Your Visit: hysteroscopy dilation and curettage Attending Provider: Laureen Hernandez Primary Care Provider: Damion Wright Instructions Print Language: [place] Discharge Orders/Prescriptions Prescriptions: New ibuprofen 800 mg tablet 800 mg PO Q8H PRN (Reason: pain) Qty: 20 0RF No Action cholecalciferol (vitamin D3) [Vitamin D3] 25 mcg (1,000 unit) capsule 15,000 unit PO .weekly Referrals / Follow Up: Damion Wright MD [Primary Care Provider] - Disposition Disposition (needs filled in before D/C Order can be placed): Home, Self Care 11/20/24 1353Jennifer Renetta Garcia DO CC: Dr. Damion Wright MD ~ Signed [facility]04-22-2025 Consult note [facility] Medical Records Department [address] [place] [address] Pre-Anesthesia Evaluation 11/20/24 1308 MR#: [id number] Acct: [id number] Name: DEJA WOLFE Rep #:[id number] : 1985 39 From: Tristen Fuentes MD PCP: Dr. 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 Currently completely resolved.) STOP Sleep Apnea STOP Sleep Apnea - cnc laser operator: STOP Sleep Apnea - cnc laser operator Hx Hypertension Yes: DURING PREGANANCY/201311/15/24 11:47 [...] 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 operator Tobacco Use Smoking Status Current every day smoker 11/15/24 11:47 Hx Tobacco Use Yes 11/15/24 11:47 Years Smoking Packs Smoked per Day Smoking Cessation Date was within the last 15 years Hx Smoking Cessation Date Hx Smoking Cessation No 11/15/24 11:47 Counseling Any additional information?: Yes Tobacco Use: Vapor (Patient vape today.) Hematologic Medial History Hematologic Hx - cnc laser operator: Hematologic Medical Hx - hand pleater Hx of Blood Transfusion Yes 11/15/24 11:47 [...] 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: /Reproductive Hx- cnc laser operator Hx Now No 11/15/24 11:47 Gestational [...] mike GAO> Date _ Tristen Fuentes [facility] Signature: Date CC: ~ Signed [facility]04-22-2025 [facility] Medical Records Department [address] [place] [address] History Physical Exam 11/20/24 1216 MR#: [id number] Acct: [id number] Name: DEJA WOLFE Rep #: [id number] : 1985 39 From: Laureen Hernandez DO PCP: Dr. Damion Wright MD Status:[facility] Location: [place] [address] History and Physical Date of Admission: 11/20/24 Intake Vital Signs 10/18/2510:40 11/05/2510:58 11/06/2511:00 Height 5 ft 2 in 5 ft 2 in 5 ft 2 in Weight: 133 lb 8 oz BMI 24.4 BP 127/81 H Intake Visit Reasons: D C polypectomy Web Specialist Required: No Is patient in pain?: No [...] Anemia Endometriosis determined by laparoscopy Surgical History Mclean teeth extracted H/O dilation and curettage Hematoma [...] Unknown Ian 2009 Unknown [place] 2010 Unknown [place] 2014 ROS Const ROS Unobtainable: All systems [...] Plan is for hystero (more content not included)...[facility] 11-05-2024 Evaluation note* Diagnosis Onset Date Resolution Status Admit Date Abnormal uterine bleeding acute November 05, 2024 11:57am History of endometriosis acute November 05, 2024 11:57am Polyp of cervix acute October 11:57am Burning with urination acute Ap ril 2024 9:39am Abnormal uterine bleeding acute November 20, 2024 11:57am Polyp of cervix acute October 11:57am Burning with urination acute Ma y 2024 9:01am Vaginitis acute December 03, 2024 9:01am Abnormal uterine bleeding acute December 04, 2024 10:28am History of endometriosis acute December 04, 2024 10:28am Menorrhagia acute December 04, 2024 10:28am Polyp of cervix acute December 04, 2024 10:28am Abnormal uterine bleeding acute January 07, 2025 8:34am Endometriosis determined by laparoscopy acute January 07, 2025 8 :34am Menorrhagia acute January 07 8:34am Complication of cystostomy acute February 22, 2025 5:28am Endometriosis determined by laparoscopy acute February 22, 2025 5:28am [facility] Work Phone: 1([phone]) 981-574404-01-2025 NoteHNO ID: [id number] Author: ZUNILDA MOTTA APRN.[facility] Service: ? Author Type: Nurse Practitioner Type: Progress Notes Filed: 10/30/2024 11:13 Note Text: [facility] Subjective Deja Wolfe is a 39 year [...] history is provided by the patient. No strategic consultant was used. URI There is no chest [...] Appearance: Normal appearance. She (more content not included)...[facility]04-01-2025 History of Present illness Narrative* Zunilda Motta APRN.HOUSEMAN - 10/30/2024 10:43 AM EDT [facility] Subjective Deja Wolfe is a 39 year old female. Patient presents with: Sore Throat: Body aches, headache, low grade fever x this 39 year old female with PMH hypothyroidism presents for illness. Acute onset yesterday +sore throat +nasal congestion +lymph node +headache +body ache +fever Of note, she spent the weekend in [place] Flew there and back. Tylenol Just feel like this is strep throat The history is provided by the patient. No strategic consultant was used. URI There is no chest [...] - STREP A MOLECULAR (POC) Zunilda Motta APRN.HOUSEMAN History and Record Review Clinical information obtained from an independent historian. History obtained from or confirmed by:friend. Differential Diagnoses - strep is more likely for the following reason(s): consistent with laboratory studies - ASSOCIATE EDITOR Disposition The patient was discharged. Procedures documented in this encounterMercy Health03-05-2025 Evaluation note* Diagnosis Onset Date Resolution Status Admit Date Abnormal uterine bleeding acute October 03, 2024 9:35am History of endometriosis acute October 03, 2024 9:35am Monilial vaginitis noneactive October 03, 2024 9:35am [facility] Work Phone: 1(505) 801-364803-05-2025 Evaluation note* Diagnosis Onset Date Resolution Status Admit Date Abnormal uterine bleeding acute October 03, 2024 9:35am History of endometriosis acute October 03, 2024 9:35am Monilial vaginitis noneactive October 03, 2024 9:35am Abnormal uterine bleeding acute October 18, 2024 11:31am History of endometriosis acute October 18, 2024 11:31am Polyp of cervix acute September 11:31am [facility] Work Phone: 1(131) 397-690103-05-2025 Evaluation note* Diagnosis Onset Date Resolution Status [...] 11:57am Polyp of cervix acute October 11:57am [facility] Work Phone: 1(153) 321-184003-05-2025 Evaluation note* Diagnosis Onset Date Resolution Status [...] acute October 11:57am Burning with urination acute Ma 2024 9:01am Vaginitis acute December 03, 2024 9:01am Abnormal uterine bleeding acute December 04, 2024 10:28am History of endometriosis acute December 04, 2024 10:28am Menorrhagia acute December 04, 2024 10:28am Polyp of cervix acute December 04, 2024 10:28am [facility] Work Phone: 1(220) 848-141103-04-2025 Radiology Diagnostic study note [facility] Imaging Services [address] [place] [address] Pelvic w/ Transvaginal MR#: [id number] Acct: [id number] Name: DEJA WOLFE Rep #: [id number] : 1985 F 39 From: Conor Henry MD PCP: Dr. Damion Wright MD Status: REG C ESEQUIEL Study:Pelvic w/ Transvaginal Date of Exam: 10/02/24 Exam# [id number] Ordering Dr: Laureen Copeland DO PROCEDURE: PELVIC [...] polyp at the cervical os. Reading Location: [id number] CC: Dr. Laureen Hernandez DO; Dr. Damion Wright MD ~ Casting Supervisor: Signed [facility]02-20-2025 NoteHNO ID: [id number] Author: DIANN EVANS APRN.HOUSEMAN Service: ? Author Type: Nurse Practitioner Type: Progress Notes Filed: 09/20/2024 16:08 Note Text: This note was created using OncoVista Innovative Therapiesriter. Radha Wolfe is a 39 year old [...] if symptoms persist or worsen. Diann Evans APRN.[facility] History of Present illness Narrative* Diann Evans APRN.[facility] - 09/20/2024 3:50 PM EST This note was created using NoteWriter. Radha Wolfe is a 39 year old [...] if symptoms persist or worsen. Diann Evans APRN.HOUSEMAN documented in this encounterMercy Health02-20-2025 Instructions* Patient Instructions* Diann Evans APRN.SO - [...] return to the clinic. documented in this encounterMercy Health10-13-2022 NotePap Smear Specimen AdequacyOctober 2021 11:59pmComment.Satisfactory for evaluation. Endocervical and/or squamous metaplasticcells (endocervical component)are present.[facility] A#[id number] Work Phone: Comment on above:Satisfactory for evaluation. Endocervical and/or squamous metaplasticcells (endocervical component)are present.05-13-2022 NotePap Smear QC ReviewOctober 2021 11:59pmComment. Meagan Pablo, Supervisory Woods Warden (ASCP)[facility] INTER[facility]ACED A#[id number] [facility] Work Phone: Comment on above:Meagan Pablo, Supervisory Woods Warden (ASCP)05-13-2022 NotePap Smear Specimen AdequacyOctober 2021 10:59pmComment.Satisfactory for evaluation. Endocervical and/or squamous metaplasticcells (endocervical component)are present.[facility] INTER[facility] A#[id number] Center Work Phone: Comment on above:Satisfactory for evaluation. Endocervical and/or squamous metaplasticcells (endocervical component)are present.05-13-2022 NotePap Smear QC ReviewOctober 2021 10:59pmComment. Meagan Bev, Supervisory Woods Warden ([facility] INTER[facility]AC[facility] A#[id number] [facility] Work Phone: Comment on above:Meagan Pablo Supervisory Woods Warden ([facility])05-13-2022 NotePap Smear Specimen AdequacyOctober 2021 10:59pmComment.Satisfactory for evaluation. Endocervical and/or squamous metaplasticcells (endocervical component)are present.[facility] INTER[facility]ACED A#[id number] Health Behavioral Medical CenterComment on above:Satisfactory for evaluation. Endocervical and/or squamous metaplasticcells (endocervical component)are present.05-13-2022 NotePap Smear QC ReviewOctober 2021 10:59pmComment.Meagan Pablo Supervisory Woods Warden ([facility] INTER[facility] A#[id number] Health Behavioral Medical CenterComment on above:Meagan Pablo Supervisory Woods Warden ([facility])01-29-2022 History of Present illness Narrative* Kerry De Guzman APRN.HOUSEMAN - 01/29/2022 1:14 PM EDT Images from [...] Kerry De Guzman APRN.CNP documented in this encounterMercy Health07-01-2022 Instructions* Patient Instructions* Kerry De Guzman APRN.CNP [...] Kerry De Guzman APRN.CNP documented in this encounterMercy Health02-03-2014 History of Past illness Narrative* Problem Noted Date Resolved Date Family history of cleft lip and palate 4 11/19/2013 Overview: 09/03/2013The father of the baby's second cousin born with cleft lip and palate. November 19, 2013 doesn't increase her risk. Nicky Smith MD documented as of this encounter (statuses as of 01/29/2022) [facility] HealthConsult note Author Juan Robles [facility] Note Date/Time November 20, 2024 2:3 9pm [facility] Medical Records Department [address] [place] [address] Anesthesia Postop Eval I 11/20/24 1438 MR#: [id number] Acct: [id number] Name: DEJA WOLFE Rep #:[id number] : 1985 39 From: Juan peters CRNA PCP: Dr. Damion Wright MD Status:REG S DC Y Race: C Location: [place] [address] Anesthesia: Postop Eval I Current Vital Signs [...] 11/20/24 1439 <Electronically signed by Juan trent MATHEMATICS IMPROVEMENT TEACHER> Date _ Juan Robles MATHEMATICS IMPROVEMENT TEACHER Cosigner Signature: Date CC: ~ Signed [facility] Work Phone: Evaluation note* Diagnosis Skin pimple- Primary documented in this encounter [facility]* Diagnosis Onset Date Resolution Status Encounter for routine gynecological examination noneactive [facility] Work Phone: Evaluation note* Diagnosis Onset Date Resolution Status Possible exposure to STD non eactive [facility] Work Phone: Evaluation note* Diagnosis Onset Date Resolution Status Possible exposure to STD non eactive En[facility] for [facility] Work Phone: Evaluation note* Diagnosis Onset Date Resolution Status Encounter for routine gynecological examination noneactive Lipoma of right thigh acute Lipoma of right thigh acute [facility] Work Phone: Evaluation note* Diagnosis Onset Date Resolution Status Lipoma of right thigh acute Lipoma of right thigh acute [facility] Work Phone: Evaluation note* Diagnosis Pneumonia of left lower lobe due to infectious organism- Primary Bacterial sinusitis Unspecified sinusitis (chronic) [facility] Diagnosis Strep pharyngitis- Primary Streptococcal sore throat documented in this encounter [facility]* Diagnosis Acute left ankle pain- Primary Acute left ankle pain documented in this encounter [facility]* Diagnosis Acute left ankle pain documented in this encounter [facility] HealthReason for referral (narrative)No reason for referral information availableWBlanchard [facility] Work Phone: Reason for visit Narrative* Diagnostic Procedure Only (Urgent) - Closed Specialty Diagnoses / Procedures Referred By Contac t Referred To Contact XR IMAGING Diagnoses Acute left ankle pain Procedures XR FOOT GENERAL 3V AP/LAT/OBL LEFT RADEX FOOT COMPLETE MINIMUM 3 VIEWS Jackelyn Acosta, MIKE [address] [place] [address] Phone: tel: fax: [place] [phone] Referral ID Status Reason Start Date Expiration Date V isits Requested Visits Authorized [id number] Closed Auto-Generate d Referral 01/21/2025 02/20/2026 1 1 [facility] * Attachments The following attachments cannot be sent through Care Everywhere. 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 (STEAMTABLE WORKER) ABN BLEEDING/HX OF MALIGNANT NEOPLASM OF BREAST INT LABS Reason for Visit Encounter for routin e gynecological examination Chief Complaint STD test Reason for Visit Possible exposure to STD Chief Complaint STD test Annual (STEAMTABLE WORKER) SCREENING Reason for Visit Possible exposure to STD Encounter for routine gynecological examination Chief Complaint Annual (STEAMTABLE WORKER) SCREENING LIPOMA R THIGH THIGH LIPOMA EXCISION [...] 8:51 am Ongoing vaginal itching and burning Demteri h 2024 9:35am ABN UTERINE BLEEDING October [...] nee ds signd January 07, 2025 8:34am Chief Complaint Admit Date D&C polypectomy November 05, 2024 11:5 7am [...] nee ds signd January 07, 2025 8:34am Lap Total Robotic Hysterectomy, Lysis of Adhesions February 22, 2025 5:28am Lap Total Robotic Hysterectomy, Lysis of Adhesions February 22, 2025 7:00am Reason for Visit Admit Date Abnormal uterine bleeding November 05 11:57am History [...] of cervix December 04, 2024 10:28a m Abnormal uterine bleeding January 07, 2025 8:34am Endometriosis determined by laparoscopy January 07, 2025 8:34am Menorrhagia Berenice 9th, 2025 8:34a m Complication of cystostomy February 22 5:28am Endometriosis determined by laparoscopy February 22, 2025 5:28am Advance Directives No Advanced Directives Records Found Advance Directive Response Recorded Date/ Time Living Will No April 29, 2021 10:27am Power of Long Line Teamster No April 10:27am Advance Directive Response Recorded Date/ Time Living Will No April 29, 2021 9:27am Power of Long Line Teamster No April 9:27am Advance Directive Response Recorded Date/ Time Living Will No September 16, 025 2:53pm Power of Long Line Teamster No September 16, 2024 2:53pm Living Will No April 29, 2021 10:27am Power of Long Line Teamster No April 10:27am Advance Directive Response Recorded Date/ Time Living Will No September 16, 025 2:53pm Do you have a Healthcare Power of Long Line Teamster? No September 16, 2024 2:53pm Living Will No April 29, 2021 10:27am Do you have a Healthcare Power of Long Line Teamster? No April 29, 2021 10:27am Advance Directive Response Recorded Date/ Time Living Will No September 16, 025 2:53pm Do you have a Healthcare Power of Long Line Teamster? No September 16, 2024 2:53pm Living Will No April 29, 2021 10:27am Do you have a Healthcare Power of Long Line Teamster? No April 29, 2021 10:27am Living Will No November 15, 2024 11:47am Do you have a Healthcare Power of Long Line Teamster? No November 15, 2024 11:47am Advance Directive Response Recorded Date/ Time Do you have a Healthcare Power of Long Line Teamster? No February 08, 2025 8:23am Living Will No November 15, 2024 11:47am Do you have a Healthcare Power of Long Line Teamster? No November 15, 2024 11:47am Summary Purpose [...] or prosecute any alcohol or drug abuse patient.Mercy HealthIn the event this information is protected by the Federal Confidentiality of Alcohol and Drug Abuse Patient Records regulations: The Federal rules restrict any use of the information to criminally investigate or prosecute any alcohol or drug abuse patient.Mercy HealthIn the event this information is protected by the Federal Confidentiality of Alcohol and Drug Abuse Patient Records regulations: The Federal rules restrict any use of the information to criminally investigate or prosecute any alcohol or drug abuse patient.[facility] HealthIn the event this information is protected by the Federal Confidentiality of Alcohol and Drug Abuse Patient Records regulations: The Federal rules restrict any use of the information to criminally investigate or prosecute any alcohol or drug abuse patient.[facility] HealthIn the event this information is protected by the Federal Confidentiality of Alcohol and Drug Abuse Patient Records regulations: The Federal rules restrict any use of the information to criminally investigate or prosecute any alcohol or drug abuse patient.[facility] Teams (unrecognized sec tion and content) Geographic Information Systems Manager Relationship Specialty Start Date End Date Damion Wright MD PCP - General Family Practice 09/03/13 Team Status: Active Member Role Status [...] Care Provider, Referring Provider Active Felipa Singer CAUSTIC ROOM ATTENDANT, CAUSTIC ROOM ATTENDANT-C Attending Provider Active Team Status: Inactive Member Role Status Dates Dr. Damion Wright MD Primary Care Provider Active Felipa Singer NP, CAUSTIC ROOM ATTENDANT-C Attending Provider Active Team Status: Inactive Member Role Status Dates Dr. Damion Wright MD Primary Care Provider, Referring Provider Active Dr. Laureen Vande Velde , DO Attending Provider Activ e Team Status: [...] Provi avelina, Attending Provider, Referring Provider Active Geographic Information Systems Manager Relationship Specialty Start Date End Date [...] 2024 End: October 03, 2024 Felipa Singer NP, CAUSTIC ROOM ATTENDANT-C Attending Provider Active Start: October 03, 2024 End: October 03, 2024 Team Status: Active Member Role Status Dates Dr. Damion Wright MD Primary Care Provider Active Start: October 03, 2024 Felipa Singer CAUSTIC ROOM ATTENDANT, CAUSTIC ROOM ATTENDANT-C Attending Provider Active Start: October 03, 2024 Felipa Singer CAUSTIC ROOM ATTENDANT, CAUSTIC ROOM ATTENDANT-C Referring Provider Active Start: October 03, 2024 [...] 2024 End: October 03, 2024 Felipa Singer CAUSTIC ROOM ATTENDANT, CAUSTIC ROOM ATTENDANT-C Attending Provider Active Start: October 03, 2024 End: October 03, 2024 Felipa Singer CAUSTIC ROOM ATTENDANT, CAUSTIC ROOM ATTENDANT-C Referring Provider Active Start: October 03, 2024 [...] October 18, 2024 End: October 18, 2024 Geographic Information Systems Manager Relationship Specialty Start Date End Date [...] Start: November 16, 2024 Dr. Laureen Hernandez DO Attending Provider Activ e Start: November 16, 2024 Dr. Laureen Hernandez DO Referring Provider Activ e Start: November 16, 2024 Team Status: Inactive Member Role Status Dates Dr. Damion Wrigth MD Primary Care Provider Active Start: November [...] 2024 End: December 03, 2024 Felipa Singer CAUSTIC ROOM ATTENDANT, CAUSTIC ROOM ATTENDANT-C Attending Provider Active Start: December 03, 2024 End: December 03, 2024 Team Status: Inactive Member Role Status Dates Dr. Damion Wright MD Primary Care Provider Active Start: December 03, 2024 End: December 03, 2024 Felipa Singer CAUSTIC ROOM ATTENDANT, CAUSTIC ROOM ATTENDANT-C Attending Provider Active Start: December 03, 2024 End: December 03, 2024 Felipa Singer CAUSTIC ROOM ATTENDANT, CAUSTIC ROOM ATTENDANT-C Referring Provider Active Start: December 03, 2024 [...] Status: Inactive Member Role Status Dates Dr. aDmion Wright MD Primary Care Provider Active Start: January 07, 2025 End: January 07, 2025 Dr. Damion Wright MD Referring Provider Active Start: January 07, 2025 End: January 07, 2025 Dr. Laureen Hernandez DO Attending Provider Activ e Start: January 07, 2025 End: January 07, 2025 Geographic Information Systems Manager Relationship Specialty Start Date End Date Damion Wright MD PCP - General Family Medicine 09/03/13 Geographic Information Systems Manager Relationship Specialty Start Date End Date Damion Wright MD PCP - General Family Medicine 09/03/13 Team Status: Active Member Role/Relationship Status Dates Dr. Damion Wirght MD Primary Care Provider Active Team Status: Inactive Member Role/Relationship Status Dates Dr. Damion Wright MD Primary Care Provider Active Start: November 05, 2024 End: November 05, 2024 Dr. Damion Wright MD Referring Provider Active Start: November 05, 2024 End: November 05, 2024 Dr. Laureen Hernandez , DO Attending Provider Activ e Start: November 05, 2024 End: November 05, 2024 Team Status: Inactive Member Role/Relationship Status Dates Dr. Damion Wright MD Primary Care Provider Active Start: November 16, 2024 End: November 16, 2024 Dr. Damion Wrgiht MD Referring Provider Active Start: November 16, 2024 End: November 16, 2024 Dr. Belle Ibarra MD Attending Provider Active Start: November 16, 2024 End: November 16, 2024 Team Status: Inactive Member Role/Relationship Status Dates Dr. Damion Wright MD Primary Care Provider Active Start: November 16, 2024 End: November 16, 2024 Dr. Laureen Hernandez DO Attending Provider Activ e Start: November 16, 2024 End: November 16, 2024 Dr. Laureen Hernandez DO Referring Provider Activ e Start: November 16, 2024 End: November 16, 2024 Team Status: Inactive Member Role/Relationship Status Dates Dr. Damion Wright MD Primary Care Provider Active Start: November 20, 2024 End: November 20, 2024 Dr. Laureen Hernandez DO Attending Provider Activ e Start: November 20, 2024 End: November 20, 2024 Dr. Laureen Hernandez DO Referring Provider Activ e Start: November 20, 2024 End: November 20, 2024 Team Status: Active Member Role/Relationship Status Dates Dr. Damion Wright MD Primary Care Provider Active Start: November 20, 2024 Dr. Laureen Hernandez DO Attending Provider Activ e Start: November 20, 2024 Dr. Laureen Hernandez DO Referring Provider Activ e Start: November 20, 2024 Dr. Laureen Hernandez DO Other Provider Active Start: November 20, 2024 Team Status: Inactive Member Role/Relationship Status Dates Dr. Damion Wright MD Primary Care Provider Active Start: December 03, 2024 End: December 03, 2024 Dr. Damion Wright MD Referring Provider Active Start: December 03, 2024 End: December 03, 2024 Felipa Singer CAUSTIC ROOM ATTENDANT, CAUSTIC ROOM ATTENDANT-C Attending Provider Active Start: December 03, 2024 End: December 03, 2024 Team Status: Inactive Member Role/Relationship Status Dates Dr. Damion Wright MD Primary Care Provider Active Start: December 03, 2024 End: December 03, 2024 Felipa Singer CAUSTIC ROOM ATTENDANT, CAUSTIC ROOM ATTENDANT-C Attending Provider Active Start: December 03, 2024 End: December 03, 2024 Felipa Singer CAUSTIC ROOM ATTENDANT, CAUSTIC ROOM ATTENDANT-C Referring Provider Active Start: December 03, 2024 End: December 03, 2024 Team Status: Inactive Member Role/Relationship Status Dates Dr. Damion Wright MD Primary Care Provider Active Start: December 04, 2024 End: December 04, 2024 Dr. Damion Wright MD Referring Provider Active Start: December 04, 2024 End: December 04, 2024 Dr. Laureen Hernandez DO Attending Provider Activ e Start: December 04, 2024 End: December 04, 2024 Team Status: Inactive Member Role/Relationship Status Dates Dr. Damion Wright MD Primary Care Provider Active Start: January 07, 2025 End: January 07, 2025 Dr. Damion Wright MD Referring Provider Active Start: January 07, 2025 End: January 07, 2025 Dr. Laureen Hernandez DO Attending Provider Activ e Start: January 07, 2025 End: January 07, 2025 Team Status: Inactive Member Role/Relationship Status Dates Dr. Damion Wright MD Primary Care Provider Active Start: February 22, 2025 End: February 22, 2025 Dr. Laureen Hernandez DO Attending Provider Activ e Start: February 22, 2025 End: February 22, 2025 Dr. Laureen Hernandez DO Referring Provider Activ e Start: February 22, 2025 End: February 22, 2025 Team Status: Active Member Role/Relationship Status Dates Dr. Damion Wright MD Primary Care Provider Active Start: February 22, 2025 Dr. Laureen Hernandez , DO Attending Provider Activ e Start: February 22, 2025 Dr. Laureen Hernandez DO Referring Provider Activ e Start: February 22, 2025 Dr. Laureen Hernandez , DO Other Provider Active Start: February 22, 2025 Goals (unrecognized section and content) Goals may [...] section and content) DATE CREATED AUTHOR 01/22/[address] [facility] DATE CREATED AUTHOR 'S ORGANIZ ATION 03/01/2025 [facility] FOR RECORDS PERTAINING TO PATIENTS WHO [...] BE BASED ON THE PRIMARY CLINICAL RECORDS. [employer] provides no warranty or guarantee of the accuracy or completeness of information in this document.
[2025-03-02 11:20] LABS: Mucous, Urine 0 SEEN /hpf (<or=2+); Red Blood Cells-Urine 0 SEEN /hpf (0-5); Squamous Epithelial Cells - UA 0 SEEN /hpf (5-10)
[2025-03-02 11:21] LABS: Color, Urine Yellow (Yellow); Glucose, Dipstick Normal (Normal); Ketone-Dipstick Negative (Negative); Leukocyte Esterase-Dipstick Negative /ul (Negative); Nitrite-Dipstick Negative (Negative); Occult Blood-Urine 10 /ul (Negative); Protein-Dipstick Negative (Negative); Specific Gravity, Urine 1.005 (1.002-1.030); Urine Bilirubin Dipstick Negative (Negative)
[2025-03-02] MEDS: 0.9% Normal Saline (1000mL) 1,000 ML 999 ML IV (11:41)
[2025-03-02 11:43] LABS: Hematocrit 36.5 % (37-47); Hemoglobin 11.8 g/dL (12.0-15.0); Immature Granulocytes Count 0.030 X10^3/uL (0.0-0.0); Mean Corp Hgb Conc 32.3 g/dL (32-36); Mean Corpuscular Volume 80.9 fL (81-99); Mean Platelet Vol. 9.6 fl (6.2-12.0); NRBC Flagged by Analyzer 0 % (0-5); Platelet Count 303 K/mm3 (150-450); RBC Distribution Width CV 13.2 % (11.6-14.6); RBC Distribution Width SD 38.4 fl (35.1-43.9); Red Blood Count 4.51 M/mm3 (4.2-5.4); White Blood Count 6.2 K/mm3 (4.4-11.0)
[2025-03-02 12:11] LABS: AST(SGOT) 16 U/L (<=31); Alanine Aminotransfer ALT/SGPT 11 U/L (<=34); Albumin, Serum 4.5 g/dL (3.5-5.0); Alkaline Phosphatase 54 U/L (35-104); Anion Gap 13 (5-15); BUN 9 mg/dL (4-19); BUN/Creat Ratio 10.5 RATIO (10-20); Calcium,Total 9.7 mg/dL (7.6-11.0); Carbon Dioxide 22.6 mmol/L (21.0-32.0); Chloride 103 mmol/L (98-108); Estimated Creatinine Clearance 67.03 ml/min (50-250); Globulin 3.1 g/dL (2.2-4.2); Glucose 91 mg/dL (70-99); Lipase 30 U/L (13-75); Potassium 3.9 mmol/L (3.3-5.1)
[2025-03-02 13:03] VITALS: BP 152/86; PULSE 83; RESP 14; TEMP 37.2; O2SAT 99
== END 2025-03-02 13:05 | disposition home or self-care (01) ==
PROVIDERS: Emergency Provider Emergency Medicine; PCP Family Medicine; Visit Provider Emergency Medicine
DX: R10.9 Unspecified abdominal pain (principal); Z90.710 Acquired absence of both cervix and uterus; R11.0 Nausea; Z98.51 Tubal ligation status; F17.290 Nicotine dependence, other tobacco product, uncomplicated
CPT/HCPCS: 74177; 80053; 81001; 83605; 83690; 85025; 87086; 96360; 99284; Q9967

== ENCOUNTER → 2025-03-04 | Outpatient (CLI) | payer MEDICAID, SELFPAY ==
--- NOTE | 2025-03-04 08:40 | RAD_ITS ---
PROCEDURE: CYSTOGRAPHY MIN 3 VIEWS 03/04/2025 REASON FOR EXAM: CYSTOTOMY TECHNIQUE: Fluoroscopically guided cystoscopy was performed, with instillation through the Kelly catheter present of approximately 400 mL Cystografin. Multiple images were obtained, including bilateral oblique and post drainage imaging. Fluoroscopy time: 13 seconds. Dose: 1.9 mGy. COMPARISON: CT examination of 03/02/2025. RAD/Cystography min 3 Views IMPRESSION: Satisfactory filling of the urinary bladder is seen, without evidence leakage o f contrast outside the bladder lumen. No additional significant findings. No complication was encountered. Reading Location: [place] [id number]
== END | disposition home or self-care (01) ==
LOC: RAD 08:28
PROVIDERS: PCP Family Medicine; Referring Provider Obstetrics & Gynecology; Visit Provider Obstetrics & Gynecology
DX: N99.518 Other cystostomy complication (principal)
CPT/HCPCS: 51600; 74430

== ENCOUNTER → 2025-03-20 | Outpatient (CLI) | payer MEDICAID, SELFPAY ==
[2025-03-20 10:00] LABS: Hematocrit 38.3 % (37-47); Hemoglobin 12.6 g/dL (12.0-15.0); Immature Granulocytes Count 0.010 X10^3/uL (0.0-0.0); Mean Corp Hgb Conc 32.9 g/dL (32-36); Mean Corpuscular Volume 81.5 fL (81-99); Mean Platelet Vol. 10.1 fl (6.2-12.0); NRBC Flagged by Analyzer 0 % (0-5); Platelet Count 404 K/mm3 (150-450); RBC Distribution Width CV 13.6 % (11.6-14.6); RBC Distribution Width SD 40.1 fl (35.1-43.9); Red Blood Count 4.70 M/mm3 (4.2-5.4); White Blood Count 6.4 K/mm3 (4.4-11.0)
== END | disposition home or self-care (01) ==
LOC: LAB 09:15
PROVIDERS: PCP Family Medicine; Referring Provider Obstetrics & Gynecology; Visit Provider Obstetrics & Gynecology
DX: R19.7 Diarrhea, unspecified (principal); K58.9 Irritable bowel syndrome, unspecified
CPT/HCPCS: 36415; 85025; 87493; 87506